=== PATIENT | female | born 1945 | race Asian ===

== ENCOUNTER 2016-06-22 20:37 | Emergency (ER) | payer MEDICARE ==
[~2016-06-22] VITALS: Ht 157.5 cm; Wt 58.0 kg
[~2016-06-22 20:37] MED LIST: AMLO5TAB2 PO; CALC600T25; CANA300T PO; CYCL1TAB29 PO; DRIS50002 PO; HYDR-3133 PO; HYDR10 PO; HYDR12.56 PO; JANU50TA4 PO; L-ME1CAP2 PO; LANTUS2P SQ; LOSA50TA PO; METF500 PO; SYNT112T PO; TRIA.1%T TOP
[2016-06-22 20:45] VITALS: BP 150/81; PULSE 96; RESP 18; TEMP 98.6; O2SAT 97
--- NOTE | 2016-06-22 21:03 | PD ---
HPI Chief Complaint: foot injury Time Seen by Provider: 20:59 Travel History International Travel<30 days: No Contact w/Intl Traveler<30days: No History of Present Illness HPI 70-year-old female presents to the emergency department after she states the table fell on her bilateral feet. She states she is working at the computer when the leg of the table broke and hit her feet. Patient has been ambulatory since. She denies any other injury. She does have a history of diabetes and hypothyroidism. Patient states the right foot is worse than the left foot. No lacerations or abrasions. No other symptoms. PFSH Past Medical History Diabetes: Yes Hypertension: Yes Thyroid Disease: Yes (HYPO) Social History Alcohol Use: No Tobacco Use: No Substance Use: No Allergies-Medications (Allergen,Severity, Reaction): Coded Allergies: Latex (Verified Allergy, Intermediate, RASH, 05/28/16) Reported Meds & Prescriptions Reported Meds & Active Scripts Active Hydroxyzine HCl 25 Mg Tab 25 Mg PO TID Invokana (Canagliflozin) 300 Mg Tab 300 Mg PO DAILY Take before 1st meal of day. Synthroid (Levothyroxine Sodium) 112 Mcg Tab 112 Mcg PO DAILY One tablet daily and 1/2 on Tuesday. Metanx (o-Ybjskudsbwnp-Ttwir) 1 Cap 1 Cap PO DAILY Hydrochlorothiazide 12.5 Mg Tab 12.5 Mg PO THREE DAYS PER WEEK One tablet three days per week. Reported Glucophage (Metformin HCl) 500 Mg Tab 500 Mg PO DAILY With a meal Losartan (Losartan Potassium) 50 Mg Tab 50 Mg PO BID Janumet (Sitagliptin-Metformin) 50-500 Mg Tab 1 Tab PO BID Lantus Inj (Insulin Glargine) 1,000 Unit/10 Ml Vial 12 Units SQ HS Drisdol (Ergocalciferol) 50,000 Unit Cap 50,000 Units PO Q7D Amlodipine (Amlodipine Besylate) 5 Mg Tab 5 Mg PO BID Calcium (Calcium Carbonate) 600 Mg Tab Review of Systems Except as stated in HPI: all other systems reviewed are Neg Physical Exam Narrative GENERAL: Well-nourished, well-developed elderly female patient, ambulatory. Afebrile. SKIN: Focused skin assessment warm/dry. Small Ecchymosis noted over right dorsal foot. HEAD: Normocephalic. Atraumatic. EYES: No scleral icterus. No injection or drainage. NECK: Supple, trachea midline. No JVD or lymphadenopathy. CARDIOVASCULAR: Regular rate and rhythm without murmurs, gallops, or rubs. Bilateral pedal pulses are 2+. RESPIRATORY: Breath sounds equal bilaterally. No accessory muscle use. Lungs sounds are clear to auscultation GASTROINTESTINAL: Abdomen soft, non-tender, nondistended. MUSCULOSKELETAL: No cyanosis, or edema. BACK: Nontender without obvious deformity. No CVA tenderness. Data Data Last Documented VS Vital Signs Date Time Temp Pulse Resp B/P Pulse Ox O2 Delivery O2 Flow Rate FiO2 06/22/16 20:45 98.6 96 18 150/81 97 Orders Foot, Complete (Irp6mdm) (06/22/16 ) Foot, Complete (Tpc1vta) (06/22/16 ) [facility] Medical Decision Making Medical Screen Exam Complete: Yes Emergency Medical Condition: Yes Medical Record Reviewed: Yes Interpretation(s) x-ray right foot CONCLUSION: Normal examination for a patient of this age. x-ray left foot - CONCLUSION: 1. No acute fracture. There is a soft tissue calcification in the left heel measuring about 7 mm in diameter. Bone spur present posterior calcaneus. Differential Diagnosis Contusion versus fracture versus sprain Narrative Course 70-year-old female presents to the emergency department for evaluation of bilateral foot pain after a table fell on her feet. X-ray of the right foot and left foot are ordered and pending. X-ray of the right foot is normal. X-ray of the left foot shows no acute fracture, soft tissue calcifications left heel. This is not where the patient is having any pain. Patient has pain on the dorsal foot. Patient is requesting Dennis bandage. These are applied to the bilateral feet. Patient's discharge ice and take Tylenol brcg-isj-lvbctam as needed for pain. She verbalizes agreement and understanding. The patient was discharged in stable condition with instructions, including return instructions and follow up instructions. Diagnosis Primary Impression: Foot contusion Qualified Code: S90.30XA - Contusion of foot, unspecified laterality, initial encounter Referrals: Primary Care Physician call for appointment Patient Instructions: Contusion in Adults (ED), General Instructions Additional Instructions: Wear Dennis bandages as needed for support. Ice for 20 minutes 4-5 times daily. Zyjr-ths-[id number] Tylenol every 4 hours as needed for pain. Follow-up with your primary care physician. Return to the emergency department for any acute worsening of symptoms. Med/Other Pt SpecificInfo: No Change to Meds Disposition: 01 DISCHARGE HOME Condition: Stable Janet Littlejohn June 22, 2016 21:03
--- NOTE | 2016-06-22 22:07 | RADHPO ---
EXAM DATE/TIME: 06/22/2016 21:02 [facility] COMPARISON: No previous studies available for comparison. INDICATIONS : Left foot pain. Patient states she kicked the leg of a table. MEDICAL HISTORY : None. SURGICAL HISTORY : None. ENCOUNTER: Initial ACUITY: 1 day PAIN SCORE: 9/10 LOCATION: Left foot. FINDINGS: Three view examination of the left foot demonstrates no soft tissue swelling, dislocation, or fractur e. The tarsal bones appear intact. The interphalangeal and metatarsophalangeal joints are intact. The calcaneus is intact. Bony mineralization is normal. CONCLUSION: 1. No acute fracture. There is a soft tissue calcification in the left heel measuring about 7 mm in d iameter. Bone spur present posterior calcaneus. Georges Azar MD on June 22, 2016 at 22:03 Board Certified Radiologist. This report was verified electronically.
--- NOTE | 2016-06-22 22:08 | RADHPO ---
EXAM DATE/TIME: 06/22/2016 21:02 [facility] COMPARISON: No previous studies available for comparison. INDICATIONS : Right foot pain. Patient states she kicked the leg of a table. MEDICAL HISTORY : None. SURGICAL HISTORY : None. ENCOUNTER: Initial ACUITY: 1 day PAIN SCORE: 9/10 LOCATION: Right foot. FINDINGS: Three view examination of the right foot demonstrates no soft tissue swelling, dislocation, or fractu re. The tarsal bones appear intact. The interphalangeal and metatarsophalangeal joints are intact. The calcaneus is intact. Bony mineralization is normal. CONCLUSION: Normal examination for a patient of this age. Georges Azar MD on June 22, 2016 at 22:05 Board Certified Radiologist. This report was verified electronically.
[2016-06-23] MEDS ORDERED: AMLO5TAB2 PO (09:30)
[2016-07-23] MEDS ORDERED: ZANA2CAP PO (16:20)
== END 2016-06-22 22:20 | disposition home or self-care (01) ==
LOC: PHEFT 20:37
DX: S90.31XA Contusion of right foot, initial encounter (principal); M77.32 Calcaneal spur, left foot; E11.9 Type 2 diabetes mellitus without complications; I10 Essential (primary) hypertension; E03.9 Hypothyroidism, unspecified; Z79.899 Other long term (current) drug therapy; W22.03XA Walked into furniture, initial encounter
CPT/HCPCS: 73630; 99283

== ENCOUNTER 2016-12-03 11:04 | Inpatient (IN) | payer MEDICARE ==
[~2016-12-03] VITALS: Ht 157.5 cm; Wt 54.1 kg
[2016-12-03] VITALS (23 sets, daily range): BP systolic 82–182; BP diastolic 50–93; PULSE 74–115; RESP 14–22; TEMP 98.2; O2SAT 90–100
[~2016-12-03 11:04] MED LIST changes: -CANA300T PO; -DRIS50002 PO; +ERGO1CAP30 PO; -HYDR10 PO; -JANU50TA4 PO; +LEVO.1 PO; +SITA1TAB2 PO; -SYNT112T PO; -TRIA.1%T TOP; +ZANA2CAP PO
[2016-12-03] MEDS ORDERED: IODIXANOL 320 MG/ML 10 ML VIAL (for Rad CT) IVCONTRAST ONE (11:05)
[2016-12-03] MEDS ORDERED: SODIUM CHLOR 0.9% 1000 ML INJ 1,000 ML IV ONE ×4 (11:15→14:30)
[2016-12-03] MEDS ORDERED: LOSA50TA PO (11:25)
[2016-12-03] MEDS ORDERED: PROPOFOL 1000 MG/100 ML INJ 100 ML ONE (11:27)
[2016-12-03] MEDS ORDERED: PROPOFOL 1000 MG/100 ML INJ 100 ML IV PRN (11:30)
[2016-12-03 11:39] LABS: AUTOMATED NEUTROPHIL # 11.9 TH/MM3 (1.8-7.7); BASOPHIL # 0.1 TH/MM3 (0-0.2); BASOPHIL % 0.7 % (0.0-2.0); EOSINOPHIL # 0.4 TH/MM3 (0-0.4); EOSINOPHIL % 1.8 % (0.0-4.0); HEMATOCRIT 43.4 % (35.0-46.0); HEMOGLOBIN 12.7 GM/DL (11.6-15.3); LYMPH % 33.6 % (9.0-44.0); LYMPHOCYTE # 6.8 TH/MM3 (1.0-4.8); MEAN CELL VOLUME 81.9 FL (80.0-100.0); MEAN PLATELET VOLUME 8.4 FL (7.0-11.0); MONO % 5.5 % (0.0-8.0); MONOCYTE # 1.1 TH/MM3 (0-0.9); NEUT % 58.4 % (16.0-70.0); PLATELET COUNT 386 TH/MM3 (150-450); RED CELL DISTRIBUTION WIDTH 18.9 % (11.6-17.2); WHITE BLOOD COUNT 20.3 TH/MM3 (4.0-11.0)
--- NOTE | 2016-12-03 11:40 | RADRPT ---
EXAM DATE/TIME: 12/03/2016 11:18 [facility] COMPARISON: No previous studies available for comparison. INDICATIONS : Stroke alert; right side weakness, unresponsive. RADIATION DOSE: 56.35 CTDIvol (mGy) This report was called to ED nurse (attending physician on another call at the time) at 11: 35 am MEDICAL HISTORY : Hypothyroidism. Diabetes mellitus type 2. Hypertension. SURGICAL HISTORY : Tonsillectomy. ENCOUNTER: Initial ACUITY: 1 day PAIN SCALE: Non-responsive LOCATION: cranial TECHNIQUE: Multiple contiguous axial images were obtained of the head. Using automated exposure control and adj ustment of the mA and/or kV according to patient size, radiation dose was kept as low as reasonably a chievable to obtain optimal diagnostic quality images. DICOM format image data is available electro nically for review and comparison. FINDINGS: CEREBRUM: The ventricles are normal for age. No evidence of midline shift, mass lesion, hemorrhage or acute in farction. No extra-axial fluid collections are seen. There is a rounded lacunar infarct in the post erior right lentiform nucleus measuring 9 mm. POSTERIOR FOSSA: The cerebellum and brainstem are intact. The 4th ventricle is midline. The cerebellopontine angle i s unremarkable. EXTRACRANIAL: The visualized portion of the orbits is intact. SKULL: The calvaria is intact. No evidence of skull fracture. CONCLUSION: 1. No acute findings. 2. Old right basal ganglia infarct. Gabriel Umaña MD on December 03, 2016 at 11:33 Board Certified Radiologist. This report was verified electronically.
[2016-12-03 11:41] LABS: MEAN CORPUSCULAR HGB CONC 29.4 % (32.0-36.0)
[2016-12-03] MEDS ORDERED: CEFEPIME INJ 2,000 MG in SODIUM CHLORIDE 0.9% INJ 100 ML IV STA (11:44)
[2016-12-03] MEDS ORDERED: VANCOMYCIN INJ 1,000 MG in SODIUM CHLOR 0.9% 250 ML INJ 250 ML IV STA (11:44)
--- NOTE | 2016-12-03 11:48 | PD ---
HPI Chief Complaint: Stroke Alert Time Seen by Provider: 11:15 Travel History International Travel<30 days: No Contact w/Intl Traveler<30days: No Traveled to known affect area: No History of Present Illness HPI 71 y/o female presents with decreased mentation by ambulance as a possible STEMI alert. They state that she has not moved her right arm any during transport. Report was she was found in her car with her and did not have any known trauma. When they arrived on scene she had a GCS of 8 and low sats in 60's despite [id number]-iihea-ptbe ventilation. Patient is unresponsive and cannot provide me with any history. PFS Past Medical History Medical History: Unable to Obtain Diabetes: Yes Diminished Hearing: No Hypertension: Yes Thyroid Disease: Yes (HYPO) Past Surgical History Surgical History: Unable to Obtain Tonsillectomy: Yes Social History Narrative Social History By records Alcohol Use: No Tobacco Use: No Substance Use: No Allergies-Medications (Allergen,Severity, Reaction): Coded Allergies: latex (Unverified Allergy, Intermediate, RASH, 12/03/16) Reported Meds & Prescriptions Reported Meds & Active Scripts Active Flexeril (Cyclobenzaprine HCl) 10 Mg Tab 10 Mg PO TID Januvia (Sitagliptin Phosphate) 100 Mg Tab 100 Mg PO DAILY Synthroid (Levothyroxine Sodium) 100 Mcg Tab 100 Mcg PO DAILY Zanaflex (Tizanidine HCl) 2 Mg Cap 2 Mg PO TID Metanx (y-Fjaegbsdvtmp-Vaxir) 1 Cap 1 Cap PO DAILY Glucophage (Metformin HCl) 500 Mg Tab 500 Mg PO DAILY With a meal Lantus Inj (Insulin Glargine) 1,000 Unit/10 Ml Vial 9 Units SQ HS 9 units daily or as directed Ergocalciferol 50,000 Unit Cap 50,000 Units PO Q7D Amlodipine (Amlodipine Besylate) 5 Mg Tab 5 Mg PO BID Hydroxyzine HCl 25 Mg Tab 25 Mg PO TID Hydrochlorothiazide 12.5 Mg Tab 12.5 Mg PO THREE DAYS PER WEEK One tablet three days per week. Reported Losartan (Losartan Potassium) 50 Mg Tab 50 Mg PO BID Losartan (Losartan Potassium) 50 Mg Tab 50 Mg PO BID Calcium (Calcium Carbonate) 600 Mg Tab Review of Systems ROS Limitations: Clinical Condition Except as stated in HPI: all other systems reviewed are Neg Physical Exam Exam Limitations: Clinical Condition Narrative General: 71 y/o patient who appears ill Skin: Warm and dry Eyes: Pupils are equal NECK: Trachea midline Cardiovascular: Regular rate and rhythm Respiratory: Decreased respiratory effort noted, coarse bilaterally Abdomen: nondistended Neuro: Patient did not move her right arm or leg, patient had a rightward gaze, patient unresponsive with sternal rub and only moans Data Data Last Documented VS Vital Signs Date Time Temp Pulse Resp B/P (MAP) Pulse Ox O2 Delivery O2 Flow Rate FiO2 12/03/16 12:35 82 14 102/55 (71) 100 Ventilator 14.00 100 12/03/16 11:04 98.2 Orders Orders Diet Npo (12/03/16 Lunch) Activity Bed Rest (12/03/16 ) Electrocardiogram (12/03/16 ) I-Stat Creatinine (12/03/16 11:15) I-Stat Profile (12/03/16 11:15) Prothrombin Time / Inr (Pt) (12/03/16 11:15) Act Partial Throm Time (Ptt) (12/03/16 11:15) Complete Blood Count With Diff (12/03/16 11:15) Fibrinogen (12/03/16 11:15) Creatine Kinase (Cpk) (12/03/16 11:15) Troponin I (12/03/16 11:15) Ua Includes Microscopic (12/03/16 11:15) Drug Screen, Random Urine (12/03/16 11:15) Type And Screen (12/03/16 11:15) Ct Brain W/O Iv Contrast(Rout) (12/03/16 ) Chest, Single Ap (12/03/16 ) Cta Brain W Iv Contrast W 3d (12/03/16 11:15) Cta Neck W Iv Contrast W 3d (12/03/16 11:15) Consult Neurology (12/03/16 ) Blood Glucose (12/03/16 11:15) Ecg Monitoring (12/03/16 11:15) Neuro Checks Q2HX12,Q4H (12/03/16 11:15) Iv Access Insert/Monitor (12/03/16 11:15) NPO (12/03/16 11:15) Oximetry (12/03/16 11:15) Oxygen Administration (12/03/16 11:15) Sodium Chlor 0.9% 1000 Ml Inj (Ns 1000 M (12/03/16 11:15) Cath For Specimen (12/03/16 11:15) Propofol 1000 Mg/100 Ml Inj (Diprivan 10 (12/03/16 11:30) ^ Infusion (12/03/16 11:28) RASS (12/03/16 11:28) Neurological Rass Scale NIMCO.Q2H (12/03/16 11:28) Propofol 1000 Mg/100 Ml Inj (Diprivan 10 (12/03/16 11:27) Consult Cardiology (12/03/16 ) Lactic Acid Sepsis Protocol (12/03/16 11:41) Arterial Blood Gas (Abg) (12/03/16 11:41) Blood Culture (12/03/16 11:41) Sodium Chlor 0.9% 1000 Ml Inj (Ns 1000 M (12/03/16 11:45) Iodixanol 320 Inj (Rad Ct) (Visipaque 32 (12/03/16 11:05) Vancomycin Inj (Vancomycin Inj) (12/03/16 11:44) Cefepime Inj (Maxipime Inj) (12/03/16 11:44) (Hub Use Only)Inp Phy Cons/Ref (12/03/16 ) Ct Abd/Pel W Iv Contrast(Rout) (12/03/16 12:19) Ct Pulmonary Angiogram (12/03/16 12:19) Comprehensive Metabolic Panel (12/03/16 12:26) Beta Hydroxybutyrate (Acetone) (12/03/16 12:26) Sodium Chlor 0.9% 1000 Ml Inj (Ns 1000 M (12/03/16 12:45) Midazolam Inj (Versed Inj) (12/03/16 12:45) B-Type Natriuretic Peptide (12/03/16 12:31) Admit Order (Ed Use Only) (12/03/16 12:36) Midazolam 100 Mg/100 Ml Inj (Versed Inj) (12/03/16 12:45) Neurological Rass Scale Q30MX2,Q2HX4,Q4H (12/03/16 12:36) Labs Laboratory Tests Test 12/03/16 11:15 12/03/16 11:41 12/03/16 12:10 White Blood Count 20.3 TH/MM3 Red Blood Count 5.30 MIL/MM3 Hemoglobin 12.7 GM/DL Bedside Hemoglobin 15.0 G/DL Hematocrit 43.4 % Bedside Hematocrit 44.0 % Mean Corpuscular Volume 81.9 FL Mean Corpuscular Hemoglobin 24.0 PG Mean Corpuscular Hemoglobin Concent 29.4 % Red Cell Distribution Width 18.9 % Platelet Count 386 TH/MM3 Mean Platelet Volume 8.4 FL Neutrophils (%) (Auto) 58.4 % Lymphocytes (%) (Auto) 33.6 % Monocytes (%) (Auto) 5.5 % Eosinophils (%) (Auto) 1.8 % Basophils (%) (Auto) 0.7 % Neutrophils # (Auto) 11.9 TH/MM3 Lymphocytes # (Auto) 6.8 TH/MM3 Monocytes # (Auto) 1.1 TH/MM3 Eosinophils # (Auto) 0.4 TH/MM3 Basophils # (Auto) 0.1 TH/MM3 CBC Comment AUTO DIFF Differential Total Cells Counted 100 Neutrophils % (Manual) 63 % Band Neutrophils % 3 % Lymphocytes % 25 % Monocytes % 5 % Eosinophils % 2 % Basophils % 1 % Neutrophils # (Manual) 13.6 TH/MM3 Metamyelocytes 1 % Differential Comment FINAL DIFF MANUAL Platelet Estimate NORMAL Platelet Morphology Comment NORMAL Ovalocytes 1+ Acanthocytes OCC Prothrombin Time 13.1 SEC Prothromb Time International Ratio 1.2 RATIO Activated Partial Thromboplast Time 39.1 SEC Fibrinogen 392 mg/dL Bedside Sodium 139 MMOL/L Blood Urea Nitrogen 13 MG/DL Creatinine 1.06 MG/DL Random Glucose 453 MG/DL Total Protein 7.9 GM/DL Albumin 3.7 GM/DL Calcium Level 9.0 MG/DL Alkaline Phosphatase 42 U/L Aspartate Amino Transf (AST/SGOT) 25 U/L Alanine Aminotransferase (ALT/SGPT) 23 U/L Total Bilirubin 0.8 MG/DL Sodium Level 136 MEQ/L Potassium Level 4.2 MEQ/L Chloride Level 104 MEQ/L Carbon Dioxide Level 15.2 MEQ/L Bedside Potassium 4.1 MMOL/L Bedside Chloride 106 MMOL/L Anion Gap 17 MEQ/L Bedside Blood Urea Nitrogen 15 MG/DL Bedside Creatinine 0.7 MG/DL Estimat Glomerular Filtration Rate 51 ML/MIN Bedside Glucose 455 MG/DL Total Creatine Kinase 67 U/L Troponin I 0.02 NG/ML B-Type Natriuretic Peptide 547 PG/ML Thyroid Stimulating Hormone 3rd Gen 1.620 uIU/ML B-Hydroxybutyrate 0.16 MMOL/L Blood Gas Puncture Site LT RADIAL Blood Gas Patient Temperature 98.6 Blood Gas HCO3 17 mmol/L Blood Gas Base Excess -8.7 mmol/L Blood Gas Oxygen Saturation 90 % Arterial Blood pH 7.27 Arterial Blood Partial Pressure CO2 38 mmHg Arterial Blood Partial Pressure O2 70 mmHG Arterial Blood Oxygen Content 14.7 Vol % Arterial Blood Carboxyhemoglobin 0.9 % Arterial Blood Methemoglobin 0.8 % Blood Gas Hemoglobin 11.7 G/DL Oxygen Delivery Device VENTILATOR Blood Gas Ventilator Setting PRVC/AC Blood Gas Inspired Oxygen 100 % Urine Color YELLOW Urine Turbidity HAZY Urine pH 6.[address] 1.036 Urine Protein 300 mg/dL Urine Glucose (UA) 1000 mg/dL Urine Ketones NEG mg/dL Urine Occult Blood SMALL Urine Nitrite NEG Urine Bilirubin NEG Urine Urobilinogen LESS THAN 2.0 MG/DL Urine Leukocyte Esterase NEG Urine RBC 6 /hpf Urine WBC 6 /hpf Urine Squamous Epithelial Cells 2 /hpf Urine Amorphous Sediment FEW Urine Bacteria FEW /hpf Urine Hyaline Casts 4 /lpf Urine Granular Casts 1 /lpf Urine Mucus FEW /lpf Urine Opiates Screen NEG Urine Barbiturates Screen NEG Urine Amphetamines Screen NEG Urine Benzodiazepines Screen NEG Urine Cocaine Screen NEG Urine Cannabinoids Screen NEG MDM Medical Decision Making Medical Screen Exam Complete: Yes Emergency Medical Condition: Yes Medical Record Reviewed: Yes (past history confirmed) Interpretation(s) EKG shows ST segment depression inferiorly and elevation anteriorly, ST depression V5 V6 as well the patient has underlying left bundle which was on prior which limits interpretation-personally sent to lumber chain offbearer who states not STEMI alert CBC & BMP Diagram 12/03/16 11:15 Total Protein 7.9, Albumin 3.7, Calcium Level 9.0, Alkaline Phosphatase 42 L, Aspartate Amino Transf (AST/SGOT) 25, Alanine Aminotransferase (ALT/SGPT) 23, Total Bilirubin 0.8 Last [address] Angiography 12/03/161218 Signed Impressions: Service Date/Time: Saturday, December 03, 2016 14:45 - CONCLUSION: 1. The study is negative for pulmonary embolism. 2. Right lower lobe are consolidation, patchy areas of consolidation left lower lung, diffuse increased ground substance in the mid and upper lungs and bilateral pleural effusions. Gabriel Umaña MD Abdomen/Pelvis CT 12/03/169 Signed Impressions: Service Date/Time: Saturday, December 03, 2016 14:45 - CONCLUSION: 1. Bilateral pleural effusions and lower lung consolidation, right worse than left. 2. 12 mm cortical target lesion in the midpole cortex of the right kidney with adjacent sub-capsular fluid it is of uncertain significance. Recommend correlation with clinical history for possible recent biopsy. A renal mass cannot be excluded. Gabriel Umaña MD Neck CTA 12/03/16 1115 Signed Impressions: Service Date/Time: Saturday, December 03, 2016 11:20 - CONCLUSION: 1. 60%% narrowing due to an eccentric calcification in the left carotid bulb. 2. Left dominant vertebral system. Gabriel Umaña MD Head CTA 12/03/16 1115 Signed Impressions: Service Date/Time: Saturday, December 03, 2016 11:20 - CONCLUSION: Absent flow in right A1 segment with patent anterior communicating artery providing flow to the A2 segment. No aneurysms seen. Gabriel Umaña MD ADDENDUM: Questionable 2-3 mm aneurysm in the right middle cranial fossa off a branch vessel of the right MCA territory. Anatomic detail is limited due to the proximity of the adjacent skull base. When patient is stable, MRA could be considered although, the peripheral location of the potential lesion may make it difficult to visualize on that technique as well. Pj Todd MD Head CT 12/03/16 0000 Signed Impressions: Service Date/Time: Saturday, December 03, 2016 11:18 - CONCLUSION: 1. No acute findings. 2. Old right basal ganglia infarct. Gabriel Umaña MD Chest X-Ray 12/03/16 0000 Signed Impressions: Service Date/Time: Saturday, December 03, 2016 12:34 - CONCLUSION: Diffuse pulmonary consolidations with tiny right effusion. Gabriel Henao Jr., MD Patient has metabolic acidosis with pH is 7.27 and bicarbonate is 17, PO2 is 70 despite FiO2 of 100% so increased PEEP and will need to be closely monitor Insulin drip was initiated after review of glucose and bicarbonate Differential Diagnosis Stroke, bleed, seizure, postictal, syncope, PE, flash pulmonary edema, sepsis, HI...... Narrative Course Patient was emergently intubated and stroke alert was initiated given initial examination. Process Area Supervisor sent EKG and states no STEMI alert. I went with patient to CT and no bleed or large lesion noted and discussed with radiologist. Went Back with patient and discussed with both cardiology and neurology and updated both son who is a physician in [place] over the phone and 2 separate occasions about complex case. Sedation was adjusted multiple times given intermittent hypotension. After review of chest x-ray stat echocardiogram was ordered after discussion with cardiology. Cultures and lactic acid and broad-spectrum antibiotics were also added. Multiple updates to both physicians and family in regards to complex case, she'll be monitored closely in the ICU area. Critical Care Narrative Aggregate critical care time was 125 minutes. Time to perform other separately billable procedures was not included in the critical care time. My time did not include minutes spent treating any other patients simultaneously or on activities that did not directly contribute to the patient's treatment. The services I provided to this patient were to treat and/or prevent clinically significant deterioration that could result in: Septic shock, cardiogenic shock, stroke, bleed, I provided critical care services requiring my management, as noted below: Chart data review, documentation time, medication orders and management, vital sign assessments/reviewing monitor data, ordering and reviewing lab tests, ordering and interpreting/reviewing x-rays and diagnostic studies, care of the patient and discussion of the patient with the admitting physicians. Procedures Procedure Narrative After the risks and benefits were discussed the following procedure was performed: INTUBATION: The patient was put in optimal position for the procedure. Rapid sequence intubation was initiated by me using 20 milligrams of etomidate IV and 100 milligrams of succinylcholine IV. The patient was intubated with a 7.5 cuffed endotracheal tube. Tube placement was confirmed by visualization of the tube and balloon passing through the cords, capnometry and subsequent chest x- ray. Breath sounds were equal and well aerated bilaterally postintubation. No breath sounds over stomach. Patient tolerated procedure well. Sepsis Criteria SIRS Criteria (2 or more): Heart rate over 90, WBC > 10193, < 4000 or > 10% bands Sepsis Criteria (SIRS+source): Infect source susp/known Severe Sepsis (+one): Lactate >2 Septic Shock Criteria: Lactic acid >=4 Criteria Outcome: Meets septic shock criteria Physician Communication Physician Communication dr davenport states given she started to move in CT when sedation was held no indication at this time for TPA given also CTA shows no indicative lesion she could have other reason for syncope and decreased mentation and was updated multiple times dr delaney states not STEMI alert was updated multiple times, agrees to stat echo Interventional professor of radiology states no stent-able lesion dr gooden agrees to admission and was updated multiple times Diagnosis Primary Impression: Respiratory failure Qualified Codes: J96.00 - Acute respiratory failure, unspecified whether with hypoxia or hypercapnia Additional Impressions: Syncope Qualified Codes: R55 - Syncope and collapse Unresponsive Right arm weakness Pulmonary edema Qualified Codes: J81.0 - Acute pulmonary edema Sepsis Qualified Codes: A41.9 - Sepsis, unspecified organism Metabolic acidemia DKA (diabetic ketoacidoses) Admitting Information Admitting Physician Requests: Admit Melisa Bergman MD Dec 03, 2016 11:47
[2016-12-03 11:52] LABS: INTERNATIONAL NORMALIZED RATIO 1.2 RATIO; PROTHROMBIN TIME - PATIENT 13.1 SEC (9.8-11.6)
[2016-12-03 12:05] LABS: TROPONIN I 0.02 NG/ML (0.02-0.05)
--- NOTE | 2016-12-03 12:13 | RADRPT ---
EXAM DATE/TIME: 12/03/2016 11:20 This report includes an Addendum and supersedes previous reports for this exam. [facility] COMPARISON: No previous studies available for comparison. INDICATIONS : Stroke alert; right side weakness, unresponsive. IV CONTRAST: 47 cc Visipaque (iodixanol) IV ; Cumulative dose for multiple exams. RADIATION DOSE: 17.22 CTDIvol (mGy) ; Combined studies MEDICAL HISTORY : Hypothyroidism. Hypertension. Diabetes mellitus type 2. SURGICAL HISTORY : Tonsillectomy. ENCOUNTER: Initial ACUITY: 1 day PAIN SCALE: Non-responsive LOCATION: cranial TECHNIQUE: Volumetric scanning was performed using a multi-row detector CT scanner. The data was post processed with a variety of visualization algorithms including full volume maximum intensity projection, multi -planar sliding thin slab reformation, curved planar reformation, and surface rendering techniques. Using automated exposure control and adjustment of the mA and/or kV according to patient size, radiat ion dose was kept as low as reasonably achievable to obtain optimal diagnostic quality images. DICO M format image data is available electronically for review and comparison. FINDINGS: There is absent flow in the right A1 segment. There is reconstitution of flow in the A2 segment via anterior communicating artery. Flow is seen in both PCOM. The basilar artery is normal in dimension . No evidence of aneurysm. CONCLUSION: Absent flow in right A1 segment with patent anterior communicating artery providing flow to the A2 se gment. No aneurysms seen. Gabriel Umaña MD on December 03, 2016 at 12:09 Board Certified Radiologist. This report was verified electronically. ADDENDUM: Questionable 2-3 mm aneurysm in the right middle cranial fossa off a branch vessel of the right MCA t erritory. Anatomic detail is limited due to the proximity of the adjacent skull base. When patient is stable, MRA could be considered although, the peripheral location of the potential lesion may make i t difficult to visualize on that technique as well. Pj Todd MD on December 03, 2016 at 12:37 Board Certified Radiologist. This report was verified electronically.
[2016-12-03 12:18] LABS: BANDS 3 % (0-6); BASOPHILS 1 % (0-2); LYMPHOCYTES 25 % (9-44); METAMYELOCYTES 1 % (0-1); MONOCYTES 5 % (0-8); NEUTROPHIL # MANUAL DIFF 13.6 TH/MM3 (1.8-7.7); POLYS (SEG NEUTROPHILS) 63 % (16-70)
[2016-12-03 12:19] LABS: OVALOCYTES 1+ (NORMAL)
[2016-12-03 12:20] LABS: ACANTHOCYTES OCC (NORMAL)
--- NOTE | 2016-12-03 12:20 | RADRPT ---
EXAM DATE/TIME: 12/03/2016 11:20 [facility] COMPARISON: No previous studies available for comparison. INDICATIONS : Stroke alert; right side weakness, unresponsive. IV CONTRAST: 47 cc Visipaque (iodixanol) IV ; Cumulative dose for multiple exams. RADIATION DOSE: 17.22 CTDIvol (mGy) ; Combined studies MEDICAL HISTORY : Hypothyroidism. Hypertension. Diabetes mellitus type 2. SURGICAL HISTORY : Tonsillectomy. ENCOUNTER: Initial ACUITY: 1 day PAIN SCALE: Non-responsive LOCATION: neck Elevated flow velocities and ICA/CCA ratios have been found to correlate with increased degrees of vessel stenosis, calculated as percentage of diameter relative to a normal segment of distal ICA/CCA. TECHNIQUE: Volumetric scanning was performed using a multirow detector CT scanner. The data was post processed with a variety of visualization algorithms including full-volume maximum intensity projection, multip lanar sliding thin-slab reformation, curved-planar reformation, and surface-rendering techniques. Us ing automated exposure control and adjustment of the mA and/or kV according to patient size, radiatio n dose was kept as low as reasonably achievable to obtain optimal diagnostic quality images. DICOM f ormat image data is available electronically for review and comparison. FINDINGS: AORTIC ARCH: There is a three-vessel origin of the great vessels from the aorta. The ostia of the great vessels a re not included in the [id number] and scan. RIGHT CAROTID: The common carotid artery is intact. The carotid bulb has a normal configuration without ulceration o r narrowing. The internal carotid artery lumen is smooth without stenosis. The external carotid chandler ry is intact. LEFT CAROTID: The common carotid artery is intact. There is a prominent eccentric calcification posterior wall of the carotid bulb which causes a 60% narrowing of the lumen. There is no poststenotic dilatation. Th e internal carotid artery lumen is smooth without stenosis. The external carotid artery is intact. VERTEBRALS: Left dominant vertebral system. CONCLUSION: 1. 60% narrowing due to an eccentric calcification in the left carotid bulb. 2. Left dominant vertebral system. Gabriel Umaña MD on December 03, 2016 at 12:11 Board Certified Radiologist. This report was verified electronically.
[2016-12-03 12:38] LABS: AMORPHOUS SEDIMENT, URINE FEW; BACTERIA, URINE FEW /hpf; BILIRUBIN, URINE NEG (NEG); BLOOD, URINE SMALL (NEG); GLUCOSE,URINE 1000 mg/dL (NEG); HYALINE CAST, URINE 4 /lpf (RARE); KETONE, URINE NEG (NEG); MUCUS URINE FEW /lpf (OCC); NITRITE,URINE NEG (NEG); SQUAMOUS EPITHELIAL CELL URINE 2 /hpf (0-5); URINE COLOR YELLOW (YELLW/STRAW); URINE LEUKOCYTE ESTERASE NEG (NEG)
[2016-12-03] MEDS ORDERED: MIDAZOLAM HCL 2 MG/2 ML VIAL IV PUSH ONE (12:45)
[2016-12-03] MEDS ORDERED: MIDAZOLAM 100 MG/100 ML INJ 100 ML ONE (12:51)
[2016-12-03] MEDS ORDERED: AZITHROMYCIN INJ 500 MG in SODIUM CHLOR 0.9% 250 ML INJ 250 ML IV STA (12:52)
[2016-12-03] MEDS ORDERED: DEXT 5%-NACL 0.9% 1000 ML INJ 1,000 ML IV SCH (12:54)
[2016-12-03] MEDS ORDERED: SODIUM CHLOR 0.9% 1000 ML INJ 1,000 ML IV SCH (12:54)
[2016-12-03] MEDS ORDERED: INSULIN REGULAR (IV INFUSION) 100 UNITS in SODIUM CHLORIDE 0.9% INJ 99 ML IV PRN (13:00)
[2016-12-03] MEDS ORDERED: SODIUM PHOSPHATE INJ 15 MMOL in SODIUM CHLORIDE 0.9% INJ 100 ML IV PRN (13:00)
[2016-12-03] MEDS ORDERED: MISCELLANEOUS NURSING INFORMATION XX SCH (13:00)
[2016-12-03] MEDS ORDERED: MAGNESIUM HYDROXIDE SUSP 30 ML CUP PO PRN (13:00)
[2016-12-03] MEDS ORDERED: POTASSIUM CHLOR 40 MEQ PREMIX 100 ML IV PRN ×2 (13:00)
[2016-12-03] MEDS ORDERED: PROPOFOL 500 MG/50 ML BTL IV ONE (13:00)
[2016-12-03] MEDS ORDERED: POTASSIUM CHLOR 20 MEQ PREMIX 100 ML IV PRN ×6 (13:00)
[2016-12-03] MEDS ORDERED: LACTULOSE SYRUP 20 GM/30 ML CUP PO PRN (13:00)
[2016-12-03] MEDS ORDERED: SODIUM BICARBONATE 8.4% SOLN 50 MEQ/50 ML VIAL IV PUSH PRN ×2 (13:00)
[2016-12-03] MEDS ORDERED: BISACODYL 10 MG SUPP RECTAL PRN (13:00)
[2016-12-03] MEDS ORDERED: CHLORHEXIDINE GLUCONATE 2 % 1 PACK (2 CLOTHS) TOP PRN (13:00)
[2016-12-03] MEDS: PANTOPRAZOLE SODIUM 40 MG VIAL IV PUSH SCH (13:00)
[2016-12-03] MEDS ORDERED: SENNOSIDES 8.6 MG TAB PO PRN (13:00)
[2016-12-03] MEDS ORDERED: INSULIN HUMAN REGULAR 1,000 UNITS/10 ML VIAL IV PUSH ONE (13:00)
[2016-12-03] MEDS: MIDAZOLAM 100 MG/100 ML INJ 100 ML IV PRN (13:06)
--- NOTE | 2016-12-03 13:07 | RADRPT ---
EXAM DATE/TIME: 12/03/2016 12:34 [facility] COMPARISON: No previous studies available for comparison. INDICATIONS : Stroke alert. MEDICAL HISTORY : Hypothyroidism. Hypertension. Diabetes mellitus type 2. SURGICAL HISTORY : Tonsillectomy. ENCOUNTER: Initial ACUITY: 1 day PAIN SCORE: Non-responsive. LOCATION: Bilateral chest FINDINGS: A single portable frontal view of the chest shows diffuse dense pulmonary consolidations. This is mor e dense on the right side. A tiny right effusion. Mild cardiomegaly. Tip of the endotracheal tube 3 c m cephalad to the elmer. Nasogastric tube courses off the anterior margin of the film. CONCLUSION: Diffuse pulmonary consolidations with tiny right effusion. Gabriel Henao Jr., MD on December 03, 2016 at 13:04 Board Certified Radiologist. This report was verified electronically.
[2016-12-03] MEDS ORDERED: fentaNYL DRIP 250 ML ONE (13:22)
--- NOTE | 2016-12-03 13:27 | MB ---
cc: LING KNIGHT M.D. DATE OF CONSULTATION: 12/03/2016 DATE OF : 1945 AGE: 71 REASON FOR CONSULTATION Initially a Stroke Alert, but most likely syncope, some shortness of breath. HISTORY OF PRESENT ILLNESS This is a 71-year-old woman who is a patient of Dr. Santoyo who was sent to neurology, Dr. Fernandez's office for diabetic neuropathy, had what I am told a syncopal spell there and was brought via ambulance to [place] with some report of right-sided weakness. The patient, however, was unable to speak with the ED physician. Her GCS declined rapidly to a 3 and she was intubated emergently for airway protection. She was noted to have movement on the right side, but initially she had a right gaze deviation prior to intubation. PAST MEDICAL HISTORY 1. Diabetes. 2. Hypertension. 3. Hypothyroidism. SOCIAL HISTORY . Does not smoke, drink or use drug. ALLERGIES LATEX. MEDICATIONS Home medicines are: 1. Flexeril. 2. Januvia. 3. Synthroid. 4. Zanaflex. 5. Metanx. 6. Glucophage. 7. Lantus. 8. Vitamin-D. 9. Amlodpine. 11.Hydrochlorothiazide. PHYSICAL EXAMINATION VITAL SIGNS: Temperature 98.2, pulse 91, respiratory rate 16, blood pressure 137/63, satting now at 99% on the ventilator. NEUROLOGIC: She is intubated and sedated with propofol. Her pupils are pinpoint. She does not have a gaze deviation. She has some spontaneous movement of her extremities and her head, withdraws to painful stimuli. Toes are silent. Reflexes are blunted. Cerebellar cannot be assessed. LABORATORY White count 20.3, platelets 386,000, hemoglobin 12.7. I-STAT glucose 455. PTT 39.1. Fibrinogen 392. PT 13.1, INR 1.2. Toxicology is pending. Urine 300 protein, 1000 glucose, 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 There is some absence of flow of the right A1 with patent anterior communicating artery providing flow to the A2. Neck CTA shows a 60% narrowing due to calcification of the carotid bulb. Left vertebral system dominant. Chest x-ray was just taken. I do not have that report. IMPRESSION A 71-year-old woman with syncope, etiology at this point unknown, less likely a stroke, possible seizure. PLAN/RECOMMENDATIONS From my perspective I will go ahead and get an EEG. She did not meet criteria for TPA. Recommendations are to continue current care and work-up per the senior private client advisor. I would if not on, and no contraindications, start her at least on a rectal aspirin 300 mg. Obtain chest x-ray results. Follow her white count. She has an elevation for unknown etiology at this point. I would do some blood cultures as well. Will monitor her neuro status and make further recommendations accordingly. Ling Knight MD DF/LAMBERT /12:43 PM /1:00 PM
[2016-12-03 13:36] LABS: ALBUMIN 3.7 GM/DL (3.4-5.0); ALKALINE PHOSPHATASE 42 U/L (45-117); ALT (GPT) 23 U/L (10-53); AST (GOT) 25 U/L (15-37); BICARBONATE 15.2 MEQ/L (21.0-32.0); BLOOD UREA NITROGEN 13 MG/DL (7-18); CHLORIDE 104 MEQ/L (98-107); CREATININE 1.06 MG/DL (0.50-1.00); GLOMERULAR FILTRATION RATE 51 ML/MIN (>89); SODIUM (NA) 136 MEQ/L (136-145); TOTAL BILIRUBIN ADULT 0.8 MG/DL (0.2-1.0); TOTAL PROTEIN 7.9 GM/DL (6.4-8.2)
[2016-12-03 13:40] LABS: GLUCOSE,RANDOM 453 MG/DL (74-106)
[2016-12-03] MEDS: RESP: ALBUTEROL 2.5 MG/IPRATROPIUM 0.5 MG NEB (SCH) INH ×2 (13:40→19:50)
[2016-12-03] MEDS ORDERED: Vancomycin Consult Pharmacy 1 EA OTHER SCH (13:45)
[2016-12-03 13:57] LABS: LACTIC ACID SEPSIS PROTOCOL 5.4 mmol/L (0.4-2.0)
--- NOTE | 2016-12-03 14:21 | ECHRPT ---
Indication: heart failure CONCLUSIONS There is global left ventricular dysfunction. The left ventricular systolic function is severely reduced with an estimated ejection fraction in th e range of 20-25%. Normal left ventricular size. Mild mitral valve regurgitation. There is mild tricuspid valve regurgitation. The inferior vena cava is mildly dilated. There is a very small pericardial effusion present. There is a left pleural effusion. BP: / HR: Rhythm: MEASUREMENTS (Male / Female) Normal Values Technical Quality:Good 2D ECHO LV Diastolic Diameter PLAX 4.3 cm 4.2 - 5.9 / 3.9 - 5.3 cm LV Systolic Diameter PLAX 3.9 cm IVS Diastolic Thickness 0.8 cm 0.6 - 1.0 / 0.6 - 0.9 cm LVPW Diastolic Thickness 1.2 cm 0.6 - 1.0 / 0.6 - 0.9 cm LV Relative Wall Thickness 0.5 RV Internal Dim ED PLAX 2.4 cm M-MODE Aortic Root Diameter MM 2.9 cm LA Systolic Diameter MM 3.5 cm LA Ao Ratio MM 1.2 AV Cusp Separation MM 1.9 cm DOPPLER Mitral E Point Velocity 74.5 cm/s Mitral A Point Velocity 95.8 cm/s Mitral E to A Ratio 0.8 LV E' Lateral Velocity 4.2 cm/s Mitral E to LV E' Lateral Ratio 17.8 LV E' Septal Velocity 4.7 cm/s Mitral E to LV E' Septal Ratio 15.9 TR Peak Velocity 255.0 cm/s TR Peak Gradient 26.0 mmHg Right Atrial Pressure 10.0 mmHg Pulmonary Artery Systolic Pressu 36.0 mmHg Right Ventricular Systolic Press 36.0 mmHg FINDINGS LEFT VENTRICLE There is global left ventricular dysfunction. The left ventricular systolic function is severely reduced with an estimated ejection fraction in th e range of 20-25%. Normal left ventricular size. RIGHT VENTRICLE Normal right ventricular size and systolic function. LEFT ATRIUM The left atrial size is normal. RIGHT ATRIUM The right atrial size is normal. ATRIAL SEPTUM Normal atrial septal thickness without atrial level shunting by limited color doppler interrogation. AORTA The aortic root and proximal ascending aorta are normal in size on limited imaging. MITRAL VALVE Structurally normal mitral valve. Mild mitral valve regurgitation. AORTIC VALVE Trileaflet aortic valve. TRICUSPID VALVE Structurally normal tricuspid valve. There is mild tricuspid valve regurgitation. PULMONARY VALVE No pulmonary valve regurgitation or stenosis. VESSELS The inferior vena cava is mildly dilated. PERICARDIUM There is a very small pericardial effusion present. There is a left pleural effusion. David Rand MD (Electronically Signed) Final Date:03 December 2016 14:20
[2016-12-03] MEDS: fentaNYL DRIP 250 ML IV PRN (14:30)
--- NOTE | 2016-12-03 14:57 | MH ---
cc: CAROLINA DOBBS M.D. DATE OF ADMISSION 12/03/2016 DATE OF 1945 HISTORY OF PRESENT ILLNESS The patient is a 71-year-old female with a past medical history of hypertension, diabetes mellitus, hypothyroidism. She went to see Dr. Fernandez for evaluation of diabetic neuropathy and the patient had a syncopal episode. There is no history of any witnessed seizures. When she was brought in to [place] via ambulance she had some right sided weakness with rightward gaze. Her GCS declined to 3, where she was intubated emergently for airway protection. Post intubation the patient was noted to move all extremities. In addition, prior to arrival she was hypoxic with O2 saturation in the 80s, NSTEMI alert was called, however, the patient was found to have an old left bundle branch block. NSTEMI was cancelled after ED's discussion with Dr. Rand. Also, they called a stroke alert; however, after discussion with Dr. Knight the patient was not a candidate for TPA as she was moving all extremities post intubation. Her ABG post intubation showed ph of 7.27, CO2 38, PA02 70, bicarb 17, saturation 90% on PRVC mode with rate 14, tidal volume 500, ITIME 1.0, PEEP 5, 100% FIO2. Chest x-ray post intubation showed diffuse pulmonary consolidation. Due to her syncopal episode she had a CT scan of the brain which showed no acute findings. 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 CTA of the neck showed 60% narrowing due to an eccentric calcification in the left carotid bulb. CTA of the brain showed absent flow in the right A1 segment with patent anterior communicating artery providing flow to the A2 segment and questionable 2 to 3 mm aneurysm in the right middle cranial fossa off a branch vessel of the right MCA territory. Her laboratory data is significant for hyperglycemia, her blood sugar was 455 on point of care and 453 on the CMP. The patient was given regular insulin 7 units and will be on insulin drip per DKA protocol. Her urine drug screen is negative for amphetamines, barbiturates, benzodiazepines. Other significant labs showed leukocytosis with WBC 20.3 and elevated BNP of 547. The patient was seen by Dr. Rand in the ED and echocardiogram was ordered. She was given Vancomycin, cefepime and azithromycin in the ED. The patient is scheduled to undergo CT pulmonary angiogram and CT abdomen and pelvis were ordered by ED. When seen the patient is sedated with versed and on full mechanical ventilation. Her current blood pressure is 117/69 with a pulse of 77, saturation 96-97%. 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 No history of any cough or constitutional symptoms. PAST MEDICAL HISTORY Significant for hypertension, diabetes, hypothyroidism. PAST SURGICAL HISTORY Previous surgery on the left upper extremity. SOCIAL HISTORY Nonsmoker, nondrinker. ALLERGIES LATEX. MEDICATION Reported medications: 1. Synthroid. 2. Glucophage. 3. Vitamin D. 4. Amlodipine. 5. Flexeril. 6. Januvia. 7. Hydrochlorothiazide. REVIEW OF SYSTEMS As per HPI. The review of systems is unobtainable. PHYSICAL EXAMINATION GENERAL: A 71-year-old female intubated for respiratory failure, critically ill. VITAL SIGNS: Temperature 98.2, blood pressure currently 117/69 with a pulse of 77, saturations 97%. Vent setting PRVC mode, rate of 14, tidal volume 500, ITIME 1, PEEP increased to 10 and FIO2 down to 80%. HEENT: Atraumatic, normocephalic. Pupils equal, round and reactive to light and accommodation. Extraocular muscles intact. Conjunctivae pink. Nonicteric sclerae. Oral mucosa within normal. NECK: Supple. No JVD, adenopathy or thyromegaly. Trachea midline. Orally intubated. CARDIOVASCULAR: Regular rate and rhythm. Normal S1-S2. No murmurs, rubs or gallops noted. PULMONARY: Bilateral equal air entry with few coarse breath sounds. ABDOMEN: Soft, nontender, no distension. Positive bowel sounds. EXTREMITIES: No cyanosis, clubbing or edema. NEURO: Intubated and on versed drip for sedation. LABORATORY DATA Sodium 136, potassium 4.2, chloride 104, CO2 15, BUN 13, creatinine 1, glucose of 453, BNP 547, total bilirubin 0.8, AST 25, ALT 23, alk phos 42, WBC 20.3, hemoglobin 12.7, hematocrit 43, platelet count 386. INR 1.2, PT 13.1, PTT 39, fibrinogen 39.2. Urine drug screen negative. RADIOGRAPHIC STUDIES Chest x-ray post intubation showed diffuse bilateral airspace disease. CT brain no acute findings. Old right basalar ganglia infarct noted. CTA of the neck showed 60% narrowing due to an eccentric calcification left carotid bulb. CARDIOLOGY STUDIES EKG showed sinus tachycardia with PVCs, rate 101 beats per minute. Intraventricular conduction delay. IMPRESSION 1. Acute hypoxemic respiratory failure. 2. Status post syncopal episode. 3. ARDS and possible aspiration. 4. Diabetic ketoacidosis. 5. Hypothyroidism. 6. Hypertension. 7. History of diabetes mellitus. 8. Diabetic neuropathy. 9. Leukocytosis. RECOMMENDATIONS 1. Monitor neuro status closely. The patient is on versed drip for sedation. Daily sedation vacation when appropriate. She was seen by Dr. Knight from neurology and EEG was ordered. CT head showed no acute findings. CTA of the head showed absent flow in the right A1 segment with patent anterior communicating artery providing flow to the A2 segment. Questionable 2-3 mm aneurysm in the right middle cranial fossa off a branch vessel of the right MCA territory noted. 2. Continue with vent support and maintain sats above 92%. 3. Bronchodilators in the form of DuoNeb q. 6 and will initiate ICU vent bundle. The patient is scheduled for CT pulmonary angiogram ordered by ED. Will follow up. 4. Monitor heart rate and blood pressure closely and maintain MAP greater than 65 mmHg. Follow up on lactic acid. Monitor cardiac enzymes with troponins and 2D echo was ordered. The patient was seen by Dr. Rand from cardiology service. Monitor renal function, I&O's and electrolyte replacement per protocol. Keep NPO for now and place on Protonix 40 milligrams IV daily for GI prophylaxis. 5. Start nutrition support via tube feeds within the next 24 hours if remains intubated. 6. Continue with broad spectrum antibiotics. Will continue with Vancomycin and Zosyn. Monitor for signs of infection which include fever and WBC. Follow up on blood cultures which was done in the ER. Will check a sputum culture with gram stain, strep pneumoniae, legionella urinary antigen. In addition, will send nasal washing to rule out influenza. 7. The patient is scheduled to undergo CT abdomen and pelvis. 8. Continue with insulin per DKA protocol. Monitor BMP and lytes q. 6. In addition, will check a baseline TSH level given the history of underlying hypothyroidism. 9. Monitor CBC. 10. GI prophylaxis with Protonix 40 milligrams daily and DVT prophylaxis with SCDs. 11. Further recommendations will be based on hospital course. The case discussed with ED physician and nursing staff. MD FANTA Paredes/LEELA /1:48 PM /2:06 PM
[2016-12-03] MEDS ORDERED: IOHEXOL 350 MG/ML 10 ML VIAL (for RAD DIAG) IVCONTRAST ONE (15:01)
--- NOTE | 2016-12-03 15:28 | RADRPT ---
EXAM DATE/TIME: 12/03/2016 14:45 [facility] COMPARISON: No previous studies available for comparison. INDICATIONS : Found unconscious; evaluate for embolism. IV CONTRAST: 69 cc Omnipaque 350 (iohexol) IV ; Cumulative dose for multiple exams. RADIATION DOSE: 30.51 CTDIvol (mGy) MEDICAL HISTORY : Hypertension. Diabetes mellitus type 2. SURGICAL HISTORY : None. ENCOUNTER: Initial ACUITY: 1 day PAIN SCALE: Non-responsive LOCATION: chest TECHNIQUE: Volumetric scanning of the chest was performed using a pulmonary embolism protocol MIP images were re constructed. Using automated exposure control and adjustment of the mA and/or kV according to patien t size, radiation dose was kept as low as reasonably achievable to obtain optimal diagnostic quality images. DICOM format image data is available electronically for review and comparison. Follow-up recommendations for detected pulmonary nodules are based at a minimum on nodule size and pa tient risk factors according to Fleischner Society Guidelines. FINDINGS: PULMONARY ARTERIES: No filling defects are seen in the pulmonary arteries through the segmental level. LUNGS: There is mosaic increased ground substance in the upper lobes bilaterally. There is also consolidati on in most of the right lower lobe without air bronchograms. Subsegmental consolidation in the left lower lobe. PLEURAE: Large right pleural effusion measuring 4 cm and is sized left pleural effusion measuring 2 cm. MEDIASTINUM: There is good visualization of the great vessels of the middle mediastinum. No evidence of mediastin al or hilar adenopathy/mass. MISCELLANEOUS: Gastric tube traverses the [id number]. CONCLUSION: 1. The study is negative for pulmonary embolism. 2. Right lower lobe are consolidation, patchy areas of consolidation left lower lung, diffuse increas ed ground substance in the mid and upper lungs and bilateral pleural effusions. Gabriel Umaña MD on December 03, 2016 at 15:24 Board Certified Radiologist. This report was verified electronically.
--- NOTE | 2016-12-03 15:55 | RADRPT ---
EXAM DATE/TIME: 12/03/2016 14:45 [facility] COMPARISON: No previous studies available for comparison. INDICATIONS : Found unresponsive. IV CONTRAST: 69 cc Omnipaque 350 (iohexol) IV ; Cumulative dose for multiple exams. ORAL CONTRAST: No oral contrast ingested. RADIATION DOSE: 12.53 CTDIvol (mGy) MEDICAL HISTORY : Diabetes mellitus type 2. Hypertension. SURGICAL HISTORY : None. ENCOUNTER: Initial ACUITY: 1 day PAIN SCALE: Non-responsive LOCATION: upper quadrant TECHNIQUE: Volumetric scanning of the abdomen and pelvis was performed. Using automated exposure control and ad justment of the mA and/or kV according to patient size, radiation dose was kept as low as reasonably achievable to obtain optimal diagnostic quality images. DICOM format image data is available electro nically for review and comparison. FINDINGS: LOWER LUNGS: Patchy areas of consolidation in both lower lobes and bilateral pleural effusions, right greater than left with right pleural effusion measuring 4.1 cm. Gastric tube tip within the antrum of the stomac h. LIVER: Homogeneous density without lesion. There is no dilation of the biliary tree. No calcified gallston es. SPLEEN: Normal size without lesion. PANCREAS: Within normal limits. KIDNEYS: Symmetric size. There is a solitary cortical lesion in the midpole of the right kidney which measure s 12 mm and has a central bright area surrounded by a lucent rim having a target type of appearance. There is some darya-nephric fluid, possibly subcapsular located adjacent to the renal lesion with the fluid measuring up to 10 mm in width. No evidence hydronephrosis. ADRENAL GLANDS: Within normal limits. VASCULAR: There is no aortic aneurysm. BOWEL/MESENTERY: The stomach, small bowel, and colon demonstrate no acute abnormality. There is no free intraperitone al air or fluid. ABDOMINAL WALL: Within normal limits. RETROPERITONEUM: There is no lymphadenopathy. BLADDER: Cisneros catheter in a decompressed bladder. REPRODUCTIVE: Retroverted uterus. Flocculent calcification in the fundus measuring 13 mm. INGUINAL: There is no lymphadenopathy or hernia. MUSCULOSKELETAL: Within normal limits for patient age. CONCLUSION: 1. Bilateral pleural effusions and lower lung consolidation, right worse than left. 2. 12 mm cortical "target" lesion in the midpole cortex of the right kidney with adjacent sub-capsula r fluid it is of uncertain significance. Recommend correlation with clinical history for possible re cent biopsy. A renal mass cannot be excluded. Gabriel Umaña MD on December 03, 2016 at 15:47 Board Certified Radiologist. This report was verified electronically.
--- NOTE | 2016-12-03 15:57 | MB ---
cc: OCTAVIO GARSIA M.D. DATE OF CONSULTATION 12/03/16 REASON FOR CONSULTATION Evaluation of possible CHF. HISTORY OF PRESENT ILLNESS Emmanuelle Agosto is a 71-year-old woman with longstanding hypertension and diabetes. She also has hyperlipidemia and hypothyroidism. She has a chronic left bundle-branch block going back to 2007. Apparently, she has been short of breath for a couple of weeks and for the last week complaining of being tired. She was in Dr. Fernandez's office and at that time was passed out and was intubated by [facility] and found to be profoundly hypoxic, pO2 was only 70 on 100% oxygen. Chest x-ray subsequently showing diffuse consolidation suggestion of possible acute pulmonary edema. The patient has no prior cardiac history but has not had an echo before. Her echo is showing an ejection fraction of only about 20% with global hypokinesis. There is no history of any chest pain that I can obtain from the . She has, however, been short of breath for a couple of weeks. The patient follows a very low salt diet. PAST MEDICAL HISTORY Includes type 2 diabetes, hypertension, hyperlipidemia, hypothyroidism, peripheral neuropathy. SOCIAL HISTORY Her son is a physical anthropologist and her is a microbiologist professor. She does not smoke. PAST SURGICAL HISTORY In the old records indicate some type of surgery by her left elbow. PHYSICAL EXAMINATION GENERAL: Physical exam shows a well-developed, well-nourished female, currently intubated. VITAL SIGNS: Charted. HEENT: Exam unremarkable. NECK: Shows increased central venous pressure. CHEST: Notable for bilateral rhonchi. CARDIAC: Exam S1-S2, S3, regular rate rhythm. ABDOMEN: Soft. EXTREMITIES: Show no peripheral edema. Pulses are intact. CARDIOLOGY STUDIES EKG shows sinus rhythm with left bundle-branch block. There is a different axis compared to her 2008 tracing. EKG obtained by [facility] showed a bigeminal rhythm. Echo shows severely impaired LV function with global hypokinesis. IMAGING STUDIES Chest x-ray shows diffuse whiteout. IMPRESSION Suspect acute pulmonary edema. Suspicion for some underlying cardiomyopathy associated with her chronic left bundle-branch block. This could be an acute ischemic event, although, there was no chest pain reported and her initial troponin is normal. RECOMMENDATIONS The patient has had quite a few contrast studies today. Ultimately, I think she is going to need diuresis. ____ to see if we can clear her lungs up with diuretics. Follow her troponin serially. At some point she is likely to need cardiac catheterization to define her coronary anatomy and to determine if here is an ischemic component to her flash pulmonary edema. Condition is guarded. Further therapy to be determined. At this point I will go ahead and add oral aspirin. Blood pressure is too low to add beta-adina, MALICK inhibitor. Will follow. MD MORRIS Zhou/LEELA /3:15 PM /3:34 PM
[2016-12-03] MEDS: PIPERACIL-TAZO 4.5 GM PREMIX 100 ML IV SCH ×2 (17:18→22:05)
--- NOTE | 2016-12-03 17:18 | HHI.FPPN ---
Subjective Remarks Primary care note: 71 yo Congolese woman well known to physician admitted emergently after episode in neurologist's office where she had been referred to for opinion re: painful diabetic neuropathy. Episode occurred prior to being seen and was described by (interviewed in icu waiting room) as she said she did not feel well, seemed to be agitated, complained of a feeling of sob across her chest and particularly to her right lateral and posterior chest. Described that her eyes were "white" with eyes rolled vertically and on attempts to walk very unsteady. Eventually 911 called and patient transported to [facility]. Looking back states she had complained of not feeling well and did seem to have some evolving sob. Hx of hbp, left BBB for years, poorly controlled diabetes with some compliance issues related to her feeling like there were side effects from multiple meds including insulin at times. Full chart reviewed. Objective Vitals Vital Signs Date Time Temp Pulse Resp B/P (MAP) Pulse Ox O2 Delivery O2 Flow Rate FiO2 12/03/16 15:00 76 14 102/59 (73) 97 Ventilator 95 12/03/16 14:50 12/03/16 14:30 78 14 85/53 (64) 97 Ventilator 95 12/03/16 14:15 80 14 90/55 (67) 97 Ventilator 95 12/03/16 13:58 84 14 85/52 (63) 97 Ventilator 80 12/03/16 13:30 84 14 139/60 (86) 97 Ventilator 80 12/03/16 13:00 79 14 82/50 (61) 97 Ventilator 100 12/03/16 13:00 80 12/03/16 13:00 74 14 82/50 (61) 94 Ventilator 94 12/03/16 12:45 76 14 105/51 (69) 94 Ventilator 12/03/16 12:35 82 14 102/55 (71) 100 Ventilator 14.00 100 12/03/16 12:25 78 14 102/55 (71) 100 Ventilator 100 12/03/16 12:10 84 14 108/56 (73) 99 Ventilator 100 12/03/16 12:00 94 22 120/58 (78) 90 Nasal Cannula 12.00 12/03/16 11:40 100 22 126/63 (84) Ventilator 100 12/03/16 11:35 115 22 182/93 (122) 97 Ventilator 100 12/03/16 11:30 95 100 12/03/16 11:22 100 18 144/80 (101) 97 Ventilator 100 12/03/16 11:14 100 12/03/16 11:12 79 22 148/70 (96) 92 Ventilator 12.00 12/03/16 11:04 98.2 91 16 137/63 (87) 91 12/03/16 11:04 90 25 99 Bag Valve 15.00 12/03/16 11:04 97 Bag Valve Result Diagram: 12/03/16 1115 12/03/16 1115 Other Results General: patient seen in ICU undergoing EEG Chart reviewed A/P Assessment and Plan Assessment and Plan: Apparent acute pulmonary edema preceded by evolving picture of sob times several day. No episodes of chest pain related. Hx of Lt BBB and HBP, no hx of ischemic heart disease Possible seizure with Luis E's paralysis post event Diabetes Type 2 not well controlled followed by endocrinology Hypothyroidism CKD stage 3 secondary to HBP and diabetes, followed by Dr. Rashel Busch ABn imaging of right kidney, will need followup Hx of multiple musculoskeletal conditions related to strains, minor injuries Orders per Dr. Tracey, faculty instructor Discussed with Dr. David Rand and Dr Duarte Discussed with Resident team who will be involved in care as patient transitions from ICU. Discussed with and son, Mk courtney phone. Son is rolling mill operator helper in [place] and will be here tomorrow. Nathanael Santoyo MD . Nathanael Santoyo MD Dec 03, 2016 17:18
--- NOTE | 2016-12-03 17:18 | HHI.FPPN ---
Subjective Remarks Primary care note: 71 yo Afghan woman well known to physician admitted emergently after episode in neurologist's office where she had been referred to for opinion re: painful diabetic neuropathy. Episode occurred prior to being seen and was described by (interviewed in icu waiting room) as she said she did not feel well, seemed to be agitated, complained of a feeling of sob across her chest and particularly to her right lateral and posterior chest. Described that her eyes were "white" with eyes rolled vertically and on attempts to walk very unsteady. Eventually 911 called and patient transported to [facility]. Looking back states she had complained of not feeling well and did seem to have some evolving sob. Hx of hbp, left BBB for years, poorly controlled diabetes with some compliance issues related to her feeling like there were side effects from multiple meds including insulin at times. Full chart reviewed. Objective Vitals Vital Signs Date Time Temp Pulse Resp B/P (MAP) Pulse Ox O2 Delivery O2 Flow Rate FiO2 12/03/16 15:00 76 14 102/59 (73) 97 Ventilator 95 12/03/16 14:50 12/03/16 14:30 78 14 85/53 (64) 97 Ventilator 95 12/03/16 14:15 80 14 90/55 (67) 97 Ventilator 95 12/03/16 13:58 84 14 85/52 (63) 97 Ventilator 80 12/03/16 13:30 84 14 139/60 (86) 97 Ventilator 80 12/03/16 13:00 79 14 82/50 (61) 97 Ventilator 100 12/03/16 13:00 80 12/03/16 13:00 74 14 82/50 (61) 94 Ventilator 94 12/03/16 12:45 76 14 105/51 (69) 94 Ventilator 12/03/16 12:35 82 14 102/55 (71) 100 Ventilator 14.00 100 12/03/16 12:25 78 14 102/55 (71) 100 Ventilator 100 12/03/16 12:10 84 14 108/56 (73) 99 Ventilator 100 12/03/16 12:00 94 22 120/58 (78) 90 Nasal Cannula 12.00 12/03/16 11:40 100 22 126/63 (84) Ventilator 100 12/03/16 11:35 115 22 182/93 (122) 97 Ventilator 100 12/03/16 11:30 95 100 12/03/16 11:22 100 18 144/80 (101) 97 Ventilator 100 12/03/16 11:14 100 12/03/16 11:12 79 22 148/70 (96) 92 Ventilator 12.00 12/03/16 11:04 98.2 91 16 137/63 (87) 91 12/03/16 11:04 90 25 99 Bag Valve 15.00 12/03/16 11:04 97 Bag Valve Result Diagram: 12/03/16 1115 12/03/16 1115 Other Results General: patient seen in ICU undergoing EEG Chart reviewed A/P Assessment and Plan Assessment and Plan: Apparent acute pulmonary edema preceded by evolving picture of sob times several day. No episodes of chest pain related. Hx of Lt BBB and HBP, no hx of ischemic heart disease Possible seizure with Luis E's paralysis post event Diabetes Type 2 not well controlled followed by endocrinology Hypothyroidism CKD stage 3 secondary to HBP and diabetes, followed by Dr. Rashel Busch ABn imaging of right kidney, will need followup Hx of multiple musculoskeletal conditions related to strains, minor injuries Orders per Dr. Tracey, development spec Discussed with Dr. David Rand and Dr Duarte Discussed with Resident team who will be involved in care as patient transitions from ICU. Discussed with and son, Mk courtney phone. Son is instructional technology director in [place] and will be here tomorrow. Nathanael Santoyo MD . Nathanael Santoyo MD Dec 03, 2016 17:18
--- NOTE | 2016-12-03 18:56 | EKG ---
Date Performed: 12/03/2016 Time Performed: 11:17:35 PTAGE: 71 years EKG: Sinus rhythm WITH SINUS ARRHYTHMIA LEFT BUNDLE BRANCH BLOCK LATERAL MYOCARDIAL INFARCTION ABNORMAL ECG INTERPRETA TION BASED ON A DEFAULT AGE OF 40 YEARS PREVIOUS TRACING : 12/03/2016 11.07 Compared to the previous tracing now in sinus rhythm DOCTOR: Antolin Bean Interpretating Date/Time 12/03/2016 18:56:14
--- NOTE | 2016-12-03 19:00 | EKG ---
Date Performed: 12/03/2016 Time Performed: 11:07:44 PTAGE: 71 years EKG: PROBABLE SINUS TACHYCARDIA, THEN TURNING INTO BIGEMINY POSSIBLE RIGHT ATRIAL ENLARGEMENT IN TRAVENTRICULAR CONDUCTION DELAY LATERAL MYOCARDIAL INFARCTION ABNORMAL ECG INTERPRETATION BASED ON A DEFAULT AGE OF 40 YEARS PREVIOUS TRACING : 06/30/2007 08.15 Compared to the previous tracing, previously Sinus rh ythm with LBBB DOCTOR: Antolin Bean Interpretating Date/Time 12/03/2016 18:59:28
[2016-12-03 19:27] LABS: AUTOMATED NEUTROPHIL # 18.2 TH/MM3 (1.8-7.7); BASOPHIL % 0.1 % (0.0-2.0); EOSINOPHIL % 0.2 % (0.0-4.0); HEMATOCRIT 40.2 % (35.0-46.0); HEMOGLOBIN 12.4 GM/DL (11.6-15.3); LYMPH % 7.2 % (9.0-44.0); LYMPHOCYTE # 1.6 TH/MM3 (1.0-4.8); MEAN CELL VOLUME 80.8 FL (80.0-100.0); MEAN CORPUSCULAR HEMOGLOBIN 24.9 PG (27.0-34.0); MEAN CORPUSCULAR HGB CONC 30.8 % (32.0-36.0); MONO % 8.7 % (0.0-8.0); MONOCYTE # 1.9 TH/MM3 (0-0.9); NEUT % 83.8 % (16.0-70.0); PLATELET COUNT 299 TH/MM3 (150-450); RED BLOOD COUNT 4.98 MIL/MM3 (4.00-5.30); RED CELL DISTRIBUTION WIDTH 18.2 % (11.6-17.2); WHITE BLOOD COUNT 21.8 TH/MM3 (4.0-11.0)
[2016-12-03 19:43] LABS: BICARBONATE 19.6 MEQ/L (21.0-32.0); CALCIUM 9.2 MG/DL (8.5-10.1); CREATININE 0.82 MG/DL (0.50-1.00); MAGNESIUM 2.1 MG/DL (1.5-2.5); PHOSPHORUS 3.4 MG/DL (2.5-4.9)
[2016-12-03 19:47] LABS: TROPONIN I 0.06 NG/ML (0.02-0.05)
[2016-12-03] MEDS: DOCUSATE SODIUM 50 MG/SENNA 8.6 MG TAB PO SCH (22:05)
[2016-12-04] VITALS (25 sets, daily range): BP systolic 89–123; BP diastolic 49–59; PULSE 71–94; RESP 14; TEMP 98–99.7; O2SAT 93–100
[2016-12-04 00:38] LABS: BICARBONATE 20.5 MEQ/L (21.0-32.0); CALCIUM 8.4 MG/DL (8.5-10.1); CREATININE 0.78 MG/DL (0.50-1.00); MAGNESIUM 1.9 MG/DL (1.5-2.5); PHOSPHORUS 3.4 MG/DL (2.5-4.9)
[2016-12-04] MEDS ORDERED: DC previous DKA orders (HMC 1917) ONE (01:15)
[2016-12-04] MEDS ORDERED: DC Insulin drip 2 hrs post basal insulin dose ONE (01:15)
[2016-12-04] MEDS ORDERED: GLUCAGON 1 MG/ML VIAL OTHER PRN (01:15)
[2016-12-04] MEDS ORDERED: INSULIN REGULAR (IV INFUSION) 100 UNITS in SODIUM CHLORIDE 0.9% INJ 99 ML IV PRN (01:15)
[2016-12-04] MEDS ORDERED: DEXTROSE 50% IN WATER 50 ML VIAL(D50) IV PUSH PRN (01:15)
[2016-12-04] MEDS: RESP: ALBUTEROL 2.5 MG/IPRATROPIUM 0.5 MG NEB (SCH) INH ×4 (04:00→20:19)
[2016-12-04] MEDS: CHLORHEXIDINE GLUCONATE 2 % 1 PACK (2 CLOTHS) TOP SCH (04:00)
[2016-12-04 04:38] LABS: AUTOMATED NEUTROPHIL # 16.8 TH/MM3 (1.8-7.7); BASOPHIL # 0.1 TH/MM3 (0-0.2); BASOPHIL % 0.4 % (0.0-2.0); EOSINOPHIL % 0.2 % (0.0-4.0); HEMATOCRIT 37.5 % (35.0-46.0); HEMOGLOBIN 11.9 GM/DL (11.6-15.3); LYMPH % 5.8 % (9.0-44.0); LYMPHOCYTE # 1.1 TH/MM3 (1.0-4.8); MEAN CELL VOLUME 77.2 FL (80.0-100.0); MEAN CORPUSCULAR HEMOGLOBIN 24.5 PG (27.0-34.0); MEAN CORPUSCULAR HGB CONC 31.8 % (32.0-36.0); MONO % 6.6 % (0.0-8.0); MONOCYTE # 1.3 TH/MM3 (0-0.9); PLATELET COUNT 253 TH/MM3 (150-450); RED BLOOD COUNT 4.85 MIL/MM3 (4.00-5.30); RED CELL DISTRIBUTION WIDTH 17.6 % (11.6-17.2); WHITE BLOOD COUNT 19.3 TH/MM3 (4.0-11.0)
[2016-12-04 04:53] LABS: ALT (GPT) 24 U/L (10-53); AST (GOT) 23 U/L (15-37); BICARBONATE 20.1 MEQ/L (21.0-32.0); BLOOD UREA NITROGEN 16 MG/DL (7-18); CHLORIDE 108 MEQ/L (98-107); CREATININE 0.85 MG/DL (0.50-1.00); GLOMERULAR FILTRATION RATE 66 ML/MIN (>89); GLUCOSE,RANDOM 231 MG/DL (74-106); MAGNESIUM 1.9 MG/DL (1.5-2.5); PHOSPHORUS 3.7 MG/DL (2.5-4.9); SODIUM (NA) 140 MEQ/L (136-145)
[2016-12-04 04:59] LABS: ALKALINE PHOSPHATASE 28 U/L (45-117); TOTAL BILIRUBIN ADULT 1.3 MG/DL (0.2-1.0); TOTAL PROTEIN 6.6 GM/DL (6.4-8.2)
[2016-12-04] MEDS: PIPERACIL-TAZO 4.5 GM PREMIX 100 ML IV SCH ×4 (06:19→21:42)
[2016-12-04] MEDS: MIDAZOLAM 100 MG/100 ML INJ 100 ML IV PRN (06:19)
[2016-12-04] MEDS ORDERED: INSULIN NovoLIN REGULAR SUPPLEMENTAL SCALE SQ SCH (08:00)
[2016-12-04] MEDS: INSULIN DETEMIR 100 UNITS/ML VIAL SQ SCH (08:19)
[2016-12-04] MEDS: PANTOPRAZOLE SODIUM 40 MG VIAL IV PUSH SCH (08:19)
[2016-12-04] MEDS: DOCUSATE SODIUM 50 MG/SENNA 8.6 MG TAB PO SCH ×2 (08:19→20:00)
[2016-12-04] MEDS: INSULIN NovoLIN REGULAR SUPPLEMENTAL SCALE SQ SCH ×4 (08:19→20:00)
[2016-12-04] MEDS: ASPIRIN 300 MG SUPP RECTAL SCH (08:20)
[2016-12-04] MEDS ORDERED: TERBUTALINE INJ 1 MG/ML AMP SQ PRN (09:15)
[2016-12-04] MEDS ORDERED: NOREPINEPHRINE INJ 4 MG in SODIUM CHLOR 0.9% 250 ML INJ 246 ML IV PRN (09:15)
--- NOTE | 2016-12-04 09:44 | HHI.CCPN ---
Subjective Remarks/Hospital Course The patient is a 71-year-old female with a past medical history of hypertension , diabetes mellitus, hypothyroidism. She went to see Dr. Fernandez for evaluation of diabetic neuropathy and the patient had a syncopal episode. There is no history of any witnessed seizures. When she was brought in to [place] via ambulance she had some right sided weakness with rightward gaze. Her GCS declined to 3, where she was intubated emergently for airway protection. Post intubation the patient was noted to move all extremities. In addition, prior to arrival she was hypoxic with O2 saturation in the 80s, STEMI alert was called, however, the patient was found to have an old left bundle branch block. STEMI was cancelled after ED's discussion with Dr. Rand. Also, they called a stroke alert; however, after discussion with Dr. Knight the patient was not a candidate for TPA as she was moving all extremities post intubation. Her ABG post intubation showed ph of 7.27, CO2 38, PA02 70, bicarb 17, saturation 90% on PRVC mode with rate 14, tidal volume 500, ITIME 1.0, PEEP 5, 100% FIO2. Chest x-ray post intubation showed diffuse pulmonary consolidation. Due to her syncopal episode she had a CT scan of the brain which showed no acute findings. 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 CTA of the neck showed 60% narrowing due to an eccentric calcification in the left carotid bulb. CTA of the brain showed absent flow in the right A1 segment with patent anterior communicating artery providing flow to the A2 segment and questionable 2 to 3 mm aneurysm in the right middle cranial fossa off a branch vessel of the right MCA territory. Her laboratory data is significant for hyperglycemia, her blood sugar was 455 on point of care and 453 on the CMP. The patient was given regular insulin 7 units and will be on insulin drip per DKA protocol. Her urine drug screen is negative for amphetamines, barbiturates, benzodiazepines. Other significant labs showed leukocytosis with WBC 20.3 and elevated BNP of 547. The patient was seen by Dr. Rand in the ED and echocardiogram was ordered. She was given Vancomycin, cefepime and azithromycin in the ED. The patient is scheduled to undergo CT pulmonary angiogram and CT abdomen and pelvis wereordered by ED. When seen the patient is sedated with versed and on full mechanical ventilation. Her current blood pressure is 117/69 with a pulse of 77 , saturation 96-97%. 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 No history of any cough or constitutional symptoms. Subjective: 12/04 Echo with EF 20-25%. states she was had been complaining of SOB and chest pain off and on for about 2 weeks prior to this event. Complained of SOB right before syncope in the physicians office. Post-syncope she was initially able to talk some and got into a wheelchair and he was trying to get her to the car to go to urgent care across the street when she then became unresponsive and [facility] was called. GCS was reportedly 8 on [facility] arrival and she was bagged but there was concern for R sided weakness. She was intubated upon arrrival to the ED. Denies known cardiac history and has had no prior cardiac workup. She has also complained of difficulty swallowing and has coughed and "choked" a few times while eating over the last 1-2 weeks. She did not have a persistent or productive cough and had not complained of fever. She had not complained of headache. Anion-gap closed so she was transitioned off insulin drip early this morning. Lactic acid cleared. Now hypotensive, starting levophed. CTPA negative for PE, +RLL consolidation and bilat pleural effusions. Afebrile, WBC 19.3 Legionella/pneumoocococcal antigen negative and influenza negative. Remainder of cultures pending. EEG report pending. Was on versed 5 mg/hr and fentanyl 50 mcg/hr this morning, now holding sedation. Objective Vital Signs Date Time Temp Pulse Resp B/P (MAP) Pulse Ox O2 Delivery O2 Flow Rate FiO2 12/04/16 09:26 68 77/41 12/04/16 08:06 100 40 12/04/16 04:00 98.6 12/03/16 15:00 14 Ventilator 12/03/16 12:35 14.00 Intake and Output 12/04/16 12/04/16 12/05/16 08:00 16:00 00:00 Intake Total 270 ml Output Total 425 ml Balance -155 ml Result Diagram: 12/04/16 0414 12/04/16 0414 Other Results Microbiology Date/Time Source Procedure Growth Status 12/03/16 21:00 Nasal Aspirate Influenza Types A,B Antigen (KARON) - Final NEGATIVE FOR FLU A AND B ANTIGEN.... Complete 12/03/16 12:10 Urine Catheterized Urine Legionella Antigen - Final PRESUMPTIVE NEGATIVE FOR LEGIONELLA P... Complete 12/03/16 12:10 Urine Catheterized Urine Streptococcus pneumoniae Antigen (M - Final PRESUMPTIVE NEGATIVE FOR STREPTOCOCCU... Complete Laboratory Tests Test 12/03/16 11:41 12/03/16 17:50 Blood Gas Puncture Site LT RADIAL RT RADIAL Blood Gas Patient Temperature 98.6 98.6 Blood Gas HCO3 17 mmol/L (22-26) 22 mmol/L (22-26) Blood Gas Base Excess -8.7 mmol/L (-2-2) -3.1 mmol/L (-2-2) Blood Gas Oxygen Saturation 90 % (90-100) 92 % (90-100) Arterial Blood pH 7.27 (7.380-7.420) 7.32 (7.380-7.420) Arterial Blood Partial Pressure CO2 38 mmHg (38-42) 45 mmHg (38-42) Arterial Blood Partial Pressure O2 70 mmHG (61-120) 78 mmHg (61-120) Arterial Blood Oxygen Content 14.7 Vol % (12.0-20.0) 15.2 Vol % (12.0-20.0) Arterial Blood Carboxyhemoglobin 0.9 % (0-4) 0.8 % (0-4) Arterial Blood Methemoglobin 0.8 % (0-2) 1.3 % (0-2) Blood Gas Hemoglobin 11.7 G/DL (12.0-16.0) 11.7 G/DL (12.0-16.0) Oxygen Delivery Device VENTILATOR VENT Blood Gas Ventilator Setting [facility]/500/5/1IT Blood Gas Inspired Oxygen 100 % 75 % Objective Remarks GENERAL: Intubated 71 yo female. She has been on sedation with versed 5mg /hr and fentanyl 50 mcg/hr which is now on hold. SKIN: Warm and dry. HEAD: Atraumatic. Normocephalic. EYES: Pupils equal and round, pinpoint and reactive. . No scleral icterus. No injection or drainage. ENT: No nasal bleeding or discharge. Mucous membranes pink and moist. NECK: Trachea midline. No JVD. CARDIOVASCULAR: Regular rate and rhythm. No murmurs rubs or gallops. RESPIRATORY: Intubated, Rales Left base. No wheeze or rhonchi. GASTROINTESTINAL: Abdomen soft, non-tender, nondistended. Hepatic and splenic margins not palpable. : Cisneros in place with yellow urine output. MUSCULOSKELETAL: Extremities without clubbing, cyanosis, or edema. No obvious deformities. NEUROLOGICAL: No eye opening, + facial grimace. Spontaneously moves and withdraws with all extremities. A/P Problem List: (1) Systolic heart failure ICD Code: I50.20 - Unspecified systolic (congestive) heart failure (2) Pulmonary edema ICD Code: J81.1 - Chronic pulmonary edema Status: Acute (3) Respiratory failure ICD Code: J96.90 - Respiratory failure, unspecified, unspecified whether with hypoxia or hypercapnia Status: Acute (4) Syncope ICD Code: R55 - Syncope and collapse Status: Acute (5) Sepsis ICD Code: A41.9 - Sepsis, unspecified organism Status: Acute (6) Diabetic nephropathy ICD Code: E11.21 - Diabetic nephropathy Status: Acute (7) Diabetes type 2, uncontrolled ICD Code: E11.65 - Uncontrolled type 2 diabetes mellitus Status: Chronic (8) Hypothyroidism ICD Code: E03.9 - Hypothyroidism Status: Chronic (9) Hypertension, benign ICD Code: I10 - Benign hypertension Status: Chronic (10) Type II diabetes mellitus with renal manifestations, uncontrolled ICD Code: E11.29 - Type II diabetes mellitus with renal manifestations, uncontrolled; E11.65 - Type 2 diabetes mellitus with hyperglycemia Status: Chronic (11) Left bundle branch block ICD Code: I44.7 - Left bundle branch block Status: Chronic (12) Encephalopathy acute ICD Code: G93.40 - Encephalopathy, unspecified Status: Acute (13) Dysphagia ICD Code: R13.10 - Dysphagia, unspecified Status: Chronic Assessment and Plan NEURO: Syncope Acute encephalopathy D/c versed drip Hold fentanyl for daily sedation vacation. Target RASS -2 CT brain 12/03no acute findings CTA brain 12/03 absent flow right A1 with patent Acom providing flow to A2 segment. On addnedum, states ?2-3 mm aneursym of branch off R MCA territory. Could be further evaluated by MRA. Concern for R hemiparesis on admission but Was not candidate for TPA due to resolving symptoms. Will obtain MRI/MRA brain today to determine if evidence of ischemic stroke EEG - report pending. Discussed with Dr. Knight who states there is slowing but no seizure activity. RESP: Acute respiratory failure Pulmonary edema Right lower lobe pneumonia, probable aspiration. Intubated by ED physician due to AMS and hypoxia. FiO2 weaned and chest x-ray showing improved pulmonary edema and FIO2 now weaned to 40%. CTPA 12/03 - negative for PE. RLL consolidation. Daily CPAP trial and extubate when tolerating and when mental status appropriate. Diurese when appropriate, currently holding off due to need for vasopressor. Patient known to Dr. Henderson, consult placed. CV: Systolic heart failure ?chronic Chronic LBBB Troponin max 0.06, rechecked today and is 0.05 She is now hypotensive it appears volume overloaded with distended noncollapsible IVC and IJ. Initiate Levophed to maintain mean arterial pressure greater than 65. New hypotension ?secondary to superimposed sepsis due to aspiration versus sedative effect. Recheck lactic acid normal. 2D Echo - EF 20-25%. Global hypokinesis. No regional wall motion abnormality. Patient has had no prior cardiac workup and will definitely need cardiac catheterization prior to discharge. Discussed extensively with Dr. Rand and with patients family including son who is a railway equipment operator. Suspect long standing cardiomyopathy that has decompensated and resulted in hypoxia, syncope and resultant mental status change. Dr. Rand plans to defer cath while optimizing respiratory status and while observing renal function in view of recent significant contrast administration. Continue ASA 300 pr daily. Obtain Lipid profile GI: Dysphagia Initiate enteral feeds today with Glucerna 1.5 goal rate 60 ml/hr for glucose source. FEN/RENAL: Lactic acidemia, resolved FLAVIA Cisneros in place. Monitor intake and output. Monitor electrolytes. Replace as indicated. Received IV contrast 12/03. Avoid nephrotoxins were possible. ID: Acute right lower lobe pneumonia, probable aspiration Sepsis likely secondary to aspiration. Aspiration event may have occurred while bagging prehospital when patient was unresponsive vs +/- when she has experienced dysphagia. On Zosyn, Vancomycin, Azithromycin. If cultures negative, will plan to d/c vancomycin. Not due for another dose until tomorrow afternoon. Blood cultures 12/03no growth to date Urine Legionella and pneumococcal antigen negative Influenza - Negative Sputum culture 12/03 - immature growth HEME: Monitor CBC ENDO: Hypothyroidism TSH normal on admission Resume Synthroid 100 mcg by mouth daily Diabetes with severe hyperglycemia on admission Beta hydroxybutyrate was normal and suspect anion gap was largely related to lactic acidemia. Now anion gap is closed and has been transitioned off insulin drip. On detemir 9 units subcutaneous daily. High dose insulin sliding scale with bedside glucose every 4 hours. PROPH heparin subcutaneous for DVT prophylaxis. Protonix 40 g IV daily for stress ulcer prophylaxis. ACCESS: Placing right IJ central venous line for access. On vasopressors. Discussed with Dr. Rand on multiple occasions. Discussed with Dr. Knight twice. Patient's updated at bedside. Patient's son who is a railway equipment operator from [facility] was also updated at bedside. Multiple questions answered. Discussed with Dr. Santiago Critical care time 60 minutes exclusive of separately billable procedures. Problem Qualifiers (1) Systolic heart failure: Qualified Codes: I50.22 - Chronic systolic (congestive) heart failure (2) Pulmonary edema: Qualified Codes: J81.0 - Acute pulmonary edema (3) Respiratory failure: Qualified Codes: J96.00 - Acute respiratory failure, unspecified whether with hypoxia or hypercapnia (4) Syncope: Qualified Codes: R55 - Syncope and collapse (5) Sepsis: Qualified Codes: A41.9 - Sepsis, unspecified organism Jonna Gloria MD Dec 04, 2016 09:44
--- NOTE | 2016-12-04 11:48 | PD.CARD.PN ---
Subjective Subjective Remarks On vent. Sedation on hold presently. Objective Medications Current Medications Medications (Trade) Dose Ordered Sig/Ian Route Start Time Stop Time Status Last Admin Propofol 100 ml @ 2.1 mls/hr TITRATE PRN IV 12/03/16 11:30 Midazolam HCl 100 ml @ 2 mls/hr TITRATE PRN IV 12/03/16 12:45 12/04/16 06:19 (Protonix Inj) 40 mg DAILY IV PUSH 12/03/16 13:00 12/04/16 08:19 (Duoneb Neb) 1 ampule Q6HR NEB INH 12/03/16 13:00 12/04/16 08:05 Miscellaneous Information 1 Q361D XX 12/03/16 13:00 (Chlorhexidine 2% Cloth) 3 pack Taper DAILY@04 TOP 12/04/16 04:00 11/30/17 03:59 12/04/16 04:00 (Chlorhexidine 2% Cloth) 3 pack UNSCH PRN TOP 12/03/16 13:00 (Pinky-Colace) 1 tab BID PO 12/03/16 21:00 12/04/16 08:19 (Milk Of Magnesia Liq) 30 ml Q12H PRN PO 12/03/16 13:00 (Senokot) 17.2 mg Q12H PRN PO 12/03/16 13:00 (Dulcolax Supp) 10 mg DAILY PRN RECTAL 12/03/16 13:00 (Lactulose Liq) 30 ml DAILY PRN PO 12/03/16 13:00 Pharmacy Profile Note 0 ml @ 0 mls/hr UNSCH OTHER 12/03/16 13:45 Piperacillin Sod/ Tazobactam Sod 100 ml @ 200 mls/hr Q6H IV 12/03/16 16:00 12/04/16 09:49 Fentanyl Citrate 250 ml @ 5 mls/hr TITRATE PRN IV 12/03/16 14:15 12/03/16 14:30 Azithromycin 500 mg/Sodium Chloride 250 ml @ 250 mls/hr Q24H IV 12/04/16 15:00 (Aspirin Supp) 300 mg DAILY RECTAL 12/03/16 15:15 12/04/16 08:20 Vancomycin HCl 1000 mg/Sodium Chloride 250 ml @ 250 mls/hr Q24H IV 12/04/16 13:00 Miscellaneous Information SPECIFIC LAB TO BE VIVI... ONCE ONCE .XX 12/06/16 12:45 12/06/16 12:46 (Levemir Inj) 9 units DAILY SQ 12/04/16 09:00 12/04/16 08:19 (Glucagon Inj) 1 mg UNSCH PRN OTHER 12/04/16 01:15 (D50w (Vial) Inj) 25 ml UNSCH PRN IV PUSH 12/04/16 08:00 (NovoLIN R SUPPLEMENTAL SCALE) 1 Q4HR SQ 12/04/16 08:00 12/04/16 08:19 Norepinephrine Bitartrate 4 mg/ Sodium Chloride 250 ml @ 7.5 mls/hr TITRATE PRN IV 12/04/16 09:15 12/04/16 09:26 (Brethine Inj) 1 mg UNSCH PRN SQ 12/04/16 09:15 Vital Signs / I&O Vital Signs Date Time Temp Pulse Resp B/P (MAP) Pulse Ox O2 Delivery O2 Flow Rate FiO2 12/04/16 09:26 68 77/41 12/04/16 08:06 100 40 12/04/16 07:00 74 105/55 (72) 99 12/04/16 06:00 78 12/04/16 06:00 78 121/57 (78) 99 12/04/16 05:00 80 121/57 (78) 98 12/04/16 04:49 98 50 12/04/16 04:00 75 12/04/16 04:00 98.6 79 117/59 (78) 98 12/04/16 04:00 79 12/04/16 03:00 79 123/58 (79) 97 12/04/16 02:00 79 113/58 (76) 97 12/04/16 02:00 79 12/04/16 01:00 80 110/57 (74) 98 12/04/16 00:50 99 55 12/04/16 00:00 50 12/04/16 00:00 78 12/04/16 00:00 98.4 78 103/57 (72) 98 12/03/16 23:00 81 110/57 (74) 98 12/03/16 22:00 78 12/03/16 22:00 78 106/59 (75) 100 12/03/16 21:00 82 109/54 (72) 95 12/03/16 20:00 75 12/03/16 20:00 83 12/03/16 20:00 98.2 83 111/56 (74) 99 12/03/16 19:50 99 75 12/03/16 19:00 86 95/52 (66) 99 12/03/16 15:00 76 14 102/59 (73) 97 Ventilator 95 12/03/16 14:50 12/03/16 14:30 78 14 85/53 (64) 97 Ventilator 95 12/03/16 14:15 80 14 90/55 (67) 97 Ventilator 95 12/03/16 13:58 84 14 85/52 (63) 97 Ventilator 80 12/03/16 13:30 84 14 139/60 (86) 97 Ventilator 80 12/03/16 13:00 79 14 82/50 (61) 97 Ventilator 100 12/03/16 13:00 80 12/03/16 13:00 74 14 82/50 (61) 94 Ventilator 94 12/03/16 12:45 76 14 105/51 (69) 94 Ventilator 12/03/16 12:35 82 14 102/55 (71) 100 Ventilator 14.00 100 12/03/16 12:25 78 14 102/55 (71) 100 Ventilator 100 12/03/16 12:10 84 14 108/56 (73) 99 Ventilator 100 12/03/16 12:00 94 22 120/58 (78) 90 Nasal Cannula 12.00 12/03/16 11:40 100 22 126/63 (84) Ventilator 100 I/O 12/03/16 12/03/16 12/03/16 12/04/16 12/04/16 12/04/16 07:00 15:00 23:00 07:00 15:00 23:00 Intake Total 100 ml 270 ml Output Total 350 ml 425 ml Balance -250 ml -155 ml Intake IV Total 100 ml 270 ml Output Urine Total 350 ml 425 ml Physical Exam Unresponsive except to pain No JVD Lungs clear anteriorly CV S1S2 RRR, no murmur Abd: soft Ext: no edema Laboratory Laboratory Tests Test 12/03/16 11:41 12/03/16 12:10 12/03/16 12:45 12/03/16 15:20 Blood Gas Puncture Site LT RADIAL Blood Gas Patient Temperature 98.6 Blood Gas HCO3 17 mmol/L Blood Gas Base Excess -8.7 mmol/L Blood Gas Oxygen Saturation 90 % Arterial Blood pH 7.27 Arterial Blood Partial Pressure CO2 38 mmHg Arterial Blood Partial Pressure O2 70 mmHG Arterial Blood Oxygen Content 14.7 Vol % Arterial Blood Carboxyhemoglobin 0.9 % Arterial Blood Methemoglobin 0.8 % Blood Gas Hemoglobin 11.7 G/DL Oxygen Delivery Device VENTILATOR Blood Gas Ventilator Setting PRVC/AC Blood Gas Inspired Oxygen 100 % Urine Color YELLOW Urine Turbidity HAZY Urine pH 6.0 Urine Specific [place] 1.036 Urine Protein 300 mg/dL Urine Glucose (UA) 1000 mg/dL Urine Ketones NEG mg/dL Urine Occult Blood SMALL Urine Nitrite NEG Urine Bilirubin NEG Urine Urobilinogen LESS THAN 2.0 MG/DL Urine Leukocyte Esterase NEG Urine RBC 6 /hpf Urine WBC 6 /hpf Urine Squamous Epithelial Cells 2 /hpf Urine Amorphous Sediment FEW Urine Bacteria FEW /hpf Urine Hyaline Casts 4 /lpf Urine Granular Casts 1 /lpf Urine Mucus FEW /lpf Urine Opiates Screen NEG Urine Barbiturates Screen NEG Urine Amphetamines Screen NEG Urine Benzodiazepines Screen NEG Urine Cocaine Screen NEG Urine Cannabinoids Screen NEG Lactic Acid Level 5.4 mmol/L Nasal Screen MRSA (PCR) MRSA NOT DETECTED Test 12/03/16 16:22 12/03/16 17:50 12/03/16 18:35 12/04/16 00:14 Lactic Acid Level 4.0 mmol/L 2.3 mmol/L Blood Gas Puncture Site RT RADIAL Blood Gas Patient Temperature 98.6 Blood Gas HCO3 22 mmol/L Blood Gas Base Excess -3.1 mmol/L Blood Gas Oxygen Saturation 92 % Arterial Blood pH 7.32 Arterial Blood Partial Pressure CO2 45 mmHg Arterial Blood Partial Pressure O2 78 mmHg Arterial Blood Oxygen Content 15.2 Vol % Arterial Blood Carboxyhemoglobin 0.8 % Arterial Blood Methemoglobin 1.3 % Blood Gas Hemoglobin 11.7 G/DL Oxygen Delivery Device VENT Blood Gas Ventilator Setting PRVC/14/500/5/1IT Blood Gas Inspired Oxygen 75 % White Blood Count 21.8 TH/MM3 Red Blood Count 4.98 MIL/MM3 Hemoglobin 12.4 GM/DL Hematocrit 40.2 % Mean Corpuscular Volume 80.8 FL Mean Corpuscular Hemoglobin 24.9 PG Mean Corpuscular Hemoglobin Concent 30.8 % Red Cell Distribution Width 18.2 % Platelet Count 299 TH/MM3 Mean Platelet Volume 8.0 FL Neutrophils (%) (Auto) 83.8 % Lymphocytes (%) (Auto) 7.2 % Monocytes (%) (Auto) 8.7 % Eosinophils (%) (Auto) 0.2 % Basophils (%) (Auto) 0.1 % Neutrophils # (Auto) 18.2 TH/MM3 Lymphocytes # (Auto) 1.6 TH/MM3 Monocytes # (Auto) 1.9 TH/MM3 Eosinophils # (Auto) 0.0 TH/MM3 Basophils # (Auto) 0.0 TH/MM3 CBC Comment DIFF FINAL Differential Comment Blood Urea Nitrogen 14 MG/DL 16 MG/DL Creatinine 0.82 MG/DL 0.78 MG/DL Random Glucose 240 MG/DL 210 MG/DL Calcium Level 9.2 MG/DL 8.4 MG/DL Phosphorus Level 3.4 MG/DL 3.4 MG/DL Magnesium Level 2.1 MG/DL 1.9 MG/DL Sodium Level 138 MEQ/L 138 MEQ/L Potassium Level 4.8 MEQ/L 4.7 MEQ/L Chloride Level 105 MEQ/L 110 MEQ/L Carbon Dioxide Level 19.6 MEQ/L 20.5 MEQ/L Anion Gap 13 MEQ/L 8 MEQ/L Estimat Glomerular Filtration Rate 69 ML/MIN 73 ML/MIN Troponin I 0.06 NG/ML Test 12/04/16 04:14 12/04/16 10:30 White Blood Count 19.3 TH/MM3 Red Blood Count 4.85 MIL/MM3 Hemoglobin 11.9 GM/DL Hematocrit 37.5 % Mean Corpuscular Volume 77.2 FL Mean Corpuscular Hemoglobin 24.5 PG Mean Corpuscular Hemoglobin Concent 31.8 % Red Cell Distribution Width 17.6 % Platelet Count 253 TH/MM3 Mean Platelet Volume 8.0 FL Neutrophils (%) (Auto) 87.0 % Lymphocytes (%) (Auto) 5.8 % Monocytes (%) (Auto) 6.6 % Eosinophils (%) (Auto) 0.2 % Basophils (%) (Auto) 0.4 % Neutrophils # (Auto) 16.8 TH/MM3 Lymphocytes # (Auto) 1.1 TH/MM3 Monocytes # (Auto) 1.3 TH/MM3 Eosinophils # (Auto) 0.0 TH/MM3 Basophils # (Auto) 0.1 TH/MM3 CBC Comment DIFF FINAL Differential Comment Blood Urea Nitrogen 16 MG/DL Creatinine 0.85 MG/DL Random Glucose 231 MG/DL Total Protein 6.6 GM/DL Albumin 3.0 GM/DL Calcium Level 9.0 MG/DL Phosphorus Level 3.7 MG/DL Magnesium Level 1.9 MG/DL Alkaline Phosphatase 28 U/L Aspartate Amino Transf (AST/SGOT) 23 U/L Alanine Aminotransferase (ALT/SGPT) 24 U/L Total Bilirubin 1.3 MG/DL Sodium Level 140 MEQ/L Potassium Level 4.7 MEQ/L Chloride Level 108 MEQ/L Carbon Dioxide Level 20.1 MEQ/L Anion Gap 12 MEQ/L Estimat Glomerular Filtration Rate 66 ML/MIN Lactic Acid Level 1.7 mmol/L Imaging Last [address] Angiography 12/03/161218 Signed Impressions: Service Date/Time: Saturday, December 03, 2016 14:45 - CONCLUSION: 1. The study is negative for pulmonary embolism. 2. Right lower lobe are consolidation, patchy areas of consolidation left lower lung, diffuse increased ground substance in the mid and upper lungs and bilateral pleural effusions. Gabriel Umaña MD Abdomen/Pelvis CT 12/03/161218 Signed Impressions: Service Date/Time: Saturday, December 03, 2016 14:45 - CONCLUSION: 1. Bilateral pleural effusions and lower lung consolidation, right worse than left. 2. 12 mm cortical target lesion in the midpole cortex of the right kidney with adjacent sub-capsular fluid it is of uncertain significance. Recommend correlation with clinical history for possible recent biopsy. A renal mass cannot be excluded. Gabriel Umaña MD Assessment and Plan Problem List: (1) Elevated troponin ICD Codes: R74.8 - Abnormal levels of other serum enzymes Plan: Elevation is minimal and not unexpected in view of severe hypoxic resp failure yesterday. One would expect a much higher troponin level if this is flash pulmonary edema from coronary ischemia (2) Left ventricular dysfunction ICD Codes: I51.9 - Heart disease, unspecified Plan: Not sure if this is acute or chronic. Obvious concern if this could be ischemic mediated but would expect a higher troponin level. (3) Respiratory failure ICD Codes: J96.90 - Respiratory failure, unspecified, unspecified whether with hypoxia or hypercapnia Status: Acute (4) Left bundle branch block ICD Codes: I44.7 - Left bundle branch block Status: Acute Plan: Chronic since 2007 (5) Unresponsive ICD Codes: R41.89 - Other symptoms and signs involving cognitive functions and awareness Status: Acute Plan: STAT MRI ordered. Prolonged hypoxia from yesterday may be factor. R/O CVA Assessment and Plan Await last troponin and MRI results. Might consider coronary angio. Problem Qualifiers (1) Respiratory failure: Qualified Codes: J96.00 - Acute respiratory failure, unspecified whether with hypoxia or hypercapnia David Rand MD Dec 04, 2016 11:48
--- NOTE | 2016-12-04 12:01 | RADRPT ---
EXAM DATE/TIME: 12/04/2016 11:24 [facility] COMPARISON: CHEST SINGLE AP, December 03, 2016, 12:34. INDICATIONS : Central line placement. MEDICAL HISTORY : Hypothyroidism. Hypertension. Diabetes mellitus type 2. SURGICAL HISTORY : Tonsillectomy. ENCOUNTER: Subsequent ACUITY: 2 days PAIN SCORE: Non-responsive. LOCATION: Bilateral chest FINDINGS: An endotracheal tube has its tip 3 cm above the elmer. A nasogastric tube has its tip below the [place] phragm. A right internal jugular central line has its tip at the junction of the superior vena cava and right atrium. No pneumothorax is noted. There is improved aeration of the lungs compared to the previous examination. Moderate perihilar infiltrates remain. The heart is enlarged. CONCLUSION: 1. Right internal jugular central line has its tip at the junction of the superior vena cava and rig ht atrium in good position. There is no pneumothorax. 2. Improved aeration of the lungs with moderate perihilar infiltrates remaining. 3. Endotracheal tube and nasogastric tube remain in good positions. 4. Cardiomegaly. Junior Kennedy MD on December 04, 2016 at 11:48 Board Certified Radiologist. This report was verified electronically.
--- NOTE | 2016-12-04 12:03 | PD.PROCEDR ---
Procedure Note Procedure DATE: 12/04/16 CENTRAL LINE PLACEMENT: Right internal jugular vein. Ultrasound-guided INDICATION: Central venous access CONSENT Informed consent for procedure was obtained from patient's after discussion of risks, benefits, alternatives. DESCRIPTION OF THE PROCEDURE The patient was placed in supine position, mild Trendelenburg. The skin was cleansed with Chloraprep at RIJ and right subclavian. Additional barrier precautions included large sterile drape, sterile gloves, sterile gown, face mask, and hat. 1 % lidocaine was used for local anesthesia. Patient was withdrawing and moving head so gave fentanyl 50 mcg IV and resumed fentanyl 50 mcg/hr. Single attempt at R subclavian site unsuccessful and patient restless and moving. Did not wish to re-sedate her heavily as trying to assess neuro status which has been limited during intubation. Therefore, proceeded with R IJ site due to lower risk of PTX. Under direct ultrasound guidance and on single attempt, the vein was accessed with an introducer needle. The guide wire was advanced and the tract was dilated. Using Seldinger technique a 7 [place] 20 cm antimicrobial coated triple-lumen catheter was advanced to a depth of 17 centimeters. The guide wire was removed. All ports had good return of dark venous blood and flushed easily with saline. The central line was secured with 2.0 silk. A sterile dressing with antibiotic disc was applied. ESTIMATED BLOOD LOSS: Minimal COMPLICATIONS: No apparent complications. STAT chest x-ray demonstrates satisfactory central venous line position. Jonna Gloria MD Dec 04, 2016 12:02
[2016-12-04] MEDS ORDERED: VANCOMYCIN 1,000 MG/NS 250 ML IV SCH ×2 (13:00)
--- NOTE | 2016-12-04 13:35 | MG ---
cc: FABIAN HART M.D. Lab No: [id number] Date: 12/04/2016 Age:71 Sex: F Race: ROOM 508 RESULTS: ROOM 508 intubated on Versed and fentanyl with photic only withdraws all four extremities. CT negative. 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 DESCRIPTION OF RECORD: There is overall background slowing predominately delta frequency and some mild myogenic artifact. CT no epileptiform features, deep tactile stimulation towards the end with no change, predominantly just slowing, withdrew to painful stimuli. Photic stimulation some mild driving response seen. IMPRESSION Abnormal EEG due to moderate slowing likely secondary from an secondary due to sedation. No epileptiform features are seen. Clinical correlation. MD BREONNA Ledesma/jamie /1:02 PM /1:27 PM
[2016-12-04 13:48] LABS: BICARBONATE 23.3 MEQ/L (21.0-32.0); CALCIUM 8.8 MG/DL (8.5-10.1); CREATININE 1.02 MG/DL (0.50-1.00); MAGNESIUM 2.1 MG/DL (1.5-2.5); PHOSPHORUS 3.5 MG/DL (2.5-4.9)
[2016-12-04 13:53] LABS: TROPONIN I 0.06 NG/ML (0.02-0.05)
--- NOTE | 2016-12-04 14:05 | HHI.FPPN ---
Subjective Remarks Patient currently on a ventilator. FiO2 40%, decreased from 100% yesterday 12/03. Central line in placed internal jugular - confirmed by CXR. Levophed per intensive care. CTA negative for PE. CT head showed decreased flow to A1 segment. EEG pending. Metabolic acidosis correcting. Broad spectrum antibiotics. CXR of lungs showed improved aeration today . Neurology, cardiology, and intensive care currently managing. Family medicine will follow along care. Patient is well known to Dr. Santoyo. (FrancescoNatalio jack MD, R3) Objective Vitals Vital Signs Date Time Temp Pulse Resp B/P (MAP) Pulse Ox O2 Delivery O2 Flow Rate FiO2 12/04/16 12:09 100 40 12/04/16 09:26 68 77/41 12/04/16 08:06 100 40 12/04/16 07:00 74 105/55 (72) 99 12/04/16 06:00 78 12/04/16 06:00 78 121/57 (78) 99 12/04/16 05:00 80 121/57 (78) 98 12/04/16 04:49 98 50 12/04/16 04:00 75 12/04/16 04:00 98.6 79 117/59 (78) 98 12/04/16 04:00 79 12/04/16 03:00 79 123/58 (79) 97 12/04/16 02:00 79 113/58 (76) 97 12/04/16 02:00 79 12/04/16 01:00 80 110/57 (74) 98 12/04/16 00:50 99 55 12/04/16 00:00 50 12/04/16 00:00 78 12/04/16 00:00 98.4 78 103/57 (72) 98 12/03/16 23:00 81 110/57 (74) 98 12/03/16 22:00 78 12/03/16 22:00 78 106/59 (75) 100 12/03/16 21:00 82 109/54 (72) 95 12/03/16 20:00 75 12/03/16 20:00 83 12/03/16 20:00 98.2 83 111/56 (74) 99 12/03/16 19:50 99 75 12/03/16 19:00 86 95/52 (66) 99 12/03/16 15:00 76 14 102/59 (73) 97 Ventilator 95 12/03/16 14:50 12/03/16 14:30 78 14 85/53 (64) 97 Ventilator 95 12/03/16 14:15 80 14 90/55 (67) 97 Ventilator 95 12/03/16 13:58 84 14 85/52 (63) 97 Ventilator 80 I/O 12/03/16 12/03/16 12/03/16 12/04/16 12/04/16 12/04/16 07:00 15:00 23:00 07:00 15:00 23:00 Intake Total 100 ml 270 ml Output Total 350 ml 425 ml Balance -250 ml -155 ml Intake IV Total 100 ml 270 ml Output Urine Total 350 ml 425 ml (Natalio Maya MD, R3) Result Diagram: 12/04/16 0414 12/04/16 1250 Imaging Last 72 hours Impressions Chest X-Ray 12/04/16 0000 Signed Impressions: Service Date/Time: Sunday, December 04, 2016 11:24 - CONCLUSION: 1. Right internal jugular central line has its tip at the junction of the superior vena cava and right atrium in good position. There is no pneumothorax. 2. Improved aeration of the lungs with moderate perihilar infiltrates remaining. 3. Endotracheal tube and nasogastric tube remain in good positions. 4. Cardiomegaly. Junior Kennedy MD CT Angiography 12/03/16 1219 Signed Impressions: Service Date/Time: Saturday, December 03, 2016 14:45 - CONCLUSION: 1. The study is negative for pulmonary embolism. 2. Right lower lobe are consolidation, patchy areas of consolidation left lower lung, diffuse increased ground substance in the mid and upper lungs and bilateral pleural effusions. Gabriel Umaña MD Abdomen/Pelvis CT 12/03/16 1219 Signed Impressions: Service Date/Time: Saturday, December 03, 2016 14:45 - CONCLUSION: 1. Bilateral pleural effusions and lower lung consolidation, right worse than left. 2. 12 mm cortical target lesion in the midpole cortex of the right kidney with adjacent sub-capsular fluid it is of uncertain significance. Recommend correlation with clinical history for possible recent biopsy. A renal mass cannot be excluded. Gabriel Umaña MD Neck CTA 12/03/16 1115 Signed Impressions: Service Date/Time: Saturday, December 03, 2016 11:20 - CONCLUSION: 1. 60%% narrowing due to an eccentric calcification in the left carotid bulb. 2. Left dominant vertebral system. Gabriel Umaña MD Head CTA 12/03/16 1115 Signed Impressions: Service Date/Time: Saturday, December 03, 2016 11:20 - CONCLUSION: Absent flow in right A1 segment with patent anterior communicating artery providing flow to the A2 segment. No aneurysms seen. Gabriel Umaña MD ADDENDUM: Questionable 2-3 mm aneurysm in the right middle cranial fossa off a branch vessel of the right MCA territory. Anatomic detail is limited due to the proximity of the adjacent skull base. When patient is stable, MRA could be considered although, the peripheral location of the potential lesion may make it difficult to visualize on that technique as well. Pj Todd MD Head CT 12/03/16 0000 Signed Impressions: Service Date/Time: Saturday, December 03, 2016 11:18 - CONCLUSION: 1. No acute findings. 2. Old right basal ganglia infarct. Gabriel Umaña MD Chest X-Ray 12/03/16 0000 Signed Impressions: Service Date/Time: Saturday, December 03, 2016 12:34 - CONCLUSION: Diffuse pulmonary consolidations with tiny right effusion. Gabriel Henao Jr., MD (Natalio Maya MD, R3) A/P Assessment and Plan Assessment and Plan: Apparent acute pulmonary edema preceded by evolving picture of sob times several day. CXR improving. FiO2 reduced to 40%. Hx of Lt BBB and HBP, no hx of ischemic heart disease. Possible seizure with Luis E's paralysis post event - EEG pending. Neuro helping in management. Diabetes Type 2 not well controlled followed by endocrinology. DKA resolved. Hypothyroidism - TSH normal. CKD stage 3 secondary to HBP and diabetes, followed by Dr. Rashel Busch; GFR of 53 today. ABN imaging of right kidney, will need followup Hx of multiple musculoskeletal conditions related to strains, minor injuries Orders per Dr. Gloria Barrel [employer] As[employer]er. SDW Dr. Hagen and Dr. Kee. . (Natalio Maya MD, R3) Attending Attestation Patient seen and examined. Case reviewed and discussed with the resident team. Agree with plan of care as discussed with me and documented in the resident note. appreciate all the help in this critically ill pt (Marly Hagen MD) Problem List: (1) Diabetes type 2, uncontrolled ICD Codes: E11.65 - Uncontrolled type 2 diabetes mellitus Status: Chronic (2) Left bundle branch block ICD Codes: I44.7 - Left bundle branch block Status: Chronic (3) Sepsis ICD Codes: A41.9 - Sepsis, unspecified organism Status: Acute (4) Respiratory failure ICD Codes: J96.90 - Respiratory failure, unspecified, unspecified whether with hypoxia or hypercapnia Status: Acute (5) Pulmonary edema ICD Codes: J81.1 - Chronic pulmonary edema Status: Acute (6) Metabolic acidemia ICD Codes: E87.2 - Acidosis Status: Acute (7) DKA (diabetic ketoacidoses) ICD Codes: E13.10 - Other specified diabetes mellitus with ketoacidosis without coma Status: Acute (Natalio Maya MD, R3) Problem Qualifiers (1) Sepsis: Qualified Codes: A41.9 - Sepsis, unspecified organism (2) Respiratory failure: Qualified Codes: J96.00 - Acute respiratory failure, unspecified whether with hypoxia or hypercapnia (3) Pulmonary edema: Qualified Codes: J81.0 - Acute pulmonary edema Natalio Maya MD, R3 Dec 04, 2016 14:05 Marly Hagen MD Dec 05, 2016 15:12
--- NOTE | 2016-12-04 14:09 | RADRPT ---
EXAM DATE/TIME: 12/04/2016 13:17 [facility] COMPARISON: CT BRAIN W/O CONTRAST, December 03, 2016, 11:18. INDICATIONS : Alert with right-sided weakness and unresponsiveness. Abnormal head CT demonstrating old right basal lacunar infarct. MEDICAL HISTORY : Hypertension. Diabetes mellitus type 2. Renal insufficiency, chronic. SURGICAL HISTORY : None. ENCOUNTER: Initial ACUITY: 1 day PAIN SCORE: 0/10 LOCATION: cranial TECHNIQUE: Multiplanar, multisequence MRI of the brain was performed without contrast. FINDINGS: CEREBRUM: The ventricles are normal for age with mild to moderate atrophic change with sulcal and ventricular p rominence. There is an old lacunar infarct again noted in the right basal ganglia. No evidence of mid line shift, mass lesion, hemorrhage or acute infarction. No extraaxial fluid collections are seen. The pituitary gland and suprasellar cistern are normal in configuration. WHITE MATTER: On the flair weighted images there is mild punctate increased signal in the white matter consistent w ith chronic small vessel ischemic change. POSTERIOR FOSSA: The cerebellum and brainstem are intact with cerebellar atrophy noted. The 4th ventricle is midline. The cerebellopontine angle is unremarkable. The cerebellar tonsils are normal in position. DIFFUSION IMAGING: No focal areas of restricted diffusion are seen. No evidence of acute infarction. EXTRACRANIAL: The visualized portions of the orbits and paranasal sinuses are unremarkable. CONCLUSION: 1. No acute hemorrhage, mass or infarction. 2. Old lacunar infarct in the right basal ganglia. 3. Atrophy and mild chronic small vessel ischemic change. Alan Rivas MD on December 04, 2016 at 14:05 Board Certified Radiologist. This report was verified electronically.
[2016-12-04] MEDS: AZITHROMYCIN INJ 500 MG in SODIUM CHLOR 0.9% 250 ML INJ 250 ML IV SCH (14:27)
--- NOTE | 2016-12-04 14:36 | RADRPT ---
EXAM DATE/TIME: 12/04/2016 13:17 [facility] COMPARISON: CTA BRAIN W 3D RECON, December 03, 2016, 11:20. INDICATIONS : CVA. Abnormal CT angiogram demonstrating absent flow in the right A1 segment. MEDICAL HISTORY : Hypertension. Diabetes mellitus type 2. Renal insufficiency, chronic. SURGICAL HISTORY : None. ENCOUNTER: Initial ACUITY: 1 day PAIN SCORE: 0/10 LOCATION: cranial Please note a normal MRA of the brain does not entirely exclude the possibility of a small aneurysm, nor the possibility of distal intracranial vessel disease. TECHNIQUE: 3D time of flight MRA was performed. Source images, multiplanar STS MIP, and 3D volume MIP reconstru ctions were reviewed. FINDINGS: There is excellent visualization of the major intracranial arteries out to the second-order branch ve ssels. There is an absent right A1 segment. There is no evidence for aneurysm, vessel truncation or stenosis, and no evidence for vascular malformation. CONCLUSION: Absent right A1 segment again noted. The study is otherwise unremarkable. Alan Rivas MD on December 04, 2016 at 14:29 Board Certified Radiologist. This report was verified electronically.
--- NOTE | 2016-12-04 17:11 | MB ---
cc: JOHN WATTS DATE OF CONSULTATION 12/04/[address] Jonna Gloria REASON FOR CONSULTATION Respiratory failure. HISTORY OF PRESENT ILLNESS Ms. Agosto is a pleasant 71-year-old female who has a longstanding history of diabetes mellitus with neuropathy, chronic kidney disease. She has not been walking much because of her shortness of breath on a chronic basis. The patient went to see Dr. Fernandez for her neuropathy and, while she was in the office, was trying to put her in the car. She stated that she was not feeling well and wanted to go to [facility]. When the put her into the car, she flopped on the seat, started ruling her eyes and became unresponsive. [facility] was called and she was taken to the hospital. She was severely hypoxic, saturation in 70s. Earlier stroke alert was called, but she was not considered a TPA candidate. Then it was noted she had left bundle block and STEMI was called. The troponin was negative. She did not receive any therapy. The patient was intubated. She was found to be in severe pulmonary edema with severe hypoxia. She was 100% FIO2. Now her saturation is significantly improved. She did not require any diuretics. Also, her chest x-ray is significantly improved. Today her CBC showed WBC count 9, hemoglobin 11.9, hematocrit 37.5, MCV 77, platelet count 263. Sodium 140, potassium 4.1, chloride 106, CO2 23, BUN 18, creatinine 1.03, glucose 246. Initial glucose of 450. Troponin is 0.06. BNP 547. MRI of the brain shows no acute hemorrhage, mass or infarction. She has old ____ infarct. CTA shows no pulmonary embolism. She has right lower lobe consolidation. PAST MEDICAL HISTORY 1. Hypertension, 2. Diabetes mellitus, 3. Left bundle branch block. MEDICATIONS Currently taking 1. Zithromax 500 mg a day 2. Vancomycin IV 3. Low-dose Levophed 4. Insulin 9 units 5. IV vancomycin. 6. Zosyn. 7. She is on fentanyl for sedation. 8. Protonix 40 mg a day 9. Albuterol/Atrovent nebulizer treatment. ALLERGIES LATEX. SOCIAL HISTORY She is . No history of smoking or alcohol use. FAMILY HISTORY Noncontributory. Her son is a edging machine catcher. REVIEW OF SYSTEMS The patient has been feeling short of breath and has not been doing much activity. Does not have any previous seizure, stroke or epilepsy. No malignancy. PHYSICAL EXAMINATION GENERAL: Moderately built, well-nourished on ventilator. VITAL SIGNS: Currently, FIO2 40%, sedated with fentanyl. Blood pressure 105/55, heart rate 72, respirations 20, temperature 98. HEENT: Pupils react to light. She is orally intubated. NECK: Supple. JVP not raised. CHEST: Equal bilaterally. He has bilateral rales. CHEST: S1, S2 normal. ABDOMEN: Soft, nondistended. Bowel sounds are present. EXTREMITIES: No edema. IMPRESSION 1. Ventilator dependent respiratory failure. 2. Acute pulmonary edema. 3. chronic left bundle block 4. Cardiomyopathy. Ejection fraction is 20-25%. 5. Mild renal insufficiency 6. Uncontrolled diabetes mellitus. 7. Diabetic neuropathy. PLAN Discussed with the patient, patient's and her son at the bedside. We will wean her from sedation and put her on FIO2 30%. When she starts waking up and follows commands, we will put her on spontaneous breathing trial and wean from the ventilator. Monitor her renal function closely. Continue her antibiotic. If her cultures are negative, then we will deescalate antibiotic. Dr. Rand is following her and she may need cardiac cath. Further treatment will depend on the course in the hospital. Thank you, Dr. Jonna Gloria, for this consultation. MD KAYCEE Vega/ /4:00 PM /4:45 PM AYDEN
[2016-12-04] MEDS: HEPARIN SODIUM - SQ 10,000 UNITS/ML VIAL SQ SCH (21:43)
[2016-12-04 22:06] LABS: CHOLESTEROL/ HDL RATIO 1.95 RATIO; HDL CHOLESTEROL 48.1 MG/DL (40.0-60.0)
[2016-12-04] MEDS: fentaNYL DRIP 250 ML IV PRN (23:06)
[2016-12-05] VITALS (19 sets, daily range): BP systolic 90–127; BP diastolic 43–59; PULSE 79–124; RESP 14–24; TEMP 98.6–99.6; O2SAT 93–100
[2016-12-05 03:18] LABS: AUTOMATED NEUTROPHIL # 13.3 TH/MM3 (1.8-7.7); BASOPHIL % 0.3 % (0.0-2.0); EOSINOPHIL # 0.1 TH/MM3 (0-0.4); EOSINOPHIL % 0.7 % (0.0-4.0); HEMATOCRIT 31.7 % (35.0-46.0); LYMPH % 8.5 % (9.0-44.0); LYMPHOCYTE # 1.4 TH/MM3 (1.0-4.8); MEAN CELL VOLUME 75.9 FL (80.0-100.0); MEAN CORPUSCULAR HGB CONC 31.6 % (32.0-36.0); MEAN PLATELET VOLUME 7.8 FL (7.0-11.0); MONO % 9.7 % (0.0-8.0); MONOCYTE # 1.6 TH/MM3 (0-0.9); NEUT % 80.8 % (16.0-70.0); PLATELET COUNT 258 TH/MM3 (150-450); RED BLOOD COUNT 4.18 MIL/MM3 (4.00-5.30); RED CELL DISTRIBUTION WIDTH 17.5 % (11.6-17.2); WHITE BLOOD COUNT 16.5 TH/MM3 (4.0-11.0)
[2016-12-05 03:56] LABS: BICARBONATE 26.6 MEQ/L (21.0-32.0); CALCIUM 8.3 MG/DL (8.5-10.1); CREATININE 0.99 MG/DL (0.50-1.00); MAGNESIUM 2.4 MG/DL (1.5-2.5)
[2016-12-05] MEDS: CHLORHEXIDINE GLUCONATE 2 % 1 PACK (2 CLOTHS) TOP SCH (04:00)
[2016-12-05] MEDS: INSULIN NovoLIN REGULAR SUPPLEMENTAL SCALE SQ SCH ×6 (04:00→20:00)
[2016-12-05] MEDS: RESP: ALBUTEROL 2.5 MG/IPRATROPIUM 0.5 MG NEB (SCH) INH ×4 (04:39→20:44)
[2016-12-05] MEDS: PIPERACIL-TAZO 4.5 GM PREMIX 100 ML IV SCH ×4 (04:53→21:21)
[2016-12-05] MEDS: LEVOTHYROXINE SODIUM 100 MCG TAB PO SCH (05:47)
[2016-12-05] MEDS ORDERED: FUROSEMIDE 20 MG/2 ML VIAL IV PUSH ONE (07:15)
[2016-12-05] MEDS: DOCUSATE SODIUM 50 MG/SENNA 8.6 MG TAB PO SCH ×2 (07:58→21:00)
[2016-12-05] MEDS: HEPARIN SODIUM - SQ 10,000 UNITS/ML VIAL SQ SCH ×2 (07:59→21:21)
[2016-12-05] MEDS: PANTOPRAZOLE SODIUM 40 MG VIAL IV PUSH SCH (07:59)
[2016-12-05] MEDS: INSULIN DETEMIR 100 UNITS/ML VIAL SQ SCH ×2 (07:59→21:21)
[2016-12-05] MEDS ORDERED: DEXMEDETOMIDINE INJ 200 MCG in SODIUM CHLORIDE 0.9% INJ 50 ML IV PRN (08:00)
[2016-12-05] MEDS: ASPIRIN 300 MG SUPP RECTAL SCH (08:00)
--- NOTE | 2016-12-05 08:00 | RADRPT ---
EXAM DATE/TIME: 12/05/2016 06:12 [facility] COMPARISON: CHEST SINGLE AP, December 04, 2016, 11:24. INDICATIONS : Respiratory failure MEDICAL HISTORY : Hypothyroidism. Hypertension. Diabetes mellitus type 2. SURGICAL HISTORY : Tonsillectomy. ENCOUNTER: Subsequent ACUITY: 3 days PAIN SCORE: Non-responsive. LOCATION: Chest FINDINGS: The endotracheal tube has its tip 3 cm above the elmer. A nasogastric tube is below the diaphragm. A right internal jugular central line has its tip in the right atrium. There is no pneumothorax. T here is interval worsening of the pulmonary infiltrates bilaterally consistent with worsening pulmona ry edema versus pneumonia. Clinical correlation is recommended. The heart remains enlarged. Degene rative changes and scoliosis of the thoracolumbar spine are noted. CONCLUSION: 1. Interval worsening bilateral pulmonary infiltrates consistent with worsening pulmonary edema vers us pneumonia. Clinical correlation is recommended. 2. Cardiomegaly. 3. Multiple tubes and lines are stable. 4. Degenerative changes and scoliosis of the thoracolumbar spine. Junior Kennedy MD on December 05, 2016 at 7:38 Board Certified Radiologist. This report was verified electronically.
[2016-12-05 09:16] LABS: HEMOGLOBIN A1C 9.1 % (4.3-6.0)
--- NOTE | 2016-12-05 11:38 | HHI.CCPN ---
Subjective Remarks/Hospital Course The patient is a 71-year-old female with a past medical history of hypertension , diabetes mellitus, hypothyroidism. She went to see Dr. Fernandez for evaluation of diabetic neuropathy and the patient had a syncopal episode. There is no history of any witnessed seizures. When she was brought in to [place] via ambulance she had some right sided weakness with rightward gaze. Her GCS declined to 3, where she was intubated emergently for airway protection. Post intubation the patient was noted to move all extremities. In addition, prior to arrival she was hypoxic with O2 saturation in the 80s, STEMI alert was called, however, the patient was found to have an old left bundle branch block. STEMI was cancelled after ED's discussion with Dr. Rand. Also, they called a stroke alert; however, after discussion with Dr. Knight the patient was not a candidate for TPA as she was moving all extremities post intubation. Her ABG post intubation showed ph of 7.27, CO2 38, PA02 70, bicarb 17, saturation 90% on PRVC mode with rate 14, tidal volume 500, ITIME 1.0, PEEP 5, 100% FIO2. Chest x-ray post intubation showed diffuse pulmonary consolidation. Due to her syncopal episode she had a CT scan of the brain which showed no acute findings. 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 CTA of the neck showed 60% narrowing due to an eccentric calcification in the left carotid bulb. CTA of the brain showed absent flow in the right A1 segment with patent anterior communicating artery providing flow to the A2 segment and questionable 2 to 3 mm aneurysm in the right middle cranial fossa off a branch vessel of the right MCA territory. Her laboratory data is significant for hyperglycemia, her blood sugar was 455 on point of care and 453 on the CMP. The patient was given regular insulin 7 units and will be on insulin drip per DKA protocol. Her urine drug screen is negative for amphetamines, barbiturates, benzodiazepines. Other significant labs showed leukocytosis with WBC 20.3 and elevated BNP of 547. The patient was seen by Dr. Rand in the ED and echocardiogram was ordered. She was given Vancomycin, cefepime and azithromycin in the ED. The patient is scheduled to undergo CT pulmonary angiogram and CT abdomen and pelvis wereordered by ED. When seen the patient is sedated with versed and on full mechanical ventilation. Her current blood pressure is 117/69 with a pulse of 77 , saturation 96-97%. 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 No history of any cough or constitutional symptoms. 12/04 Echo with EF 20-25%. states she was had been complaining of SOB and chest pain off and on for about 2 weeks prior to this event. Complained of SOB right before syncope in the physicians office. Post-syncope she was initially able to talk some and got into a wheelchair and he was trying to get her to the car to go to urgent care across the street when she then became unresponsive and [facility] was called. GCS was reportedly 8 on [facility]AC arrival and she was bagged but there was concern for R sided weakness. She was intubated upon arrrival to the ED. Denies known cardiac history and has had no prior cardiac workup. She has also complained of difficulty swallowing and has coughed and "choked" a few times while eating over the last 1-2 weeks. She did not have a persistent or productive cough and had not complained of fever. She had not complained of headache. Anion-gap closed so she was transitioned off insulin drip early this morning. Lactic acid cleared. Now hypotensive, starting levophed. CTPA negative for PE, +RLL consolidation and bilat pleural effusions. Afebrile, WBC 19.3 Legionella/pneumoocococcal antigen negative and influenza negative. Remainder of cultures pending. EEG report pending. Was on versed 5 mg/hr and fentanyl 50 mcg/hr this morning, now holding sedation. Subjective: 12/05 MRI brain negative for stroke. MRA negative for aneurysm. EEG with slowing but no seizure. Agitated off sedation. Started on precedex. Was on low dose levophed couple of hours last night, then off again. Tolerating CPAP initially but subsequently desatted and FIO2 increased. Mental status also not adequate for extubation. Temp max 99.7, WBC downtrending to 16.5 . Sputum cultures with GNR. Objective Vital Signs Date Time Temp Pulse Resp B/P (MAP) Pulse Ox O2 Delivery O2 Flow Rate FiO2 12/05/16 10:00 55 12/05/16 10:00 124 12/05/16 08:00 98.8 24 127/59 (81) 98 12/03/16 15:00 Ventilator 12/03/16 12:35 14.00 Intake and Output 12/05/16 12/05/16 12/06/16 08:00 16:00 00:00 Intake Total 1251 ml Output Total 200.0 ml Balance 1051.0 ml Result Diagram: 12/05/16 0253 12/05/16 0253 Other Results Microbiology Date/Time Source Procedure Growth Status 12/03/16 21:00 Nasal Aspirate Influenza Types A,B Antigen (KARON) - Final NEGATIVE FOR FLU A AND B ANTIGEN.... Complete 12/03/16 12:10 Urine Catheterized Urine Legionella Antigen - Final PRESUMPTIVE NEGATIVE FOR LEGIONELLA P... Complete 12/03/16 12:10 Urine Catheterized Urine Streptococcus pneumoniae Antigen (M - Final PRESUMPTIVE NEGATIVE FOR STREPTOCOCCU... Complete 12/03/16 12:10 Urine Other Urine Culture - Final NO GROWTH IN 48 HOURS. Complete Objective Remarks GENERAL: Intubated 71 yo female. she intermittently thrashes in bed and shakes head back and forth. SKIN: Warm and dry. HEAD: Atraumatic. Normocephalic. EYES: Pupils equal and round, pinpoint and reactive. No eye deviation. No scleral icterus. No injection or drainage. ENT: No nasal bleeding or discharge. Mucous membranes pink and moist. NECK: Trachea midline. No JVD. CARDIOVASCULAR: Regular rate and rhythm. No murmurs rubs or gallops. RESPIRATORY: Intubated, Rales Left base. No wheeze or rhonchi. GASTROINTESTINAL: Abdomen soft, non-tender, nondistended. Hepatic and splenic margins not palpable. : Cisneros in place with light sierra urine output. MUSCULOSKELETAL: Extremities without clubbing, cyanosis, or edema. NEUROLOGICAL: + eye opening without tracking, + facial grimace. Spontaneously moves and withdraws with all extremities. Does not follow commands. A/P Problem List: (1) Systolic heart failure ICD Code: I50.20 - Unspecified systolic (congestive) heart failure (2) Pulmonary edema ICD Code: J81.1 - Chronic pulmonary edema Status: Acute (3) Respiratory failure ICD Code: J96.90 - Respiratory failure, unspecified, unspecified whether with hypoxia or hypercapnia Status: Acute (4) Syncope ICD Code: R55 - Syncope and collapse Status: Acute (5) Sepsis ICD Code: A41.9 - Sepsis, unspecified organism Status: Acute (6) Diabetic nephropathy ICD Code: E11.21 - Diabetic nephropathy Status: Acute (7) Diabetes type 2, uncontrolled ICD Code: E11.65 - Uncontrolled type 2 diabetes mellitus Status: Chronic (8) Hypothyroidism ICD Code: E03.9 - Hypothyroidism Status: Chronic (9) Hypertension, benign ICD Code: I10 - Benign hypertension Status: Chronic (10) Type II diabetes mellitus with renal manifestations, uncontrolled ICD Code: E11.29 - Type II diabetes mellitus with renal manifestations, uncontrolled; E11.65 - Type 2 diabetes mellitus with hyperglycemia Status: Chronic (11) Left bundle branch block ICD Code: I44.7 - Left bundle branch block Status: Chronic (12) Encephalopathy acute ICD Code: G93.40 - Encephalopathy, unspecified Status: Acute (13) Dysphagia ICD Code: R13.10 - Dysphagia, unspecified Status: Chronic Assessment and Plan NEURO: Syncope Acute encephalopathy Versed drip discontinued morning of 12/04. Precedex for sedation. Low dose fentanyl for analgosedation when additional sedative required. Target RASS -2 CT brain 12/03no acute findings CTA brain 12/03 absent flow right A1 with patent Acom providing flow to A2 segment. On addnedum, states ?2-3 mm aneursym of branch off R MCA territory. Could be further evaluated by MRA. Concern for R hemiparesis on admission but Was not candidate for TPA due to resolving symptoms. MRI 12/04 - no acute abnormality. MRA 12/04 absent flow right A1 but no aneursym. EEG - moderate slowing but no seizure. RESP: Acute respiratory failure Pulmonary edema Right lower lobe pneumonia, probable aspiration. Intubated by ED physician due to AMS and hypoxia. CTPA 12/03 - negative for PE. RLL consolidation. Daily CPAP trial and extubate when tolerating and when mental status appropriate. Lasix 40 mg IVq 8 hours. Patient known to Dr. Henderson who is following. CV: Systolic heart failure ?chronic Chronic LBBB Troponin max 0.06 2D Echo - EF 20-25%. Global hypokinesis. No regional wall motion abnormality. Patient has had no prior cardiac workup and will definitely need cardiac catheterization prior to discharge. Discussed extensively with Dr. Rand and with patients family including son who is a special population paraprofessional. Suspect long standing cardiomyopathy that has decompensated and resulted in hypoxia, syncope and resultant mental status change. Dr. Rand plans to defer cath while optimizing respiratory status and while observing renal function in view of recent significant contrast administration. Continue ASA 300 pr daily. LDL 21, Trig and total cholesterol wnl. . On levophed intermittently to maintain MAP >65, seems sedation related. IVC collapse <50%. diuresing as per above. GI: Dysphagia Initiate enteral feeds today with Glucerna 1.5 , adjust goal rate to 50 ml/hr per nutrition recs. FEN/RENAL: Lactic acidemia, resolved FLAVIA, improved Cisneros in place. Monitor intake and output. Monitor electrolytes. Replace as indicated. Received IV contrast 12/03. Avoid nephrotoxins were possible. Was followed by special population paraprofessional as outpatient ID: Acute right lower lobe pneumonia, probable aspiration Sepsis likely secondary to aspiration, improving Aspiration event likely occurred while bagging prehospital when patient was unresponsive. She also has had some mild dysphagia. On Zosyn, Vancomycin, Azithromycin since 12/03 #3. Cultures negative aside from GNR sputum so discontinued vancomycin. Blood cultures 12/03no growth to date Urine Legionella and pneumococcal antigen negative Influenza - Negative Sputum culture 12/03 - GNR HEME: Monitor CBC ENDO: Hypothyroidism TSH normal on admission Resume Synthroid 100 mcg by mouth daily Diabetes with severe hyperglycemia on admission Beta hydroxybutyrate was normal and anion gap was related to lactic acidemia. Now anion gap is closed and has been transitioned off insulin drip. Remains hyperglycemic despite high dose insulin sliding scale with bedside glucose every 4 hours. Increase detemir to 20 units q12. PROPH heparin subcutaneous for DVT prophylaxis. Protonix 40 g IV daily for stress ulcer prophylaxis. ACCESS: Right IJ central venous line placed 12/04 #2. Patient's updated at bedside. Patient's son who is a special population paraprofessional from [facility] was also updated at bedside. Discussed with Dr. Santiago Visited bedside on multiple occasions to reassess mental status, respiratory status, sedation and hemodynamics. Patient is delirious and nonpurposeful, volume overloaded and not appropriate for extubation at this time. Level 3 Problem Qualifiers (1) Systolic heart failure: Qualified Codes: I50.22 - Chronic systolic (congestive) heart failure (2) Pulmonary edema: Qualified Codes: J81.0 - Acute pulmonary edema (3) Respiratory failure: Qualified Codes: J96.00 - Acute respiratory failure, unspecified whether with hypoxia or hypercapnia (4) Syncope: Qualified Codes: R55 - Syncope and collapse (5) Sepsis: Qualified Codes: A41.9 - Sepsis, unspecified organism Jonna Gloria MD Dec 05, 2016 11:38
[2016-12-05] MEDS: DEXMEDETOMIDINE INJ 1,000 MCG in SODIUM CHLOR 0.9% 250 ML INJ 240 ML IV PRN (12:10)
[2016-12-05] MEDS ORDERED: INSULIN DETEMIR 100 UNITS/ML VIAL SQ SCH (12:15)
--- NOTE | 2016-12-05 12:38 | PD.CARD.PN ---
Subjective Subjective Remarks On vent. Moving non-purposefully Objective Medications Current Medications Medications (Trade) Dose Ordered Sig/Ian Route Start Time Stop Time Status Last Admin Propofol 100 ml @ 2.1 mls/hr TITRATE PRN IV 12/03/16 11:30 (Protonix Inj) 40 mg DAILY IV PUSH 12/03/16 13:00 12/05/16 07:59 (Duoneb Neb) 1 ampule Q6HR NEB INH 12/03/16 13:00 12/05/16 07:52 Miscellaneous Information 1 Q361D XX 12/03/16 13:00 (Chlorhexidine 2% Cloth) 3 pack Taper DAILY@04 TOP 12/04/16 04:00 11/30/17 03:59 12/05/16 04:00 (Chlorhexidine 2% Cloth) 3 pack UNSCH PRN TOP 12/03/16 13:00 (Pinky-Colace) 1 tab BID PO 12/03/16 21:00 12/05/16 07:58 (Milk Of Magnesia Liq) 30 ml Q12H PRN PO 12/03/16 13:00 (Senokot) 17.2 mg Q12H PRN PO 12/03/16 13:00 (Dulcolax Supp) 10 mg DAILY PRN RECTAL 12/03/16 13:00 (Lactulose Liq) 30 ml DAILY PRN PO 12/03/16 13:00 Piperacillin Sod/ Tazobactam Sod 100 ml @ 200 mls/hr Q6H IV 12/03/16 16:00 12/05/16 09:18 Fentanyl Citrate 250 ml @ 5 mls/hr TITRATE PRN IV 12/03/16 14:15 12/04/16 23:06 Azithromycin 500 mg/Sodium Chloride 250 ml @ 250 mls/hr Q24H IV 12/04/16 15:00 12/04/16 14:27 (Aspirin Supp) 300 mg DAILY RECTAL 12/03/16 15:15 12/05/16 08:00 Miscellaneous Information SPECIFIC LAB TO BE VIVI... ONCE ONCE .XX 12/06/16 12:45 12/06/16 12:46 (Glucagon Inj) 1 mg UNSCH PRN OTHER 12/04/16 01:15 (D50w (Vial) Inj) 25 ml UNSCH PRN IV PUSH 12/04/16 08:00 (NovoLIN R SUPPLEMENTAL SCALE) 1 Q4HR SQ 12/04/16 08:00 12/05/16 12:12 Norepinephrine Bitartrate 4 mg/ Sodium Chloride 250 ml @ 7.5 mls/hr TITRATE PRN IV 12/04/16 09:15 12/04/16 09:26 (Brethine Inj) 1 mg UNSCH PRN SQ 12/04/16 09:15 (Synthroid) 100 mcg DAILY@0600 PO 12/05/16 06:00 12/05/16 05:47 (Heparin Inj) 5,000 units Q12HR SQ 12/04/16 21:00 12/05/16 07:59 Dexmedetomidine HCl 1000 mcg/ Sodium Chloride 250 ml @ 3.2 mls/hr TITRATE PRN IV 12/05/16 09:30 12/05/16 12:10 (Levemir Inj) 10 units ONCE SQ 12/05/16 12:15 12/05/16 16:00 (Levemir Inj) 20 units Q12HR SQ 12/05/16 21:00 (Lasix Inj) 40 mg Q8HR IV PUSH 12/05/16 12:45 UNV Vital Signs / I&O Vital Signs Date Time Temp Pulse Resp B/P (MAP) Pulse Ox O2 Delivery O2 Flow Rate FiO2 12/05/16 12:27 93 55 12/05/16 12:00 102 12/05/16 12:00 98.6 102 24 116/58 (77) 94 12/05/16 12:00 55 12/05/16 10:00 55 12/05/16 10:00 124 12/05/16 09:00 79 12/05/16 08:00 30 12/05/16 08:00 98 12/05/16 08:00 98.8 98 24 127/59 (81) 98 12/05/16 07:39 94 60 12/05/16 06:00 86 12/05/16 04:40 93 30 12/05/16 04:00 84 12/05/16 04:00 98.7 84 14 108/58 (75) 97 12/05/16 04:00 30 12/05/16 02:00 84 12/05/16 00:22 95 30 12/05/16 00:00 99.0 92 108/58 (75) 95 12/05/16 00:00 92 12/05/16 00:00 30 12/04/16 23:05 92 116/55 12/04/16 23:00 94 116/55 (75) 95 12/04/16 22:00 86 95/49 (64) 95 12/04/16 22:00 86 12/04/16 21:43 96 124/56 12/04/16 21:00 93 114/59 (77) 96 12/04/16 20:20 93 30 12/04/16 20:00 87 12/04/16 20:00 99.7 87 14 107/51 (69) 95 12/04/16 20:00 30 12/04/16 19:00 83 109/53 12/04/16 18:00 86 12/04/16 16:35 98 30 12/04/16 16:00 30 12/04/16 16:00 98.0 91 14 89/52 (64) 98 12/04/16 16:00 91 12/04/16 14:00 82 12/04/16 13:52 100 50 I/O 12/04/16 12/04/16 12/04/16 12/05/16 12/05/16 12/05/16 07:00 15:00 23:00 07:00 15:00 23:00 Intake Total 270 ml 100 ml 1054 ml 1319.3 ml 121 ml Output Total 425 ml 200.0 ml 200 ml 0 ml Balance -155 ml 100 ml 854.0 ml 1119.3 ml 121 ml Intake IV Total 270 ml 100 ml 938 ml 273.3 ml 121 ml Tube Feeding 116 ml 886 ml Tube Irrigant 160 ml Output Urine Total 425 ml 200 ml 200 ml Tube Feeding Residual Discard 0 ml 0 ml # Bowel Movements 0 Physical Exam Moving non-purposefully JVD hard to assess Lungs clear anteriorly but CXR suggesting CHF CV S1S2 RRR, no murmur Abd: soft Ext: no edema Laboratory Laboratory Tests Test 12/04/16 12:50 12/05/16 02:53 Blood Urea Nitrogen 18 MG/DL 29 MG/DL Creatinine 1.02 MG/DL 0.99 MG/DL Random Glucose 246 MG/DL 199 MG/DL Calcium Level 8.8 MG/DL 8.3 MG/DL Phosphorus Level 3.5 MG/DL Magnesium Level 2.1 MG/DL 2.4 MG/DL Sodium Level 140 MEQ/L 142 MEQ/L Potassium Level 4.1 MEQ/L 4.2 MEQ/L Chloride Level 106 MEQ/L 109 MEQ/L Carbon Dioxide Level 23.3 MEQ/L 26.6 MEQ/L Anion Gap 11 MEQ/L 6 MEQ/L Estimat Glomerular Filtration Rate 53 ML/MIN 55 ML/MIN Lactic Acid Level 1.6 mmol/L Troponin I 0.06 NG/ML White Blood Count 16.5 TH/MM3 Red Blood Count 4.18 MIL/MM3 Hemoglobin 10.0 GM/DL Hematocrit 31.7 % Mean Corpuscular Volume 75.9 FL Mean Corpuscular Hemoglobin 24.0 PG Mean Corpuscular Hemoglobin Concent 31.6 % Red Cell Distribution Width 17.5 % Platelet Count 258 TH/MM3 Mean Platelet Volume 7.8 FL Neutrophils (%) (Auto) 80.8 % Lymphocytes (%) (Auto) 8.5 % Monocytes (%) (Auto) 9.7 % Eosinophils (%) (Auto) 0.7 % Basophils (%) (Auto) 0.3 % Neutrophils # (Auto) 13.3 TH/MM3 Lymphocytes # (Auto) 1.4 TH/MM3 Monocytes # (Auto) 1.6 TH/MM3 Eosinophils # (Auto) 0.1 TH/MM3 Basophils # (Auto) 0.0 TH/MM3 CBC Comment DIFF FINAL Differential Comment Imaging Last 24 hours Impressions Chest X-Ray 12/05/16 0000 Signed Impressions: Service Date/Time: Monday, December 05, 2016 06:12 - CONCLUSION: 1. Interval worsening bilateral pulmonary infiltrates consistent with worsening pulmonary edema versus pneumonia. Clinical correlation is recommended. 2. Cardiomegaly. 3. Multiple tubes and lines are stable. 4. Degenerative changes and scoliosis of the thoracolumbar spine. Junior Kennedy MD Assessment and Plan Problem List: (1) Elevated troponin ICD Codes: R74.8 - Abnormal levels of other serum enzymes Plan: Troponins expected to be much higher; argues against ischemia (2) Left ventricular dysfunction ICD Codes: I51.9 - Heart disease, unspecified Plan: chronicity unknown (3) Respiratory failure ICD Codes: J96.90 - Respiratory failure, unspecified, unspecified whether with hypoxia or hypercapnia Status: Acute (4) Left bundle branch block ICD Codes: I44.7 - Left bundle branch block Status: Chronic (5) Unresponsive ICD Codes: R41.89 - Other symptoms and signs involving cognitive functions and awareness Status: Acute Plan: Improved. No evidence CVA (6) Pulmonary edema ICD Codes: J81.1 - Chronic pulmonary edema Status: Acute Plan: Minimal response from 20mg IV Lasix. Increase to 40mg Assessment and Plan Holding off on cardiac cath. Try diuresis (hopefully BP will tolerate. Problem Qualifiers (1) Respiratory failure: Qualified Codes: J96.00 - Acute respiratory failure, unspecified whether with hypoxia or hypercapnia (2) Pulmonary edema: Qualified Codes: J81.0 - Acute pulmonary edema David Rand MD Dec 05, 2016 12:38
[2016-12-05] MEDS: FUROSEMIDE 40 MG/4 ML VIAL IV PUSH SCH ×2 (14:07→21:22)
[2016-12-05] MEDS: THIAMINE INJ 100 MG in SODIUM CHLORIDE 0.9% INJ 100 ML IV SCH (14:07)
[2016-12-05] MEDS: AZITHROMYCIN INJ 500 MG in SODIUM CHLOR 0.9% 250 ML INJ 250 ML IV SCH (14:08)
--- NOTE | 2016-12-05 15:10 | HHI.PR ---
Addendum to Inpatient Note Addendum Reason: Additional Documentation Additional Information Following along as Dr Santoyo has known this family for 40 years. Appreciate help of all her specialists! Have spoken to her several times including today and he has had all his questions answered. Marly Hagen MD Dec 05, 2016 15:10
--- NOTE | 2016-12-05 15:14 | HHI.PR ---
Subjective Remarks 71 YO female with VDRF,DM,CMP Sedated with Precedex Required Levophed briefly Moves ext, no purposeful movments family at BS Off [facility] Requiring higher Fi02 Objective Vital Signs Vital Signs Date Time Temp Pulse Resp B/P (MAP) Pulse Ox O2 Delivery O2 Flow Rate FiO2 12/05/16 12:27 93 55 12/05/16 12:00 102 12/05/16 12:00 98.6 102 24 116/58 (77) 94 12/05/16 12:00 55 12/05/16 10:00 55 12/05/16 10:00 124 12/05/16 09:00 79 72/36 12/05/16 09:00 79 12/05/16 08:00 30 12/05/16 08:00 98 12/05/16 08:00 98.8 98 24 127/59 (81) 98 12/05/16 07:39 94 60 12/05/16 06:00 86 12/05/16 04:40 93 30 12/05/16 04:00 84 12/05/16 04:00 98.7 84 14 108/58 (75) 97 12/05/16 04:00 30 12/05/16 02:00 84 12/05/16 00:22 95 30 12/05/16 00:00 99.0 92 108/58 (75) 95 12/05/16 00:00 92 12/05/16 00:00 30 12/04/16 23:05 92 116/55 12/04/16 23:00 94 116/55 (75) 95 12/04/16 22:00 86 95/49 (64) 95 12/04/16 22:00 86 12/04/16 21:43 96 124/56 12/04/16 21:00 93 114/59 (77) 96 12/04/16 20:20 93 30 12/04/16 20:00 87 12/04/16 20:00 99.7 87 14 107/51 (69) 95 12/04/16 20:00 30 12/04/16 19:00 83 109/53 12/04/16 18:00 86 12/04/16 16:35 98 30 12/04/16 16:00 30 12/04/16 16:00 98.0 91 14 89/52 (64) 98 12/04/16 16:00 91 I/O 12/04/16 12/04/16 12/04/16 12/05/16 12/05/16 12/05/16 07:00 15:00 23:00 07:00 15:00 23:00 Intake Total 270 ml 100 ml 1054 ml 1319.3 ml 121 ml Output Total 425 ml 200.0 ml 200 ml 0 ml Balance -155 ml 100 ml 854.0 ml 1119.3 ml 121 ml Intake IV Total 270 ml 100 ml 938 ml 273.3 ml 121 ml Tube Feeding 116 ml 886 ml Tube Irrigant 160 ml Output Urine Total 425 ml 200 ml 200 ml Tube Feeding Residual Discard 0 ml 0 ml # Bowel Movements 0 Result Diagram: 12/05/1625212/05/16252 Objective Remarks GENERAL: MBMN female on vent, sedated SKIN: Warm and dry. HEAD: Normocephalic. EYES: No scleral icterus. No injection or drainage. NECK: Supple, trachea midline. No JVD or lymphadenopathy. CARDIOVASCULAR: Regular rate and rhythm without murmurs, gallops, or rubs. RESPIRATORY: Breath sounds equal bilaterally. No accessory muscle use. basal rales GASTROINTESTINAL: Abdomen soft, non-tender, nondistended. MUSCULOSKELETAL: No cyanosis, or edema. BACK: Nontender without obvious deformity. No CVA tenderness. A/P Assessment and Plan VDRF Pulm odema Rt infilt poss aspiration CMP DM Renal insuff PLAN: Vent support, Fi02 55% Cont Abx Off Vanco Precedex for sedation Monitor BS Wean Fi02 DW Dr.Moses CACERES pt's son and SantiagoDavid MD Dec 05, 2016 15:14
[2016-12-05] MEDS ORDERED: fentaNYL 2,500 MCG/NS 250 ML IV PRN (19:00)
[2016-12-05] MEDS ORDERED: fentaNYL DRIP 250 ML IV PRN (21:00)
[2016-12-06] VITALS (17 sets, daily range): BP systolic 88–100; BP diastolic 51–70; PULSE 67–93; RESP 14–28; TEMP 98–99; O2SAT 96–100
[2016-12-06] MEDS: PIPERACIL-TAZO 4.5 GM PREMIX 100 ML IV SCH ×4 (03:56→21:29)
[2016-12-06] MEDS: INSULIN NovoLIN REGULAR SUPPLEMENTAL SCALE SQ SCH ×7 (03:56→23:50)
[2016-12-06] MEDS: CHLORHEXIDINE GLUCONATE 2 % 1 PACK (2 CLOTHS) TOP SCH (03:56)
[2016-12-06] MEDS: RESP: ALBUTEROL 2.5 MG/IPRATROPIUM 0.5 MG NEB (SCH) INH ×4 (04:32→22:30)
[2016-12-06] MEDS: FUROSEMIDE 40 MG/4 ML VIAL IV PUSH SCH (05:40)
[2016-12-06] MEDS: LEVOTHYROXINE SODIUM 100 MCG TAB PO SCH (05:40)
[2016-12-06 05:45] LABS: AUTOMATED NEUTROPHIL # 14.9 TH/MM3 (1.8-7.7); BASOPHIL # 0.1 TH/MM3 (0-0.2); BASOPHIL % 0.3 % (0.0-2.0); EOSINOPHIL % 0.3 % (0.0-4.0); HEMATOCRIT 30.2 % (35.0-46.0); HEMOGLOBIN 9.8 GM/DL (11.6-15.3); LYMPH % 9.5 % (9.0-44.0); LYMPHOCYTE # 1.8 TH/MM3 (1.0-4.8); MEAN CELL VOLUME 75.5 FL (80.0-100.0); MEAN CORPUSCULAR HEMOGLOBIN 24.4 PG (27.0-34.0); MEAN CORPUSCULAR HGB CONC 32.3 % (32.0-36.0); MEAN PLATELET VOLUME 8.7 FL (7.0-11.0); MONO % 9.2 % (0.0-8.0); MONOCYTE # 1.7 TH/MM3 (0-0.9); NEUT % 80.7 % (16.0-70.0); PLATELET COUNT 226 TH/MM3 (150-450); RED BLOOD COUNT 4.01 MIL/MM3 (4.00-5.30); WHITE BLOOD COUNT 18.5 TH/MM3 (4.0-11.0)
[2016-12-06 06:19] LABS: BICARBONATE 27.6 MEQ/L (21.0-32.0); CALCIUM 8.9 MG/DL (8.5-10.1); CREATININE 1.14 MG/DL (0.50-1.00); MAGNESIUM 2.6 MG/DL (1.5-2.5)
[2016-12-06 06:58] LABS: OVALOCYTES 1+ (NORMAL)
[2016-12-06] MEDS: DOCUSATE SODIUM 50 MG/SENNA 8.6 MG TAB PO SCH ×2 (09:00→20:27)
[2016-12-06] MEDS: ASPIRIN 300 MG SUPP RECTAL SCH (10:01)
[2016-12-06] MEDS: PANTOPRAZOLE SODIUM 40 MG VIAL IV PUSH SCH (10:01)
[2016-12-06] MEDS: THIAMINE INJ 100 MG in SODIUM CHLORIDE 0.9% INJ 100 ML IV SCH (10:01)
[2016-12-06] MEDS: HEPARIN SODIUM - SQ 10,000 UNITS/ML VIAL SQ SCH ×2 (10:01→20:27)
[2016-12-06] MEDS: INSULIN DETEMIR 100 UNITS/ML VIAL SQ SCH ×2 (10:02→21:29)
--- NOTE | 2016-12-06 11:20 | HHI.CCPN ---
Subjective Remarks/Hospital Course The patient is a 71-year-old female with a past medical history of hypertension , diabetes mellitus, hypothyroidism. She went to see Dr. Fernandez for evaluation of diabetic neuropathy and the patient had a syncopal episode. There is no history of any witnessed seizures. When she was brought in to [place] via ambulance she had some right sided weakness with rightward gaze. Her GCS declined to 3, where she was intubated emergently for airway protection. Post intubation the patient was noted to move all extremities. In addition, prior to arrival she was hypoxic with O2 saturation in the 80s, STEMI alert was called, however, the patient was found to have an old left bundle branch block. STEMI was cancelled after ED's discussion with Dr. Rand. Also, they called a stroke alert; however, after discussion with Dr. Knight the patient was not a candidate for TPA as she was moving all extremities post intubation. Her ABG post intubation showed ph of 7.27, CO2 38, PA02 70, bicarb 17, saturation 90% on PRVC mode with rate 14, tidal volume 500, ITIME 1.0, PEEP 5, 100% FIO2. Chest x-ray post intubation showed diffuse pulmonary consolidation. Due to her syncopal episode she had a CT scan of the brain which showed no acute findings. 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 CTA of the neck showed 60% narrowing due to an eccentric calcification in the left carotid bulb. CTA of the brain showed absent flow in the right A1 segment with patent anterior communicating artery providing flow to the A2 segment and questionable 2 to 3 mm aneurysm in the right middle cranial fossa off a branch vessel of the right MCA territory. Her laboratory data is significant for hyperglycemia, her blood sugar was 455 on point of care and 453 on the CMP. The patient was given regular insulin 7 units and will be on insulin drip per DKA protocol. Her urine drug screen is negative for amphetamines, barbiturates, benzodiazepines. Other significant labs showed leukocytosis with WBC 20.3 and elevated BNP of 547. The patient was seen by Dr. Rand in the ED and echocardiogram was ordered. She was given Vancomycin, cefepime and azithromycin in the ED. The patient is scheduled to undergo CT pulmonary angiogram and CT abdomen and pelvis wereordered by ED. When seen the patient is sedated with versed and on full mechanical ventilation. Her current blood pressure is 117/69 with a pulse of 77 , saturation 96-97%. 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 No history of any cough or constitutional symptoms. 12/04 Echo with EF 20-25%. states she was had been complaining of SOB and chest pain off and on for about 2 weeks prior to this event. Complained of SOB right before syncope in the physicians office. Post-syncope she was initially able to talk some and got into a wheelchair and he was trying to get her to the car to go to urgent care across the street when she then became unresponsive and EVAC was called. GCS was reportedly 8 on EVAC arrival and she was bagged but there was concern for R sided weakness. She was intubated upon arrrival to the ED. Denies known cardiac history and has had no prior cardiac workup. She has also complained of difficulty swallowing and has coughed and "choked" a few times while eating over the last 1-2 weeks. She did not have a persistent or productive cough and had not complained of fever. She had not complained of headache. Anion-gap closed so she was transitioned off insulin drip early this morning. Lactic acid cleared. Now hypotensive, starting levophed. CTPA negative for PE, +RLL consolidation and bilat pleural effusions. Afebrile, WBC 19.3 Legionella/pneumoocococcal antigen negative and influenza negative. Remainder of cultures pending. EEG report pending. Was on versed 5 mg/hr and fentanyl 50 mcg/hr this morning, now holding sedation. Subjective: 12/05 MRI brain negative for stroke. MRA negative for aneurysm. EEG with slowing but no seizure. Agitated off sedation. Started on Precedex. Was on low dose levophed couple of hours last night, then off again. Tolerating CPAP initially but subsequently desatted and FIO2 increased. Mental status also not adequate for extubation. Temp max 99.7, WBC downtrending to 16.5 . Sputum cultures with GNR. 12/06: Patient remains encephalopathic. Sputum culture growing Enterobacter. WBC increased to 18.5 today. CXR pending today Objective Vital Signs Date Time Temp Pulse Resp B/P (MAP) Pulse Ox O2 Delivery O2 Flow Rate FiO2 12/06/16 10:00 93 12/06/16 08:41 35 12/06/16 08:41 100 12/06/16 08:00 98.2 14 100/70 (80) 12/03/16 15:00 Ventilator 12/03/16 12:35 14.00 Intake and Output 12/06/16 12/06/16 12/07/16 08:00 16:00 00:00 Intake Total 683 ml Output Total 450 ml Balance 233 ml Result Diagram: 12/06/16 0400 12/06/16 0400 Other Results Microbiology Date/Time Source Procedure Growth Status 12/03/16 21:00 Nasal Aspirate Influenza Types A,B Antigen (KARON) - Final NEGATIVE FOR FLU A AND B ANTIGEN.... Complete 12/03/16 12:10 Urine Catheterized Urine Legionella Antigen - Final PRESUMPTIVE NEGATIVE FOR LEGIONELLA P... Complete 12/03/16 12:10 Urine Catheterized Urine Streptococcus pneumoniae Antigen (M - Final PRESUMPTIVE NEGATIVE FOR STREPTOCOCCU... Complete 12/03/16 12:10 Urine Other Urine Culture - Final NO GROWTH IN 48 HOURS. Complete Objective Remarks GENERAL: Intubated 71 yo female. Thrashes in bed and shakes head back and forth. SKIN: Warm and dry. HEAD: Atraumatic. Normocephalic. EYES: Pupils equal and round, pinpoint and reactive. No eye deviation. No scleral icterus. No injection or drainage. ENT: No nasal bleeding or discharge. Mucous membranes pink and moist. NECK: Trachea midline. No JVD. CARDIOVASCULAR: Regular rate and rhythm. No murmurs rubs or gallops. RESPIRATORY: Intubated, Rales Left base. No wheeze or rhonchi. An entry equal bilaterally GASTROINTESTINAL: Abdomen soft, non-tender, nondistended. Hepatic and splenic margins not palpable. : Cisneros in place with light sierra urine output. MUSCULOSKELETAL: Extremities without clubbing, cyanosis, or edema. NEUROLOGICAL: + eye open intermittently tracking, + facial grimace. Spontaneously moves and withdraws with all extremities, thrashes about. Does not follow commands. A/P Problem List: (1) Systolic heart failure ICD Code: I50.20 - Unspecified systolic (congestive) heart failure (2) Pulmonary edema ICD Code: J81.1 - Chronic pulmonary edema Status: Acute (3) Respiratory failure ICD Code: J96.90 - Respiratory failure, unspecified, unspecified whether with hypoxia or hypercapnia Status: Acute (4) Syncope ICD Code: R55 - Syncope and collapse Status: Acute (5) Sepsis ICD Code: A41.9 - Sepsis, unspecified organism Status: Acute (6) Diabetic nephropathy ICD Code: E11.21 - Diabetic nephropathy Status: Acute (7) Diabetes type 2, uncontrolled ICD Code: E11.65 - Uncontrolled type 2 diabetes mellitus Status: Chronic (8) Hypothyroidism ICD Code: E03.9 - Hypothyroidism Status: Chronic (9) Hypertension, benign ICD Code: I10 - Benign hypertension Status: Chronic (10) Type II diabetes mellitus with renal manifestations, uncontrolled ICD Code: E11.29 - Type II diabetes mellitus with renal manifestations, uncontrolled; E11.65 - Type 2 diabetes mellitus with hyperglycemia Status: Chronic (11) Left bundle branch block ICD Code: I44.7 - Left bundle branch block Status: Chronic (12) Encephalopathy acute ICD Code: G93.40 - Encephalopathy, unspecified Status: Acute (13) Dysphagia ICD Code: R13.10 - Dysphagia, unspecified Status: Chronic Assessment and Plan NEURO: Syncope Acute encephalopathy Precedex for sedation. Low dose fentanyl for analgosedation when additional sedative required. Versed drip discontinued morning of 12/04. Target RASS -1 CT brain 12/03no acute findings. CTA brain 12/03 absent flow right A1 with patent ACOM providing flow to A2 segment. On addendum, states ?2-3 mm aneurysm of branch off R MCA territory. Could be further evaluated by MRA. Concern for R hemiparesis on admission but Was not candidate for TPA due to resolving symptoms. MRI 12/04 - no acute abnormality. MRA 12/04 absent flow right A1 but no aneurysm. -No intervention per neurology/ IR EEG - moderate slowing but no seizure. Continue ASA RESP: Acute respiratory failure Pulmonary edema Right lower lobe pneumonia, probable aspiration. Intubated by ED physician due to AMS and hypoxia. CTPA 12/03 - negative for PE. RLL consolidation. Daily CPAP trial and extubate when tolerating and when mental status appropriate. Lasix 40 mg IVq 8 hours. reduce to 40 q12 Patient known to Dr. Henderson who is following. CV: Systolic heart failure ?chronic Chronic LBBB Troponin max 0.06 2D Echo - EF 20-25%. Global hypokinesis. No regional wall motion abnormality. Patient has had no prior cardiac workup and will definitely need cardiac catheterization prior to discharge. Discussed extensively with Dr. Rand and with patients family including son who is a hybrid car mechanic. Suspect long standing cardiomyopathy that has decompensated and resulted in hypoxia, syncope and resultant mental status change. Dr. Rand plans to defer cath while optimizing respiratory status and while observing renal function in view of recent significant contrast administration. Continue ASA 300 pr daily. LDL 21, Trig and total cholesterol wnl. . On levophed intermittently to maintain MAP >65, seems sedation related. IVC collapse <50%. diuresing as per above. GI: Dysphagia Initiate enteral feed with Glucerna 1.5 , adjust goal rate to 50 ml/hr per nutrition recs. FEN/RENAL: Lactic acidemia, resolved FLAVIA, improved Cisneros in place. Monitor intake and output. Monitor electrolytes. Replace as indicated. Received IV contrast 12/03. Avoid nephrotoxins were possible. Was followed by hybrid car mechanic as outpatient ID: Acute right lower lobe pneumonia, probable aspiration Sepsis likely secondary to aspiration, improving Aspiration event likely occurred while bagging prehospital when patient was unresponsive. She also has had some mild dysphagia. On Zosyn, Vancomycin, Azithromycin since 12/03 #4. Cultures negative aside from Enterobacter sputum so discontinued vancomycin. Blood cultures 12/03no growth to date. Urine Legionella and pneumococcal antigen negative. Influenza - Negative Sputum culture 12/03 - pansensitive Enterobacter HEME: Monitor CBC ENDO: Hypothyroidism TSH normal on admission Continue Synthroid 100 mcg by mouth daily Diabetes with severe hyperglycemia on admission Beta hydroxybutyrate was normal and anion gap was related to lactic acidemia. Now anion gap is closed and has been transitioned off insulin drip. Remains hyperglycemic despite high dose insulin sliding scale with bedside glucose every 4 hours. Insulin detemir 20 units q12. Blood sugar control is appropriate today PROPH heparin subcutaneous for DVT prophylaxis. Protonix 40 g IV daily for stress ulcer prophylaxis. ACCESS: Right IJ central venous line placed 12/04 #3. Patient's updated at bedside. Patient's son who is a hybrid car mechanic from [facility] was also updated at bedside. Visited bedside on multiple occasions to reassess mental status, respiratory status, sedation and hemodynamics. Patient is delirious and nonpurposeful, volume overloaded and not appropriate for extubation at this time. Level 3 Problem Qualifiers (1) Systolic heart failure: Qualified Codes: I50.22 - Chronic systolic (congestive) heart failure (2) Pulmonary edema: Qualified Codes: J81.0 - Acute pulmonary edema (3) Respiratory failure: Qualified Codes: J96.00 - Acute respiratory failure, unspecified whether with hypoxia or hypercapnia (4) Syncope: Qualified Codes: R55 - Syncope and collapse (5) Sepsis: Qualified Codes: A41.9 - Sepsis, unspecified organism Wendy Cote MD Dec 06, 2016 11:20
--- NOTE | 2016-12-06 11:38 | PD.CARD.PN ---
Subjective Subjective Remarks On vent. Moving non-purposefully Objective Medications Current Medications Medications (Trade) Dose Ordered Sig/Ian Route Start Time Stop Time Status Last Admin (Protonix Inj) 40 mg DAILY IV PUSH 12/03/16 13:00 12/06/16 10:01 (Duoneb Neb) 1 ampule Q6HR NEB INH 12/03/16 13:00 12/06/16 04:32 Miscellaneous Information 1 Q361D XX 12/03/16 13:00 (Chlorhexidine 2% Cloth) 3 pack Taper DAILY@04 TOP 12/04/16 04:00 11/30/17 03:59 12/06/16 03:56 (Chlorhexidine 2% Cloth) 3 pack UNSCH PRN TOP 12/03/16 13:00 (Pinky-Colace) 1 tab BID PO 12/03/16 21:00 12/05/16 07:58 (Milk Of Magnesia Liq) 30 ml Q12H PRN PO 12/03/16 13:00 (Senokot) 17.2 mg Q12H PRN PO 12/03/16 13:00 (Dulcolax Supp) 10 mg DAILY PRN RECTAL 12/03/16 13:00 (Lactulose Liq) 30 ml DAILY PRN PO 12/03/16 13:00 Piperacillin Sod/ Tazobactam Sod 100 ml @ 200 mls/hr Q6H IV 12/03/16 16:00 12/06/16 10:01 Azithromycin 500 mg/Sodium Chloride 250 ml @ 250 mls/hr Q24H IV 12/04/16 15:00 12/05/16 14:08 (Aspirin Supp) 300 mg DAILY RECTAL 12/03/16 15:15 12/06/16 10:01 Miscellaneous Information SPECIFIC LAB TO BE ... ONCE ONCE .XX 12/06/16 12:45 12/06/16 12:46 (Glucagon Inj) 1 mg UNSCH PRN OTHER 12/04/16 01:15 (D50w (Vial) Inj) 25 ml UNSCH PRN IV PUSH 12/04/16 08:00 (NovoLIN R SUPPLEMENTAL SCALE) 1 Q4HR SQ 12/04/16 08:00 12/06/16 08:00 Norepinephrine Bitartrate 4 mg/ Sodium Chloride 250 ml @ 7.5 mls/hr TITRATE PRN IV 12/04/16 09:15 12/04/16 09:26 (Brethine Inj) 1 mg UNSCH PRN SQ 12/04/16 09:15 (Synthroid) 100 mcg DAILY@0600 PO 12/05/16 06:00 12/06/16 05:40 (Heparin Inj) 5,000 units Q12HR SQ 12/04/16 21:00 12/06/16 10:01 Dexmedetomidine HCl 1000 mcg/ Sodium Chloride 250 ml @ 3.2 mls/hr TITRATE PRN IV 12/05/16 09:30 12/05/16 12:10 (Levemir Inj) 20 units Q12HR SQ 12/05/16 21:00 12/06/16 10:02 Thiamine HCl 100 mg/Sodium Chloride 101 ml @ 101 mls/hr DAILY IV 12/05/16 12:45 12/06/16 10:01 (Lasix Inj) 40 mg Q12HR IV PUSH 12/06/16 21:00 UNV Vital Signs / I&O Vital Signs Date Time Temp Pulse Resp B/P (MAP) Pulse Ox O2 Delivery O2 Flow Rate FiO2 12/06/16 10:00 93 12/06/16 08:41 35 12/06/16 08:41 100 35 12/06/16 08:30 35 12/06/16 08:00 69 12/06/16 08:00 98.2 69 14 100/70 (80) 100 12/06/16 08:00 35 12/06/16 06:00 83 12/06/16 04:32 100 35 12/06/16 04:00 85 12/06/16 04:00 98.1 85 14 90/55 (67) 100 12/06/16 04:00 35 12/06/16 02:00 67 12/06/16 00:02 100 40 12/06/16 00:00 75 12/06/16 00:00 35 12/06/16 00:00 99.0 75 14 90/51 (64) 100 12/05/16 22:00 85 12/05/16 20:41 100 50 12/05/16 20:00 99.1 94 14 110/56 (74) 100 12/05/16 20:00 94 12/05/16 20:00 50 12/05/16 18:00 87 12/05/16 18:00 92 12/05/16 16:00 99.6 96 17 90/43 (59) 100 12/05/16 16:00 87 12/05/16 16:00 30 12/05/16 15:47 99 50 12/05/16 14:00 102 12/05/16 14:00 89 12/05/16 12:27 93 55 12/05/16 12:10 107 119/57 12/05/16 12:00 102 12/05/16 12:00 98.6 102 24 116/58 (77) 94 12/05/16 12:00 55 I/O 12/05/16 12/05/16 12/05/16 12/06/16 12/06/16 12/06/16 07:00 15:00 23:00 07:00 15:00 23:00 Intake Total 1319.3 ml 121 ml 1655 ml 683 ml Output Total 200 ml 0 ml 950 ml 450 ml Balance 1119.3 ml 121 ml 705 ml 233 ml Intake IV Total 273.3 ml 121 ml 946 ml 100 ml Tube Feeding 886 ml 709 ml 583 ml Tube Irrigant 160 ml Output Urine Total 200 ml 950 ml 450 ml Tube Feeding Residual Discard 0 ml # Bowel Movements 0 4 Physical Exam Moving non-purposefully No JVD Lungs clear anteriorly, CXR pending CV S1S2 RRR, no murmur Abd: soft Ext: no edema Laboratory Laboratory Tests Test 12/05/16 22:30 12/06/16 04:00 Potassium Level 3.6 MEQ/L 3.8 MEQ/L White Blood Count 18.5 TH/MM3 Red Blood Count 4.01 MIL/MM3 Hemoglobin 9.8 GM/DL Hematocrit 30.2 % Mean Corpuscular Volume 75.5 FL Mean Corpuscular Hemoglobin 24.4 PG Mean Corpuscular Hemoglobin Concent 32.3 % Red Cell Distribution Width 18.0 % Platelet Count 226 TH/MM3 Mean Platelet Volume 8.7 FL Neutrophils (%) (Auto) 80.7 % Lymphocytes (%) (Auto) 9.5 % Monocytes (%) (Auto) 9.2 % Eosinophils (%) (Auto) 0.3 % Basophils (%) (Auto) 0.3 % Neutrophils # (Auto) 14.9 TH/MM3 Lymphocytes # (Auto) 1.8 TH/MM3 Monocytes # (Auto) 1.7 TH/MM3 Eosinophils # (Auto) 0.0 TH/MM3 Basophils # (Auto) 0.1 TH/MM3 CBC Comment AUTO DIFF Differential Comment AUTO DIFF CONFIRMED Ovalocytes 1+ Blood Urea Nitrogen 42 MG/DL Creatinine 1.14 MG/DL Random Glucose 108 MG/DL Calcium Level 8.9 MG/DL Magnesium Level 2.6 MG/DL Sodium Level 146 MEQ/L Chloride Level 111 MEQ/L Carbon Dioxide Level 27.6 MEQ/L Anion Gap 7 MEQ/L Estimat Glomerular Filtration Rate 47 ML/MIN Assessment and Plan Problem List: (1) Elevated troponin ICD Codes: R74.8 - Abnormal levels of other serum enzymes (2) Left ventricular dysfunction ICD Codes: I51.9 - Heart disease, unspecified (3) Respiratory failure ICD Codes: J96.90 - Respiratory failure, unspecified, unspecified whether with hypoxia or hypercapnia Status: Acute (4) Left bundle branch block ICD Codes: I44.7 - Left bundle branch block Status: Chronic (5) Unresponsive ICD Codes: R41.89 - Other symptoms and signs involving cognitive functions and awareness Status: Acute (6) Pulmonary edema ICD Codes: J81.1 - Chronic pulmonary edema Status: Acute Assessment and Plan BUN up. Reduce lasix to bid. Problem Qualifiers (1) Respiratory failure: Qualified Codes: J96.00 - Acute respiratory failure, unspecified whether with hypoxia or hypercapnia (2) Pulmonary edema: Qualified Codes: J81.0 - Acute pulmonary edema David Rand MD Dec 06, 2016 11:38
[2016-12-06] MEDS ORDERED: PHARMACY ORDERED LAB ONE (12:45)
--- NOTE | 2016-12-06 12:47 | RADRPT ---
EXAM DATE/TIME: 12/06/2016 12:08 [facility] COMPARISON: CHEST SINGLE AP, December 05, 2016, 6:12. INDICATIONS : Respiratory Disease. MEDICAL HISTORY : Hypothyroidism. Hypertension. Diabetes mellitus type 2. SURGICAL HISTORY : Tonsillectomy. ENCOUNTER: Subsequent ACUITY: 3 days PAIN SCORE: Non-responsive. LOCATION: Bilateral chest FINDINGS: Stable ETT, NGT, and right IJ central line. Slightly improved aeration with continued patchy opacitie s throughout the right lung and left lower lung zone. Cardiomediastinal contours are stable. Remainde r of the exam is unchanged. CONCLUSION: 1. Stable tubes and lines. 2. Slight improved aeration with continued patchy airspace opacities throughout the right lung and in the left lower lung zone. Bharathi Cedeño MD on December 06, 2016 at 12:43 Board Certified Radiologist. This report was verified electronically.
[2016-12-06] MEDS: AZITHROMYCIN INJ 500 MG in SODIUM CHLOR 0.9% 250 ML INJ 250 ML IV SCH (14:35)
[2016-12-06] MEDS: DEXMEDETOMIDINE INJ 1,000 MCG in SODIUM CHLOR 0.9% 250 ML INJ 240 ML IV PRN (15:37)
[2016-12-06] MEDS ORDERED: FUROSEMIDE 40 MG/4 ML VIAL IV PUSH SCH (21:00)
--- NOTE | 2016-12-06 21:09 | HHI.PR ---
Subjective Remarks 71 YO female with VDRF,DM,CMP Sedated with Precedex Required Levophed briefly Moves ext, no purposeful movments DW Son, was squeezing hand on command Cr increased Objective Vital Signs Vital Signs Date Time Temp Pulse Resp B/P (MAP) Pulse Ox O2 Delivery O2 Flow Rate FiO2 12/06/16 18:00 78 12/06/16 16:00 74 12/06/16 16:00 98.5 74 14 88/51 (63) 100 12/06/16 16:00 35 12/06/16 14:00 82 12/06/16 13:01 98 35 12/06/16 12:00 98.0 81 28 98/56 (70) 97 12/06/16 12:00 35 12/06/16 12:00 81 12/06/16 10:00 93 12/06/16 08:41 35 12/06/16 08:41 100 35 12/06/16 08:30 35 12/06/16 08:00 69 12/06/16 08:00 98.2 69 14 100/70 (80) 100 12/06/16 08:00 35 12/06/16 06:00 83 12/06/16 04:32 100 35 12/06/16 04:00 85 12/06/16 04:00 98.1 85 14 90/55 (67) 100 12/06/16 04:00 35 12/06/16 02:00 67 12/06/16 00:02 100 40 12/06/16 00:00 75 12/06/16 00:00 35 12/06/16 00:00 99.0 75 14 90/51 (64) 100 12/05/16 22:00 85 I/O 12/05/16 12/05/16 12/05/16 12/06/16 12/06/16 12/06/16 07:00 15:00 23:00 07:00 15:00 23:00 Intake Total 1319.3 ml 121 ml 1655 ml 683 ml 240 ml 796 ml Output Total 200 ml 0 ml 950 ml 450 ml 650 ml Balance 1119.3 ml 121 ml 705 ml 233 ml 240 ml 146 ml Intake IV Total 273.3 ml 121 ml 946 ml 100 ml 240 ml 199 ml Tube Feeding 886 ml 709 ml 583 ml 597 ml Tube Irrigant 160 ml Output Urine Total 200 ml 950 ml 450 ml 650 ml Tube Feeding Residual Discard 0 ml # Bowel Movements 0 4 4 Result Diagram: 12/06/1639912/06/16399 Objective Remarks GENERAL: MBMN female on vent, sedated SKIN: Warm and dry. HEAD: Normocephalic. EYES: No scleral icterus. No injection or drainage. NECK: Supple, trachea midline. No JVD or lymphadenopathy. CARDIOVASCULAR: Regular rate and rhythm without murmurs, gallops, or rubs. RESPIRATORY: Breath sounds equal bilaterally. No accessory muscle use. basal rales GASTROINTESTINAL: Abdomen soft, non-tender, nondistended. MUSCULOSKELETAL: No cyanosis, or edema. BACK: Nontender without obvious deformity. No CVA tenderness. A/P Assessment and Plan VDRF Pulm odema Rt infilt poss aspiration CMP DM Renal insuff PLAN: Vent support, Fi02 35% Cont Abx Precedex for sedation Monitor BS Wean Fi02 CPAP trial in AM David Henderson MD Dec 06, 2016 21:09
[2016-12-07] VITALS (18 sets, daily range): BP systolic 106–146; BP diastolic 54–64; PULSE 66–78; RESP 14–20; TEMP 97–98.8; O2SAT 100
[2016-12-07 03:43] LABS: AUTOMATED NEUTROPHIL # 12.7 TH/MM3 (1.8-7.7); BASOPHIL # 0.1 TH/MM3 (0-0.2); BASOPHIL % 0.3 % (0.0-2.0); HEMATOCRIT 30.6 % (35.0-46.0); HEMOGLOBIN 9.7 GM/DL (11.6-15.3); LYMPH % 13.8 % (9.0-44.0); LYMPHOCYTE # 2.3 TH/MM3 (1.0-4.8); MEAN CELL VOLUME 75.3 FL (80.0-100.0); MEAN CORPUSCULAR HEMOGLOBIN 23.9 PG (27.0-34.0); MEAN CORPUSCULAR HGB CONC 31.7 % (32.0-36.0); MEAN PLATELET VOLUME 8.4 FL (7.0-11.0); MONO % 10.1 % (0.0-8.0); MONOCYTE # 1.7 TH/MM3 (0-0.9); NEUT % 75.8 % (16.0-70.0); PLATELET COUNT 241 TH/MM3 (150-450); RED BLOOD COUNT 4.07 MIL/MM3 (4.00-5.30); WHITE BLOOD COUNT 16.7 TH/MM3 (4.0-11.0)
[2016-12-07] MEDS: INSULIN NovoLIN REGULAR SUPPLEMENTAL SCALE SQ SCH ×5 (04:00→20:00)
[2016-12-07] MEDS: CHLORHEXIDINE GLUCONATE 2 % 1 PACK (2 CLOTHS) TOP SCH (04:00)
[2016-12-07 04:14] LABS: ALBUMIN 2.4 GM/DL (3.4-5.0); ALT (GPT) 716 U/L (10-53); BICARBONATE 27.4 MEQ/L (21.0-32.0); BLOOD UREA NITROGEN 59 MG/DL (7-18); CALCIUM 8.3 MG/DL (8.5-10.1); CHLORIDE 113 MEQ/L (98-107); CREATININE 1.21 MG/DL (0.50-1.00); GLOMERULAR FILTRATION RATE 44 ML/MIN (>89); GLUCOSE,RANDOM 193 MG/DL (74-106); SODIUM (NA) 148 MEQ/L (136-145)
[2016-12-07] MEDS: PIPERACIL-TAZO 4.5 GM PREMIX 100 ML IV SCH ×4 (04:21→20:35)
[2016-12-07] MEDS: LEVOTHYROXINE SODIUM 100 MCG TAB PO SCH (04:21)
[2016-12-07] MEDS: RESP: ALBUTEROL 2.5 MG/IPRATROPIUM 0.5 MG NEB (SCH) INH ×4 (04:33→22:00)
[2016-12-07 04:35] LABS: ALKALINE PHOSPHATASE 52 U/L (45-117); AST (GOT) 1848 U/L (15-37); TOTAL BILIRUBIN ADULT 0.7 MG/DL (0.2-1.0); TOTAL PROTEIN 6.5 GM/DL (6.4-8.2)
--- NOTE | 2016-12-07 05:28 | RADRPT ---
EXAM DATE/TIME: 12/07/2016 03:59 [facility] COMPARISON: CHEST SINGLE AP, December 06, 2016, 12:08. INDICATIONS : Short of breath. MEDICAL HISTORY : Hypothyroidism. Hypertension. Diabetes mellitus type 2. SURGICAL HISTORY : Tonsillectomy. ENCOUNTER: Subsequent ACUITY: 4 - 6 days PAIN SCORE: 0/10 LOCATION: Bilateral chest FINDINGS: Endotracheal tube tip is present 3-4 cm above the elmer. Nasogastric tube descends to the stomach. R ight neck central line is stable in good position. There has been slight interval increase in conflue nce of bilateral pleuroparenchymal opacities. Cardiac contours are largely obscured. CONCLUSION: Worsening aeration Rocael Mccoy MD on December 07, 2016 at 5:25 Board Certified Radiologist. This report was verified electronically.
[2016-12-07] MEDS ORDERED: BUMETANIDE INJ 1 MG/4 ML VIAL IV PUSH ONE (06:30)
[2016-12-07] MEDS: ALBUMIN 25% INJ 50 ML IV SCH ×2 (07:00→18:10)
--- NOTE | 2016-12-07 07:11 | HHI.CCPN ---
Subjective Remarks/Hospital Course The patient is a 71-year-old female with a past medical history of hypertension , diabetes mellitus, hypothyroidism. She went to see Dr. Fernandez for evaluation of diabetic neuropathy and the patient had a syncopal episode. There is no history of any witnessed seizures. When she was brought in to [place] via ambulance she had some right sided weakness with rightward gaze. Her GCS declined to 3, where she was intubated emergently for airway protection. Post intubation the patient was noted to move all extremities. In addition, prior to arrival she was hypoxic with O2 saturation in the 80s, STEMI alert was called, however, the patient was found to have an old left bundle branch block. STEMI was cancelled after ED's discussion with Dr. Rand. Also, they called a stroke alert; however, after discussion with Dr. Knight the patient was not a candidate for TPA as she was moving all extremities post intubation. Her ABG post intubation showed ph of 7.27, CO2 38, PA02 70, bicarb 17, saturation 90% on PRVC mode with rate 14, tidal volume 500, ITIME 1.0, PEEP 5, 100% FIO2. Chest x-ray post intubation showed diffuse pulmonary consolidation. Due to her syncopal episode she had a CT scan of the brain which showed no acute findings. 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 CTA of the neck showed 60% narrowing due to an eccentric calcification in the left carotid bulb. CTA of the brain showed absent flow in the right A1 segment with patent anterior communicating artery providing flow to the A2 segment and questionable 2 to 3 mm aneurysm in the right middle cranial fossa off a branch vessel of the right MCA territory. Her laboratory data is significant for hyperglycemia, her blood sugar was 455 on point of care and 453 on the CMP. The patient was given regular insulin 7 units and will be on insulin drip per DKA protocol. Her urine drug screen is negative for amphetamines, barbiturates, benzodiazepines. Other significant labs showed leukocytosis with WBC 20.3 and elevated BNP of 547. The patient was seen by Dr. Rand in the ED and echocardiogram was ordered. She was given Vancomycin, cefepime and azithromycin in the ED. The patient is scheduled to undergo CT pulmonary angiogram and CT abdomen and pelvis wereordered by ED. When seen the patient is sedated with versed and on full mechanical ventilation. Her current blood pressure is 117/69 with a pulse of 77 , saturation 96-97%. 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 No history of any cough or constitutional symptoms. 12/04 Echo with EF 20-25%. states she was had been complaining of SOB and chest pain off and on for about 2 weeks prior to this event. Complained of SOB right before syncope in the physicians office. Post-syncope she was initially able to talk some and got into a wheelchair and he was trying to get her to the car to go to urgent care across the street when she then became unresponsive and [facility] was called. GCS was reportedly 8 on EVAC arrival and she was bagged but there was concern for R sided weakness. She was intubated upon arrrival to the ED. Denies known cardiac history and has had no prior cardiac workup. She has also complained of difficulty swallowing and has coughed and "choked" a few times while eating over the last 1-2 weeks. She did not have a persistent or productive cough and had not complained of fever. She had not complained of headache. Anion-gap closed so she was transitioned off insulin drip early this morning. Lactic acid cleared. Now hypotensive, starting levophed. CTPA negative for PE, +RLL consolidation and bilat pleural effusions. Afebrile, WBC 19.3 Legionella/pneumoocococcal antigen negative and influenza negative. Remainder of cultures pending. EEG report pending. Was on versed 5 mg/hr and fentanyl 50 mcg/hr this morning, now holding sedation. Subjective: 12/05 MRI brain negative for stroke. MRA negative for aneurysm. EEG with slowing but no seizure. Agitated off sedation. Started on Precedex. Was on low dose levophed couple of hours last night, then off again. Tolerating CPAP initially but subsequently desatted and FIO2 increased. Mental status also not adequate for extubation. Temp max 99.7, WBC downtrending to 16.5 . Sputum cultures with GNR. 12/06: Patient remains encephalopathic. Sputum culture growing Enterobacter. WBC increased to 18.5 today. CXR pending today 12/07: Chest x-ray shows significant interval worsening bilateral infiltrates most likely congenital pulmonary edema. Mental status appears to be slightly improved. I have started patient on Bumex infusion after discontinuing Lasix IV. Also started on dobutamine at 2.5 g per KG per minute. Liver enzymes noted to be markedly elevated, probably from hypotension shock. Liver ultrasound ordered Objective Vital Signs Date Time Temp Pulse Resp B/P (MAP) Pulse Ox O2 Delivery O2 Flow Rate FiO2 12/07/16 06:00 67 12/07/16 04:35 100 35 12/07/16 04:00 98.8 14 106/58 (74) 12/03/16 15:00 Ventilator 12/03/16 12:35 14.00 Intake and Output 12/07/16 12/07/16 12/08/16 08:00 16:00 00:00 Intake Total 1152 ml Output Total 700 ml Balance 452 ml Result Diagram: 12/07/1631412/07/16314 Objective Remarks GENERAL: Intubated 71 yo female. Follows commands today and shakes head back and forth. SKIN: Warm and dry. HEAD: Atraumatic. Normocephalic. EYES: Pupils equal and round, pinpoint and reactive. No injection or drainage. ENT: No nasal bleeding or discharge. Mucous membranes pink and moist. NECK: Trachea midline. No JVD. CARDIOVASCULAR: Regular rate and rhythm. No murmurs rubs or gallops. RESPIRATORY: Intubated, Rales bilateral bases. No wheeze or rhonchi. An entry equal bilaterally GASTROINTESTINAL: Abdomen soft, non-tender, nondistended. Hepatic and splenic margins not palpable. : Cisneros in place with light sierra urine output. MUSCULOSKELETAL: Extremities without clubbing, cyanosis, or edema. NEUROLOGICAL: + eye open with tracking, + facial grimace. Spontaneously moves and withdraws with all extremities, following commands today Urinary Catheter: Yes Assessment to: Continue Vascular Central Line Catheter: Yes Assessment to: Continue A/P Problem List: (1) Systolic heart failure ICD Code: I50.20 - Unspecified systolic (congestive) heart failure (2) Pulmonary edema ICD Code: J81.1 - Chronic pulmonary edema Status: Acute (3) Respiratory failure ICD Code: J96.90 - Respiratory failure, unspecified, unspecified whether with hypoxia or hypercapnia Status: Acute (4) Syncope ICD Code: R55 - Syncope and collapse Status: Acute (5) Sepsis ICD Code: A41.9 - Sepsis, unspecified organism Status: Acute (6) Diabetic nephropathy ICD Code: E11.21 - Diabetic nephropathy Status: Acute (7) Diabetes type 2, uncontrolled ICD Code: E11.65 - Uncontrolled type 2 diabetes mellitus Status: Chronic (8) Hypothyroidism ICD Code: E03.9 - Hypothyroidism Status: Chronic (9) Hypertension, benign ICD Code: I10 - Benign hypertension Status: Chronic (10) Type II diabetes mellitus with renal manifestations, uncontrolled ICD Code: E11.29 - Type II diabetes mellitus with renal manifestations, uncontrolled; E11.65 - Type 2 diabetes mellitus with hyperglycemia Status: Chronic (11) Left bundle branch block ICD Code: I44.7 - Left bundle branch block Status: Chronic (12) Encephalopathy acute ICD Code: G93.40 - Encephalopathy, unspecified Status: Acute (13) Dysphagia ICD Code: R13.10 - Dysphagia, unspecified Status: Chronic Assessment and Plan NEURO: Syncope Acute metabolic encephalopathy Discontinued Precedex for sedation. Low dose fentanyl for analgosedation when additional sedative required. Add when necessary Ativan Versed drip discontinued morning of 12/04. Target RASS -0 CT brain 12/03no acute findings. CTA brain 12/03 absent flow right A1 with patent ACOM providing flow to A2 segment. On addendum, states ?2-3 mm aneurysm of branch off R MCA territory. Could be further evaluated by MRA. MRI 12/04 - no acute abnormality. MRA 12/04 absent flow right A1 but no aneurysm. -No intervention per neurology/IR Concern for R hemiparesis on admission but Was not candidate for TPA due to resolving symptoms. EEG - moderate slowing but no seizure. Continue ASA RESP: Acute respiratory failure Pulmonary edema Right lower lobe pneumonia, probable aspiration. Intubated by ED physician due to AMS and hypoxia. CTPA 12/03 - negative for PE. RLL consolidation. Daily CPAP trial. Not ready for extubation due to worsening pulmonary edema Patient known to Dr. Henderson who is following. DuoNeb every 6 hours scheduled and when necessary CV: Systolic heart failure ? Acute on chronic Chronic LBBB DC Lasix 40 mg IVq12 hours and start 2 mg IV Bumex 1 and 0.5 mg per hour infusion with potassium supplementation on 12/07/16 Start dobutamine 2.5 g per KG per minute Troponin max 0.06. 2D Echo - EF 20-25%. Global hypokinesis. No regional wall motion abnormality. Patient has had no prior cardiac workup and will definitely need cardiac catheterization prior to discharge. Dr. Gloria discussed extensively with Dr. Rand and with patients family including son who is a shell shop supervisor. Suspect long standing cardiomyopathy that has decompensated and resulted in hypoxia, syncope and resultant mental status change. Dr. Rand plans to defer cath while optimizing respiratory status and while observing renal function in view of recent significant contrast administration. Continue ASA 300 pr daily.-change to PO LDL 21, Trig and total cholesterol wnl. Levophed as needed to maintain MAP >65, seems sedation related. IVC collapse < 50%. diuresing as per above. GI: Acute transaminitis most likely secondary to shock Dysphagia Nothing by mouth, check liver enzymes Discontinue all hepatotoxic drugs enzyme elevation is most likely from hypotension Enteral feed with Glucerna 1.5 , adjust goal rate to 50 ml/hr per nutrition recs - currently on hold for ultrasound of the liver GI consult only if not improving FEN/RENAL: Lactic acidemia, resolved FLAVIA, improved, now worsening Cisneros in place. Monitor intake and output. Monitor electrolytes. Replace as indicated. Received IV contrast 12/03. Avoid nephrotoxins were possible. IV Bumex push and gtt as above Was followed by shell shop supervisor as outpatient, will reconsult if worsening ID: Acute right lower lobe pneumonia, probable aspiration Sepsis likely secondary to aspiration, improving Aspiration event likely occurred while bagging prehospital when patient was unresponsive. She also has had some mild dysphagia. On Zosyn, Vancomycin, Azithromycin since 12/03. Cultures negative aside from Enterobacter sputum so discontinued vancomycin. Discontinue azithromycin today 12/07/16 Blood cultures 12/03no growth to date. Urine Legionella and pneumococcal antigen negative. Influenza - Negative HEME: Monitor CBC ENDO: Hypothyroidism TSH normal on admission Continue Synthroid 100 mcg by mouth daily Diabetes with severe hyperglycemia on admission Beta hydroxybutyrate was normal and anion gap was related to lactic acidemia. Now anion gap is closed and has been transitioned off insulin drip. Insulin sliding scale with bedside glucose every 4 hours. Insulin detemir 20 units q12. Blood sugar control is appropriate today PROPH heparin subcutaneous for DVT prophylaxis. Protonix 40 g IV daily for stress ulcer prophylaxis. ACCESS: Right IJ central venous line placed 12/04. Patient's updated at bedside. Patient's son who is a shell shop supervisor from [facility] was also updated at bedside. Visited bedside on multiple occasions to reassess mental status, respiratory status, sedation and hemodynamics. Patient is delirious and nonpurposeful, volume overloaded and not appropriate for extubation at this time. CCT 38 MIN. Showed some signs of clinical deterioration with worsening chest x- ray and pulmonary edema, worsening renal function. Enzymes markedly elevated. Increase diuresis start dobutamine liver enzymes will be trended liver ultrasound ordered. Bumex infusion started Problem Qualifiers (1) Systolic heart failure: Qualified Codes: I50.22 - Chronic systolic (congestive) heart failure (2) Pulmonary edema: Qualified Codes: J81.0 - Acute pulmonary edema (3) Respiratory failure: Qualified Codes: J96.00 - Acute respiratory failure, unspecified whether with hypoxia or hypercapnia (4) Syncope: Qualified Codes: R55 - Syncope and collapse (5) Sepsis: Qualified Codes: A41.9 - Sepsis, unspecified organism eWndy Cote MD Dec 07, 2016 07:11
[2016-12-07] MEDS: DOBUTamine PREMIX DRIP 250 ML IV PRN (07:49)
[2016-12-07 08:02] LABS: INTERNATIONAL NORMALIZED RATIO 1.5 RATIO; PROTHROMBIN TIME - PATIENT 16.9 SEC (9.8-11.6)
[2016-12-07] MEDS: BUMETANIDE INJ 100 ML IV SCH (08:25)
[2016-12-07] MEDS ORDERED: DEXMEDETOMIDINE INJ 200 MCG in SODIUM CHLORIDE 0.9% INJ 50 ML IV PRN (08:45)
[2016-12-07] MEDS: DOCUSATE SODIUM 50 MG/SENNA 8.6 MG TAB PO SCH ×2 (09:00→20:36)
[2016-12-07] MEDS: THIAMINE INJ 100 MG in SODIUM CHLORIDE 0.9% INJ 100 ML IV SCH (09:11)
[2016-12-07] MEDS: INSULIN DETEMIR 100 UNITS/ML VIAL SQ SCH ×2 (09:12→20:36)
[2016-12-07] MEDS: SPIRONOLACTONE 25 MG TAB PO SCH ×2 (09:12→18:10)
[2016-12-07] MEDS: POTASSIUM CHLORIDE 25 MEQ EFFERVESCENT TAB PO SCH ×2 (09:12→21:00)
[2016-12-07] MEDS: HEPARIN SODIUM - SQ 10,000 UNITS/ML VIAL SQ SCH ×2 (09:12→20:35)
[2016-12-07] MEDS: PANTOPRAZOLE SODIUM 40 MG VIAL IV PUSH SCH (09:12)
--- NOTE | 2016-12-07 10:05 | PD.CARD.PN ---
Subjective Subjective Remarks On vent. Objective Medications Current Medications Medications (Trade) Dose Ordered Sig/Ian Route Start Time Stop Time Status Last Admin (Protonix Inj) 40 mg DAILY IV PUSH 12/03/16 13:00 12/07/16 09:12 Miscellaneous Information 1 Q361D XX 12/03/16 13:00 (Chlorhexidine 2% Cloth) 3 pack Taper DAILY@04 TOP 12/04/16 04:00 11/30/17 03:59 12/07/16 04:00 (Chlorhexidine 2% Cloth) 3 pack UNSCH PRN TOP 12/03/16 13:00 (Pinky-Colace) 1 tab BID PO 12/03/16 21:00 12/05/16 07:58 (Milk Of Magnesia Liq) 30 ml Q12H PRN PO 12/03/16 13:00 (Senokot) 17.2 mg Q12H PRN PO 12/03/16 13:00 (Dulcolax Supp) 10 mg DAILY PRN RECTAL 12/03/16 13:00 (Lactulose Liq) 30 ml DAILY PRN PO 12/03/16 13:00 Piperacillin Sod/ Tazobactam Sod 100 ml @ 200 mls/hr Q6H IV 12/03/16 16:00 12/07/16 09:13 (Glucagon Inj) 1 mg UNSCH PRN OTHER 12/04/16 01:15 (D50w (Vial) Inj) 25 ml UNSCH PRN IV PUSH 12/04/16 08:00 (NovoLIN R SUPPLEMENTAL SCALE) 1 Q4HR SQ 12/04/16 08:00 12/07/16 04:00 Norepinephrine Bitartrate 4 mg/ Sodium Chloride 250 ml @ 7.5 mls/hr TITRATE PRN IV 12/04/16 09:15 12/04/16 09:26 (Brethine Inj) 1 mg UNSCH PRN SQ 12/04/16 09:15 (Synthroid) 100 mcg DAILY@0600 PO 12/05/16 06:00 12/07/16 04:21 (Heparin Inj) 5,000 units Q12HR SQ 12/04/16 21:00 12/07/16 09:12 (Levemir Inj) 20 units Q12HR SQ 12/05/16 21:00 12/07/16 09:12 Thiamine HCl 100 mg/Sodium Chloride 101 ml @ 101 mls/hr DAILY IV 12/05/16 12:45 12/07/16 09:11 (Duoneb Neb) 1 ampule Q6HR NEB INH 12/07/16 10:00 12/07/16 09:26 Albumin Human 50 ml @ 60 mls/hr Q12H IV 12/07/16 07:00 12/07/16 07:00 Bumetanide 100 ml @ 2 mls/hr Q24H IV 12/07/16 07:30 12/07/16 08:25 (K-Lyte Cl Eff) 25 meq Q12HR PO 12/07/16 09:00 12/07/16 09:12 Dobutamine HCl/ Dextrose 250 ml @ 9.225 mls/ hr Q24H PRN IV 12/07/16 06:56 12/07/16 07:49 (Ativan Inj) 0.5 mg Q2H PRN IV PUSH 12/07/16 07:15 (Aldactone) 25 mg BID@09,18 PO 12/07/16 09:00 12/07/16 09:12 Dexmedetomidine HCl 1000 mcg/ Sodium Chloride 250 ml @ 3.07 mls/hr TITRATE PRN IV 12/07/16 09:30 (Aspirin Chew) 81 mg DAILY NG 12/08/16 09:00 UNV Vital Signs / I&O Vital Signs Date Time Temp Pulse Resp B/P (MAP) Pulse Ox O2 Delivery O2 Flow Rate FiO2 12/07/16 09:27 100 35 12/07/16 07:49 64 98/55 12/07/16 06:00 67 12/07/16 04:35 100 35 12/07/16 04:00 35 12/07/16 04:00 98.8 72 14 106/58 (74) 100 12/07/16 04:00 72 12/07/16 02:00 74 12/07/16 00:23 100 35 12/07/16 00:00 98.0 78 14 108/58 (75) 100 12/07/16 00:00 35 12/07/16 00:00 78 12/06/16 22:00 80 12/06/16 21:55 100 35 12/06/16 20:00 81 12/06/16 20:00 98.2 81 14 99/67 (78) 96 12/06/16 20:00 35 12/06/16 18:00 78 12/06/16 16:00 74 12/06/16 16:00 98.5 74 14 88/51 (63) 100 12/06/16 16:00 35 12/06/16 14:00 82 12/06/16 13:01 98 35 12/06/16 12:00 98.0 81 28 98/56 (70) 97 12/06/16 12:00 35 12/06/16 12:00 81 I/O 12/06/16 12/06/16 12/06/16 12/07/16 12/07/16 12/07/16 06:59 14:59 22:59 06:59 14:59 22:59 Intake Total 683 ml 240 ml 1246 ml 1152 ml 50 ml Output Total 450 ml 650 ml 700 ml Balance 233 ml 240 ml 596 ml 452 ml 50 ml Intake IV Total 100 ml 240 ml 649 ml 332 ml 50 ml Tube Feeding 583 ml 597 ml 500 ml Other 320 ml Output Urine Total 450 ml 650 ml 700 ml # Bowel Movements 4 4 2 Physical Exam Responding well No JVD Lungs clear anteriorly, CXR worsening CHF CV S1S2 RRR, no murmur Abd: soft Ext: no edema Laboratory Laboratory Tests Test 12/06/16 12:45 12/07/16 03:15 12/07/16 07:30 Vancomycin Level Trough 4.4 MCG/ML White Blood Count 16.7 TH/MM3 Red Blood Count 4.07 MIL/MM3 Hemoglobin 9.7 GM/DL Hematocrit 30.6 % Mean Corpuscular Volume 75.3 FL Mean Corpuscular Hemoglobin 23.9 PG Mean Corpuscular Hemoglobin Concent 31.7 % Red Cell Distribution Width 18.0 % Platelet Count 241 TH/MM3 Mean Platelet Volume 8.4 FL Neutrophils (%) (Auto) 75.8 % Lymphocytes (%) (Auto) 13.8 % Monocytes (%) (Auto) 10.1 % Eosinophils (%) (Auto) 0.0 % Basophils (%) (Auto) 0.3 % Neutrophils # (Auto) 12.7 TH/MM3 Lymphocytes # (Auto) 2.3 TH/MM3 Monocytes # (Auto) 1.7 TH/MM3 Eosinophils # (Auto) 0.0 TH/MM3 Basophils # (Auto) 0.1 TH/MM3 CBC Comment DIFF FINAL Differential Comment Blood Urea Nitrogen 59 MG/DL Creatinine 1.21 MG/DL Random Glucose 193 MG/DL Total Protein 6.5 GM/DL Albumin 2.4 GM/DL Calcium Level 8.3 MG/DL Alkaline Phosphatase 52 U/L Aspartate Amino Transf (AST/SGOT) 1848 U/L Alanine Aminotransferase (ALT/SGPT) 716 U/L Total Bilirubin 0.7 MG/DL Sodium Level 148 MEQ/L Potassium Level 3.7 MEQ/L Chloride Level 113 MEQ/L Carbon Dioxide Level 27.4 MEQ/L Anion Gap 8 MEQ/L Estimat Glomerular Filtration Rate 44 ML/MIN Prothrombin Time 16.9 SEC Prothromb Time International Ratio 1.5 RATIO Activated Partial Thromboplast Time 28.0 SEC Ammonia 30 MCMOL/L Imaging Last 24 hours Impressions Chest X-Ray 12/07/16 0600 Signed Impressions: Service Date/Time: Wednesday, December 07, 2016 03:59 - CONCLUSION: Worsening aeration Rocael Mccoy MD Assessment and Plan Problem List: (1) Elevated troponin ICD Codes: R74.8 - Abnormal levels of other serum enzymes Plan: Trivial troponin only 0.06 max (2) Left ventricular dysfunction ICD Codes: I51.9 - Heart disease, unspecified (3) Respiratory failure ICD Codes: J96.90 - Respiratory failure, unspecified, unspecified whether with hypoxia or hypercapnia Status: Acute (4) Left bundle branch block ICD Codes: I44.7 - Left bundle branch block Status: Chronic (5) Unresponsive ICD Codes: R41.89 - Other symptoms and signs involving cognitive functions and awareness Status: Resolved (6) Pulmonary edema ICD Codes: J81.1 - Chronic pulmonary edema Status: Acute Assessment and Plan Bumex drip. I will be out of town the rest of this week. Dr. Bean will be covering me. Discussed Condition With family Problem Qualifiers (1) Respiratory failure: Qualified Codes: J96.00 - Acute respiratory failure, unspecified whether with hypoxia or hypercapnia (2) Pulmonary edema: Qualified Codes: J81.0 - Acute pulmonary edema David Rand MD Dec 07, 2016 10:05
[2016-12-07] MEDS: DEXMEDETOMIDINE INJ 1,000 MCG in SODIUM CHLORIDE 0.9% INJ 240 ML IV PRN (10:09)
[2016-12-07] MEDS: LORazepam 2 MG/ML VIAL IV PUSH PRN ×2 (10:09→18:11)
[2016-12-07] MEDS: DEXTROSE 50% IN WATER 50 ML VIAL(D50) IV PUSH PRN ×3 (11:58→20:37)
--- NOTE | 2016-12-07 12:19 | HHI.FPPN ---
Subjective Remarks Primary care note: Patient seen at 08 30 this morning, and son, semiconductor assembler from [place], at bedside. Discussed with Dr. Cote, engineering and scientific programmer. Patient is awake, responds appropriately to commands, moves all 4 extremities, makes eye contact with physician and appears to communicate purposefully. Chart reviewed. Objective Vitals Vital Signs Date Time Temp Pulse Resp B/P (MAP) Pulse Ox O2 Delivery O2 Flow Rate FiO2 12/07/16 12:01 100 35 12/07/16 10:00 76 12/07/16 09:27 100 35 12/07/16 08:00 66 12/07/16 08:00 35 12/07/16 08:00 98.2 66 14 107/54 (71) 100 12/07/16 07:49 64 98/55 12/07/16 06:00 67 12/07/16 04:35 100 35 12/07/16 04:00 35 12/07/16 04:00 98.8 72 14 106/58 (74) 100 12/07/16 04:00 72 12/07/16 02:00 74 12/07/16 00:23 100 35 12/07/16 00:00 98.0 78 14 108/58 (75) 100 12/07/16 00:00 35 12/07/16 00:00 78 12/06/16 22:00 80 12/06/16 21:55 100 35 12/06/16 20:00 81 12/06/16 20:00 98.2 81 14 99/67 (78) 96 12/06/16 20:00 35 12/06/16 18:00 78 12/06/16 16:00 74 12/06/16 16:00 98.5 74 14 88/51 (63) 100 12/06/16 16:00 35 12/06/16 14:00 82 12/06/16 13:01 98 35 I/O 12/06/16 12/06/16 12/06/16 12/07/16 12/07/16 12/07/16 07:00 15:00 23:00 07:00 15:00 23:00 Intake Total 683 ml 240 ml 1246 ml 1152 ml 50 ml Output Total 450 ml 650 ml 700 ml Balance 233 ml 240 ml 596 ml 452 ml 50 ml Intake IV Total 100 ml 240 ml 649 ml 332 ml 50 ml Tube Feeding 583 ml 597 ml 500 ml Other 320 ml Output Urine Total 450 ml 650 ml 700 ml # Bowel Movements 4 4 2 Result Diagram: 12/07/1631412/07/16314 Other Results Vital signs noted. Gen. appearance: Older [place] woman on a ventilator, moving all 4 extremities, appears to try and communicate. Cardiac: S1-S2, no S3. Lungs: Diminished breath sounds, bilateral positive the basis. Abdomen: Soft, appears to be nontender. Feet: Warm and dry, Neurologic: Grossly nonlocalizing. A/P Assessment and Plan Assessment and Plan: Continues critically ill on the ventilator. Does appear to be "lightening "up neurologically, following simple commands. Etiology of the initial event is unclear, Dr. Agosto, the patient's son has been talking to relatives in [facility], a sister may have a cardiomyopathy that was thought possibly to be inherited. If patient continues to improve clinically, may anticipate extubation in the next several days. Will eventually need a cardiac catheterization to define cardiac function and anatomy. Active clinical care per engineering and scientific programmer, water chemist and industrial refrigeration mechanic and nursing staff. See patient socially at this time. . Problem List: (1) Diabetes type 2, uncontrolled ICD Codes: E11.65 - Uncontrolled type 2 diabetes mellitus Status: Chronic (2) Left bundle branch block ICD Codes: I44.7 - Left bundle branch block Status: Chronic (3) Sepsis ICD Codes: A41.9 - Sepsis, unspecified organism Status: Acute (4) Respiratory failure ICD Codes: J96.90 - Respiratory failure, unspecified, unspecified whether with hypoxia or hypercapnia Status: Acute (5) Pulmonary edema ICD Codes: J81.1 - Chronic pulmonary edema Status: Acute (6) Metabolic acidemia ICD Codes: E87.2 - Acidosis Status: Acute (7) DKA (diabetic ketoacidoses) ICD Codes: E13.10 - Other specified diabetes mellitus with ketoacidosis without coma Status: Acute Problem Qualifiers (1) Sepsis: Qualified Codes: A41.9 - Sepsis, unspecified organism (2) Respiratory failure: Qualified Codes: J96.00 - Acute respiratory failure, unspecified whether with hypoxia or hypercapnia (3) Pulmonary edema: Qualified Codes: J81.0 - Acute pulmonary edema Nathanael Santoyo MD Dec 07, 2016 12:19
--- NOTE | 2016-12-07 12:19 | HHI.FPPN ---
Subjective Remarks Primary care note: Patient seen at 08 30 this morning, and son, insurance representative from [place], at bedside. Discussed with Dr. Cote, brass pourer. Patient is awake, responds appropriately to commands, moves all 4 extremities, makes eye contact with physician and appears to communicate purposefully. Chart reviewed. Objective Vitals Vital Signs Date Time Temp Pulse Resp B/P (MAP) Pulse Ox O2 Delivery O2 Flow Rate FiO2 12/07/16 12:01 100 35 12/07/16 10:00 76 12/07/16 09:27 100 35 12/07/16 08:00 66 12/07/16 08:00 35 12/07/16 08:00 98.2 66 14 107/54 (71) 100 12/07/16 07:49 64 98/55 12/07/16 06:00 67 12/07/16 04:35 100 35 12/07/16 04:00 35 12/07/16 04:00 98.8 72 14 106/58 (74) 100 12/07/16 04:00 72 12/07/16 02:00 74 12/07/16 00:23 100 35 12/07/16 00:00 98.0 78 14 108/58 (75) 100 12/07/16 00:00 35 12/07/16 00:00 78 12/06/16 22:00 80 12/06/16 21:55 100 35 12/06/16 20:00 81 12/06/16 20:00 98.2 81 14 99/67 (78) 96 12/06/16 20:00 35 12/06/16 18:00 78 12/06/16 16:00 74 12/06/16 16:00 98.5 74 14 88/51 (63) 100 12/06/16 16:00 35 12/06/16 14:00 82 12/06/16 13:01 98 35 I/O 12/06/16 12/06/16 12/06/16 12/07/16 12/07/16 12/07/16 07:00 15:00 23:00 07:00 15:00 23:00 Intake Total 683 ml 240 ml 1246 ml 1152 ml 50 ml Output Total 450 ml 650 ml 700 ml Balance 233 ml 240 ml 596 ml 452 ml 50 ml Intake IV Total 100 ml 240 ml 649 ml 332 ml 50 ml Tube Feeding 583 ml 597 ml 500 ml Other 320 ml Output Urine Total 450 ml 650 ml 700 ml # Bowel Movements 4 4 2 Result Diagram: 12/07/1631412/07/16314 Other Results Vital signs noted. Gen. appearance: Older [place] woman on a ventilator, moving all 4 extremities, appears to try and communicate. Cardiac: S1-S2, no S3. Lungs: Diminished breath sounds, bilateral positive the basis. Abdomen: Soft, appears to be nontender. Feet: Warm and dry, Neurologic: Grossly nonlocalizing. A/P Assessment and Plan Assessment and Plan: Continues critically ill on the ventilator. Does appear to be "lightening "up neurologically, following simple commands. Etiology of the initial event is unclear, Dr. Agosto, the patient's son has been talking to relatives in [facility], a sister may have a cardiomyopathy that was thought possibly to be inherited. If patient continues to improve clinically, may anticipate extubation in the next several days. Will eventually need a cardiac catheterization to define cardiac function and anatomy. Active clinical care per brass pourer, extruding department supervisor and pattern painter and nursing staff. See patient socially at this time. . Problem List: (1) Diabetes type 2, uncontrolled ICD Codes: E11.65 - Uncontrolled type 2 diabetes mellitus Status: Chronic (2) Left bundle branch block ICD Codes: I44.7 - Left bundle branch block Status: Chronic (3) Sepsis ICD Codes: A41.9 - Sepsis, unspecified organism Status: Acute (4) Respiratory failure ICD Codes: J96.90 - Respiratory failure, unspecified, unspecified whether with hypoxia or hypercapnia Status: Acute (5) Pulmonary edema ICD Codes: J81.1 - Chronic pulmonary edema Status: Acute (6) Metabolic acidemia ICD Codes: E87.2 - Acidosis Status: Acute (7) DKA (diabetic ketoacidoses) ICD Codes: E13.10 - Other specified diabetes mellitus with ketoacidosis without coma Status: Acute Problem Qualifiers (1) Sepsis: Qualified Codes: A41.9 - Sepsis, unspecified organism (2) Respiratory failure: Qualified Codes: J96.00 - Acute respiratory failure, unspecified whether with hypoxia or hypercapnia (3) Pulmonary edema: Qualified Codes: J81.0 - Acute pulmonary edema Nathanael Santoyo MD Dec 07, 2016 12:19
--- NOTE | 2016-12-07 12:19 | HHI.FPPN ---
Subjective Remarks Primary care note: Patient seen at 08 30 this morning, and son, appliance servicer from [place], at bedside. Discussed with Dr. Cote, campus chaplain. Patient is awake, responds appropriately to commands, moves all 4 extremities, makes eye contact with physician and appears to communicate purposefully. Chart reviewed. Objective Vitals Vital Signs Date Time Temp Pulse Resp B/P (MAP) Pulse Ox O2 Delivery O2 Flow Rate FiO2 12/07/16 12:01 100 35 12/07/16 10:00 76 12/07/16 09:27 100 35 12/07/16 08:00 66 12/07/16 08:00 35 12/07/16 08:00 98.2 66 14 107/54 (71) 100 12/07/16 07:49 64 98/55 12/07/16 06:00 67 12/07/16 04:35 100 35 12/07/16 04:00 35 12/07/16 04:00 98.8 72 14 106/58 (74) 100 12/07/16 04:00 72 12/07/16 02:00 74 12/07/16 00:23 100 35 12/07/16 00:00 98.0 78 14 108/58 (75) 100 12/07/16 00:00 35 12/07/16 00:00 78 12/06/16 22:00 80 12/06/16 21:55 100 35 12/06/16 20:00 81 12/06/16 20:00 98.2 81 14 99/67 (78) 96 12/06/16 20:00 35 12/06/16 18:00 78 12/06/16 16:00 74 12/06/16 16:00 98.5 74 14 88/51 (63) 100 12/06/16 16:00 35 12/06/16 14:00 82 12/06/16 13:01 98 35 I/O 12/06/16 12/06/16 12/06/16 12/07/16 12/07/16 12/07/16 07:00 15:00 23:00 07:00 15:00 23:00 Intake Total 683 ml 240 ml 1246 ml 1152 ml 50 ml Output Total 450 ml 650 ml 700 ml Balance 233 ml 240 ml 596 ml 452 ml 50 ml Intake IV Total 100 ml 240 ml 649 ml 332 ml 50 ml Tube Feeding 583 ml 597 ml 500 ml Other 320 ml Output Urine Total 450 ml 650 ml 700 ml # Bowel Movements 4 4 2 Result Diagram: 12/07/1631412/07/16314 Other Results Vital signs noted. Gen. appearance: Older [place] woman on a ventilator, moving all 4 extremities, appears to try and communicate. Cardiac: S1-S2, no S3. Lungs: Diminished breath sounds, bilateral positive the basis. Abdomen: Soft, appears to be nontender. Feet: Warm and dry, Neurologic: Grossly nonlocalizing. A/P Assessment and Plan Assessment and Plan: Continues critically ill on the ventilator. Does appear to be "lightening "up neurologically, following simple commands. Etiology of the initial event is unclear, Dr. Agosto, the patient's son has been talking to relatives in [facility], a sister may have a cardiomyopathy that was thought possibly to be inherited. If patient continues to improve clinically, may anticipate extubation in the next several days. Will eventually need a cardiac catheterization to define cardiac function and anatomy. Active clinical care per campus chaplain, store consultant and rehabilitation services manager and nursing staff. See patient socially at this time. . Problem List: (1) Diabetes type 2, uncontrolled ICD Codes: E11.65 - Uncontrolled type 2 diabetes mellitus Status: Chronic (2) Left bundle branch block ICD Codes: I44.7 - Left bundle branch block Status: Chronic (3) Sepsis ICD Codes: A41.9 - Sepsis, unspecified organism Status: Acute (4) Respiratory failure ICD Codes: J96.90 - Respiratory failure, unspecified, unspecified whether with hypoxia or hypercapnia Status: Acute (5) Pulmonary edema ICD Codes: J81.1 - Chronic pulmonary edema Status: Acute (6) Metabolic acidemia ICD Codes: E87.2 - Acidosis Status: Acute (7) DKA (diabetic ketoacidoses) ICD Codes: E13.10 - Other specified diabetes mellitus with ketoacidosis without coma Status: Acute Problem Qualifiers (1) Sepsis: Qualified Codes: A41.9 - Sepsis, unspecified organism (2) Respiratory failure: Qualified Codes: J96.00 - Acute respiratory failure, unspecified whether with hypoxia or hypercapnia (3) Pulmonary edema: Qualified Codes: J81.0 - Acute pulmonary edema Nathanael Santoyo MD Dec 07, 2016 12:19
[2016-12-07 14:39] LABS: ALBUMIN 2.9 GM/DL (3.4-5.0); AST (GOT) 832 U/L (15-37); BICARBONATE 31.6 MEQ/L (21.0-32.0); BLOOD UREA NITROGEN 48 MG/DL (7-18); CALCIUM 8.4 MG/DL (8.5-10.1); CHLORIDE 109 MEQ/L (98-107); GLOMERULAR FILTRATION RATE 62 ML/MIN (>89); GLUCOSE,RANDOM 58 MG/DL (74-106); SODIUM (NA) 148 MEQ/L (136-145)
[2016-12-07 14:59] LABS: ALKALINE PHOSPHATASE 43 U/L (45-117); ALT (GPT) 611 U/L (10-53); TOTAL BILIRUBIN ADULT 1.1 MG/DL (0.2-1.0)
--- NOTE | 2016-12-07 15:44 | RADRPT ---
EXAM DATE/TIME: 12/07/2016 14:02 [facility] COMPARISON: CT ABDOMEN & PELVIS W CONTRAST, December 03, 2016, 14:45. INDICATIONS : Increased lab values. MEDICAL HISTORY : Hypothyroidism. Hypertension. Diabetes. SURGICAL HISTORY : Tonsillectomy. Left arm surgery. ENCOUNTER: Initial ACUITY: 1 day PAIN SCORE: Nonresponsive. LOCATION: Abdomen. MEASUREMENTS: LIVER: 15.5 cm length COMMON DUCT: 4 mm RIGHT KIDNEY: 10.8 x 5.6 x 5.4 cm SPLEEN: 7.8 cm length FINDINGS: Moderate-sized pleural effusion, left greater than right. There is a mild amount of ascites about th e liver, about the gallbladder, and about the right kidney. LIVER: Normal echotexture without focal lesion or ductal dilatation. Hepatopedal flow in the portal vein. COMMON DUCT: No intraluminal mass or stone visualized. GALLBLADDER: Contains no stones, demonstrates no wall thickening or pericholecystic fluid. PANCREAS: The visualized portions are within normal limits. RIGHT KIDNEY: Recent CT scan had demonstrated a heterogeneous round lesion in the upper pole right kidney having a "target" appearance. Ultrasound demonstrates a uniformly hyperechoic smooth margin mass without shad owing which measures 10 x 11 x 9 mm. The sonographic appearance suggests possible angiomyolipoma. N o evidence of hydronephrosis. SPLEEN: No focal lesion. CONCLUSION: 1. 1.1 cm lesion seen in the upper pole of the right kidney is uniformly hyperechogenic suggesting po ssible angiomyolipoma. 2. Bilateral pleural effusions and mild upper abdominal ascites. Gabriel Umaña MD on December 07, 2016 at 15:37 Board Certified Radiologist. This report was verified electronically.
[2016-12-07] MEDS: POTASSIUM CHLOR 20 MEQ PREMIX 100 ML IV SCH ×2 (16:02→18:10)
--- NOTE | 2016-12-07 19:53 | HHI.PR ---
Subjective Remarks 71 YO female with VDRF,DM,CMP Sedated with Precedex Moves ext, no purposeful movments CXr worse Started Bumex drip Diureased 4 Lit Objective Vital Signs Vital Signs Date Time Temp Pulse Resp B/P (MAP) Pulse Ox O2 Delivery O2 Flow Rate FiO2 12/07/16 18:00 77 12/07/16 17:12 100 35 12/07/16 16:00 97.0 66 14 146/64 (91) 100 12/07/16 16:00 35 12/07/16 16:00 66 12/07/16 14:00 74 12/07/16 12:01 100 35 12/07/16 12:00 70 12/07/16 12:00 35 12/07/16 12:00 97.2 70 14 137/61 (86) 100 12/07/16 10:00 76 12/07/16 09:27 100 35 12/07/16 08:00 66 12/07/16 08:00 35 12/07/16 08:00 98.2 66 14 107/54 (71) 100 12/07/16 07:49 64 98/55 12/07/16 06:00 67 12/07/16 04:35 100 35 12/07/16 04:00 35 12/07/16 04:00 98.8 72 14 106/58 (74) 100 12/07/16 04:00 72 12/07/16 02:00 74 12/07/16 00:23 100 35 12/07/16 00:00 98.0 78 14 108/58 (75) 100 12/07/16 00:00 35 12/07/16 00:00 78 12/06/16 22:00 80 12/06/16 21:55 100 35 12/06/16 20:00 81 12/06/16 20:00 98.2 81 14 99/67 (78) 96 12/06/16 20:00 35 I/O 12/06/16 12/06/16 12/06/16 12/07/16 12/07/16 12/07/16 07:00 15:00 23:00 07:00 15:00 23:00 Intake Total 683 ml 240 ml 1246 ml 1152 ml 50 ml 756 ml Output Total 450 ml 650 ml 700 ml 4050 ml Balance 233 ml 240 ml 596 ml 452 ml 50 ml -3294 ml Intake IV Total 100 ml 240 ml 649 ml 332 ml 50 ml 614 ml Tube Feeding 583 ml 597 ml 500 ml 42 ml Tube Irrigant 100 ml Other 320 ml Output Urine Total 450 ml 650 ml 700 ml 4050 ml # Bowel Movements 4 4 2 3 Result Diagram: 12/07/16 0315 12/07/16 1345 Objective Remarks GENERAL: MBMN female on vent, sedated SKIN: Warm and dry. HEAD: Normocephalic. EYES: No scleral icterus. No injection or drainage. NECK: Supple, trachea midline. No JVD or lymphadenopathy. CARDIOVASCULAR: Regular rate and rhythm without murmurs, gallops, or rubs. RESPIRATORY: Breath sounds equal bilaterally. No accessory muscle use. basal rales GASTROINTESTINAL: Abdomen soft, non-tender, nondistended. MUSCULOSKELETAL: No cyanosis, or edema. BACK: Nontender without obvious deformity. No CVA tenderness. A/P Assessment and Plan VDRF Pulm odema Rt infilt poss aspiration CMP DM Renal insuff PLAN: Vent support, Fi02 35% Cont Abx Precedex for sedation Monitor BS Wean Fi02 Bumex drip CPAP trial in AM DW dr.John Henderson,David Garcia MD Dec 07, 2016 19:53
[2016-12-08] VITALS (17 sets, daily range): BP systolic 104–137; BP diastolic 49–64; PULSE 68–102; RESP 12–22; TEMP 98.1–99.6; O2SAT 93–100
[2016-12-08] MEDS: INSULIN NovoLIN REGULAR SUPPLEMENTAL SCALE SQ SCH ×6 (01:27→20:12)
[2016-12-08] MEDS: RESP: ALBUTEROL 2.5 MG/IPRATROPIUM 0.5 MG NEB (SCH) INH ×4 (03:18→21:19)
[2016-12-08] MEDS: PIPERACIL-TAZO 4.5 GM PREMIX 100 ML IV SCH ×4 (03:50→20:11)
[2016-12-08] MEDS: CHLORHEXIDINE GLUCONATE 2 % 1 PACK (2 CLOTHS) TOP SCH (03:50)
[2016-12-08] MEDS: DEXMEDETOMIDINE INJ 1,000 MCG in SODIUM CHLORIDE 0.9% INJ 240 ML IV PRN (04:19)
[2016-12-08 05:39] LABS: BASOPHIL # 0.1 TH/MM3 (0-0.2); BASOPHIL % 0.5 % (0.0-2.0); EOSINOPHIL # 0.5 TH/MM3 (0-0.4); HEMOGLOBIN 10.7 GM/DL (11.6-15.3); LYMPH % 9.6 % (9.0-44.0); LYMPHOCYTE # 1.5 TH/MM3 (1.0-4.8); MEAN CELL VOLUME 75.3 FL (80.0-100.0); MEAN CORPUSCULAR HEMOGLOBIN 24.4 PG (27.0-34.0); MEAN CORPUSCULAR HGB CONC 32.4 % (32.0-36.0); MEAN PLATELET VOLUME 8.6 FL (7.0-11.0); MONO % 9.2 % (0.0-8.0); MONOCYTE # 1.4 TH/MM3 (0-0.9); NEUT % 77.7 % (16.0-70.0); PLATELET COUNT 264 TH/MM3 (150-450); RED BLOOD COUNT 4.38 MIL/MM3 (4.00-5.30); WHITE BLOOD COUNT 15.4 TH/MM3 (4.0-11.0)
[2016-12-08] MEDS: LEVOTHYROXINE SODIUM 100 MCG TAB PO SCH (05:42)
[2016-12-08] MEDS: ALBUMIN 25% INJ 50 ML IV SCH ×2 (05:43→18:32)
--- NOTE | 2016-12-08 06:06 | RADRPT ---
EXAM DATE/TIME: 12/08/2016 03:49 [facility] COMPARISON: CHEST SINGLE AP, December 07, 2016, 3:59. INDICATIONS : Short of breath. MEDICAL HISTORY : Hypothyroidism. Hypertension. Diabetes mellitus type 2. SURGICAL HISTORY : Tonsillectomy. ENCOUNTER: Subsequent ACUITY: 4 - 6 days PAIN SCORE: 0/10 LOCATION: Bilateral chest FINDINGS: Endotracheal tube tip is about a centimeter above the elmer. Nasogastric tube descends into the stom ach. Right central line descends in the SVC. There has been improvement in aeration with decrease in confluence of bilateral infiltrates. Cardiac contours are grossly stable accounting for differences i n rotation. CONCLUSION: Significant improvement in aeration Rocael Mccoy MD on December 08, 2016 at 6:04 Board Certified Radiologist. This report was verified electronically.
[2016-12-08] MEDS: DOBUTamine PREMIX DRIP 250 ML IV PRN (06:09)
[2016-12-08 06:24] LABS: ALBUMIN 2.9 GM/DL (3.4-5.0); ALKALINE PHOSPHATASE 52 U/L (45-117); ALT (GPT) 532 U/L (10-53); AST (GOT) 446 U/L (15-37); BICARBONATE 32.2 MEQ/L (21.0-32.0); BLOOD UREA NITROGEN 41 MG/DL (7-18); CALCIUM 8.4 MG/DL (8.5-10.1); CHLORIDE 103 MEQ/L (98-107); CREATININE 1.04 MG/DL (0.50-1.00); GLOMERULAR FILTRATION RATE 52 ML/MIN (>89); GLUCOSE,RANDOM 231 MG/DL (74-106); MAGNESIUM 2.4 MG/DL (1.5-2.5); SODIUM (NA) 144 MEQ/L (136-145); TOTAL BILIRUBIN ADULT 1.2 MG/DL (0.2-1.0); TOTAL PROTEIN 7.1 GM/DL (6.4-8.2)
[2016-12-08] MEDS: LORazepam 2 MG/ML VIAL IV PUSH PRN (07:27)
[2016-12-08] MEDS: BUMETANIDE INJ 100 ML IV SCH (08:09)
[2016-12-08] MEDS: INSULIN DETEMIR 100 UNITS/ML VIAL SQ SCH ×2 (08:09→20:11)
[2016-12-08] MEDS: ASPIRIN 81 MG CHEW TAB NG SCH (08:10)
[2016-12-08] MEDS: PANTOPRAZOLE SODIUM 40 MG VIAL IV PUSH SCH (08:10)
[2016-12-08] MEDS: SPIRONOLACTONE 25 MG TAB PO SCH ×2 (08:10→18:32)
[2016-12-08] MEDS: THIAMINE INJ 100 MG in SODIUM CHLORIDE 0.9% INJ 100 ML IV SCH (08:10)
[2016-12-08] MEDS: POTASSIUM CHLORIDE 25 MEQ EFFERVESCENT TAB PO SCH ×2 (08:10→20:11)
[2016-12-08] MEDS: DOCUSATE SODIUM 50 MG/SENNA 8.6 MG TAB PO SCH ×2 (08:11→20:12)
[2016-12-08] MEDS: HEPARIN SODIUM - SQ 10,000 UNITS/ML VIAL SQ SCH ×2 (08:11→20:12)
[2016-12-08] MEDS ORDERED: BUMETANIDE INJ 1 MG/4 ML VIAL IV PUSH SCH (09:00)
--- NOTE | 2016-12-08 09:42 | HHI.CCPN ---
Subjective Remarks/Hospital Course The patient is a 71-year-old female with a past medical history of hypertension , diabetes mellitus, hypothyroidism. She went to see Dr. Fernandez for evaluation of diabetic neuropathy and the patient had a syncopal episode. There is no history of any witnessed seizures. When she was brought in to [place] via ambulance she had some right sided weakness with rightward gaze. Her GCS declined to 3, where she was intubated emergently for airway protection. Post intubation the patient was noted to move all extremities. In addition, prior to arrival she was hypoxic with O2 saturation in the 80s, STEMI alert was called, however, the patient was found to have an old left bundle branch block. STEMI was cancelled after ED's discussion with Dr. Rand. Also, they called a stroke alert; however, after discussion with Dr. Knight the patient was not a candidate for TPA as she was moving all extremities post intubation. Her ABG post intubation showed ph of 7.27, CO2 38, PA02 70, bicarb 17, saturation 90% on PRVC mode with rate 14, tidal volume 500, ITIME 1.0, PEEP 5, 100% FIO2. Chest x-ray post intubation showed diffuse pulmonary consolidation. Due to her syncopal episode she had a CT scan of the brain which showed no acute findings. 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 CTA of the neck showed 60% narrowing due to an eccentric calcification in the left carotid bulb. CTA of the brain showed absent flow in the right A1 segment with patent anterior communicating artery providing flow to the A2 segment and questionable 2 to 3 mm aneurysm in the right middle cranial fossa off a branch vessel of the right MCA territory. Her laboratory data is significant for hyperglycemia, her blood sugar was 455 on point of care and 453 on the CMP. The patient was given regular insulin 7 units and will be on insulin drip per DKA protocol. Her urine drug screen is negative for amphetamines, barbiturates, benzodiazepines. Other significant labs showed leukocytosis with WBC 20.3 and elevated BNP of 547. The patient was seen by Dr. Rand in the ED and echocardiogram was ordered. She was given Vancomycin, cefepime and azithromycin in the ED. The patient is scheduled to undergo CT pulmonary angiogram and CT abdomen and pelvis wereordered by ED. When seen the patient is sedated with versed and on full mechanical ventilation. Her current blood pressure is 117/69 with a pulse of 77 , saturation 96-97%. 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 No history of any cough or constitutional symptoms. 12/04 Echo with EF 20-25%. states she was had been complaining of SOB and chest pain off and on for about 2 weeks prior to this event. Complained of SOB right before syncope in the physicians office. Post-syncope she was initially able to talk some and got into a wheelchair and he was trying to get her to the car to go to urgent care across the street when she then became unresponsive and [facility] was called. GCS was reportedly 8 on EVAC arrival and she was bagged but there was concern for R sided weakness. She was intubated upon arrrival to the ED. Denies known cardiac history and has had no prior cardiac workup. She has also complained of difficulty swallowing and has coughed and "choked" a few times while eating over the last 1-2 weeks. She did not have a persistent or productive cough and had not complained of fever. She had not complained of headache. Anion-gap closed so she was transitioned off insulin drip early this morning. Lactic acid cleared. Now hypotensive, starting levophed. CTPA negative for PE, +RLL consolidation and bilat pleural effusions. Afebrile, WBC 19.3 Legionella/pneumoocococcal antigen negative and influenza negative. Remainder of cultures pending. EEG report pending. Was on versed 5 mg/hr and fentanyl 50 mcg/hr this morning, now holding sedation. Subjective: 12/05 MRI brain negative for stroke. MRA negative for aneurysm. EEG with slowing but no seizure. Agitated off sedation. Started on Precedex. Was on low dose levophed couple of hours last night, then off again. Tolerating CPAP initially but subsequently desatted and FIO2 increased. Mental status also not adequate for extubation. Temp max 99.7, WBC downtrending to 16.5 . Sputum cultures with GNR. 12/06: Patient remains encephalopathic. Sputum culture growing Enterobacter. WBC increased to 18.5 today. CXR pending today 12/07: Chest x-ray shows significant interval worsening bilateral infiltrates most likely congenital pulmonary edema. Mental status appears to be slightly improved. I have started patient on Bumex infusion after discontinuing Lasix IV. Also started on dobutamine at 2.5 g per KG per minute. Liver enzymes noted to be markedly elevated, probably from hypotension shock. Liver ultrasound ordered 12/08: Remains intubated sedated with Precedex follows commands. Urine output 6.6 L in 24 hours on Bumex infusion and dobutamine. Chest x-ray shows significant improvement FiO2 at 35%. Started on CPAP trial Objective Vital Signs Date Time Temp Pulse Resp B/P (MAP) Pulse Ox O2 Delivery O2 Flow Rate FiO2 12/08/16 08:45 100 35 12/08/16 08:00 88 12/08/16 08:00 99.6 16 133/60 (84) Intake and Output 12/08/16 12/08/16 12/09/16 08:00 16:00 00:00 Intake Total 894 ml Output Total 2600 ml Balance -1706 ml Result Diagram: 12/08/16 0434 12/08/16 0434 Objective Remarks GENERAL: Intubated 71 yo female. Follows commands today SKIN: Warm and dry. HEAD: Atraumatic. Normocephalic. EYES: Pupils equal and round, pinpoint and reactive. No injection or drainage. ENT: No nasal bleeding or discharge. Orotracheally intubated NECK: Trachea midline. No JVD. CARDIOVASCULAR: Regular rate and rhythm. No murmurs rubs or gallops. RESPIRATORY: Intubated, Rales bilaterally. No wheeze or rhonchi. Air entry equal bilaterally GASTROINTESTINAL: Abdomen soft, non-tender, nondistended. Hepatic and splenic margins not palpable. : Cisneros in place with light sierra urine output. MUSCULOSKELETAL: Extremities without clubbing, cyanosis, or edema. NEUROLOGICAL: Eye open with tracking. Spontaneously moves and withdraws with all extremities, following commands today A/P Problem List: (1) Systolic heart failure ICD Code: I50.20 - Unspecified systolic (congestive) heart failure (2) Pulmonary edema ICD Code: J81.1 - Chronic pulmonary edema Status: Acute (3) Respiratory failure ICD Code: J96.90 - Respiratory failure, unspecified, unspecified whether with hypoxia or hypercapnia Status: Acute (4) Syncope ICD Code: R55 - Syncope and collapse Status: Acute (5) Sepsis ICD Code: A41.9 - Sepsis, unspecified organism Status: Acute (6) Diabetic nephropathy ICD Code: E11.21 - Diabetic nephropathy Status: Acute (7) Diabetes type 2, uncontrolled ICD Code: E11.65 - Uncontrolled type 2 diabetes mellitus Status: Chronic (8) Hypothyroidism ICD Code: E03.9 - Hypothyroidism Status: Chronic (9) Hypertension, benign ICD Code: I10 - Benign hypertension Status: Chronic (10) Type II diabetes mellitus with renal manifestations, uncontrolled ICD Code: E11.29 - Type II diabetes mellitus with renal manifestations, uncontrolled; E11.65 - Type 2 diabetes mellitus with hyperglycemia Status: Chronic (11) Left bundle branch block ICD Code: I44.7 - Left bundle branch block Status: Chronic (12) Encephalopathy acute ICD Code: G93.40 - Encephalopathy, unspecified Status: Acute (13) Dysphagia ICD Code: R13.10 - Dysphagia, unspecified Status: Chronic Assessment and Plan NEURO: Syncope Acute metabolic encephalopathy Precedex to facilitate neuro exam and weaning trial. Versed drip discontinued morning of 12/04. Target RASS -0 CT brain 12/03no acute findings. CTA brain 12/03 absent flow right A1 with patent ACOM providing flow to A2 segment. On addendum, states ?2-3 mm aneurysm of branch off R MCA territory. Could be further evaluated by MRA. MRI 12/04 - no acute abnormality. MRA 12/04 absent flow right A1 but no aneurysm. -No intervention per neurology/IR Concern for R hemiparesis on admission but Was not candidate for TPA due to resolving symptoms. EEG - moderate slowing but no seizure. Continue ASA RESP: Acute respiratory failure Pulmonary edema Right lower lobe pneumonia, probable aspiration. Intubated by ED physician due to AMS and hypoxia. CTPA 12/03 - negative for PE. RLL consolidation. Daily CPAP trial. Possible extubation today. CXR improved Patient known to Dr. Henderson who is following. DuoNeb every 6 hours scheduled and when necessary CV: Systolic heart failure ? Acute on chronic Chronic LBBB 2 mg IV Bumex 1 and 0.5 mg per hour infusion with potassium supplementation on 12/07/16 DC Bumex gtt today, 12/08/16. Bumex 1 mg IV t8aelif today Continue dobutamine 2.5 g per KG per minute Troponin max 0.06. 2D Echo - EF 20-25%. Global hypokinesis. No regional wall motion abnormality. Patient has had no prior cardiac workup and will definitely need cardiac catheterization prior to discharge. Dr. Gloria discussed extensively with Dr. Rand and with patients family including son who is a pipe line maintenance supervisor. Suspect long standing cardiomyopathy that has decompensated and resulted in hypoxia, syncope and resultant mental status change. Dr. Rand plans to defer cath while optimizing respiratory status and while observing renal function in view of recent significant contrast administration. Continue ASA 300 pr daily.-change to PO LDL 21, Trig and total cholesterol wnl. GI: Acute transaminitis most likely secondary to shock Dysphagia Nothing by mouth, liver enzymes trending down. 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 Monitor intake and output. Monitor electrolytes. Replace as indicated. Received IV contrast 12/03. Avoid nephrotoxins were possible. IV Bumex push as above Was followed by pipe line maintenance supervisor as outpatient, will reconsult if worsening ID: Acute right lower lobe pneumonia, probable aspiration Sepsis likely secondary to aspiration, improving Aspiration event likely occurred while bagging prehospital when patient was unresponsive. She also has had some mild dysphagia. On Zosyn,since 12/03. Cultures negative aside from Enterobacter sputum so discontinued vancomycin. Discontinued azithromycin 12/07/16 Blood cultures 12/03no growth to date. Urine Legionella and pneumococcal antigen negative. Influenza - Negative HEME: Monitor CBC ENDO: Hypothyroidism TSH normal on admission Continue Synthroid 100 mcg by mouth daily Diabetes with severe hyperglycemia on admission Beta hydroxybutyrate was normal and anion gap was related to lactic acidemia. Now anion gap is closed and has been transitioned off insulin drip. Insulin sliding scale with bedside glucose every 4 hours. Insulin detemir 20 units q12. Blood sugar control is appropriate today PROPH heparin subcutaneous for DVT prophylaxis. Protonix 40 g IV daily for stress ulcer prophylaxis. ACCESS: Right IJ central venous line placed 12/04. Patient's updated at bedside. Patient's son who is a pipe line maintenance supervisor from [employer] was also updated at bedside. Visited bedside on multiple occasions to reassess mental status, respiratory status, sedation and hemodynamics. Patient is delirious and nonpurposeful, volume overloaded and not appropriate for extubation at this time. Level 3. Showing some signs of clinical improvement. Will continue dobutamine for inotropic support. Bumex changed to IVP Updated and son Problem Qualifiers (1) Systolic heart failure: Qualified Codes: I50.22 - Chronic systolic (congestive) heart failure (2) Pulmonary edema: Qualified Codes: J81.0 - Acute pulmonary edema (3) Respiratory failure: Qualified Codes: J96.00 - Acute respiratory failure, unspecified whether with hypoxia or hypercapnia (4) Syncope: Qualified Codes: R55 - Syncope and collapse (5) Sepsis: Qualified Codes: A41.9 - Sepsis, unspecified organism Wendy Cote MD Dec 08, 2016 09:42
--- NOTE | 2016-12-08 15:56 | PD.CARD.PN ---
Subjective Subjective Remarks Patient was seen earlier this morning No events overnight No chest pain/SOB currently intubated with a plan to extubate Output >6L yesterday with Bumex/Dobutamine combo Objective Medications Current Medications Medications (Trade) Dose Ordered Sig/Ian Route Start Time Stop Time Status Last Admin (Protonix Inj) 40 mg DAILY IV PUSH 12/03/16 13:00 12/08/16 08:10 Miscellaneous Information 1 Q361D XX 12/03/16 13:00 (Chlorhexidine 2% Cloth) 3 pack Taper DAILY@04 TOP 12/04/16 04:00 11/30/17 03:59 12/08/16 03:50 (Chlorhexidine 2% Cloth) 3 pack UNSCH PRN TOP 12/03/16 13:00 (Pinky-Colace) 1 tab BID PO 12/03/16 21:00 12/05/16 07:58 (Milk Of Magnesia Liq) 30 ml Q12H PRN PO 12/03/16 13:00 (Senokot) 17.2 mg Q12H PRN PO 12/03/16 13:00 (Dulcolax Supp) 10 mg DAILY PRN RECTAL 12/03/16 13:00 (Lactulose Liq) 30 ml DAILY PRN PO 12/03/16 13:00 Piperacillin Sod/ Tazobactam Sod 100 ml @ 200 mls/hr Q6H IV 12/03/16 16:00 12/08/16 15:15 (Glucagon Inj) 1 mg UNSCH PRN OTHER 12/04/16 01:15 (D50w (Vial) Inj) 25 ml UNSCH PRN IV PUSH 12/04/16 08:00 12/07/16 20:37 (NovoLIN R SUPPLEMENTAL SCALE) 1 Q4HR SQ 12/04/16 08:00 12/08/16 08:00 Norepinephrine Bitartrate 4 mg/ Sodium Chloride 250 ml @ 7.5 mls/hr TITRATE PRN IV 12/04/16 09:15 12/04/16 09:26 (Brethine Inj) 1 mg UNSCH PRN SQ 12/04/16 09:15 (Synthroid) 100 mcg DAILY@0600 PO 12/05/16 06:00 12/08/16 05:42 (Heparin Inj) 5,000 units Q12HR SQ 12/04/16 21:00 12/08/16 08:11 (Levemir Inj) 20 units Q12HR SQ 12/05/16 21:00 12/08/16 08:09 Thiamine HCl 100 mg/Sodium Chloride 101 ml @ 101 mls/hr DAILY IV 12/05/16 12:45 12/08/16 08:10 (Duoneb Neb) 1 ampule Q6HR NEB INH 12/07/16 10:00 12/08/16 10:00 Albumin Human 50 ml @ 60 mls/hr Q12H IV 12/07/16 07:00 12/08/16 05:43 (K-Lyte Cl Eff) 25 meq Q12HR PO 12/07/16 09:00 12/08/16 08:10 Dobutamine HCl/ Dextrose 250 ml @ 9.225 mls/ hr Q24H PRN IV 12/07/16 06:56 12/08/16 06:09 (Ativan Inj) 0.5 mg Q2H PRN IV PUSH 12/07/16 07:15 12/08/16 07:27 (Aldactone) 25 mg BID@09,18 PO 12/07/16 09:00 12/08/16 08:10 Dexmedetomidine HCl 1000 mcg/ Sodium Chloride 250 ml @ 3.07 mls/hr TITRATE PRN IV 12/07/16 09:30 12/08/16 04:19 (Aspirin Chew) 81 mg DAILY NG 12/08/16 09:00 12/08/16 08:10 (Bumex Inj) 1 mg Q8H IV PUSH 12/08/16 17:00 Vital Signs / I&O Vital Signs Date Time Temp Pulse Resp B/P (MAP) Pulse Ox O2 Delivery O2 Flow Rate FiO2 12/08/16 14:00 100 12/08/16 12:00 99.3 92 14 128/60 (82) 100 12/08/16 12:00 92 12/08/16 10:05 100 Nasal Cannula 2 12/08/16 10:00 91 12/08/16 08:45 100 35 12/08/16 08:45 35 12/08/16 08:00 88 12/08/16 08:00 99.6 88 16 133/60 (84) 100 12/08/16 08:00 35 12/08/16 06:09 83 128/60 12/08/16 06:00 83 12/08/16 04:00 35 12/08/16 04:00 85 12/08/16 04:00 98.1 85 18 137/63 (87) 100 12/08/16 03:19 100 35 12/08/16 02:00 73 12/08/16 00:19 100 35 12/08/16 00:00 68 12/08/16 00:00 35 12/08/16 00:00 98.1 68 20 135/62 (86) 100 12/08/16 00:00 98.1 12/07/16 22:00 67 12/07/16 20:59 100 35 12/07/16 20:00 35 12/07/16 20:00 66 12/07/16 20:00 97.8 66 20 139/62 (87) 100 12/07/16 18:00 77 12/07/16 17:12 100 35 12/07/16 16:00 97.0 66 14 146/64 (91) 100 12/07/16 16:00 35 12/07/16 16:00 66 I/O 12/07/16 12/07/16 12/07/16 12/08/16 12/08/16 12/08/16 07:00 15:00 23:00 07:00 15:00 23:00 Intake Total 1152 ml 50 ml 1006 ml 894 ml Output Total 700 ml 4050 ml 2600 ml Balance 452 ml 50 ml -3044 ml -1706 ml Intake IV Total 332 ml 50 ml 864 ml 100 ml Tube Feeding 500 ml 42 ml 544 ml Albumin 50 ml Tube Irrigant 100 ml Other 320 ml 200 ml Output Urine Total 700 ml 4050 ml 2600 ml # Bowel Movements 2 3 0 Physical Exam GENERAL: NAD, awake and alert SKIN: Warm and dry. HEAD: Atraumatic. Normocephalic. EYES: Pupils equal and round. No scleral icterus. No injection or drainage. ENT: No nasal bleeding or discharge. Mucous membranes pink and moist. NECK: Trachea midline. No JVD. CARDIOVASCULAR: Regular rate and rhythm. RESPIRATORY: No accessory muscle use. Decreased breath sounds bilaterally GASTROINTESTINAL: Abdomen soft, non-tender, nondistended. Hepatic and splenic margins not palpable. MUSCULOSKELETAL: Extremities without clubbing, cyanosis, or edema. No obvious deformities. NEUROLOGICAL: Awake on the vent Laboratory Laboratory Tests Test 12/08/16 04:34 White Blood Count 15.4 TH/MM3 Red Blood Count 4.38 MIL/MM3 Hemoglobin 10.7 GM/DL Hematocrit 33.0 % Mean Corpuscular Volume 75.3 FL Mean Corpuscular Hemoglobin 24.4 PG Mean Corpuscular Hemoglobin Concent 32.4 % Red Cell Distribution Width 18.0 % Platelet Count 264 TH/MM3 Mean Platelet Volume 8.6 FL Neutrophils (%) (Auto) 77.7 % Lymphocytes (%) (Auto) 9.6 % Monocytes (%) (Auto) 9.2 % Eosinophils (%) (Auto) 3.0 % Basophils (%) (Auto) 0.5 % Neutrophils # (Auto) 12.0 TH/MM3 Lymphocytes # (Auto) 1.5 TH/MM3 Monocytes # (Auto) 1.4 TH/MM3 Eosinophils # (Auto) 0.5 TH/MM3 Basophils # (Auto) 0.1 TH/MM3 CBC Comment DIFF FINAL Differential Comment Blood Urea Nitrogen 41 MG/DL Creatinine 1.04 MG/DL Random Glucose 231 MG/DL Total Protein 7.1 GM/DL Albumin 2.9 GM/DL Calcium Level 8.4 MG/DL Magnesium Level 2.4 MG/DL Alkaline Phosphatase 52 U/L Aspartate Amino Transf (AST/SGOT) 446 U/L Alanine Aminotransferase (ALT/SGPT) 532 U/L Total Bilirubin 1.2 MG/DL Sodium Level 144 MEQ/L Potassium Level 3.9 MEQ/L Chloride Level 103 MEQ/L Carbon Dioxide Level 32.2 MEQ/L Anion Gap 9 MEQ/L Estimat Glomerular Filtration Rate 52 ML/MIN Imaging Last 24 hours Impressions Chest X-Ray 12/08/16 0600 Signed Impressions: Service Date/Time: Thursday, December 08, 2016 03:49 - CONCLUSION: Significant improvement in aeration Rocael Mccoy MD Assessment and Plan Problem List: (1) Elevated troponin ICD Codes: R74.8 - Abnormal levels of other serum enzymes (2) Left ventricular dysfunction ICD Codes: I51.9 - Heart disease, unspecified (3) Respiratory failure ICD Codes: J96.90 - Respiratory failure, unspecified, unspecified whether with hypoxia or hypercapnia Status: Acute (4) Left bundle branch block ICD Codes: I44.7 - Left bundle branch block Status: Chronic (5) Unresponsive ICD Codes: R41.89 - Other symptoms and signs involving cognitive functions and awareness Status: Resolved (6) Pulmonary edema ICD Codes: J81.1 - Chronic pulmonary edema Status: Acute Assessment and Plan 1) Presented with SOB/pulmonary edema 2) New Cardiomyopathy EF 20-25% Eventually rule out underlying ischemia as a cause Diuresed well with Bumex Possible cardiac catheterization tomorrow or Tuesday Will plan to start heart failure medications 3) Elevated INR Secondary to congestive liver Will recheck in the morning 4) VDRF Plan to extubate today Problem Qualifiers (1) Respiratory failure: Qualified Codes: J96.00 - Acute respiratory failure, unspecified whether with hypoxia or hypercapnia (2) Pulmonary edema: Qualified Codes: J81.0 - Acute pulmonary edema Antolin Bean DO Dec 08, 2016 15:56
[2016-12-08] MEDS: BUMETANIDE INJ 1 MG/4 ML VIAL IV PUSH SCH (16:41)
--- NOTE | 2016-12-08 20:13 | HHI.PR ---
Subjective Remarks 71 YO female with VDRF,DM,CMP Extubated today Weaned to RA Alert, awake, follows commands Does't like using leg compressions Objective Vital Signs Vital Signs Date Time Temp Pulse Resp B/P (MAP) Pulse Ox O2 Delivery O2 Flow Rate FiO2 12/08/16 18:00 102 12/08/16 16:00 96 12/08/16 16:00 98.8 102 12 104/49 (67) 100 12/08/16 14:00 100 12/08/16 12:00 99.3 92 14 128/60 (82) 100 12/08/16 12:00 92 12/08/16 10:05 100 Nasal Cannula 2 12/08/16 10:00 91 12/08/16 08:45 100 35 12/08/16 08:45 35 12/08/16 08:00 88 12/08/16 08:00 99.6 88 16 133/60 (84) 100 12/08/16 08:00 35 12/08/16 06:09 83 128/60 12/08/16 06:00 83 12/08/16 04:00 35 12/08/16 04:00 85 12/08/16 04:00 98.1 85 18 137/63 (87) 100 12/08/16 03:19 100 35 12/08/16 02:00 73 12/08/16 00:19 100 35 12/08/16 00:00 68 12/08/16 00:00 35 12/08/16 00:00 98.1 68 20 135/62 (86) 100 12/08/16 00:00 98.1 12/07/16 22:00 67 12/07/16 20:59 100 35 I/O 12/07/16 12/07/16 12/07/16 12/08/16 12/08/16 12/08/16 07:00 15:00 23:00 07:00 15:00 23:00 Intake Total 1152 ml 50 ml 1006 ml 894 ml 118 ml Output Total 700 ml 4050 ml 2600 ml 2750 ml Balance 452 ml 50 ml -3044 ml -1706 ml -2632 ml Intake IV Total 332 ml 50 ml 864 ml 100 ml 118 ml Tube Feeding 500 ml 42 ml 544 ml Albumin 50 ml Tube Irrigant 100 ml Other 320 ml 200 ml Output Urine Total 700 ml 4050 ml 2600 ml 2750 ml # Bowel Movements 2 3 0 3 Result Diagram: 12/08/1643312/08/16433 Objective Remarks GENERAL: MBMN female on vent, sedated SKIN: Warm and dry. HEAD: Normocephalic. EYES: No scleral icterus. No injection or drainage. NECK: Supple, trachea midline. No JVD or lymphadenopathy. CARDIOVASCULAR: Regular rate and rhythm without murmurs, gallops, or rubs. RESPIRATORY: Breath sounds equal bilaterally. No accessory muscle use. basal rales GASTROINTESTINAL: Abdomen soft, non-tender, nondistended. MUSCULOSKELETAL: No cyanosis, or edema. BACK: Nontender without obvious deformity. No CVA tenderness. A/P Assessment and Plan VDRF, s/p extubation Pulm odema Rt infilt poss aspiration CMP DM Renal insuff PLAN: Cont Abx Monitor BS Wean Fi02 Bumex 1 mg q 8 hrs monitor David Pappas MD Dec 08, 2016 20:13
[2016-12-09] VITALS (14 sets, daily range): BP systolic 134–161; BP diastolic 60–83; PULSE 87–109; RESP 12–22; TEMP 97.3–98.9; O2SAT 92–99
[2016-12-09] MEDS: BUMETANIDE INJ 1 MG/4 ML VIAL IV PUSH SCH ×3 (01:32→20:38)
[2016-12-09] MEDS: RESP: ALBUTEROL 2.5 MG/IPRATROPIUM 0.5 MG NEB (SCH) INH ×4 (03:30→21:59)
[2016-12-09] MEDS: CHLORHEXIDINE GLUCONATE 2 % 1 PACK (2 CLOTHS) TOP SCH (04:00)
[2016-12-09] MEDS: INSULIN NovoLIN REGULAR SUPPLEMENTAL SCALE SQ SCH ×6 (04:00→20:00)
[2016-12-09] MEDS: PIPERACIL-TAZO 4.5 GM PREMIX 100 ML IV SCH ×4 (04:03→21:29)
[2016-12-09] MEDS: LORazepam 2 MG/ML VIAL IV PUSH PRN (04:04)
[2016-12-09] MEDS: LEVOTHYROXINE SODIUM 100 MCG TAB PO SCH (04:06)
[2016-12-09] MEDS: ALBUMIN 25% INJ 50 ML IV SCH ×2 (05:41→16:59)
[2016-12-09 06:57] LABS: AUTOMATED NEUTROPHIL # 11.4 TH/MM3 (1.8-7.7); BASOPHIL # 0.1 TH/MM3 (0-0.2); BASOPHIL % 0.6 % (0.0-2.0); EOSINOPHIL # 0.3 TH/MM3 (0-0.4); EOSINOPHIL % 1.7 % (0.0-4.0); HEMATOCRIT 36.9 % (35.0-46.0); HEMOGLOBIN 11.7 GM/DL (11.6-15.3); LYMPH % 12.3 % (9.0-44.0); LYMPHOCYTE # 1.9 TH/MM3 (1.0-4.8); MEAN CELL VOLUME 75.1 FL (80.0-100.0); MEAN CORPUSCULAR HEMOGLOBIN 23.9 PG (27.0-34.0); MEAN CORPUSCULAR HGB CONC 31.7 % (32.0-36.0); MEAN PLATELET VOLUME 8.2 FL (7.0-11.0); MONO % 11.7 % (0.0-8.0); MONOCYTE # 1.8 TH/MM3 (0-0.9); NEUT % 73.7 % (16.0-70.0); PLATELET COUNT 331 TH/MM3 (150-450); RED BLOOD COUNT 4.91 MIL/MM3 (4.00-5.30); RED CELL DISTRIBUTION WIDTH 17.9 % (11.6-17.2); WHITE BLOOD COUNT 15.5 TH/MM3 (4.0-11.0)
[2016-12-09 06:59] LABS: INTERNATIONAL NORMALIZED RATIO 1.3 RATIO
[2016-12-09 07:23] LABS: CALCIUM 9.9 MG/DL (8.5-10.1); CREATININE 0.98 MG/DL (0.50-1.00)
[2016-12-09] MEDS: HEPARIN SODIUM - SQ 10,000 UNITS/ML VIAL SQ SCH ×2 (09:00→21:00)
[2016-12-09] MEDS: INSULIN DETEMIR 100 UNITS/ML VIAL SQ SCH ×2 (09:00→20:38)
[2016-12-09] MEDS: ASPIRIN 81 MG CHEW TAB NG SCH (09:00)
--- NOTE | 2016-12-09 09:13 | RADRPT ---
EXAM DATE/TIME: 12/09/2016 08:44 [facility] COMPARISON: CHEST SINGLE AP, December 08, 2016, 3:49. INDICATIONS : Respiratory Disease. MEDICAL HISTORY : Hypothyroidism. Diabetes mellitus type 2. Hypertension SURGICAL HISTORY : Tonsillectomy. ENCOUNTER: Subsequent ACUITY: 1 week PAIN SCORE: Non-responsive. LOCATION: Bilateral chest FINDINGS: The endotracheal tube and NG tube have been removed. There is no pneumothorax. There is mild improved aeration of the lung bases compared to the prior study. The heart size is stable. Right-sided centra l line remains in place. The bony structures are stable. CONCLUSION: Mild improved aeration of the lung bases. No evidence of pneumothorax. Perez Maxwell MD on December 09, 2016 at 9:11 Board Certified Radiologist. This report was verified electronically.
[2016-12-09] MEDS: PANTOPRAZOLE SODIUM 40 MG VIAL IV PUSH SCH (09:16)
[2016-12-09] MEDS: DOCUSATE SODIUM 50 MG/SENNA 8.6 MG TAB PO SCH ×2 (09:17→20:38)
[2016-12-09] MEDS: POTASSIUM CHLORIDE 25 MEQ EFFERVESCENT TAB PO SCH ×2 (09:17→21:00)
[2016-12-09] MEDS: THIAMINE INJ 100 MG in SODIUM CHLORIDE 0.9% INJ 100 ML IV SCH (09:17)
[2016-12-09] MEDS: SPIRONOLACTONE 25 MG TAB PO SCH ×2 (09:17→16:59)
[2016-12-09] MEDS ORDERED: HEPARIN-NS/PF INJ 500 ML ONE (10:32)
[2016-12-09] MEDS ORDERED: VERAPAMIL HCL 5 MG/2 ML VIAL ONE (10:33)
[2016-12-09] MEDS ORDERED: HEPARIN SODIUM - IV 10,000 UNITS/10 ML VIAL ONE (10:33)
[2016-12-09] MEDS ORDERED: NITROGLYCERIN INJ 5 ML ONE (10:33)
[2016-12-09] MEDS ORDERED: MIDAZOLAM HCL 2 MG/2 ML VIAL ONE (10:37)
--- NOTE | 2016-12-09 12:00 | CATHPROC ---
[employer] [facility] HIS Report Study Information Study Number Admission Scheduled Start Study Start [id number] Dec 03 2016 12:37PM 12/08/2016 Dec 09 2016 10:17AM [facility] C[facility]terization Admit Source Facility Department Other [facility] - Food And Beverage Coordinator Physician and Clinical Staff Initial Antolin Godfrey Logging Crew Foreman Jocelyn Campos,MARTIN Logging Crew Foreman Abena Zarco,MARTIN Recorder Marly Pool,RT(R) ScrAnnie Calderon,RT(R) Procedures Performed Procedure Location (Site) Vessel Name Coronary Angiograms LCA Left Coronary Coronary Angiograms RCA Right Coronary Wire insertion Brach. Vein (right) Brachial Vein Wire insertion Fem Art (right) Femoral Art Equipment Time Bacteriologist Food Description Size Mfg Part Number Used/Scraped CATHETER, FR5 SWAN STAN 10:25 [employer] FREIRE FR 5 [id number] *[id number] Used MONITOR [id number] 10:25 [employer] FREIRE SWAN STAN CATHETER FR 7 Used *[id number] TRANSDUCER, TRUWAVE [id number] 10:25 [employer] FREIRE * Used W/STOCKCOCK *[id number] TRANSDUCER, TRUWAVE [id number] 10:25 [employer] FREIRE * Used W/STOCKCOCK *[id number] 534-518T *[id number] 534-518T *[id number] 534-521T *[id number] 10:25 [employer] PACK, CCL CUSTOM * Used *[id number] BAND, RADIAL COMPRESSION TR [id number] 11:31 [employer] MEDICAL 24CM Used SHORT 24 *[id number] 10:25 [employer] SHEATH, FR5.5 PRELUDE 11CM FR 5 [id number] Used [id number] 10:25 [employer] MEDICAL WIRE, 3MMJ .035 180CM 180CM Used *[id number] 10:25 NAMIC MANIFOLD, 2 PORT * Used *[id number] 10:25 [employer] MANIFOLD, 4 PORT * Used *[id number] 10:25 [employer] OMNIPAQUE, 350 MG, 150ML 150ML [id number] Used [id number] 10:25 [employer] MEDICAL BLANKET,WARM AIR CCL * Used *[id number] SHEATH, FR6 TRANSRADIAL RM*[id number] 10:26 [employer] MEDICAL FR 6 Used SLENDER 10CM *[id number] SHEATH, FR6 TRANSRADIAL RM*[id number] 10:54 [employer] MEDICAL FR 6 Used SLENDER 10CM *[id number] 10:25 [employer] MEDICAL SHEATH, FR7 TERUMO (10CM) FR 7 Used *[id number] History: Current Medications Medication Dosage/Unit Route Frequency Last Date/Time Taken ASA Insulin Glucophage Synthroid NORVASC HCTZ History: Allergies Allergy Reaction latex RASH History: Risk Factors Family History of Hypertension Dyslipidemia Previous [place] Previous Heart Failure Premature CAD Yes Yes No No Yes Prior Valve Prior PCI Prior CABG Surgery No No No Cerebrovascular Peripheral Artery Chronic Lung On Dialysis Diabetes Diabetes Therapy Disease Disease Disease No Yes No No Yes Insulin History: Symptoms/Diagnosis Selection Items SOB Syncope History: Stress Tests Stress or Imaging Studies Performed No History: Other Disease Selection Items HTN History: Other Current Smoker No Labs Hgb (g/dl) Hct (%) RBC (MIL/MM3) WBC (l/cumm) Platelets (thousands) 11.60-17.00 35.00-51.00 4.00-5.90 4.00-11.00 150.00-450.00 11.7 36.9 4.9 15.5 331 Glucose (mg/dl) BUN (mg/dl) Creatinine (mg/dl) BUN:Creatinine (1:x) 74.00-106.00 7.00-18.00 0.50-1.30 10.00-20.00 88 32 0.9 35.6 Na (meq/l) K (meq/l) Cl (meq/l) CO2 (mmol/L) Ca (mg/dl) 136.00-145.00 3.50-5.10 98.00-107.00 21.00-32.00 8.50-10.10 142 3.7 99 32 9.9 PT (sec) INR (PTT:PT) 9.80-11.60 0.90-1.10 14 1.3 CPK-MB (ng/ML) 0.50-3.60 Not Drawn Medication Medication Total Dose (Bolus/Oral) Medication Total Dosage/Unit 1% XYLOCAINE 40 mL FENTANYL 100 mcg RADIAL COCKTAIL 5 mL (Bolus) Medications (Bolus/Oral) Medication Time Given Dosage/Unit Administered By Reason FENTANYL 12/09/2016 10:51:48 AM 25 mcg Abena Zarco 25 mcg FENTANYL given in lab by Carolee, Abena, RN via Peripheral IV. RIGHT IG 1% XYLOCAINE 12/09/2016 10:52:01 AM 20 mL Antolin Bean 20 mL 1% XYLOCAINE given in lab by Antolin Bean in Right Antecubital via Subcutaneous. Ntg 200mcg Verapamil 2.5mg Heparin RADIAL COCKTAIL 12/09/2016 10:53:41 AM 5 mL (Bolus) Abena Zarco 2500U 5 mL (Bolus) RADIAL COCKTAIL given in lab by Abena Zarco RN via Radial. Using [Solution Name]. R sushila: Ntg 200mcg Verapamil 2.5mg Heparin 2500U. HEPARIN 2300 UNITS 1% XYLOCAINE 12/09/2016 10:53:51 AM 20 mL Antolin Bean 20 mL 1% XYLOCAINE given in lab by Antolin Bean in Right Groin via Subcutaneous. FENTANYL 12/09/2016 11:03:46 AM 25 mcg Abena Zarco 25 mcg FENTANYL given in lab by Abena Zarco RN via Peripheral IV. FENTANYL 12/09/2016 11:27:23 AM 25 mcg Abena Zarco 25 mcg FENTANYL given in lab by Abena Zarco RN via Peripheral IV. FENTANYL 12/09/2016 11:51:11 AM 25 mcg Abena Zarco 25 mcg FENTANYL given in lab by Abena Zarco RN via Peripheral IV. Medication (Drip) Medication Time Given Dosage/Unit Concentration/Unit Diluent (ml) Solution IV Solutions 12/09/2016 10:38:40 AM 0 mL (IV) 500 NaCl .9 Patient arrived on IV Solutions in Right shoulder via Peripheral IV. Pump/Drip Flow = 20 ml/hr using NaCl .9. RIGHT NECK IJ Initial Case Assessment Circulatory - Right Pulses Dorsalis Pedis Femoral Brachial Radial 2 2 2 2 Scale (0,1,2,3,4,d) Circulatory - Left Pulses Dorsalis Pedis Femoral Brachial Radial 2 2 2 Scale (0,1,2,3,4,d) Circulatory - Lower Extremities Color Lower Right Color Lower Left Normal Normal Neurological State Oriented to time-place- Alert Moves all extremities person Respiration - General Respiration Rate SpO2 (%) O2 (lpm) (B/min) 20 97 2 Final Case Assessment Cardiovascular HR Rhythm NIBP Chest Pain 96 REG 131/66 0 Edema Present Skin color Skin None Normal Warm Circulatory - Right Pulses Dorsalis Pedis Femoral Brachial Radial 2 2 2 2 Scale (0,1,2,3,4,d) Scale (0,1,2,3,4,d) Neurological State Oriented to time-place- Alert Moves all extremities person Respiration - General Respiration Rate SpO2 (%) O2 (lpm) (B/min) 20 97 2 Chronological Log Time Study Chronological Log 10::22 Patient arrived via Bed. 10:17:24 Patient Name, D.O.B, / Armband Verified By R.N. 10:17:25 Consent signed by the physician and the patient and verified by the Food And Beverage Coordinator staff. 10:17:25 Pre-op and post- op instructions given; patient acknowledges understanding of instructions. 10:20:28 PT ARRIVED WITH THYAMINE RUNNING Vitals capture started with the following parameters, Patient=Adult, Interval=5 min, Initial Pr gprpja=920 mmHg, 10:22:26 Deflation Rate=5 mmHg, Cuff placed on Right Arm 10:23:03 HR=88 bpm, RFOA=296/85 mmhg, SpO2=95 %, Pain=0, Jerrica=10, Callejas=2 10:28:04 BG=023 bpm, GMQN=022/75 mmhg, SpO2=98.0 %, Resp=20 B/min, Pain=0, Jerrica=10, Callejas=2 10:33:01 MU=428 bpm, SMAZ=700/79 mmhg, SpO2=97.0 %, Resp=20 B/min, Pain=0, Jerrica=10, Callejas=2 10:35:35 Verbal Stimulation=2 Physical Stimulation=2 Airway=2 Respiration=2 TOTAL=8. (0=absent, 1=li mited, 2=present) 10:36:31 Reference ECG taken 10:37:02 Allens test performed on the right radial and ulnar artery by randee campos with a positive resul t 10:37:16 Patient has been NPO for Less than 6Hrs. 10:37:17 Skin Breakdown-none 10:37:28 Patient Warmer Placed on the Table. 10:37:30 A # 18 IV was noted in the Antecubital (right). Grade = 0 saline locked 10:37:48 A # 18 IV was noted in the Antecubital (left). Grade = 0 10:38:00 AC=422 bpm, XAEA=952/91 mmhg, SpO2=96 %, Pain=0, Jerrica=10, Callejas=2 10:38:15 A # 14 IV was noted in the Jugular Vein (right). Grade = 0 10:38:30 MD arrived. Patient arrived on IV Solutions in Right shoulder via Peripheral IV. Pump/Drip Flow = 20 ml/hr using NaCl .9. RIGHT 10:38:40 NECK IJ ZOSYN STARTED BY Randee CAMPOS IN LAB 10:40:51 10:41:19 History and physical on the chart or being dictated. Assessment: Initial Case Right Pulses: Gaurang Ped=2, Femoral=2, Brachial=2, Radial=2 Left Pulses: Femoral=2, Brachial=2, Radial=2 10:41:20 Lower Right Extremities: Color=Normal Lower Left Extremities: Color=Normal Neurological: State=Alert, Ox3, VASQUEZ Respiration: Resp=20 B/min, SpO2=97 %, O2=2 lpm 10:41:54 Right radial, right brachial, and groin(s) prepped with 2% chlorhexidine, and draped after a 3 min. waiting time. 10:43:03 HG=131 bpm, ZYSO=167/84 mmhg, SpO2=96.0 %, Resp=20 B/min, Pain=0, Jerrica=10, Callejas=2 10:44:14 Pressure channel 1 zeroed. 10:48:06 TL=473 bpm, GVQV=868/80 mmhg, SpO2=97.0 %, Resp=39 B/min, Pain=0, Jerrica=10, Callejas=2 Time Out. Correct patient, correct procedure, correct physician, power injector not loaded with contrast with surgical 10:50:00 team present. Time Out Concurred by MD and individual staff in procedure. 10:50:13 Case Start 10:50:14 Verbal Stimulation=2 Physical Stimulation=2 Airway=2 Respiration=2 TOTAL=8. (0=absent, 1=li mited, 2=present) 10:51:48 25 mcg FENTANYL given in lab by Abena Zarco, MARTIN via Peripheral IV. RIGHT IG 10:52:01 20 mL 1% XYLOCAINE given in lab by Antolin Bean in Right Antecubital via Subcutaneou s. 10:52:19 Access site was Brachial Artery. RT 10:52:33 Access site was Right Femoral Artery. 10:52:35 A WIRE, 3MMJ .035 180CM 180CM was inserted via Brach. Vein (right). A SHEATH, FR6 TRANSRADIAL SLENDER 10CM FR 6 was advanced into the Brach. Vein (right) using the Percutaneous 10:52:59 technique. 10:53:03 UJ=025 bpm, LBHQ=661/87 mmhg, SpO2=97.0 %, Resp=41 B/min, Pain=0, Jerrica=10, Callejas=2 5 mL (Bolus) RADIAL COCKTAIL given in lab by Abena Zarco, RN via Radial. Using [Solution Na me]. Reason: Ntg 10:53:41 200mcg Verapamil 2.5mg Heparin 2500U. HEPARIN 2300 UNITS 10:53:51 20 mL 1% XYLOCAINE given in lab by Antolin Bean in Right Groin via Subcutaneous. 10:54:37 A WIRE, 3MMJ .035 180CM 180CM was inserted via Fem Art (right). A SHEATH, FR6 TRANSRADIAL SLENDER 10CM FR 6 was advanced into the Fem Art (right) using the Per cutaneous 10:54:42 technique. 10:58:08 MZ=339 bpm, GZIN=858/75 mmhg, DbL4=884.0 %, Resp=20 B/min, Pain=0, Jerrica=10, Callejas=2 11:03:03 AL=112 bpm, SJCL=118/78 mmhg, Resp=20 B/min, Pain=0, Jerrica=10, Callejas=2 11:03:46 25 mcg FENTANYL given in lab by Abena Zarco, RN via Peripheral IV. 11:06:16 A CATHETER, FR5 SWAN STAN MONITOR FR 5 was inserted via Brach. Vein (right) Recorded Pressure: PCW, HR=97, Condition=Condition 1 11:07:41 (Pulmonary Capillary Wedge) PCW 11:08:04 HR=95 bpm, GCQL=465/66 mmhg, SpO2=96.0 %, Resp=26 B/min, Pain=0, Jerrica=10, Callejas=2 11:09:33 Saturation: Site=PA (Pulmonary Artery) , O2=65.8 %, Hgb=11.7 gm/dl, Condition=Condition 1. Used in calculation. Recorded Pressure: MPA, HR=94, Condition=Condition 1 11:10:44 (Main Pulmonary Artery) MPA 11:11:01 Saturation: Site=Ao (Aorta) , O2=96.1 %, Hgb=11.7 gm/dl, Condition=Condition 1. Used in kely culation. Recorded Pressure: RV, HR=96, Condition=Condition 1 11:11:30 (Right Ventricle) RV 50/4/11 Recorded Pressure: RA, HR=96, Condition=Condition 1 11:12:04 (Right Atrium) RA 11:12:16 [place] Catheter Removed 11:13:05 HR=96 bpm, NHBO=161/71 mmhg, SpO2=98.0 %, Resp=20 B/min, Pain=0, Jerrica=10, Callejas=2 A JR 4.0 INFINITI CATHETER FR 5 was advanced over a wire. OMNIPAQUE, 350 MG, 150ML 150ML was us ed for 11:13:30 injections. Recorded Pressure: LV, HR=93, Condition=Condition 1 11:15:28 (Left Ventricle) LV 142/9/18 Recorded Pressure: LV, Ao, HR=95, Condition=Condition 1 11:15:45 (Left Ventricle) LV 143/9/18, (Aorta) Ao 142/63/95 Recorded Pressure: Ao, HR=95, Condition=Condition 1 11:16:15 (Aorta) Ao 140/68/98 11:16:46 The RCA was injected and visualized at various angles. OMNIPAQUE, 350 MG, 150ML 150ML used . After removing the current catheter a JL 3.5 INFINITI CATHETER FR 5 was advanced over a WIRE, 3 MMJ .035 180CM 11:17:55 180CM. 11:18:08 HR=96 bpm, TACR=105/76 mmhg, SpO2=97.0 %, Resp=20 B/min, Pain=0, Jerrica=10, Callejas=2 11:23:09 HR=95 bpm, UBIA=352/70 mmhg, SpO2=98.0 %, Resp=25 B/min, Pain=0, Jerrica=10, Callejas=2 11:24:23 The LCA was injected and visualized at various angles. OMNIPAQUE, 350 MG, 150ML 150ML used . 11:27:23 25 mcg FENTANYL given in lab by Abena Zarco, RN via Peripheral IV. 11:28:09 HR=93 bpm, TZIN=423/66 mmhg, SpO2=97.0 %, Resp=19 B/min, Pain=0, Jerrica=10, Callejas=2 11:30:23 Catheter was removed Assessment: Final Case, HR=96 BPM, Rhythm=REG, TXBU=586/66 mmhg, Chest Pain=0, Edema=None, [place] r=Normal, Skin = Warm 11:30:32 Right Pulses: Gaurang Ped=2, Femoral=2, Brachial=2, Radial=2 Neurological: State=Alert, Ox3, VASQUEZ Respiration: Resp=20 B/min, SpO2=97 %, O2=2 lpm 11:31:01 Catheter(s) removed without difficulty Radial Compression Device Used. 10 mLs of air placed in BAND, RADIAL COMPRESSION TR SHORT 24 2 4CM. Affected 11:31:06 hand 97 % O2 saturation. 11:32:12 Activated Clotting Time Drawn 11:33:10 HR=96 bpm, XHCS=802/71 mmhg, SpO2=98.0 %, Resp=27 B/min, Pain=0, Jerrica=10, Callejas=2 11:35:44 ACT (Normal Range 90-180) = 189 11:38:07 HR=97 bpm, FZFV=760/76 mmhg, SpO2=96.0 %, Pain=0, Jerrica=10, Callejas=2 11:43:08 HR=95 bpm, JWAK=137/77 mmhg, Resp=30 B/min, Pain=0, Jerrica=10, Callejas=2 11:44:18 VENOUS Sheath removed; pressure applied to access site. [email or web address] RT 11:44:40 Case End 11:48:11 HR=97 bpm, ZNCB=788/77 mmhg, Resp=20 B/min, Pain=0, Jerrica=10, Callejas=2 11:51:11 25 mcg FENTANYL given in lab by Abena Zarco, RN via Peripheral IV. 11:53:10 HR=98 bpm, ARXI=514/84 mmhg, Resp=20 B/min, Pain=0, Jerrica=10, Callejas=2 11:59:58 HEMASTASIS ACHEIVED End Study - Contrast Media Used In Study Contrast Total Opened (mL) Total Used (mL) Total Wasted (mL) Omnipaque 40 40 0 End Study - Maximum Contrast Load Max Contrast Load (mL) 325.0 End Study - Radiation Exposure Fluoro Time (minutes) 6.1 End Study - Sheaths Sheaths Pulled By Sheath Hold Time (min) Antolin Bean End Study - Patient Disposition Complications Transferred To Interventional Outcome No Regular Bed No attempt made
--- NOTE | 2016-12-09 12:00 | CATHPROC ---
[facility] HIS Report Study Information Study Number Admission Scheduled Start Study Start [id number] Dec 03 2016 12:37PM 12/08/2016 Dec 09 2016 10:17AM [place] [facility]iac Catheterization Admit Source Facility Department Other [facility] - Business Unit Manager Physician and Clinical Staff Initial Antolin Godfrey Slurry Worker Jocelyn Campos,MARTIN Slurry Worker Abena Zarco,MARTIN Recorder Marly Pool,RT(R) ScrAnnie Calderon,RT(R) Procedures Performed Procedure Location (Site) Vessel Name Coronary Angiograms LCA Left Coronary Coronary Angiograms RCA Right Coronary Wire insertion Brach. Vein (right) Brachial Vein Wire insertion Fem Art (right) Femoral Art Equipment Time Senior Client Advisor Description Size Mfg Part Number Used/Scraped CATHETER, FR5 SWAN STAN 10:25 [employer] FREIRE FR 5 [id number] *[id number] Used MONITOR [id number] 10:25 [employer] FREIRE SWAN STAN CATHETER FR 7 Used *[id number] TRANSDUCER, TRUWAVE [id number] 10:25 [employer] FREIRE * Used W/STOCKCOCK *[id number] TRANSDUCER, TRUWAVE [id number] 10:25 [employer]AD[employer]X FREIRE * Used W/STOCKCOCK *[id number] 534-518T *[id number] 534-518T *[id number] 534-521T *[id number] 10:25 [email or web address] PACK, CCL CUSTOM * Used *[id number] BAND, RADIAL COMPRESSION TR [id number] 11:31 [employer] MEDICAL 24CM Used SHORT 24 *[id number] 10:25 [employer] SHEATH, FR5.5 PRELUDE 11CM FR 5 [id number] Used [id number] 10:25 [employer] MEDICAL WIRE, 3MMJ .035 180CM 180CM Used *[id number] 10:25 NAMIC MANIFOLD, 2 PORT * Used *[id number] 10:25 NAMIC MANIFOLD, 4 PORT * Used *[id number] 10:25 NYCOMED OMNIPAQUE, 350 MG, 150ML 150ML [id number] Used [id number] 10:25 [employer] MEDICAL BLANKET,WARM AIR CCL * Used *[id number] SHEATH, FR6 TRANSRADIAL [id number] 10:26 [employer] MEDICAL FR 6 Used SLENDER 10CM *[id number] SHEATH, FR6 TRANSRADIAL RM*[id number] 10:54 [employer] MEDICAL FR 6 Used SLENDER 10CM *[id number] 10:25 [employer] MEDICAL SHEATH, FR7 TERUMO (10CM) FR 7 Used *[id number] History: Current Medications Medication Dosage/Unit Route Frequency Last Date/Time Taken ASA Insulin Glucophage Synthroid NORVASC HCTZ History: Allergies Allergy Reaction latex RASH History: Risk Factors Family History of Hypertension Dyslipidemia Previous MD Previous Heart Failure Premature CAD Yes Yes No No Yes Prior Valve Prior PCI Prior CABG Surgery No No No Cerebrovascular Peripheral Artery Chronic Lung On Dialysis Diabetes Diabetes Therapy Disease Disease Disease No Yes No No Yes Insulin History: Symptoms/Diagnosis Selection Items SOB Syncope History: Stress Tests Stress or Imaging Studies Performed No History: Other Disease Selection Items HTN History: Other Current Smoker No Labs Hgb (g/dl) Hct (%) RBC (MIL/MM3) WBC (l/cumm) Platelets (thousands) 11.60-17.00 35.00-51.00 4.00-5.90 4.00-11.00 150.00-450.00 11.7 36.9 4.9 15.5 331 Glucose (mg/dl) BUN (mg/dl) Creatinine (mg/dl) BUN:Creatinine (1:x) 74.00-106.00 7.00-18.00 0.50-1.30 10.00-20.00 88 32 0.9 35.6 Na (meq/l) K (meq/l) Cl (meq/l) CO2 (mmol/L) Ca (mg/dl) 136.00-145.00 3.50-5.10 98.00-107.00 21.00-32.00 8.50-10.10 142 3.7 99 32 9.9 PT (sec) INR (PTT:PT) 9.80-11.60 0.90-1.10 14 1.3 CPK-MB (ng/ML) 0.50-3.60 Not Drawn Medication Medication Total Dose (Bolus/Oral) Medication Total Dosage/Unit 1% XYLOCAINE 40 mL FENTANYL 100 mcg RADIAL COCKTAIL 5 mL (Bolus) Medications (Bolus/Oral) Medication Time Given Dosage/Unit Administered By Reason FENTANYL 12/09/2016 10:51:48 AM 25 mcg Abena Zarco 25 mcg FENTANYL given in lab by Carolee, Abena, RN via Peripheral IV. RIGHT IG 1% XYLOCAINE 12/09/2016 10:52:01 AM 20 mL Antolin Bean 20 mL 1% XYLOCAINE given in lab by Antolin Bean in Right Antecubital via Subcutaneous. Ntg 200mcg Verapamil 2.5mg Heparin RADIAL COCKTAIL 12/09/2016 10:53:41 AM 5 mL (Bolus) Abena Zarco 2500U 5 mL (Bolus) RADIAL COCKTAIL given in lab by Abena Zarco RN via Radial. Using [Solution Name]. R sushila: Ntg 200mcg Verapamil 2.5mg Heparin 2500U. HEPARIN 2300 UNITS 1% XYLOCAINE 12/09/2016 10:53:51 AM 20 mL Antolin Bean 20 mL 1% XYLOCAINE given in lab by Antolin Bean in Right Groin via Subcutaneous. FENTANYL 12/09/2016 11:03:46 AM 25 mcg Abena Zarco 25 mcg FENTANYL given in lab by Abena Zarco RN via Peripheral IV. FENTANYL 12/09/2016 11:27:23 AM 25 mcg Abena Zarco 25 mcg FENTANYL given in lab by Abena Zarco RN via Peripheral IV. FENTANYL 12/09/2016 11:51:11 AM 25 mcg Abena Zarco 25 mcg FENTANYL given in lab by Abena Zarco RN via Peripheral IV. Medication (Drip) Medication Time Given Dosage/Unit Concentration/Unit Diluent (ml) Solution IV Solutions 12/09/2016 10:38:40 AM 0 mL (IV) 500 NaCl .9 Patient arrived on IV Solutions in Right shoulder via Peripheral IV. Pump/Drip Flow = 20 ml/hr using NaCl .9. RIGHT NECK IJ Initial Case Assessment Circulatory - Right Pulses Dorsalis Pedis Femoral Brachial Radial 2 2 2 2 Scale (0,1,2,3,4,d) Circulatory - Left Pulses Dorsalis Pedis Femoral Brachial Radial 2 2 2 Scale (0,1,2,3,4,d) Circulatory - Lower Extremities Color Lower Right Color Lower Left Normal Normal Neurological State Oriented to time-place- Alert Moves all extremities person Respiration - General Respiration Rate SpO2 (%) O2 (lpm) (B/min) 20 97 2 Final Case Assessment Cardiovascular HR Rhythm NIBP Chest Pain 96 REG 131/66 0 Edema Present Skin color Skin None Normal Warm Circulatory - Right Pulses Dorsalis Pedis Femoral Brachial Radial 2 2 2 2 Scale (0,1,2,3,4,d) Scale (0,1,2,3,4,d) Neurological State Oriented to time-place- Alert Moves all extremities person Respiration - General Respiration Rate SpO2 (%) O2 (lpm) (B/min) 20 97 2 Chronological Log Time Study Chronological Log 10::22 Patient arrived via Bed. 10:17:24 Patient Name, D.O.B, / Armband Verified By R.N. 10:17:25 Consent signed by the physician and the patient and verified by the Business Unit Manager staff. 10:17:25 Pre-op and post- op instructions given; patient acknowledges understanding of instructions. 10:20:28 PT ARRIVED WITH THYAMINE RUNNING Vitals capture started with the following parameters, Patient=Adult, Interval=5 min, Initial Pr ktxtei=186 mmHg, 10:22:26 Deflation Rate=5 mmHg, Cuff placed on Right Arm 10:23:03 HR=88 bpm, FIOP=161/85 mmhg, SpO2=95 %, Pain=0, Jerrica=10, Callejas=2 10:28:04 WW=250 bpm, GVVZ=087/75 mmhg, SpO2=98.0 %, Resp=20 B/min, Pain=0, Jerrica=10, Callejas=2 10:33:01 FK=945 bpm, JORD=346/79 mmhg, SpO2=97.0 %, Resp=20 B/min, Pain=0, Jerrica=10, Callejas=2 10:35:35 Verbal Stimulation=2 Physical Stimulation=2 Airway=2 Respiration=2 TOTAL=8. (0=absent, 1=li mited, 2=present) 10:36:31 Reference ECG taken 10:37:02 Allens test performed on the right radial and ulnar artery by randee campos with a positive resul t 10:37:16 Patient has been NPO for Less than 6Hrs. 10:37:17 Skin Breakdown-none 10:37:28 Patient Warmer Placed on the Table. 10:37:30 A # 18 IV was noted in the Antecubital (right). Grade = 0 saline locked 10:37:48 A # 18 IV was noted in the Antecubital (left). Grade = 0 10:38:00 RK=158 bpm, DXBF=068/91 mmhg, SpO2=96 %, Pain=0, Jerrica=10, Callejas=2 10:38:15 A # 14 IV was noted in the Jugular Vein (right). Grade = 0 10:38:30 MD arrived. Patient arrived on IV Solutions in Right shoulder via Peripheral IV. Pump/Drip Flow = 20 ml/hr using NaCl .9. RIGHT 10:38:40 NECK IJ ZOSYN STARTED BY Randee CAMPOS IN LAB 10:40:51 10:41:19 History and physical on the chart or being dictated. Assessment: Initial Case Right Pulses: Gaurang Ped=2, Femoral=2, Brachial=2, Radial=2 Left Pulses: Femoral=2, Brachial=2, Radial=2 10:41:20 Lower Right Extremities: Color=Normal Lower Left Extremities: Color=Normal Neurological: State=Alert, Ox3, VASQUEZ Respiration: Resp=20 B/min, SpO2=97 %, O2=2 lpm 10:41:54 Right radial, right brachial, and groin(s) prepped with 2% chlorhexidine, and draped after a 3 min. waiting time. 10:43:03 TQ=080 bpm, HLIB=788/84 mmhg, SpO2=96.0 %, Resp=20 B/min, Pain=0, Jerrica=10, Callejas=2 10:44:14 Pressure channel 1 zeroed. 10:48:06 AV=008 bpm, DJNF=577/80 mmhg, SpO2=97.0 %, Resp=39 B/min, Pain=0, Jerrica=10, Callejas=2 Time Out. Correct patient, correct procedure, correct physician, power injector not loaded with contrast with surgical 10:50:00 team present. Time Out Concurred by MD and individual staff in procedure. 10:50:13 Case Start 10:50:14 Verbal Stimulation=2 Physical Stimulation=2 Airway=2 Respiration=2 TOTAL=8. (0=absent, 1=li mited, 2=present) 10:51:48 25 mcg FENTANYL given in lab by Abena Zarco, MARTIN via Peripheral IV. RIGHT IG 10:52:01 20 mL 1% XYLOCAINE given in lab by Antolin Bean in Right Antecubital via Subcutaneou s. 10:52:19 Access site was Brachial Artery. RT 10:52:33 Access site was Right Femoral Artery. 10:52:35 A WIRE, 3MMJ .035 180CM 180CM was inserted via Brach. Vein (right). A SHEATH, FR6 TRANSRADIAL SLENDER 10CM FR 6 was advanced into the Brach. Vein (right) using the Percutaneous 10:52:59 technique. 10:53:03 PE=820 bpm, LVWY=768/87 mmhg, SpO2=97.0 %, Resp=41 B/min, Pain=0, Jerrica=10, Callejas=2 5 mL (Bolus) RADIAL COCKTAIL given in lab by Abena Zarco, RN via Radial. Using [Solution Na me]. Reason: Ntg 10:53:41 200mcg Verapamil 2.5mg Heparin 2500U. HEPARIN 2300 UNITS 10:53:51 20 mL 1% XYLOCAINE given in lab by Antolin Bean in Right Groin via Subcutaneous. 10:54:37 A WIRE, 3MMJ .035 180CM 180CM was inserted via Fem Art (right). A SHEATH, FR6 TRANSRADIAL SLENDER 10CM FR 6 was advanced into the Fem Art (right) using the Per cutaneous 10:54:42 technique. 10:58:08 ON=493 bpm, QSIG=816/75 mmhg, TbH1=358.0 %, Resp=20 B/min, Pain=0, Jerrica=10, Callejas=2 11:03:03 WL=089 bpm, DNEO=659/78 mmhg, Resp=20 B/min, Pain=0, Jerrica=10, Callejas=2 11:03:46 25 mcg FENTANYL given in lab by Abena Zarco, RN via Peripheral IV. 11:06:16 A CATHETER, FR5 SWAN STAN MONITOR FR 5 was inserted via Brach. Vein (right) Recorded Pressure: PCW, HR=97, Condition=Condition 1 11:07:41 (Pulmonary Capillary Wedge) PCW 11:08:04 HR=95 bpm, CXAI=097/66 mmhg, SpO2=96.0 %, Resp=26 B/min, Pain=0, Jerrica=10, Callejas=2 11:09:33 Saturation: Site=PA (Pulmonary Artery) , O2=65.8 %, Hgb=11.7 gm/dl, Condition=Condition 1. Used in calculation. Recorded Pressure: MPA, HR=94, Condition=Condition 1 11:10:44 (Main Pulmonary Artery) MPA 11:11:01 Saturation: Site=Ao (Aorta) , O2=96.1 %, Hgb=11.7 gm/dl, Condition=Condition 1. Used in kely culation. Recorded Pressure: RV, HR=96, Condition=Condition 1 11:11:30 (Right Ventricle) RV 50/4/11 Recorded Pressure: RA, HR=96, Condition=Condition 1 11:12:04 (Right Atrium) RA 11:12:16 [place] Catheter Removed 11:13:05 HR=96 bpm, MSSF=710/71 mmhg, SpO2=98.0 %, Resp=20 B/min, Pain=0, Jerrica=10, Callejas=2 A JR 4.0 INFINITI CATHETER FR 5 was advanced over a wire. OMNIPAQUE, 350 MG, 150ML 150ML was us ed for 11:13:30 injections. Recorded Pressure: LV, HR=93, Condition=Condition 1 11:15:28 (Left Ventricle) LV 142/9/18 Recorded Pressure: LV, Ao, HR=95, Condition=Condition 1 11:15:45 (Left Ventricle) LV 143/9/18, (Aorta) Ao 142/63/95 Recorded Pressure: Ao, HR=95, Condition=Condition 1 11:16:15 (Aorta) Ao 140/68/98 11:16:46 The RCA was injected and visualized at various angles. OMNIPAQUE, 350 MG, 150ML 150ML used . After removing the current catheter a JL 3.5 INFINITI CATHETER FR 5 was advanced over a WIRE, 3 MMJ .035 180CM 11:17:55 180CM. 11:18:08 HR=96 bpm, NIYD=874/76 mmhg, SpO2=97.0 %, Resp=20 B/min, Pain=0, Jerrica=10, Callejas=2 11:23:09 HR=95 bpm, HFRL=925/70 mmhg, SpO2=98.0 %, Resp=25 B/min, Pain=0, Jerrica=10, Callejas=2 11:24:23 The LCA was injected and visualized at various angles. OMNIPAQUE, 350 MG, 150ML 150ML used . 11:27:23 25 mcg FENTANYL given in lab by Abena Zarco, RN via Peripheral IV. 11:28:09 HR=93 bpm, KNES=749/66 mmhg, SpO2=97.0 %, Resp=19 B/min, Pain=0, Jerrica=10, Callejas=2 11:30:23 Catheter was removed Assessment: Final Case, HR=96 BPM, Rhythm=REG, CDMO=279/66 mmhg, Chest Pain=0, Edema=None, [place] r=Normal, Skin = Warm 11:30:32 Right Pulses: Gaurang Ped=2, Femoral=2, Brachial=2, Radial=2 Neurological: State=Alert, Ox3, VASQUEZ Respiration: Resp=20 B/min, SpO2=97 %, O2=2 lpm 11:31:01 Catheter(s) removed without difficulty Radial Compression Device Used. 10 mLs of air placed in BAND, RADIAL COMPRESSION TR SHORT 24 2 4CM. Affected 11:31:06 hand 97 % O2 saturation. 11:32:12 Activated Clotting Time Drawn 11:33:10 HR=96 bpm, AXOX=959/71 mmhg, SpO2=98.0 %, Resp=27 B/min, Pain=0, Jerrica=10, Callejas=2 11:35:44 ACT (Normal Range 90-180) = 189 11:38:07 HR=97 bpm, RCNY=672/76 mmhg, SpO2=96.0 %, Pain=0, Jerrica=10, Callejas=2 11:43:08 HR=95 bpm, KXLJ=977/77 mmhg, Resp=30 B/min, Pain=0, Jerrica=10, Callejas=2 11:44:18 VENOUS Sheath removed; pressure applied to access site. [email or web address] RT 11:44:40 Case End 11:48:11 HR=97 bpm, JFFX=100/77 mmhg, Resp=20 B/min, Pain=0, Jerrica=10, Callejas=2 11:51:11 25 mcg FENTANYL given in lab by Abena Zarco, RN via Peripheral IV. 11:53:10 HR=98 bpm, RJXC=459/84 mmhg, Resp=20 B/min, Pain=0, Jerrica=10, Callejas=2 11:59:58 HEMASTASIS ACHEIVED End Study - Contrast Media Used In Study Contrast Total Opened (mL) Total Used (mL) Total Wasted (mL) Omnipaque 40 40 0 End Study - Maximum Contrast Load Max Contrast Load (mL) 325.0 End Study - Radiation Exposure Fluoro Time (minutes) 6.1 End Study - Sheaths Sheaths Pulled By Sheath Hold Time (min) Antolin Bean End Study - Patient Disposition Complications Transferred To Interventional Outcome No Regular Bed No attempt made
--- NOTE | 2016-12-09 12:00 | CATHPROC ---
Phase III Development HIS Report Study Information Study Number Admission Scheduled Start Study Start [id number] Dec 03 2016 12:37PM 12/08/2016 Dec 09 2016 10:17AM [place] Service Cardiac Catheterization Admit Source Facility Department Other [facility] - Calender Operator Helper Physician and Clinical Staff Initial Antolin Godfrey Inflated Pad Buffer Jocelyn Campos,MARTIN Inflated Pad Buffer Abena Zarco,MARTIN Recorder Marly Pool,RT(R) ScrAnnie Calderon,RT(R) Procedures Performed Procedure Location (Site) Vessel Name Coronary Angiograms LCA Left Coronary Coronary Angiograms RCA Right Coronary Wire insertion Brach. Vein (right) Brachial Vein Wire insertion Fem Art (right) Femoral Art Equipment Time Nursing Home Assistant Administrator Description Size Mfg Part Number Used/Scraped CATHETER, FR5 SWAN STAN 10:25 MADDOX FREIRE FR 5 [id number] *[id number] Used MONITOR [id number] 10:25 [employer]AD[employer]X FREIRE SWAN STAN CATHETER FR 7 Used *[id number] TRANSDUCER, TRUWAVE [id number] 10:25 MAD[employer]X FREIRE * Used W/STOCKCOCK *[id number] TRANSDUCER, TRUWAVE [id number] 10:25 MADDOX FREIRE * Used W/STOCKCOCK *[id number] 534-518T *[id number] 534-518T *[id number] 534-521T *[id number] 10:25 [employer] PACK, CCL CUSTOM * Used *[id number] BAND, RADIAL COMPRESSION TR [id number] 11:31 [employer] MEDICAL 24CM Used SHORT 24 *[id number] 10:25 [employer] SHEATH, FR5.5 PRELUDE 11CM FR 5 [id number] Used [id number] 10:25 [employer] MEDICAL WIRE, 3MMJ .035 180CM 180CM Used *[id number] 10:25 NAMIC MANIFOLD, 2 PORT * Used *[id number] 10:25 NAMIC MANIFOLD, 4 PORT * Used *[id number] 10:25 NYCOMED OMNIPAQUE, 350 MG, 150ML 150ML [id number] Used [id number] 10:25 [employer] MEDICAL BLANKET,WARM AIR CCL * Used *[id number] SHEATH, FR6 TRANSRADIAL [id number] 10:26 [employer] MEDICAL FR 6 Used SLENDER 10CM *[id number] SHEATH, FR6 TRANSRADIAL [id number] 10:54 [employer] MEDICAL FR 6 Used SLENDER 10CM *[id number] 10:25 [employer] MEDICAL SHEATH, FR7 TERUMO (10CM) FR 7 Used *[id number] History: Current Medications Medication Dosage/Unit Route Frequency Last Date/Time Taken ASA Insulin Glucophage Synthroid NORVASC HCTZ History: Allergies Allergy Reaction latex RASH History: Risk Factors Family History of Hypertension Dyslipidemia Previous [facility] Previous Heart Failure Premature CAD Yes Yes No No Yes Prior Valve Prior PCI Prior CABG Surgery No No No Cerebrovascular Peripheral Artery Chronic Lung On Dialysis Diabetes Diabetes Therapy Disease Disease Disease No Yes No No Yes Insulin History: Symptoms/Diagnosis Selection Items SOB Syncope History: Stress Tests Stress or Imaging Studies Performed No History: Other Disease Selection Items HTN History: Other Current Smoker No Labs Hgb (g/dl) Hct (%) RBC (MIL/MM3) WBC (l/cumm) Platelets (thousands) 11.60-17.00 35.00-51.00 4.00-5.90 4.00-11.00 150.00-450.00 11.7 36.9 4.9 15.5 331 Glucose (mg/dl) BUN (mg/dl) Creatinine (mg/dl) BUN:Creatinine (1:x) 74.00-106.00 7.00-18.00 0.50-1.30 10.00-20.00 88 32 0.9 35.6 Na (meq/l) K (meq/l) Cl (meq/l) CO2 (mmol/L) Ca (mg/dl) 136.00-145.00 3.50-5.10 98.00-107.00 21.00-32.00 8.50-10.10 142 3.7 99 32 9.9 PT (sec) INR (PTT:PT) 9.80-11.60 0.90-1.10 14 1.3 CPK-MB (ng/ML) 0.50-3.60 Not Drawn Medication Medication Total Dose (Bolus/Oral) Medication Total Dosage/Unit 1% XYLOCAINE 40 mL FENTANYL 100 mcg RADIAL COCKTAIL 5 mL (Bolus) Medications (Bolus/Oral) Medication Time Given Dosage/Unit Administered By Reason FENTANYL 12/09/2016 10:51:48 AM 25 mcg Abena Zarco 25 mcg FENTANYL given in lab by Carolee, Abena, RN via Peripheral IV. RIGHT IG 1% XYLOCAINE 12/09/2016 10:52:01 AM 20 mL Antolin Bean 20 mL 1% XYLOCAINE given in lab by Antolin Bean in Right Antecubital via Subcutaneous. Ntg 200mcg Verapamil 2.5mg Heparin RADIAL COCKTAIL 12/09/2016 10:53:41 AM 5 mL (Bolus) Abena Zarco 2500U 5 mL (Bolus) RADIAL COCKTAIL given in lab by Abena Zarco RN via Radial. Using [Solution Name]. R sushila: Ntg 200mcg Verapamil 2.5mg Heparin 2500U. HEPARIN 2300 UNITS 1% XYLOCAINE 12/09/2016 10:53:51 AM 20 mL Antolin Bean 20 mL 1% XYLOCAINE given in lab by Antolin Bean in Right Groin via Subcutaneous. FENTANYL 12/09/2016 11:03:46 AM 25 mcg Abena Zarco 25 mcg FENTANYL given in lab by Abena Zarco RN via Peripheral IV. FENTANYL 12/09/2016 11:27:23 AM 25 mcg Abena Zarco 25 mcg FENTANYL given in lab by Abena Zarco RN via Peripheral IV. FENTANYL 12/09/2016 11:51:11 AM 25 mcg Abena Zarco 25 mcg FENTANYL given in lab by Abena Zarco RN via Peripheral IV. Medication (Drip) Medication Time Given Dosage/Unit Concentration/Unit Diluent (ml) Solution IV Solutions 12/09/2016 10:38:40 AM 0 mL (IV) 500 NaCl .9 Patient arrived on IV Solutions in Right shoulder via Peripheral IV. Pump/Drip Flow = 20 ml/hr using NaCl .9. RIGHT NECK IJ Initial Case Assessment Circulatory - Right Pulses Dorsalis Pedis Femoral Brachial Radial 2 2 2 2 Scale (0,1,2,3,4,d) Circulatory - Left Pulses Dorsalis Pedis Femoral Brachial Radial 2 2 2 Scale (0,1,2,3,4,d) Circulatory - Lower Extremities Color Lower Right Color Lower Left Normal Normal Neurological State Oriented to time-place- Alert Moves all extremities person Respiration - General Respiration Rate SpO2 (%) O2 (lpm) (B/min) 20 97 2 Final Case Assessment Cardiovascular HR Rhythm NIBP Chest Pain 96 REG 131/66 0 Edema Present Skin color Skin None Normal Warm Circulatory - Right Pulses Dorsalis Pedis Femoral Brachial Radial 2 2 2 2 Scale (0,1,2,3,4,d) Scale (0,1,2,3,4,d) Neurological State Oriented to time-place- Alert Moves all extremities person Respiration - General Respiration Rate SpO2 (%) O2 (lpm) (B/min) 20 97 2 Chronological Log Time Study Chronological Log 10::22 Patient arrived via Bed. 10:17:24 Patient Name, D.O.B, / Armband Verified By R.N. 10:17:25 Consent signed by the physician and the patient and verified by the Calender Operator Helper staff. 10:17:25 Pre-op and post- op instructions given; patient acknowledges understanding of instructions. 10:20:28 PT ARRIVED WITH THYAMINE RUNNING Vitals capture started with the following parameters, Patient=Adult, Interval=5 min, Initial Pr pbfgdp=861 mmHg, 10:22:26 Deflation Rate=5 mmHg, Cuff placed on Right Arm 10:23:03 HR=88 bpm, GJGX=798/85 mmhg, SpO2=95 %, Pain=0, Jerrica=10, Callejas=2 10:28:04 IV=136 bpm, EHFK=648/75 mmhg, SpO2=98.0 %, Resp=20 B/min, Pain=0, Jerrica=10, Callejas=2 10:33:01 DW=568 bpm, LYPC=832/79 mmhg, SpO2=97.0 %, Resp=20 B/min, Pain=0, Jerrica=10, Callejas=2 10:35:35 Verbal Stimulation=2 Physical Stimulation=2 Airway=2 Respiration=2 TOTAL=8. (0=absent, 1=li mited, 2=present) 10:36:31 Reference ECG taken 10:37:02 Allens test performed on the right radial and ulnar artery by randee campos with a positive resul t 10:37:16 Patient has been NPO for Less than 6Hrs. 10:37:17 Skin Breakdown-none 10:37:28 Patient Warmer Placed on the Table. 10:37:30 A # 18 IV was noted in the Antecubital (right). Grade = 0 saline locked 10:37:48 A # 18 IV was noted in the Antecubital (left). Grade = 0 10:38:00 VF=869 bpm, IQHX=310/91 mmhg, SpO2=96 %, Pain=0, Jerrica=10, Callejas=2 10:38:15 A # 14 IV was noted in the Jugular Vein (right). Grade = 0 10:38:30 MD arrived. Patient arrived on IV Solutions in Right shoulder via Peripheral IV. Pump/Drip Flow = 20 ml/hr using NaCl .9. RIGHT 10:38:40 NECK IJ ZOSYN STARTED BY Randee CAMPOS IN LAB 10:40:51 10:41:19 History and physical on the chart or being dictated. Assessment: Initial Case Right Pulses: Gaurang Ped=2, Femoral=2, Brachial=2, Radial=2 Left Pulses: Femoral=2, Brachial=2, Radial=2 10:41:20 Lower Right Extremities: Color=Normal Lower Left Extremities: Color=Normal Neurological: State=Alert, Ox3, VASQUEZ Respiration: Resp=20 B/min, SpO2=97 %, O2=2 lpm 10:41:54 Right radial, right brachial, and groin(s) prepped with 2% chlorhexidine, and draped after a 3 min. waiting time. 10:43:03 WZ=919 bpm, FIHD=840/84 mmhg, SpO2=96.0 %, Resp=20 B/min, Pain=0, Jerrica=10, Callejas=2 10:44:14 Pressure channel 1 zeroed. 10:48:06 SH=725 bpm, OSBB=104/80 mmhg, SpO2=97.0 %, Resp=39 B/min, Pain=0, Jerrica=10, Callejas=2 Time Out. Correct patient, correct procedure, correct physician, power injector not loaded with contrast with surgical 10:50:00 team present. Time Out Concurred by MD and individual staff in procedure. 10:50:13 Case Start 10:50:14 Verbal Stimulation=2 Physical Stimulation=2 Airway=2 Respiration=2 TOTAL=8. (0=absent, 1=li mited, 2=present) 10:51:48 25 mcg FENTANYL given in lab by Abena Zarco, MARTIN via Peripheral IV. RIGHT IG 10:52:01 20 mL 1% XYLOCAINE given in lab by Antolin Bean in Right Antecubital via Subcutaneou s. 10:52:19 Access site was Brachial Artery. RT 10:52:33 Access site was Right Femoral Artery. 10:52:35 A WIRE, 3MMJ .035 180CM 180CM was inserted via Brach. Vein (right). A SHEATH, FR6 TRANSRADIAL SLENDER 10CM FR 6 was advanced into the Brach. Vein (right) using the Percutaneous 10:52:59 technique. 10:53:03 CP=374 bpm, CULA=362/87 mmhg, SpO2=97.0 %, Resp=41 B/min, Pain=0, Jerrica=10, Callejas=2 5 mL (Bolus) RADIAL COCKTAIL given in lab by Abena Zarco, RN via Radial. Using [Solution Na me]. Reason: Ntg 10:53:41 200mcg Verapamil 2.5mg Heparin 2500U. HEPARIN 2300 UNITS 10:53:51 20 mL 1% XYLOCAINE given in lab by Antolin Bean in Right Groin via Subcutaneous. 10:54:37 A WIRE, 3MMJ .035 180CM 180CM was inserted via Fem Art (right). A SHEATH, FR6 TRANSRADIAL SLENDER 10CM FR 6 was advanced into the Fem Art (right) using the Per cutaneous 10:54:42 technique. 10:58:08 LM=936 bpm, UCHP=233/75 mmhg, RlP2=955.0 %, Resp=20 B/min, Pain=0, Jerrica=10, Callejas=2 11:03:03 EG=741 bpm, ZSED=148/78 mmhg, Resp=20 B/min, Pain=0, Jerrica=10, Callejas=2 11:03:46 25 mcg FENTANYL given in lab by Abena Zarco, RN via Peripheral IV. 11:06:16 A CATHETER, FR5 SWAN STAN MONITOR FR 5 was inserted via Brach. Vein (right) Recorded Pressure: PCW, HR=97, Condition=Condition 1 11:07:41 (Pulmonary Capillary Wedge) PCW 11:08:04 HR=95 bpm, HXUF=667/66 mmhg, SpO2=96.0 %, Resp=26 B/min, Pain=0, Jerrica=10, Callejas=2 11:09:33 Saturation: Site=PA (Pulmonary Artery) , O2=65.8 %, Hgb=11.7 gm/dl, Condition=Condition 1. Used in calculation. Recorded Pressure: MPA, HR=94, Condition=Condition 1 11:10:44 (Main Pulmonary Artery) MPA 11:11:01 Saturation: Site=Ao (Aorta) , O2=96.1 %, Hgb=11.7 gm/dl, Condition=Condition 1. Used in kely culation. Recorded Pressure: RV, HR=96, Condition=Condition 1 11:11:30 (Right Ventricle) RV 50/4/11 Recorded Pressure: RA, HR=96, Condition=Condition 1 11:12:04 (Right Atrium) RA 11:12:16 [place] Stan Catheter Removed 11:13:05 HR=96 bpm, GOZE=602/71 mmhg, SpO2=98.0 %, Resp=20 B/min, Pain=0, Jerrica=10, Callejas=2 A JR 4.0 INFINITI CATHETER FR 5 was advanced over a wire. OMNIPAQUE, 350 MG, 150ML 150ML was us ed for 11:13:30 injections. Recorded Pressure: LV, HR=93, Condition=Condition 1 11:15:28 (Left Ventricle) LV 142/9/18 Recorded Pressure: LV, Ao, HR=95, Condition=Condition 1 11:15:45 (Left Ventricle) LV 143/9/18, (Aorta) Ao 142/63/95 Recorded Pressure: Ao, HR=95, Condition=Condition 1 11:16:15 (Aorta) Ao 140/68/98 11:16:46 The RCA was injected and visualized at various angles. OMNIPAQUE, 350 MG, 150ML 150ML used . After removing the current catheter a JL 3.5 INFINITI CATHETER FR 5 was advanced over a WIRE, 3 MMJ .035 180CM 11:17:55 180CM. 11:18:08 HR=96 bpm, ORBX=931/76 mmhg, SpO2=97.0 %, Resp=20 B/min, Pain=0, Jerrica=10, Callejas=2 11:23:09 HR=95 bpm, VLEB=138/70 mmhg, SpO2=98.0 %, Resp=25 B/min, Pain=0, Jerrica=10, Callejas=2 11:24:23 The LCA was injected and visualized at various angles. OMNIPAQUE, 350 MG, 150ML 150ML used . 11:27:23 25 mcg FENTANYL given in lab by Abena Zarco, RN via Peripheral IV. 11:28:09 HR=93 bpm, CNTZ=079/66 mmhg, SpO2=97.0 %, Resp=19 B/min, Pain=0, Jerrica=10, Callejas=2 11:30:23 Catheter was removed Assessment: Final Case, HR=96 BPM, Rhythm=REG, XPYL=517/66 mmhg, Chest Pain=0, Edema=None, [place] r=Normal, Skin = Warm 11:30:32 Right Pulses: Gaurang Ped=2, Femoral=2, Brachial=2, Radial=2 Neurological: State=Alert, Ox3, VASQUEZ Respiration: Resp=20 B/min, SpO2=97 %, O2=2 lpm 11:31:01 Catheter(s) removed without difficulty Radial Compression Device Used. 10 mLs of air placed in BAND, RADIAL COMPRESSION TR SHORT 24 2 4CM. Affected 11:31:06 hand 97 % O2 saturation. 11:32:12 Activated Clotting Time Drawn 11:33:10 HR=96 bpm, UFFR=944/71 mmhg, SpO2=98.0 %, Resp=27 B/min, Pain=0, Jerrica=10, Callejas=2 11:35:44 ACT (Normal Range 90-180) = 189 11:38:07 HR=97 bpm, WOYH=168/76 mmhg, SpO2=96.0 %, Pain=0, Jerrica=10, Callejas=2 11:43:08 HR=95 bpm, USBB=433/77 mmhg, Resp=30 B/min, Pain=0, Jerrica=10, Callejas=2 11:44:18 VENOUS Sheath removed; pressure applied to access site. Moiz.STONE RT 11:44:40 Case End 11:48:11 HR=97 bpm, LNIW=090/77 mmhg, Resp=20 B/min, Pain=0, Jerrica=10, Callejas=2 11:51:11 25 mcg FENTANYL given in lab by Abena Zarco, RN via Peripheral IV. 11:53:10 HR=98 bpm, EFRP=337/84 mmhg, Resp=20 B/min, Pain=0, Jerrica=10, Callejas=2 11:59:58 HEMASTASIS ACHEIVED End Study - Contrast Media Used In Study Contrast Total Opened (mL) Total Used (mL) Total Wasted (mL) Omnipaque 40 40 0 End Study - Maximum Contrast Load Max Contrast Load (mL) 325.0 End Study - Radiation Exposure Fluoro Time (minutes) 6.1 End Study - Sheaths Sheaths Pulled By Sheath Hold Time (min) Antolin Bean End Study - Patient Disposition Complications Transferred To Interventional Outcome No Regular Bed No attempt made
--- NOTE | 2016-12-09 13:32 | MA ---
cc: BILLY AHMADI DO DATE 12/09/2016 PROCEDURE Left heart catheterization, right heart catheterization, coronary angiogram, ultrasound guided access. PREPROCEDURE DIAGNOSIS Acute systolic heart failure, pulmonary edema, new cardiomyopathy. POSTPROCEDURE DIAGNOSIS Nonischemic cardiomyopathy, ejection fraction 20-25%, mild pulmonary hypertension (type 2 secondary to elevated filling pressures). MEDICATIONS 1. Fentanyl 75 mcg 2. Heparin 2300 units 3. Verapamil 2.5 mg 4. Nitro 200 mcg CONTRAST 40 cc. FLUOROSCOPY 6.1 minutes ANESTHESIA Moderate sedation zero minutes. ESTIMATED BLOOD LOSS 10 cc PROCEDURAL SUMMARY Emmanuelle Agosto is a pleasant 71-year-old female who presented to [facility] emergency room and was found to be in pulmonary edema. She was found to have an ejection fraction of 20-25% which was a new diagnosis for her. Because of this, she was recommended right and left heart catheterization. The risks, benefits and alternatives were explained to her and she consented as such. She was brought to the lab and prepped in the usual sterile fashion. The right radial artery was accessed using a modified Seldinger technique and placement of a 5/6 [place] Islander slender sheath. This was easily aspirated and flushed. Right brachial artery was accessed using a modified Seldinger technique with ultrasound guidance and placement of a 5/6 [place] Islander sheath. This was easily aspirated and flushed. The Sumner-Titus catheter was taken to a wedge position and hemodynamics as well as oxygen saturations were measured on pullback in a standard fashion. The Sumner-Titus catheter was removed. A JR-4 was advanced over a J-wire to the ascending aorta and across the aortic valve for measurement of left ventricular pressures. This was pulled back across the aortic valve showing no significant gradient of aortic stenosis. JR-4 was used for selective angiography of the right coronary artery. This was exchanged out for a JL-3.5 which was used for selective angiography of the left coronary artery. A JL-3.5 was removed over a J-wire. A radial band was placed over the arteriotomy site for hemostasis. Of note, there was a small hematoma proximal to the arteriotomy site and so radial band was placed at a higher physician for better hemostasis. ACT was drawn and was 189 and so the brachial sheath was removed with pressure held for hemostasis. The patient left the manager lab cardiovascularly stable. FINDINGS The left main was a short vessel with adequate reflux and mild disease of 20%. It bifurcates into an LAD and circumflex. LAD is a small to moderate size vessel with 10-20% disease in the proximal portion. Distally, the vessel tapers down with diffuse 40% disease. It supplies five small diagonals. Left circumflex is a normal size vessel. It supplies one major obtuse marginal with a 30% lesion at the proximal portion, but no significant disease. RCA normal-size vessel. Dominant in nature. Mild luminal irregularities throughout the proximal to midportion. PDA has a 50% lesion in it. HEMODYNAMIC RESULTS RA 6 RV 50/4 RVEDP 11 PA 52/13 mean PA 30. Wedge 22. Cardiac output 4.1. Cardiac index 2.6. LVEDP 18. IMPRESSION 1. Acute systolic heart failure with new cardiomyopathy. 2. Nonischemic cardiomyopathy, ejection fraction 20-25% 3. Mild to moderate coronary artery disease. 4. Mild pulmonary hypertension (type 2 secondary to elevated left-sided filling pressures). RECOMMENDATIONS 1. Ms. Agosto appears to have nonischemic cardiomyopathy with an ejection fraction of 20-25% and she will be continued on her heart failure medications, as well as started on ones. We will currently continue spironolactone and start her on carvedilol. If creatinine is stable in the morning, most likely we will plan on adding lisinopril also. 2. She should continue to be diuresed as she still has elevated left-sided filling pressures. 3. We will recheck an echo in three months' time and if ejection fraction is still low, consideration should be made for ICD therapy. 4. I spoke to her about decreasing her overall salt intake which supposedly lately she has had excess salt. 5. We also discussed watching her weights at home and the need for Lasix if weights are increasing over a short period time. 6. Per the , Emmanuelle apparently drinks excessive water at home because she has been overly thirsty. I have asked that upon discharge she be placed on a fluid restriction of 2 liters and may need even further restriction. Thank you for allowing me to see Emmanuelle Agosto. If there are any questions, please do not hesitate to call. Vincent G. Ahmadi DO VGP/DJL /12:50 PM /1:17 PM
--- NOTE | 2016-12-09 13:32 | MA ---
cc: BILLY AHMADI DO DATE 12/09/2016 PROCEDURE Left heart catheterization, right heart catheterization, coronary angiogram, ultrasound guided access. PREPROCEDURE DIAGNOSIS Acute systolic heart failure, pulmonary edema, new cardiomyopathy. POSTPROCEDURE DIAGNOSIS Nonischemic cardiomyopathy, ejection fraction 20-25%, mild pulmonary hypertension (type 2 secondary to elevated filling pressures). MEDICATIONS 1. Fentanyl 75 mcg 2. Heparin 2300 units 3. Verapamil 2.5 mg 4. Nitro 200 mcg CONTRAST 40 cc. FLUOROSCOPY 6.1 minutes ANESTHESIA Moderate sedation zero minutes. ESTIMATED BLOOD LOSS 10 cc PROCEDURAL SUMMARY Emmanuelle Agosto is a pleasant 71-year-old female who presented to [facility] emergency room and was found to be in pulmonary edema. She was found to have an ejection fraction of 20-25% which was a new diagnosis for her. Because of this, she was recommended right and left heart catheterization. The risks, benefits and alternatives were explained to her and she consented as such. She was brought to the lab and prepped in the usual sterile fashion. The right radial artery was accessed using a modified Seldinger technique and placement of a 5/6 [place] slender sheath. This was easily aspirated and flushed. Right brachial artery was accessed using a modified Seldinger technique with ultrasound guidance and placement of a 5/6 [place] sheath. This was easily aspirated and flushed. The Biggers-Titus catheter was taken to a wedge position and hemodynamics as well as oxygen saturations were measured on pullback in a standard fashion. The Biggers-Titus catheter was removed. A JR-4 was advanced over a J-wire to the ascending aorta and across the aortic valve for measurement of left ventricular pressures. This was pulled back across the aortic valve showing no significant gradient of aortic stenosis. JR-4 was used for selective angiography of the right coronary artery. This was exchanged out for a JL-3.5 which was used for selective angiography of the left coronary artery. A JL-3.5 was removed over a J-wire. A radial band was placed over the arteriotomy site for hemostasis. Of note, there was a small hematoma proximal to the arteriotomy site and so radial band was placed at a higher physician for better hemostasis. ACT was drawn and was 189 and so the brachial sheath was removed with pressure held for hemostasis. The patient left the label stitcher cardiovascularly stable. FINDINGS The left main was a short vessel with adequate reflux and mild disease of 20%. It bifurcates into an LAD and circumflex. LAD is a small to moderate size vessel with 10-20% disease in the proximal portion. Distally, the vessel tapers down with diffuse 40% disease. It supplies five small diagonals. Left circumflex is a normal size vessel. It supplies one major obtuse marginal with a 30% lesion at the proximal portion, but no significant disease. RCA normal-size vessel. Dominant in nature. Mild luminal irregularities throughout the proximal to midportion. PDA has a 50% lesion in it. HEMODYNAMIC RESULTS RA 6 RV 50/4 RVEDP 11 PA 52/13 mean PA 30. Wedge 22. Cardiac output 4.1. Cardiac index 2.6. LVEDP 18. IMPRESSION 1. Acute systolic heart failure with new cardiomyopathy. 2. Nonischemic cardiomyopathy, ejection fraction 20-25% 3. Mild to moderate coronary artery disease. 4. Mild pulmonary hypertension (type 2 secondary to elevated left-sided filling pressures). RECOMMENDATIONS 1. Ms. Agosto appears to have nonischemic cardiomyopathy with an ejection fraction of 20-25% and she will be continued on her heart failure medications, as well as started on ones. We will currently continue spironolactone and start her on carvedilol. If creatinine is stable in the morning, most likely we will plan on adding lisinopril also. 2. She should continue to be diuresed as she still has elevated left-sided filling pressures. 3. We will recheck an echo in three months' time and if ejection fraction is still low, consideration should be made for ICD therapy. 4. I spoke to her about decreasing her overall salt intake which supposedly lately she has had excess salt. 5. We also discussed watching her weights at home and the need for Lasix if weights are increasing over a short period time. 6. Per the , Emmanuelle apparently drinks excessive water at home because she has been overly thirsty. I have asked that upon discharge she be placed on a fluid restriction of 2 liters and may need even further restriction. Thank you for allowing me to see Emmanuelle Agosto. If there are any questions, please do not hesitate to call. Vincent G. Ahmadi DO VGP/DJL /12:50 PM /1:17 PM
--- NOTE | 2016-12-09 14:05 | HHI.CCPN ---
Subjective Remarks/Hospital Course The patient is a 71-year-old female with a past medical history of hypertension , diabetes mellitus, hypothyroidism. She went to see Dr. Fernandez for evaluation of diabetic neuropathy and the patient had a syncopal episode. There is no history of any witnessed seizures. When she was brought in to [place] via ambulance she had some right sided weakness with rightward gaze. Her GCS declined to 3, where she was intubated emergently for airway protection. Post intubation the patient was noted to move all extremities. In addition, prior to arrival she was hypoxic with O2 saturation in the 80s, STEMI alert was called, however, the patient was found to have an old left bundle branch block. STEMI was cancelled after ED's discussion with Dr. Rand. Also, they called a stroke alert; however, after discussion with Dr. Knight the patient was not a candidate for TPA as she was moving all extremities post intubation. Her ABG post intubation showed ph of 7.27, CO2 38, PA02 70, bicarb 17, saturation 90% on PRVC mode with rate 14, tidal volume 500, ITIME 1.0, PEEP 5, 100% FIO2. Chest x-ray post intubation showed diffuse pulmonary consolidation. Due to her syncopal episode she had a CT scan of the brain which showed no acute findings. 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 CTA of the neck showed 60% narrowing due to an eccentric calcification in the left carotid bulb. CTA of the brain showed absent flow in the right A1 segment with patent anterior communicating artery providing flow to the A2 segment and questionable 2 to 3 mm aneurysm in the right middle cranial fossa off a branch vessel of the right MCA territory. Her laboratory data is significant for hyperglycemia, her blood sugar was 455 on point of care and 453 on the CMP. The patient was given regular insulin 7 units and will be on insulin drip per DKA protocol. Her urine drug screen is negative for amphetamines, barbiturates, benzodiazepines. Other significant labs showed leukocytosis with WBC 20.3 and elevated BNP of 547. The patient was seen by Dr. Rand in the ED and echocardiogram was ordered. She was given Vancomycin, cefepime and azithromycin in the ED. The patient is scheduled to undergo CT pulmonary angiogram and CT abdomen and pelvis wereordered by ED. When seen the patient is sedated with versed and on full mechanical ventilation. Her current blood pressure is 117/69 with a pulse of 77 , saturation 96-97%. 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 No history of any cough or constitutional symptoms. 12/04 Echo with EF 20-25%. states she was had been complaining of SOB and chest pain off and on for about 2 weeks prior to this event. Complained of SOB right before syncope in the physicians office. Post-syncope she was initially able to talk some and got into a wheelchair and he was trying to get her to the car to go to urgent care across the street when she then became unresponsive and [facility] was called. GCS was reportedly 8 on EVAC arrival and she was bagged but there was concern for R sided weakness. She was intubated upon arrrival to the ED. Denies known cardiac history and has had no prior cardiac workup. She has also complained of difficulty swallowing and has coughed and "choked" a few times while eating over the last 1-2 weeks. She did not have a persistent or productive cough and had not complained of fever. She had not complained of headache. Anion-gap closed so she was transitioned off insulin drip early this morning. Lactic acid cleared. Now hypotensive, starting levophed. CTPA negative for PE, +RLL consolidation and bilat pleural effusions. Afebrile, WBC 19.3 Legionella/pneumoocococcal antigen negative and influenza negative. Remainder of cultures pending. EEG report pending. Was on versed 5 mg/hr and fentanyl 50 mcg/hr this morning, now holding sedation. Subjective: 12/05 MRI brain negative for stroke. MRA negative for aneurysm. EEG with slowing but no seizure. Agitated off sedation. Started on Precedex. Was on low dose levophed couple of hours last night, then off again. Tolerating CPAP initially but subsequently desatted and FIO2 increased. Mental status also not adequate for extubation. Temp max 99.7, WBC downtrending to 16.5 . Sputum cultures with GNR. 12/06: Patient remains encephalopathic. Sputum culture growing Enterobacter. WBC increased to 18.5 today. CXR pending today 12/07: Chest x-ray shows significant interval worsening bilateral infiltrates most likely congenital pulmonary edema. Mental status appears to be slightly improved. I have started patient on Bumex infusion after discontinuing Lasix IV. Also started on dobutamine at 2.5 g per KG per minute. Liver enzymes noted to be markedly elevated, probably from hypotension shock. Liver ultrasound ordered 12/08: Remains intubated sedated with Precedex follows commands. Urine output 6.6 L in 24 hours on Bumex infusion and dobutamine. Chest x-ray shows significant improvement FiO2 at 35%. Started on CPAP trial 12/09: Extubated yesterday, tolerating well. Creat has normalized. UO 4.6L in 24 hours. Cardiac cath nonischemic CM. Started on Aldactone yesterday, Coreg started today. Place on lisinopril 5 mg daily from a.m. Objective Vital Signs Date Time Temp Pulse Resp B/P (MAP) Pulse Ox O2 Delivery O2 Flow Rate FiO2 12/09/16 12:00 92 12/09/16 12:00 97.3 18 136/63 (87) 99 12/09/16 09:45 Nasal Cannula 1.00 12/08/16 08:45 35 Intake and Output 12/09/16 12/09/16 12/10/16 08:00 16:00 00:00 Intake Total 150 ml 200 ml Output Total 1900 ml Balance -1750 ml 200 ml Result Diagram: 12/09/16 0537 12/09/16 0537 Other Results Microbiology Date/Time Source Procedure Growth Status 12/07/16 10:35 Sputum Endotracheal Gram Stain - Final Complete 12/07/16 10:35 Sputum Endotracheal Sputum Culture - Final NO GROWTH IN 48 HOURS. Complete Objective Remarks GENERAL: 71 yo female alert awake, slightly somnolent SKIN: Warm and dry. HEAD: Atraumatic. Normocephalic. EYES: Pupils equal and round, pinpoint and reactive. No injection or drainage. ENT: No nasal bleeding or discharge. NECK: Trachea midline. No JVD. CARDIOVASCULAR: Regular rate and rhythm. No murmurs rubs or gallops. RESPIRATORY: No wheeze or rhonchi. Air entry equal bilaterally GASTROINTESTINAL: Abdomen soft, non-tender, nondistended. Hepatic and splenic margins not palpable. MUSCULOSKELETAL: Extremities without clubbing, cyanosis, or edema. NEUROLOGICAL: Alert awake oriented follows commands A/P Problem List: (1) Systolic heart failure ICD Code: I50.20 - Unspecified systolic (congestive) heart failure (2) Pulmonary edema ICD Code: J81.1 - Chronic pulmonary edema Status: Acute (3) Respiratory failure ICD Code: J96.90 - Respiratory failure, unspecified, unspecified whether with hypoxia or hypercapnia Status: Acute (4) Syncope ICD Code: R55 - Syncope and collapse Status: Acute (5) Sepsis ICD Code: A41.9 - Sepsis, unspecified organism Status: Acute (6) Diabetic nephropathy ICD Code: E11.21 - Diabetic nephropathy Status: Acute (7) Diabetes type 2, uncontrolled ICD Code: E11.65 - Uncontrolled type 2 diabetes mellitus Status: Chronic (8) Hypothyroidism ICD Code: E03.9 - Hypothyroidism Status: Chronic (9) Hypertension, benign ICD Code: I10 - Benign hypertension Status: Chronic (10) Type II diabetes mellitus with renal manifestations, uncontrolled ICD Code: E11.29 - Type II diabetes mellitus with renal manifestations, uncontrolled; E11.65 - Type 2 diabetes mellitus with hyperglycemia Status: Chronic (11) Left bundle branch block ICD Code: I44.7 - Left bundle branch block Status: Chronic (12) Encephalopathy acute ICD Code: G93.40 - Encephalopathy, unspecified Status: Acute (13) Dysphagia ICD Code: R13.10 - Dysphagia, unspecified Status: Chronic Assessment and Plan NEURO: Syncope Acute metabolic encephalopathy-resolved DC Ativan when necessary due to increased somnolence CT brain 12/03no acute findings. CTA brain 12/03 absent flow right A1 with patent ACOM providing flow to A2 segment. On addendum, states ?2-3 mm aneurysm of branch off R MCA territory. MRI 12/04 - NAD. MRA 12/04 absent flow right A1 but no aneurysm. -No intervention per neurology/IR Concern for R hemiparesis on admission but Was not candidate for TPA due to resolving symptoms. EEG - moderate slowing but no seizure. Continue ASA RESP: Acute respiratory failure Pulmonary edema Right lower lobe pneumonia, probable aspiration. Intubated by ED physician due to AMS and hypoxia. Extubated 12/08/[address] Henderson who is following. DuoNeb every 6 hours scheduled and when necessary CV: Systolic heart failure possibly Acute on chronic Chronic LBBB Bumex 1 mg IV [id number] to q12. Continue Aldactone 25 twice a day. Continue ASA Coreg 3.125 mg BID from today. Start Lisinopril 2.5 mg Daily from 12/10/16 Troponin max 0.06. 2D Echo - EF 20-25%. Global hypokinesis. No RWMA. Cath today Patient has had no prior cardiac workup and will definitely need cardiac catheterization prior to discharge. Dr. Gloria discussed extensively with Dr. Rand and with patients family including son who is a container coordinator. Suspect long standing cardiomyopathy that has decompensated and resulted in hypoxia, syncope and resultant mental status change. LDL 21, Trig and total cholesterol wnl. GI: Acute transaminitis most likely secondary to shock Dysphagia Diet per speech recommendation Discontinued all hepatotoxic drugs enzyme elevation is most likely from hypotension. 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 Monitor intake and output. Monitor electrolytes. Replace as indicated. Received IV contrast 12/03. Avoid nephrotoxins were possible. IV Bumex push as above Was followed by container coordinator as outpatient, will reconsult if worsening ID: Acute right lower lobe pneumonia, probable aspiration Sepsis likely secondary to aspiration, improving Aspiration event likely occurred while bagging prehospital when patient was unresponsive. She also has had some mild dysphagia. On Zosyn,since 12/03 complete 8 days. Cultures negative aside from Enterobacter sputum so discontinued vancomycin. Discontinued azithromycin 12/07/16 Blood cultures 12/03no growth to date. Urine Legionella and pneumococcal antigen negative. Influenza - Negative HEME: Monitor CBC ENDO: Hypothyroidism TSH normal on admission Continue Synthroid 100 mcg by mouth daily Diabetes with severe hyperglycemia on admission Beta hydroxybutyrate was normal and anion gap was related to lactic acidemia. Now anion gap is closed and has been transitioned off insulin drip. Insulin sliding scale with bedside glucose every 4 hours. Insulin detemir 20 units q12. Blood sugar control is appropriate today PROPH heparin subcutaneous for DVT prophylaxis. Protonix 40 g IV daily for stress ulcer prophylaxis. ACCESS: Right IJ central venous line placed 12/04 DC today. JOANIE pak Patient's updated at bedside. Patient's son who is a container coordinator from [facility] was also updated at bedside. Visited bedside on multiple occasions to reassess mental status, respiratory status, sedation and hemodynamics. Patient is delirious and nonpurposeful, volume overloaded and not appropriate for extubation at this time. Level 2. Showing some signs of clinical improvement. Cardiac cath today. Consult hospitalist to assume care 12/10/16. Transfer to [facility] with telemetry Problem Qualifiers (1) Systolic heart failure: Qualified Codes: I50.22 - Chronic systolic (congestive) heart failure (2) Pulmonary edema: Qualified Codes: J81.0 - Acute pulmonary edema (3) Respiratory failure: Qualified Codes: J96.00 - Acute respiratory failure, unspecified whether with hypoxia or hypercapnia (4) Syncope: Qualified Codes: R55 - Syncope and collapse (5) Sepsis: Qualified Codes: A41.9 - Sepsis, unspecified organism Wendy Cote MD Dec 09, 2016 14:05
[2016-12-09] MEDS ORDERED: IOHEXOL 350 MG/ML 50 ML BTL (for Cath Lab) OTHER ONE (15:31)
--- NOTE | 2016-12-09 16:47 | PD.CARD.PN ---
Subjective Subjective Remarks Patient was seen earlier post-cath No events overnight No chest pain/SOB, extubated yesterday Objective Medications Current Medications Medications (Trade) Dose Ordered Sig/Ian Route Start Time Stop Time Status Last Admin Miscellaneous Information 1 Q361D XX 12/03/16 13:00 (Chlorhexidine 2% Cloth) Taper DAILY@04 TOP 12/04/16 04:00 11/30/17 03:59 12/09/16 04:00 (Chlorhexidine 2% Cloth) 3 pack UNSCH PRN TOP 12/03/16 13:00 (Pinky-Colace) 1 tab BID PO 12/03/16 21:00 12/09/16 09:17 (Milk Of Magnesia Liq) 30 ml Q12H PRN PO 12/03/16 13:00 (Senokot) 17.2 mg Q12H PRN PO 12/03/16 13:00 (Dulcolax Supp) 10 mg DAILY PRN RECTAL 12/03/16 13:00 (Lactulose Liq) 30 ml DAILY PRN PO 12/03/16 13:00 Piperacillin Sod/ Tazobactam Sod 100 ml @ 200 mls/hr Q6H IV 12/03/16 16:00 12/09/16 15:59 (Glucagon Inj) 1 mg UNSCH PRN OTHER 12/04/16 01:15 (D50w (Vial) Inj) 25 ml UNSCH PRN IV PUSH 12/04/16 08:00 12/07/16 20:37 (NovoLIN R SUPPLEMENTAL SCALE) 1 Q4HR SQ 12/04/16 08:00 12/09/16 16:00 (Brethine Inj) 1 mg UNSCH PRN SQ 12/04/16 09:15 (Synthroid) 100 mcg DAILY@0600 PO 12/05/16 06:00 12/09/16 04:06 (Heparin Inj) 5,000 units Q12HR SQ 12/04/16 21:00 12/08/16 20:12 (Levemir Inj) 20 units Q12HR SQ 12/05/16 21:00 12/08/16 20:11 Thiamine HCl 100 mg/Sodium Chloride 101 ml @ 101 mls/hr DAILY IV 12/05/16 12:45 12/09/16 09:17 (Duoneb Neb) 1 ampule Q6HR NEB INH 12/07/16 10:00 12/09/16 09:45 Albumin Human 50 ml @ 60 mls/hr Q12H IV 12/07/16 07:00 12/09/16 05:41 (K-Lyte Cl Eff) 25 meq Q12HR PO 12/07/16 09:00 12/09/16 09:17 (Aldactone) 25 mg BID@09,18 PO 12/07/16 09:00 12/09/16 09:17 (Aspirin Chew) 81 mg DAILY NG 12/08/16 09:00 12/08/16 08:10 (Coreg) 3.125 mg Q12HR PO 12/09/16 21:00 (Prinivil) 5 mg DAILY PO 12/10/16 09:00 (Bumex Inj) 1 mg Q12H IV PUSH 12/09/16 21:00 Vital Signs / I&O Vital Signs Date Time Temp Pulse Resp B/P (MAP) Pulse Ox O2 Delivery O2 Flow Rate FiO2 12/09/16 16:00 98.3 91 20 146/70 (95) 97 12/09/16 16:00 91 12/09/16 14:00 95 12/09/16 12:00 92 12/09/16 12:00 97.3 92 18 136/63 (87) 99 12/09/16 10:00 98 12/09/16 09:45 99 Nasal Cannula 1.00 12/09/16 08:00 98.3 104 20 142/77 (98) 92 12/09/16 08:00 104 12/09/16 06:00 100 12/09/16 04:00 104 12 144/73 (96) 95 12/09/16 04:00 102 12/09/16 02:00 101 12/09/16 00:00 109 12/09/16 00:00 98.9 109 22 134/60 (84) 95 12/08/16 22:00 100 12/08/16 21:20 96 Nasal Cannula 1.00 12/08/16 20:00 99.0 101 22 134/64 (87) 93 12/08/16 20:00 101 12/08/16 18:00 102 I/O 12/08/16 12/08/16 12/08/16 12/09/16 12/09/16 12/09/16 07:00 15:00 23:00 07:00 15:00 23:00 Intake Total 894 ml 168 ml 150 ml 301 ml Output Total 2600 ml 2750 ml 1900 ml Balance -1706 ml -2582 ml -1750 ml 301 ml Intake IV Total 100 ml 168 ml 150 ml 301 ml Tube Feeding 544 ml Albumin 50 ml Other 200 ml Output Urine Total 2600 ml 2750 ml 1900 ml # Bowel Movements 0 3 0 Physical Exam GENERAL: NAD, awake and alert SKIN: Warm and dry. HEAD: Atraumatic. Normocephalic. EYES: Pupils equal and round. No scleral icterus. No injection or drainage. ENT: No nasal bleeding or discharge. Mucous membranes pink and moist. NECK: Trachea midline. No JVD. CARDIOVASCULAR: Regular rate and rhythm. RESPIRATORY: No accessory muscle use. Decreased breath sounds bilaterally GASTROINTESTINAL: Abdomen soft, non-tender, nondistended. Hepatic and splenic margins not palpable. MUSCULOSKELETAL: Extremities without clubbing, cyanosis, or edema. No obvious deformities. NEUROLOGICAL: No focal deficits Laboratory Laboratory Tests Test 12/09/16 05:37 White Blood Count 15.5 TH/MM3 Red Blood Count 4.91 MIL/MM3 Hemoglobin 11.7 GM/DL Hematocrit 36.9 % Mean Corpuscular Volume 75.1 FL Mean Corpuscular Hemoglobin 23.9 PG Mean Corpuscular Hemoglobin Concent 31.7 % Red Cell Distribution Width 17.9 % Platelet Count 331 TH/MM3 Mean Platelet Volume 8.2 FL Neutrophils (%) (Auto) 73.7 % Lymphocytes (%) (Auto) 12.3 % Monocytes (%) (Auto) 11.7 % Eosinophils (%) (Auto) 1.7 % Basophils (%) (Auto) 0.6 % Neutrophils # (Auto) 11.4 TH/MM3 Lymphocytes # (Auto) 1.9 TH/MM3 Monocytes # (Auto) 1.8 TH/MM3 Eosinophils # (Auto) 0.3 TH/MM3 Basophils # (Auto) 0.1 TH/MM3 CBC Comment DIFF FINAL Differential Comment Prothrombin Time 14.0 SEC Prothromb Time International Ratio 1.3 RATIO Blood Urea Nitrogen 32 MG/DL Creatinine 0.98 MG/DL Random Glucose 69 MG/DL Calcium Level 9.9 MG/DL Sodium Level 142 MEQ/L Potassium Level 3.7 MEQ/L Chloride Level 99 MEQ/L Carbon Dioxide Level 32.0 MEQ/L Anion Gap 11 MEQ/L Estimat Glomerular Filtration Rate 56 ML/MIN Imaging Last 24 hours Impressions Chest X-Ray 12/09/16 0000 Signed Impressions: Service Date/Time: December 08:44 - CONCLUSION: Mild improved aeration of the lung bases. No evidence of pneumothorax. Perez Maxwell MD Assessment and Plan Problem List: (1) Elevated troponin ICD Codes: R74.8 - Abnormal levels of other serum enzymes (2) Left ventricular dysfunction ICD Codes: I51.9 - Heart disease, unspecified (3) Respiratory failure ICD Codes: J96.90 - Respiratory failure, unspecified, unspecified whether with hypoxia or hypercapnia Status: Acute (4) Left bundle branch block ICD Codes: I44.7 - Left bundle branch block Status: Chronic (5) Unresponsive ICD Codes: R41.89 - Other symptoms and signs involving cognitive functions and awareness Status: Resolved (6) Pulmonary edema ICD Codes: J81.1 - Chronic pulmonary edema Status: Acute Assessment and Plan 1) Cardiac cath showing no significant CAD Mild CAD Con't ASA 2) New NICM EF 20-25% Still with elevated left sided pressures by RHC, con't diuresis Will start on Coreg Plan to start Entresto over Lisinopril, may need to stop Spirolactone while starting Will discuss with family about possible Lifevest 3) Will plan on her following up with Dr. Carrera on discharge, as he is a family friend Repeat echo in 3 months, if EF low will consider ICD Problem Qualifiers (1) Respiratory failure: Qualified Codes: J96.00 - Acute respiratory failure, unspecified whether with hypoxia or hypercapnia (2) Pulmonary edema: Qualified Codes: J81.0 - Acute pulmonary edema Antolin Bean DO Dec 09, 2016 16:47
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
--- NOTE | 2016-12-09 19:50 | HHI.PR ---
Subjective Remarks 71 YO female with VDRF,DM,CMP Extubated today Weaned to RA Alert, awake, follows commands had cardiac cath, no sig CAD Objective Vital Signs Vital Signs Date Time Temp Pulse Resp B/P (MAP) Pulse Ox O2 Delivery O2 Flow Rate FiO2 12/09/16 18:00 95 12/09/16 16:00 98.3 91 20 146/70 (95) 97 12/09/16 16:00 91 12/09/16 14:00 95 12/09/16 12:00 92 12/09/16 12:00 97.3 92 18 136/63 (87) 99 12/09/16 10:00 98 12/09/16 09:45 99 Nasal Cannula 1.00 12/09/16 08:00 98.3 104 20 142/77 (98) 92 12/09/16 08:00 104 12/09/16 06:00 100 12/09/16 04:00 104 12 144/73 (96) 95 12/09/16 04:00 102 12/09/16 02:00 101 12/09/16 00:00 109 12/09/16 00:00 98.9 109 22 134/60 (84) 95 12/08/16 22:00 100 12/08/16 21:20 96 Nasal Cannula 1.00 12/08/16 20:00 99.0 101 22 134/64 (87) 93 12/08/16 20:00 101 I/O 12/08/16 12/08/16 12/08/16 12/09/16 12/09/16 12/09/16 07:00 15:00 23:00 07:00 15:00 23:00 Intake Total 894 ml 168 ml 150 ml 301 ml 1150 ml Output Total 2600 ml 2750 ml 1900 ml 300 ml Balance -1706 ml -2582 ml -1750 ml 301 ml 850 ml Intake Oral 1000 ml IV Total 100 ml 168 ml 150 ml 301 ml 150 ml Tube Feeding 544 ml Albumin 50 ml Other 200 ml Output Urine Total 2600 ml 2750 ml 1900 ml 300 ml # Bowel Movements 0 3 0 3 Result Diagram: 12/09/16 0537 12/09/1637 Objective Remarks GENERAL: MBMN female on vent, sedated SKIN: Warm and dry. HEAD: Normocephalic. EYES: No scleral icterus. No injection or drainage. NECK: Supple, trachea midline. No JVD or lymphadenopathy. CARDIOVASCULAR: Regular rate and rhythm without murmurs, gallops, or rubs. RESPIRATORY: Breath sounds equal bilaterally. No accessory muscle use. basal rales GASTROINTESTINAL: Abdomen soft, non-tender, nondistended. MUSCULOSKELETAL: No cyanosis, or edema. BACK: Nontender without obvious deformity. No CVA tenderness. A/P Assessment and Plan VDRF, s/p extubation Pulm odema Rt infilt poss aspiration CMP DM Renal insuff PLAN: Cont Abx Monitor BS Wean Fi02 Bumex monitor David Pappas MD Dec 09, 2016 19:50
[2016-12-09] MEDS: CARVEDILOL 3.125 MG TAB PO SCH (20:38)
[2016-12-10] VITALS (16 sets, daily range): BP systolic 95–151; BP diastolic 52–75; PULSE 75–94; RESP 20; TEMP 97.1–98.3; O2SAT 92–97
[2016-12-10] MEDS: PIPERACIL-TAZO 4.5 GM PREMIX 100 ML IV SCH ×4 (02:37→22:00)
[2016-12-10] MEDS: RESP: ALBUTEROL 2.5 MG/IPRATROPIUM 0.5 MG NEB (SCH) INH ×4 (02:51→20:52)
[2016-12-10] MEDS: INSULIN NovoLIN REGULAR SUPPLEMENTAL SCALE SQ SCH ×6 (04:00→20:47)
[2016-12-10] MEDS: CHLORHEXIDINE GLUCONATE 2 % 1 PACK (2 CLOTHS) TOP SCH (04:00)
[2016-12-10 06:00] LABS: AUTOMATED NEUTROPHIL # 9.8 TH/MM3 (1.8-7.7); BASOPHIL # 0.1 TH/MM3 (0-0.2); BASOPHIL % 0.8 % (0.0-2.0); EOSINOPHIL # 0.6 TH/MM3 (0-0.4); EOSINOPHIL % 3.8 % (0.0-4.0); HEMATOCRIT 38.7 % (35.0-46.0); HEMOGLOBIN 12.4 GM/DL (11.6-15.3); LYMPH % 18.4 % (9.0-44.0); LYMPHOCYTE # 2.7 TH/MM3 (1.0-4.8); MEAN CELL VOLUME 75.3 FL (80.0-100.0); MEAN PLATELET VOLUME 8.2 FL (7.0-11.0); MONO % 11.2 % (0.0-8.0); MONOCYTE # 1.7 TH/MM3 (0-0.9); NEUT % 65.8 % (16.0-70.0); PLATELET COUNT 341 TH/MM3 (150-450); RED BLOOD COUNT 5.14 MIL/MM3 (4.00-5.30); RED CELL DISTRIBUTION WIDTH 18.4 % (11.6-17.2); WHITE BLOOD COUNT 14.8 TH/MM3 (4.0-11.0)
[2016-12-10] MEDS: LEVOTHYROXINE SODIUM 100 MCG TAB PO SCH (06:00)
[2016-12-10 06:33] LABS: ALBUMIN 3.5 GM/DL (3.4-5.0); ALKALINE PHOSPHATASE 40 U/L (45-117); ALT (GPT) 471 U/L (10-53); AST (GOT) 236 U/L (15-37); BICARBONATE 30.2 MEQ/L (21.0-32.0); BLOOD UREA NITROGEN 33 MG/DL (7-18); CALCIUM 9.8 MG/DL (8.5-10.1); CHLORIDE 99 MEQ/L (98-107); CREATININE 0.95 MG/DL (0.50-1.00); GLOMERULAR FILTRATION RATE 58 ML/MIN (>89); GLUCOSE,RANDOM 115 MG/DL (74-106); MAGNESIUM 2.7 MG/DL (1.5-2.5); SODIUM (NA) 141 MEQ/L (136-145); TOTAL BILIRUBIN ADULT 1.2 MG/DL (0.2-1.0); TOTAL PROTEIN 7.9 GM/DL (6.4-8.2)
--- NOTE | 2016-12-10 08:58 | HHI.FPPN ---
Subjective Remarks Patient states she is doing much better since yesterday. However, feeling dizzy and nauseous. Dizziness is worse with movement, denies photosensitivity or palpitations. (Eryn Kee MD R1) Objective Vitals Vital Signs Date Time Temp Pulse Resp B/P (MAP) Pulse Ox O2 Delivery O2 Flow Rate FiO2 12/10/16 06:00 78 12/10/16 04:00 98.3 81 20 111/53 (72) 92 12/10/16 04:00 81 12/10/16 02:00 85 12/10/16 00:00 97.6 89 132/70 (90) 94 12/10/16 00:00 89 12/09/16 22:00 87 12/09/16 21:56 96 Nasal Cannula 1.00 12/09/16 20:00 101 12/09/16 20:00 97.4 101 161/83 (109) 96 12/09/16 18:00 95 12/09/16 16:00 98.3 91 20 146/70 (95) 97 12/09/16 16:00 91 12/09/16 14:00 95 12/09/16 12:00 92 12/09/16 12:00 97.3 92 18 136/63 (87) 99 12/09/16 10:00 98 12/09/16 09:45 99 Nasal Cannula 1.00 I/O 12/09/16 12/09/16 12/09/16 12/10/16 12/10/16 12/10/16 07:00 15:00 23:00 07:00 15:00 23:00 Intake Total 150 ml 301 ml 1150 ml Output Total 1900 ml 300 ml 900 ml Balance -1750 ml 301 ml 850 ml -900 ml Intake Oral 1000 ml IV Total 150 ml 301 ml 150 ml Output Urine Total 1900 ml 300 ml 900 ml # Bowel Movements 0 3 1 (Eryn Kee MD R1) Result Diagram: 12/10/1643912/10/16439 Objective Remarks GENERAL: SKIN: Warm and dry. HEAD: Normocephalic. EYES: No scleral icterus. EOM intact. No injection or drainage. NECK: Supple, trachea midline. CARDIOVASCULAR: Regular rate and rhythm without murmurs, gallops, or rubs. RESPIRATORY: Breath sounds equal bilaterally. No accessory muscle use. GASTROINTESTINAL: Abdomen soft, non-tender, nondistended. MUSCULOSKELETAL: No cyanosis, or edema. (Eryn Kee MD R1) A/P Assessment and Plan Patient is a 71 y/o F w/hx of DM2 and chronic LBBB presenting for pulmonary edema and ensuing acute decompensation 7 days ago. Differential diagnosis includes hypoxia secondary to CHF exacerbation v seizure v sepsis Patient doing well today, aside from weakness and headache from deconditioning. Discharge Planning Patient will need conditioning and rehab prior to and after discharge (Eryn Kee MD R1) Attending Attestation Patient seen and examined. Case reviewed and discussed with the resident team. Agree with plan of care as discussed with me and documented in the resident note. improving daily (Marly Hagen MD) Problem List: (1) Pulmonary edema ICD Codes: J81.1 - Chronic pulmonary edema Status: Acute Plan: Right lower lobe pneumonia, probable aspiration Intubated by ED physician on admission due to AMS and hypoxia. Extubated 12/08/[address] Henderson who is following. CXR on 12/10 shows improvement in bases of lower lungs. - Cardiology following - Spironolactone d/c'd - Plan to start entresto and lifevest. - Duonebs scheduled 1) Cardiac cath showing no significant CAD Mild CAD Con't ASA 2) New NICM EF 20-25% Still with elevated left sided pressures by RHC, con't diuresis Will start on Coreg Plan to start Entresto over Lisinopril, may need to stop Spirolactone while starting Will plan on Lifevest 3) Will plan on her following up with Dr. Carrera on discharge, as he is a family friend Repeat echo in 3 months, if EF low will consider ICD (2) Headache ICD Codes: R51 - Headache Status: Resolved Plan: - Acetaminophen 650 mg Q6H PRN for headache (3) Sepsis ICD Codes: A41.9 - Sepsis, unspecified organism Status: Resolved Plan: Improving Sepsis secondary to right lower lobe pneumonia, thought to have resulted from aspiration event Aspiration event likely occurred while bagging when unresponsive. Hx before admission of choking/difficulty swallowing Blood cultures 12/03no growth to date. Urine Legionella and pneumococcal antigen negative. Influenza - Negative Cultures positive for Enterobacter sputum On Zosyn Day #8 (since 12/03), will complete 8 days WBC count downtrending, 14.8 (15.5) today Last day of treatment today, will con't to monitor daily CBC daily (4) Left bundle branch block ICD Codes: I44.7 - Left bundle branch block Status: Chronic Plan: Patient has had no prior cardiac workup Troponin max 0.06. 2D Echo - EF 20-25%. Global hypokinesis. No RWMA. Chronic LBBB LDL 21, Trig and total cholesterol wnl. Cardiac cath showing no significant CAD Still with elevated left sided pressures by RHC Start coreg 3.125 mg Q12H Bumex 1 mg IV q12. Sprironolactone D/C'd Con't to monitor I/Os (5) Diabetes type 2, uncontrolled ICD Codes: E11.65 - Uncontrolled type 2 diabetes mellitus Status: Chronic Plan: Home meds: Sitagliptin (Januvia) 100 Mg Tab PO daily, Metformin ( Glucophage) 500 Mg Tab PO daily, Insulin Glargine Inj (Lantus Inj) 9 units A1C on 12/04 was 9.1 - Levemir 20 units - SSI (6) Hypothyroidism ICD Codes: E03.9 - Hypothyroidism Status: Chronic Plan: TSH normal on admission Continue Synthroid 100 mcg by mouth daily (7) FEN Status: Acute Plan: Fluids: 101 mls/hr Electrolytes: as needed Nutrition: Heart Healthy DVT: Heparin IV GI: IV protonix (Eryn Kee MD R1) Problem Qualifiers (1) Pulmonary edema: Qualified Codes: J81.0 - Acute pulmonary edema (2) Sepsis: Qualified Codes: A41.9 - Sepsis, unspecified organism (3) Diabetes type 2, uncontrolled: Qualified Codes: E11.8 - Type 2 diabetes mellitus with unspecified complications; E11.65 - Type 2 diabetes mellitus with hyperglycemia Eryn Kee MD R1 Dec 10, 2016 08:58 Marly Hagen MD Dec 13, 2016 14:00
[2016-12-10] MEDS: SPIRONOLACTONE 25 MG TAB PO SCH (09:00)
[2016-12-10] MEDS ORDERED: LISINOPRIL 5 MG TAB PO SCH (09:00)
[2016-12-10] MEDS: DOCUSATE SODIUM 50 MG/SENNA 8.6 MG TAB PO SCH ×3 (09:00→20:20)
--- NOTE | 2016-12-10 09:11 | HHI.FPPN ---
Subjective Remarks Primary care note: Patient seen socially this morning at 0830 hrs., and 's niece at bedside. Patient is much more alert, conversive, and animated in conversation. Discussed the transition to the floor, physician discussed with Dr. Cote patient's clinical status and plans to transition to medical floor, also discussed with Dr. Hagen and resident team transitioning to [facility]. Looking toward the future, patient may well need rehabilitation, significant deconditioning over this past week at bedrest and with her serious comorbidities. Objective Vitals Vital Signs Date Time Temp Pulse Resp B/P (MAP) Pulse Ox O2 Delivery O2 Flow Rate FiO2 12/10/16 06:00 78 12/10/16 04:00 98.3 81 20 111/53 (72) 92 12/10/16 04:00 81 12/10/16 02:00 85 12/10/16 00:00 97.6 89 132/70 (90) 94 12/10/16 00:00 89 12/09/16 22:00 87 12/09/16 21:56 96 Nasal Cannula 1.00 12/09/16 20:00 101 12/09/16 20:00 97.4 101 161/83 (109) 96 12/09/16 18:00 95 12/09/16 16:00 98.3 91 20 146/70 (95) 97 12/09/16 16:00 91 12/09/16 14:00 95 12/09/16 12:00 92 12/09/16 12:00 97.3 92 18 136/63 (87) 99 12/09/16 10:00 98 12/09/16 09:45 99 Nasal Cannula 1.00 I/O 12/09/16 12/09/16 12/09/16 12/10/16 12/10/16 12/10/16 07:00 15:00 23:00 07:00 15:00 23:00 Intake Total 150 ml 301 ml 1150 ml Output Total 1900 ml 300 ml 900 ml Balance -1750 ml 301 ml 850 ml -900 ml Intake Oral 1000 ml IV Total 150 ml 301 ml 150 ml Output Urine Total 1900 ml 300 ml 900 ml # Bowel Movements 0 3 1 Result Diagram: 12/10/1643912/10/16 0440 Objective Remarks Vital signs noted. Patient is now extubated. Gen. appearance: Pleasant conversation, chart reviewed. A/P Assessment and Plan Clinical assessment: Presentation critically ill in [place] pulmonary edema, cardiomyopathy, exact etiology unclear, much improved ready for transition to medical floor. Discussed with Dr. Hagen and resident team transitioning to the floor, further treatment plan per resident team. Will see socially. Problem List: (1) Diabetes type 2, uncontrolled ICD Codes: E11.65 - Uncontrolled type 2 diabetes mellitus Status: Chronic (2) Left bundle branch block ICD Codes: I44.7 - Left bundle branch block Status: Chronic (3) Sepsis ICD Codes: A41.9 - Sepsis, unspecified organism Status: Acute (4) Respiratory failure ICD Codes: J96.90 - Respiratory failure, unspecified, unspecified whether with hypoxia or hypercapnia Status: Acute (5) Pulmonary edema ICD Codes: J81.1 - Chronic pulmonary edema Status: Acute (6) Metabolic acidemia ICD Codes: E87.2 - Acidosis Status: Acute (7) DKA (diabetic ketoacidoses) ICD Codes: E13.10 - Other specified diabetes mellitus with ketoacidosis without coma Status: Acute Problem Qualifiers (1) Sepsis: Qualified Codes: A41.9 - Sepsis, unspecified organism (2) Respiratory failure: Qualified Codes: J96.00 - Acute respiratory failure, unspecified whether with hypoxia or hypercapnia (3) Pulmonary edema: Qualified Codes: J81.0 - Acute pulmonary edema Nathanael Santoyo MD Dec 10, 2016 09:11
[2016-12-10] MEDS: INSULIN DETEMIR 100 UNITS/ML VIAL SQ SCH ×2 (09:50→20:24)
[2016-12-10] MEDS: THIAMINE INJ 100 MG in SODIUM CHLORIDE 0.9% INJ 100 ML IV SCH (09:50)
[2016-12-10] MEDS: POTASSIUM CHLORIDE 25 MEQ EFFERVESCENT TAB PO SCH ×2 (09:51→20:20)
[2016-12-10] MEDS: CARVEDILOL 3.125 MG TAB PO SCH ×2 (09:51→20:20)
[2016-12-10] MEDS: BUMETANIDE INJ 1 MG/4 ML VIAL IV PUSH SCH ×2 (09:51→20:21)
[2016-12-10] MEDS: ASPIRIN 81 MG CHEW TAB NG SCH (09:51)
[2016-12-10] MEDS: HEPARIN SODIUM - SQ 10,000 UNITS/ML VIAL SQ SCH ×2 (09:51→20:20)
[2016-12-10] MEDS: ALBUMIN 25% INJ 50 ML IV SCH ×2 (09:52→20:22)
--- NOTE | 2016-12-10 10:41 | PD.CARD.PN ---
Subjective Subjective Remarks No events overnight No chest pain/SOB Feels much better Objective Medications Current Medications Medications (Trade) Dose Ordered Sig/Ian Route Start Time Stop Time Status Last Admin Miscellaneous Information 1 Q361D XX 12/03/16 13:00 (Chlorhexidine 2% Cloth) Taper DAILY@04 TOP 12/04/16 04:00 11/30/17 03:59 12/10/16 04:00 (Chlorhexidine 2% Cloth) 3 pack UNSCH PRN TOP 12/03/16 13:00 (Pinky-Colace) 1 tab BID PO 12/03/16 21:00 12/09/16 20:38 (Milk Of Magnesia Liq) 30 ml Q12H PRN PO 12/03/16 13:00 (Senokot) 17.2 mg Q12H PRN PO 12/03/16 13:00 (Dulcolax Supp) 10 mg DAILY PRN RECTAL 12/03/16 13:00 (Lactulose Liq) 30 ml DAILY PRN PO 12/03/16 13:00 Piperacillin Sod/ Tazobactam Sod 100 ml @ 200 mls/hr Q6H IV 12/03/16 16:00 12/10/16 09:50 (Glucagon Inj) 1 mg UNSCH PRN OTHER 12/04/16 01:15 (D50w (Vial) Inj) 25 ml UNSCH PRN IV PUSH 12/04/16 08:00 12/07/16 20:37 (NovoLIN R SUPPLEMENTAL SCALE) 1 Q4HR SQ 12/04/16 08:00 12/10/16 08:00 (Brethine Inj) 1 mg UNSCH PRN SQ 12/04/16 09:15 (Synthroid) 100 mcg DAILY@0600 PO 12/05/16 06:00 12/10/16 06:00 (Heparin Inj) 5,000 units Q12HR SQ 12/04/16 21:00 12/10/16 09:51 (Levemir Inj) 20 units Q12HR SQ 12/05/16 21:00 12/10/16 09:50 Thiamine HCl 100 mg/Sodium Chloride 101 ml @ 101 mls/hr DAILY IV 12/05/16 12:45 12/10/16 09:50 (Duoneb Neb) 1 ampule Q6HR NEB INH 12/07/16 10:00 12/10/16 10:29 Albumin Human 50 ml @ 60 mls/hr Q12H IV 12/07/16 07:00 12/10/16 09:52 (K-Lyte Cl Eff) 25 meq Q12HR PO 12/07/16 09:00 12/10/16 09:51 (Aldactone) 25 mg BID@09,18 PO 12/07/16 09:00 12/09/16 16:59 (Aspirin Chew) 81 mg DAILY NG 12/08/16 09:00 12/10/16 09:51 (Coreg) 3.125 mg Q12HR PO 12/09/16 21:00 12/10/16 09:51 (Prinivil) 5 mg DAILY PO 12/10/16 09:00 12/10/16 09:50 (Bumex Inj) 1 mg Q12H IV PUSH 12/09/16 21:00 12/10/16 09:51 Vital Signs / I&O Vital Signs Date Time Temp Pulse Resp B/P (MAP) Pulse Ox O2 Delivery O2 Flow Rate FiO2 12/10/16 10:29 95 12/10/16 06:00 78 12/10/16 04:00 98.3 81 20 111/53 (72) 92 12/10/16 04:00 81 12/10/16 02:00 85 12/10/16 00:00 97.6 89 132/70 (90) 94 12/10/16 00:00 89 12/09/16 22:00 87 12/09/16 21:56 96 Nasal Cannula 1.00 12/09/16 20:00 101 12/09/16 20:00 97.4 101 161/83 (109) 96 12/09/16 18:00 95 12/09/16 16:00 98.3 91 20 146/70 (95) 97 12/09/16 16:00 91 12/09/16 14:00 95 12/09/16 12:00 92 12/09/16 12:00 97.3 92 18 136/63 (87) 99 I/O 12/09/16 12/09/16 12/09/16 12/10/16 12/10/16 12/10/16 07:00 15:00 23:00 07:00 15:00 23:00 Intake Total 150 ml 301 ml 1150 ml Output Total 1900 ml 300 ml 900 ml Balance -1750 ml 301 ml 850 ml -900 ml Intake Oral 1000 ml IV Total 150 ml 301 ml 150 ml Output Urine Total 1900 ml 300 ml 900 ml # Bowel Movements 0 3 1 Physical Exam GENERAL: NAD, awake and alert SKIN: Warm and dry. HEAD: Atraumatic. Normocephalic. EYES: Pupils equal and round. No scleral icterus. No injection or drainage. ENT: No nasal bleeding or discharge. Mucous membranes pink and moist. NECK: Trachea midline. No JVD. CARDIOVASCULAR: Regular rate and rhythm. RESPIRATORY: No accessory muscle use. Decreased breath sounds bilaterally GASTROINTESTINAL: Abdomen soft, non-tender, nondistended. Hepatic and splenic margins not palpable. MUSCULOSKELETAL: Extremities without clubbing, cyanosis, or edema. No obvious deformities. Right radial with ecchymosis, no hematoma, neurovascularly intact distally NEUROLOGICAL: No focal deficits Laboratory Laboratory Tests Test 12/10/16 04:40 White Blood Count 14.8 TH/MM3 Red Blood Count 5.14 MIL/MM3 Hemoglobin 12.4 GM/DL Hematocrit 38.7 % Mean Corpuscular Volume 75.3 FL Mean Corpuscular Hemoglobin 24.0 PG Mean Corpuscular Hemoglobin Concent 32.0 % Red Cell Distribution Width 18.4 % Platelet Count 341 TH/MM3 Mean Platelet Volume 8.2 FL Neutrophils (%) (Auto) 65.8 % Lymphocytes (%) (Auto) 18.4 % Monocytes (%) (Auto) 11.2 % Eosinophils (%) (Auto) 3.8 % Basophils (%) (Auto) 0.8 % Neutrophils # (Auto) 9.8 TH/MM3 Lymphocytes # (Auto) 2.7 TH/MM3 Monocytes # (Auto) 1.7 TH/MM3 Eosinophils # (Auto) 0.6 TH/MM3 Basophils # (Auto) 0.1 TH/MM3 CBC Comment DIFF FINAL Differential Comment Blood Urea Nitrogen 33 MG/DL Creatinine 0.95 MG/DL Random Glucose 115 MG/DL Total Protein 7.9 GM/DL Albumin 3.5 GM/DL Calcium Level 9.8 MG/DL Magnesium Level 2.7 MG/DL Alkaline Phosphatase 40 U/L Aspartate Amino Transf (AST/SGOT) 236 U/L Alanine Aminotransferase (ALT/SGPT) 471 U/L Total Bilirubin 1.2 MG/DL Sodium Level 141 MEQ/L Potassium Level 4.0 MEQ/L Chloride Level 99 MEQ/L Carbon Dioxide Level 30.2 MEQ/L Anion Gap 12 MEQ/L Estimat Glomerular Filtration Rate 58 ML/MIN Assessment and Plan Problem List: (1) Elevated troponin ICD Codes: R74.8 - Abnormal levels of other serum enzymes (2) Left ventricular dysfunction ICD Codes: I51.9 - Heart disease, unspecified (3) Respiratory failure ICD Codes: J96.90 - Respiratory failure, unspecified, unspecified whether with hypoxia or hypercapnia Status: Acute (4) Left bundle branch block ICD Codes: I44.7 - Left bundle branch block Status: Chronic (5) Unresponsive ICD Codes: R41.89 - Other symptoms and signs involving cognitive functions and awareness Status: Resolved (6) Pulmonary edema ICD Codes: J81.1 - Chronic pulmonary edema Status: Acute Assessment and Plan 1) Cardiac cath showing no significant CAD Mild CAD Con't ASA 2) New NICM EF 20-25% Still with elevated left sided pressures by RHC, con't diuresis Will start on Coreg Plan to start Entresto over Lisinopril, may need to stop Spirolactone while starting Will plan on Lifevest 3) Will plan on her following up with Dr. Carrera on discharge, as he is a family friend Repeat echo in 3 months, if EF low will consider ICD Problem Qualifiers (1) Respiratory failure: Qualified Codes: J96.00 - Acute respiratory failure, unspecified whether with hypoxia or hypercapnia (2) Pulmonary edema: Qualified Codes: J81.0 - Acute pulmonary edema Antolin Bean DO Dec 10, 2016 10:41
[2016-12-10] MEDS ORDERED: DEFIB EXTERNAL (10:48)
[2016-12-10] MEDS ORDERED: ACETAMINOPHEN 325 MG TAB PO PRN ×2 (15:15→15:30)
--- NOTE | 2016-12-10 17:48 | HHI.PR ---
Subjective Remarks 71 YO female with VDRF,DM,CMP Weaned to RA Alert, awake, follows commands had cardiac cath, no sig CAD at BS tolerates po Objective Vital Signs Vital Signs Date Time Temp Pulse Resp B/P (MAP) Pulse Ox O2 Delivery O2 Flow Rate FiO2 12/10/16 16:00 97.1 81 20 151/75 (100) 95 12/10/16 16:00 81 12/10/16 14:00 94 12/10/16 12:00 97.3 75 20 95/52 (66) 94 12/10/16 12:00 75 12/10/16 10:29 95 12/10/16 10:00 85 12/10/16 08:00 97.8 86 20 141/68 (92) 97 12/10/16 08:00 86 12/10/16 06:00 78 12/10/16 04:00 98.3 81 20 111/53 (72) 92 12/10/16 04:00 81 12/10/16 02:00 85 12/10/16 00:00 97.6 89 132/70 (90) 94 12/10/16 00:00 89 12/09/16 22:00 87 12/09/16 21:56 96 Nasal Cannula 1.00 12/09/16 20:00 101 12/09/16 20:00 97.4 101 161/83 (109) 96 12/09/16 18:00 95 I/O 12/09/16 12/09/16 12/09/16 12/10/16 12/10/16 12/10/16 07:00 15:00 23:00 07:00 15:00 23:00 Intake Total 150 ml 301 ml 1150 ml 251 ml 750 ml Output Total 1900 ml 300 ml 900 ml Balance -1750 ml 301 ml 850 ml -900 ml 251 ml 750 ml Intake Oral 1000 ml 750 ml IV Total 150 ml 301 ml 150 ml 251 ml Output Urine Total 1900 ml 300 ml 900 ml # Voids 2 # Bowel Movements 0 3 1 4 Result Diagram: 12/10/1643912/10/16439 Objective Remarks GENERAL: MBMN female on vent, sedated SKIN: Warm and dry. HEAD: Normocephalic. EYES: No scleral icterus. No injection or drainage. NECK: Supple, trachea midline. No JVD or lymphadenopathy. CARDIOVASCULAR: Regular rate and rhythm without murmurs, gallops, or rubs. RESPIRATORY: Breath sounds equal bilaterally. No accessory muscle use. basal rales GASTROINTESTINAL: Abdomen soft, non-tender, nondistended. MUSCULOSKELETAL: No cyanosis, or edema. BACK: Nontender without obvious deformity. No CVA tenderness. A/P Assessment and Plan VDRF, s/p extubation Pulm odema Rt infilt poss aspiration CMP DM Renal insuff PLAN: Change to PO abx in AM Monitor BS Wean Fi02 Bumex monitor lytes Stable from pul standpoint Available prn over weekend. David Henderson MD Dec 10, 2016 17:48
[2016-12-11] VITALS (27 sets, daily range): BP systolic 113–142; BP diastolic 55–77; PULSE 63–89; RESP 17–18; TEMP 97.6–98.2; O2SAT 94–97
[2016-12-11] MEDS: RESP: ALBUTEROL 2.5 MG/IPRATROPIUM 0.5 MG NEB (SCH) INH ×3 (03:07→17:17)
[2016-12-11] MEDS: INSULIN NovoLIN REGULAR SUPPLEMENTAL SCALE SQ SCH ×3 (04:00→09:31)
[2016-12-11] MEDS: CHLORHEXIDINE GLUCONATE 2 % 1 PACK (2 CLOTHS) TOP SCH (04:00)
[2016-12-11] MEDS: LEVOTHYROXINE SODIUM 100 MCG TAB PO SCH (04:53)
[2016-12-11] MEDS: PIPERACIL-TAZO 4.5 GM PREMIX 100 ML IV SCH (04:54)
[2016-12-11] MEDS: ALBUMIN 25% INJ 50 ML IV SCH ×2 (06:14→19:00)
[2016-12-11] MEDS: POTASSIUM CHLORIDE 25 MEQ EFFERVESCENT TAB PO SCH ×2 (08:55→20:51)
[2016-12-11] MEDS: INSULIN DETEMIR 100 UNITS/ML VIAL SQ SCH ×2 (08:55→20:52)
[2016-12-11] MEDS: ASPIRIN 81 MG CHEW TAB NG SCH (08:55)
[2016-12-11] MEDS: HEPARIN SODIUM - SQ 10,000 UNITS/ML VIAL SQ SCH ×2 (08:56→20:51)
[2016-12-11] MEDS: DOCUSATE SODIUM 50 MG/SENNA 8.6 MG TAB PO SCH ×2 (08:56→20:50)
[2016-12-11] MEDS: CARVEDILOL 3.125 MG TAB PO SCH ×2 (08:56→20:51)
[2016-12-11] MEDS: BUMETANIDE INJ 1 MG/4 ML VIAL IV PUSH SCH (08:56)
[2016-12-11 09:55] LABS: HEMOGLOBIN 11.8 GM/DL (11.6-15.3); MEAN CELL VOLUME 74.4 FL (80.0-100.0); MEAN CORPUSCULAR HEMOGLOBIN 25.7 PG (27.0-34.0); MEAN CORPUSCULAR HGB CONC 34.6 % (32.0-36.0); MEAN PLATELET VOLUME 7.9 FL (7.0-11.0); PLATELET COUNT 352 TH/MM3 (150-450); RED BLOOD COUNT 4.57 MIL/MM3 (4.00-5.30); RED CELL DISTRIBUTION WIDTH 18.2 % (11.6-17.2); WHITE BLOOD COUNT 15.9 TH/MM3 (4.0-11.0)
[2016-12-11] MEDS: THIAMINE INJ 100 MG in SODIUM CHLORIDE 0.9% INJ 100 ML IV SCH (10:06)
[2016-12-11 11:07] LABS: ALBUMIN 3.6 GM/DL (3.4-5.0); ALKALINE PHOSPHATASE 31 U/L (45-117); ALT (GPT) 230 U/L (10-53); AST (GOT) 53 U/L (15-37); BICARBONATE 27.5 MEQ/L (21.0-32.0); BLOOD UREA NITROGEN 37 MG/DL (7-18); CALCIUM 9.6 MG/DL (8.5-10.1); CHLORIDE 98 MEQ/L (98-107); CREATININE 1.09 MG/DL (0.50-1.00); GLOMERULAR FILTRATION RATE 49 ML/MIN (>89); GLUCOSE,RANDOM 238 MG/DL (74-106); SODIUM (NA) 136 MEQ/L (136-145); TOTAL BILIRUBIN ADULT 1.1 MG/DL (0.2-1.0); TOTAL PROTEIN 7.4 GM/DL (6.4-8.2)
--- NOTE | 2016-12-11 11:29 | HHI.FPPN ---
Subjective Remarks Patient is feeling better today from yesterday. Headache and dizziness have resolved. Patient states she gets lightheaded when she gets up quickly. Denies visual disturbance, heart palpitations, nausea/vomiting. States that PT has been getting her moving. (Eryn Kee MD R1) Objective Vitals Vital Signs Date Time Temp Pulse Resp B/P (MAP) Pulse Ox O2 Delivery O2 Flow Rate FiO2 12/11/16 10:15 95 21 12/11/16 08:00 Room Air 12/11/16 06:00 63 12/11/16 05:00 69 12/11/16 04:00 73 12/11/16 04:00 98.2 73 18 113/56 (75) 97 12/11/16 03:10 97 12/11/16 03:00 75 12/11/16 02:00 70 12/11/16 01:00 74 12/11/16 00:00 80 12/11/16 00:00 98.0 80 18 122/55 (77) 96 12/11/16 00:00 Room Air 12/10/16 23:00 81 12/10/16 22:00 83 12/10/16 21:00 84 12/10/16 20:52 94 21 12/10/16 20:00 Room Air 12/10/16 20:00 97.9 75 20 124/68 (86) 96 12/10/16 20:00 83 12/10/16 18:00 76 12/10/16 16:00 97.1 81 20 151/75 (100) 95 12/10/16 16:00 81 12/10/16 14:00 94 12/10/16 12:00 97.3 75 20 95/52 (66) 94 12/10/16 12:00 75 I/O 12/10/16 12/10/16 12/10/16 12/11/16 12/11/16 12/11/16 07:00 15:00 23:00 07:00 15:00 23:00 Intake Total 251 ml 1350 ml 650 ml Output Total 900 ml 900 ml Balance -900 ml 251 ml 1350 ml -250 ml Intake Oral 1250 ml 500 ml IV Total 251 ml 100 ml 150 ml Output Urine Total 900 ml 900 ml # Voids 2 # Bowel Movements 1 4 0 (Eryn Kee MD R1) Result Diagram: 12/11/1639 12/11/16938 Objective Remarks GENERAL: SKIN: Warm and dry. HEAD: Normocephalic. EYES: No scleral icterus. EOM intact. No injection or drainage. NECK: Supple, trachea midline. CARDIOVASCULAR: Regular rate and rhythm without murmurs, gallops, or rubs. RESPIRATORY: Breath sounds equal bilaterally. No accessory muscle use. GASTROINTESTINAL: Abdomen soft, non-tender, nondistended. MUSCULOSKELETAL: No cyanosis, or edema. (Eryn Kee MD R1) A/P Assessment and Plan Patient is a 71 y/o F w/hx of DM2 and chronic LBBB presenting for pulmonary edema and ensuing acute decompensation 7 days ago. Differential diagnosis includes hypoxia secondary to CHF exacerbation v seizure v sepsis Discharge Planning Patient accepted at [place]. Watch overnight after starting Entresto for adverse rxn, d/c to [place] tomorrow (Eryn Kee MD R1) Attending Attestation Patient seen and examined. Case reviewed and discussed with the resident team. Agree with plan of care as discussed with me and documented in the resident note. very shallow decubti seen on sacrum. several superficial lesions. no sign of infection (Marly Hagen MD) Problem List: (1) Pulmonary edema ICD Codes: J81.1 - Chronic pulmonary edema Status: Acute Plan: Right lower lobe pneumonia, probable aspiration Intubated by ED physician on admission due to AMS and hypoxia. Extubated 12/08/[address] Henderson who is following. CXR on 12/09 shows improvement in bases of lower lungs. NICM EF 20-25% - Cardiology following - Plan to start entresto tonight - Coreg 3.215 Q12H - bumex 1mg Q12H - Albumin 60 mls/hr - ASA 81 mg daily - Duonebs scheduled - Watch overnight after starting Entresto for adverse rxn (2) Headache ICD Codes: R51 - Headache Status: Resolved Plan: - Acetaminophen 650 mg Q6H PRN for headache (3) Left bundle branch block ICD Codes: I44.7 - Left bundle branch block Status: Chronic Plan: Patient has had no prior cardiac workup Troponin max 0.06. 2D Echo - EF 20-25%. Global hypokinesis. No RWMA. Chronic LBBB LDL 21, Trig and total cholesterol wnl. Cardiac cath showing no significant CAD Still with elevated left sided pressures by RHC Start coreg 3.125 mg Q12H Bumex 1 mg IV q12. Sprironolactone D/C'd Con't to monitor I/Os (4) Diabetes type 2, uncontrolled ICD Codes: E11.65 - Uncontrolled type 2 diabetes mellitus Status: Chronic Plan: Home meds: Sitagliptin (Januvia) 100 Mg Tab PO daily, Metformin ( Glucophage) 500 Mg Tab PO daily, Insulin Glargine Inj (Lantus Inj) 9 units A1C on 12/04 was 9.1 - low dose SSI (5) Hypothyroidism ICD Codes: E03.9 - Hypothyroidism Status: Chronic Plan: TSH normal on admission Continue Synthroid 100 mcg by mouth daily (6) FEN Status: Acute Plan: Fluids: 101 mls/hr Electrolytes: as needed Nutrition: Heart Healthy DVT: Heparin IV GI: IV protonix (Erny Kee MD R1) Problem Qualifiers (1) Pulmonary edema: Qualified Codes: J81.0 - Acute pulmonary edema (2) Diabetes type 2, uncontrolled: Qualified Codes: E11.8 - Type 2 diabetes mellitus with unspecified complications; E11.65 - Type 2 diabetes mellitus with hyperglycemia Eryn Kee MD R1 Dec 11, 2016 11:29 Marly Hagen MD Dec 13, 2016 14:01
[2016-12-11] MEDS: INSULIN ASPART SUPPLEMENTAL SCALE SQ SCH ×3 (12:31→20:58)
--- NOTE | 2016-12-11 15:51 | PD.CARD.PN ---
Subjective Subjective Remarks No events overnight No chest pain/SOB Feels much better Lifevest fitted and currently on Objective Medications Current Medications Medications (Trade) Dose Ordered Sig/Ian Route Start Time Stop Time Status Last Admin Miscellaneous Information 1 Q361D XX 12/03/16 13:00 (Chlorhexidine 2% Cloth) Taper DAILY@04 TOP 12/04/16 04:00 11/30/17 03:59 12/10/16 04:00 (Chlorhexidine 2% Cloth) 3 pack UNSCH PRN TOP 12/03/16 13:00 (Pinky-Colace) 1 tab BID PO 12/03/16 21:00 12/11/16 08:56 (Milk Of Magnesia Liq) 30 ml Q12H PRN PO 12/03/16 13:00 (Senokot) 17.2 mg Q12H PRN PO 12/03/16 13:00 (Dulcolax Supp) 10 mg DAILY PRN RECTAL 12/03/16 13:00 (Lactulose Liq) 30 ml DAILY PRN PO 12/03/16 13:00 (Glucagon Inj) 1 mg UNSCH PRN OTHER 12/04/16 01:15 (D50w (Vial) Inj) 25 ml UNSCH PRN IV PUSH 12/04/16 08:00 12/07/16 20:37 (Brethine Inj) 1 mg UNSCH PRN SQ 12/04/16 09:15 (Synthroid) 100 mcg DAILY@0600 PO 12/05/16 06:00 12/11/16 04:53 (Heparin Inj) 5,000 units Q12HR SQ 12/04/16 21:00 12/11/16 08:56 (Levemir Inj) 20 units Q12HR SQ 12/05/16 21:00 12/11/16 08:55 Thiamine HCl 100 mg/Sodium Chloride 101 ml @ 101 mls/hr DAILY IV 12/05/16 12:45 12/11/16 10:06 Albumin Human 50 ml @ 60 mls/hr Q12H IV 12/07/16 07:00 12/11/16 06:14 (K-Lyte Cl Eff) 25 meq Q12HR PO 12/07/16 09:00 12/11/16 08:55 (Aspirin Chew) 81 mg DAILY NG 12/08/16 09:00 12/11/16 08:55 (Coreg) 3.125 mg Q12HR PO 12/09/16 21:00 12/11/16 08:56 (Bumex Inj) 1 mg Q12H IV PUSH 12/09/16 21:00 12/11/16 08:56 (Entresto 24-26 Mg) 1 tab BID PO 12/11/16 21:00 (Tylenol) 650 mg Q6H PRN PO 12/10/16 15:30 12/14/16 15:29 (Duoneb Neb) 1 ampule Q6HR NEB INH 12/11/16 10:00 12/11/16 10:15 (NovoLOG SUPPLEMENTAL SCALE) 1 ACHS SLIDING SCALE SQ 12/11/16 12:00 12/11/16 12:31 Vital Signs / I&O Vital Signs Date Time Temp Pulse Resp B/P (MAP) Pulse Ox O2 Delivery O2 Flow Rate FiO2 12/11/16 13:00 78 12/11/16 12:05 97.6 75 18 137/64 (88) 97 12/11/16 12:00 76 12/11/16 11:00 73 12/11/16 10:15 95 21 12/11/16 10:00 72 12/11/16 09:00 74 12/11/16 08:00 Room Air 12/11/16 08:00 97.8 77 17 142/77 (98) 94 12/11/16 08:00 76 12/11/16 07:15 75 12/11/16 06:00 63 12/11/16 05:00 69 12/11/16 04:00 73 12/11/16 04:00 98.2 73 18 113/56 (75) 97 12/11/16 03:10 97 12/11/16 03:00 75 12/11/16 02:00 70 12/11/16 01:00 74 12/11/16 00:00 80 12/11/16 00:00 98.0 80 18 122/55 (77) 96 12/11/16 00:00 Room Air 12/10/16 23:00 81 12/10/16 22:00 83 12/10/16 21:00 84 12/10/16 20:52 94 21 12/10/16 20:00 Room Air 12/10/16 20:00 97.9 75 20 124/68 (86) 96 12/10/16 20:00 83 12/10/16 18:00 76 12/10/16 16:00 97.1 81 20 151/75 (100) 95 12/10/16 16:00 81 I/O 12/10/16 12/10/16 12/10/16 12/11/16 12/11/16 12/11/16 07:00 15:00 23:00 07:00 15:00 23:00 Intake Total 251 ml 1350 ml 650 ml 100 ml Output Total 900 ml 900 ml Balance -900 ml 251 ml 1350 ml -250 ml 100 ml Intake Oral 1250 ml 500 ml IV Total 251 ml 100 ml 150 ml 100 ml Output Urine Total 900 ml 900 ml # Voids 2 # Bowel Movements 1 4 0 Physical Exam GENERAL: NAD, awake and alert SKIN: Warm and dry. HEAD: Atraumatic. Normocephalic. EYES: Pupils equal and round. No scleral icterus. No injection or drainage. ENT: No nasal bleeding or discharge. Mucous membranes pink and moist. NECK: Trachea midline. No JVD. CARDIOVASCULAR: Regular rate and rhythm. RESPIRATORY: No accessory muscle use. CTA B/L GASTROINTESTINAL: Abdomen soft, non-tender, nondistended. Hepatic and splenic margins not palpable. MUSCULOSKELETAL: Extremities without clubbing, cyanosis, or edema. No obvious deformities. Right radial with ecchymosis, no hematoma, neurovascularly intact distally NEUROLOGICAL: No focal deficits Laboratory Laboratory Tests Test 12/11/16 09:39 White Blood Count 15.9 TH/MM3 Red Blood Count 4.57 MIL/MM3 Hemoglobin 11.8 GM/DL Hematocrit 34.0 % Mean Corpuscular Volume 74.4 FL Mean Corpuscular Hemoglobin 25.7 PG Mean Corpuscular Hemoglobin Concent 34.6 % Red Cell Distribution Width 18.2 % Platelet Count 352 TH/MM3 Mean Platelet Volume 7.9 FL Blood Urea Nitrogen 37 MG/DL Creatinine 1.09 MG/DL Random Glucose 238 MG/DL Total Protein 7.4 GM/DL Albumin 3.6 GM/DL Calcium Level 9.6 MG/DL Alkaline Phosphatase 31 U/L Aspartate Amino Transf (AST/SGOT) 53 U/L Alanine Aminotransferase (ALT/SGPT) 230 U/L Total Bilirubin 1.1 MG/DL Sodium Level 136 MEQ/L Potassium Level 3.9 MEQ/L Chloride Level 98 MEQ/L Carbon Dioxide Level 27.5 MEQ/L Anion Gap 11 MEQ/L Estimat Glomerular Filtration Rate 49 ML/MIN Assessment and Plan Problem List: (1) Elevated troponin ICD Codes: R74.8 - Abnormal levels of other serum enzymes (2) Left ventricular dysfunction ICD Codes: I51.9 - Heart disease, unspecified (3) Respiratory failure ICD Codes: J96.90 - Respiratory failure, unspecified, unspecified whether with hypoxia or hypercapnia Status: Acute (4) Left bundle branch block ICD Codes: I44.7 - Left bundle branch block Status: Chronic (5) Unresponsive ICD Codes: R41.89 - Other symptoms and signs involving cognitive functions and awareness Status: Resolved (6) Pulmonary edema ICD Codes: J81.1 - Chronic pulmonary edema Status: Acute Assessment and Plan 1) Cardiac cath showing no significant CAD Mild CAD Con't ASA 2) New NICM EF 20-25% Con't Coreg Start Entresto tonight, watch for hypotension Lifevest placed Appears well compensated, will change Bumex to 1mg daily 3) Will plan on her following up with Dr. Carrera on discharge, as he is a family friend Repeat echo in 3 months, if EF low will consider ICD Problem Qualifiers (1) Respiratory failure: Qualified Codes: J96.00 - Acute respiratory failure, unspecified whether with hypoxia or hypercapnia (2) Pulmonary edema: Qualified Codes: J81.0 - Acute pulmonary edema Antolin Bean DO Dec 11, 2016 15:51
[2016-12-11] MEDS ORDERED: RESP: ALBUTEROL 2.5 MG/IPRATROPIUM 0.5 MG NEB (PRN) INH (19:30)
[2016-12-11] MEDS: SACUBITRIL/VALSARTAN 24 MG-26 MG TAB PO SCH (20:50)
[2016-12-11 22:40] LABS: ALBUMIN 3.6 GM/DL (3.4-5.0); AST (GOT) 38 U/L (15-37); BICARBONATE 27.9 MEQ/L (21.0-32.0); BLOOD UREA NITROGEN 36 MG/DL (7-18); CALCIUM 9.4 MG/DL (8.5-10.1); CHLORIDE 100 MEQ/L (98-107); CREATININE 0.94 MG/DL (0.50-1.00); GLOMERULAR FILTRATION RATE 59 ML/MIN (>89); GLUCOSE,RANDOM 211 MG/DL (74-106); SODIUM (NA) 138 MEQ/L (136-145)
[2016-12-11 22:41] LABS: ALT (GPT) 182 U/L (10-53)
[2016-12-11 22:43] LABS: ALKALINE PHOSPHATASE 30 U/L (45-117); TOTAL BILIRUBIN ADULT 0.8 MG/DL (0.2-1.0); TOTAL PROTEIN 7.2 GM/DL (6.4-8.2)
[2016-12-12] VITALS (20 sets, daily range): BP systolic 115–153; BP diastolic 66–86; PULSE 68–86; RESP 18–20; TEMP 97.8–98.3; O2SAT 94–98
[2016-12-12] MEDS: CHLORHEXIDINE GLUCONATE 2 % 1 PACK (2 CLOTHS) TOP SCH (04:00)
[2016-12-12] MEDS: LEVOTHYROXINE SODIUM 100 MCG TAB PO SCH (05:10)
[2016-12-12 07:17] LABS: BASOPHIL # 0.1 TH/MM3 (0-0.2); BASOPHIL % 0.6 % (0.0-2.0); EOSINOPHIL # 1.2 TH/MM3 (0-0.4); EOSINOPHIL % 7.5 % (0.0-4.0); HEMATOCRIT 38.3 % (35.0-46.0); HEMOGLOBIN 12.4 GM/DL (11.6-15.3); LYMPH % 18.1 % (9.0-44.0); LYMPHOCYTE # 2.9 TH/MM3 (1.0-4.8); MEAN CELL VOLUME 75.1 FL (80.0-100.0); MEAN CORPUSCULAR HEMOGLOBIN 24.2 PG (27.0-34.0); MEAN CORPUSCULAR HGB CONC 32.3 % (32.0-36.0); MEAN PLATELET VOLUME 7.9 FL (7.0-11.0); MONO % 10.6 % (0.0-8.0); MONOCYTE # 1.7 TH/MM3 (0-0.9); NEUT % 63.2 % (16.0-70.0); PLATELET COUNT 387 TH/MM3 (150-450); WHITE BLOOD COUNT 15.8 TH/MM3 (4.0-11.0)
[2016-12-12] MEDS: INSULIN ASPART SUPPLEMENTAL SCALE SQ SCH ×3 (08:00→16:17)
[2016-12-12] MEDS: CARVEDILOL 3.125 MG TAB PO SCH (08:38)
[2016-12-12] MEDS: SACUBITRIL/VALSARTAN 24 MG-26 MG TAB PO SCH (08:38)
[2016-12-12] MEDS: ASPIRIN 81 MG CHEW TAB NG SCH (08:38)
[2016-12-12] MEDS: HEPARIN SODIUM - SQ 10,000 UNITS/ML VIAL SQ SCH (08:39)
[2016-12-12] MEDS: DOCUSATE SODIUM 50 MG/SENNA 8.6 MG TAB PO SCH (08:39)
[2016-12-12] MEDS: POTASSIUM CHLORIDE 25 MEQ EFFERVESCENT TAB PO SCH (08:39)
[2016-12-12] MEDS: INSULIN DETEMIR 100 UNITS/ML VIAL SQ SCH (08:40)
[2016-12-12] MEDS ORDERED: BUMETANIDE 1 MG TAB PO SCH (09:00)
--- NOTE | 2016-12-12 13:17 | PD.CARD.PN ---
Subjective Subjective Remarks No events overnight No chest pain/SOB Feels much better Lifevest fitted and currently on Objective Medications Current Medications Medications (Trade) Dose Ordered Sig/Ian Route Start Time Stop Time Status Last Admin Miscellaneous Information 1 Q361D XX 12/03/16 13:00 (Chlorhexidine 2% Cloth) Taper DAILY@04 TOP 12/04/16 04:00 11/30/17 03:59 12/10/16 04:00 (Chlorhexidine 2% Cloth) 3 pack UNSCH PRN TOP 12/03/16 13:00 (Pinky-Colace) 1 tab BID PO 12/03/16 21:00 12/12/16 08:39 (Milk Of Magnesia Liq) 30 ml Q12H PRN PO 12/03/16 13:00 (Senokot) 17.2 mg Q12H PRN PO 12/03/16 13:00 (Dulcolax Supp) 10 mg DAILY PRN RECTAL 12/03/16 13:00 (Lactulose Liq) 30 ml DAILY PRN PO 12/03/16 13:00 (Glucagon Inj) 1 mg UNSCH PRN OTHER 12/04/16 01:15 (D50w (Vial) Inj) 25 ml UNSCH PRN IV PUSH 12/04/16 08:00 12/07/16 20:37 (Synthroid) 100 mcg DAILY@0600 PO 12/05/16 06:00 12/12/16 05:10 (Heparin Inj) 5,000 units Q12HR SQ 12/04/16 21:00 12/12/16 08:39 (Levemir Inj) 20 units Q12HR SQ 12/05/16 21:00 12/12/16 08:40 (K-Lyte Cl Eff) 25 meq Q12HR PO 12/07/16 09:00 12/12/16 08:39 (Aspirin Chew) 81 mg DAILY NG 12/08/16 09:00 12/12/16 08:38 (Coreg) 3.125 mg Q12HR PO 12/09/16 21:00 12/12/16 08:38 (Entresto 24-26 Mg) 1 tab BID PO 12/11/16 21:00 12/12/16 08:38 (Tylenol) 650 mg Q6H PRN PO 12/10/16 15:30 12/14/16 15:29 (NovoLOG SUPPLEMENTAL SCALE) 1 ACHS SLIDING SCALE SQ 12/11/16 12:00 12/12/16 12:00 (Bumetanide) 1 mg DAILY PO 12/12/16 09:00 12/12/16 08:38 (Duoneb Neb) 1 ampule Q6HR NEB PRN INH 12/11/16 19:30 Vital Signs / I&O Vital Signs Date Time Temp Pulse Resp B/P (MAP) Pulse Ox O2 Delivery O2 Flow Rate FiO2 12/12/16 11:30 97.8 73 20 136/66 (89) 98 12/12/16 08:30 98.2 74 20 123/73 (90) 97 12/12/16 08:30 97 Room Air 12/12/16 07:01 72 12/12/16 06:00 73 12/12/16 05:00 76 12/12/16 04:00 98.0 78 18 153/86 (108) 96 12/12/16 04:00 78 12/12/16 03:00 81 12/12/16 02:00 75 12/12/16 01:00 81 12/12/16 00:00 76 12/12/16 00:00 98.3 76 18 126/69 (88) 96 12/11/16 23:00 84 12/11/16 22:00 89 12/11/16 21:00 83 12/11/16 20:00 Room Air 12/11/16 20:00 85 12/11/16 20:00 98.1 85 18 136/67 (90) 97 12/11/16 18:00 80 12/11/16 17:00 78 12/11/16 16:00 76 12/11/16 15:20 98.2 77 18 126/56 (79) 96 12/11/16 15:00 75 12/11/16 14:00 76 I/O 12/11/16 12/11/16 12/11/16 12/12/16 12/12/16 12/12/16 07:00 15:00 23:00 07:00 15:00 23:00 Intake Total 650 ml 100 ml 360 ml 480 ml Output Total 900 ml 600 ml 800 ml Balance -250 ml 100 ml -240 ml -320 ml Intake Oral 500 ml 360 ml 480 ml IV Total 150 ml 100 ml Output Urine Total 900 ml 600 ml 800 ml # Voids 2 # Bowel Movements 0 1 0 Physical Exam GENERAL: NAD, awake and alert SKIN: Warm and dry. HEAD: Atraumatic. Normocephalic. EYES: Pupils equal and round. No scleral icterus. No injection or drainage. ENT: No nasal bleeding or discharge. Mucous membranes pink and moist. NECK: Trachea midline. No JVD. CARDIOVASCULAR: Regular rate and rhythm. RESPIRATORY: No accessory muscle use. CTA B/L GASTROINTESTINAL: Abdomen soft, non-tender, nondistended. Hepatic and splenic margins not palpable. MUSCULOSKELETAL: Extremities without clubbing, cyanosis, or edema. No obvious deformities. Right radial with ecchymosis, no hematoma, neurovascularly intact distally NEUROLOGICAL: No focal deficits Laboratory Laboratory Tests Test 12/11/16 21:55 12/12/16 06:35 Blood Urea Nitrogen 36 MG/DL Creatinine 0.94 MG/DL Random Glucose 211 MG/DL Total Protein 7.2 GM/DL Albumin 3.6 GM/DL Calcium Level 9.4 MG/DL Alkaline Phosphatase 30 U/L Aspartate Amino Transf (AST/SGOT) 38 U/L Alanine Aminotransferase (ALT/SGPT) 182 U/L Total Bilirubin 0.8 MG/DL Sodium Level 138 MEQ/L Potassium Level 3.8 MEQ/L Chloride Level 100 MEQ/L Carbon Dioxide Level 27.9 MEQ/L Anion Gap 10 MEQ/L Estimat Glomerular Filtration Rate 59 ML/MIN White Blood Count 15.8 TH/MM3 Red Blood Count 5.10 MIL/MM3 Hemoglobin 12.4 GM/DL Hematocrit 38.3 % Mean Corpuscular Volume 75.1 FL Mean Corpuscular Hemoglobin 24.2 PG Mean Corpuscular Hemoglobin Concent 32.3 % Red Cell Distribution Width 18.0 % Platelet Count 387 TH/MM3 Mean Platelet Volume 7.9 FL Neutrophils (%) (Auto) 63.2 % Lymphocytes (%) (Auto) 18.1 % Monocytes (%) (Auto) 10.6 % Eosinophils (%) (Auto) 7.5 % Basophils (%) (Auto) 0.6 % Neutrophils # (Auto) 10.0 TH/MM3 Lymphocytes # (Auto) 2.9 TH/MM3 Monocytes # (Auto) 1.7 TH/MM3 Eosinophils # (Auto) 1.2 TH/MM3 Basophils # (Auto) 0.1 TH/MM3 CBC Comment DIFF FINAL Differential Comment Assessment and Plan Problem List: (1) Elevated troponin ICD Codes: R74.8 - Abnormal levels of other serum enzymes (2) Left ventricular dysfunction ICD Codes: I51.9 - Heart disease, unspecified (3) Respiratory failure ICD Codes: J96.90 - Respiratory failure, unspecified, unspecified whether with hypoxia or hypercapnia Status: Acute (4) Left bundle branch block ICD Codes: I44.7 - Left bundle branch block Status: Chronic (5) Unresponsive ICD Codes: R41.89 - Other symptoms and signs involving cognitive functions and awareness Status: Resolved (6) Pulmonary edema ICD Codes: J81.1 - Chronic pulmonary edema Status: Acute Assessment and Plan 1) Cardiac cath showing no significant CAD Mild CAD Con't ASA 2) New NICM EF 20-25% Con't Coreg/Entresto will check on grubbs of Entresto, if too expensive will call Dr. Carrera to change to MALICK-I/ARB Lifevest placed Appears well compensated, Bumex to 1mg daily 3) Will plan on her following up with Dr. Carrera on discharge, as he is a family friend Repeat echo in 3 months, if EF low will consider ICD 4) Cardiovascularly stable for rehab today Problem Qualifiers (1) Respiratory failure: Qualified Codes: J96.00 - Acute respiratory failure, unspecified whether with hypoxia or hypercapnia (2) Pulmonary edema: Qualified Codes: J81.0 - Acute pulmonary edema Antolin Bean DO Dec 12, 2016 13:17
--- NOTE | 2016-12-12 13:39 | HHI.FPPN ---
Subjective Remarks Patient states she feels stronger today. States that she has the beginnings of a sacral ulcer on her lower back that she wants us to check. The site feels numb. Cannot stand for more than half a minute due to weakness. Denies chest pain, shortness of breath, or lightheadedness; no other acute complaints. (Eryn Kee MD R1) Objective Vitals Vital Signs Date Time Temp Pulse Resp B/P (MAP) Pulse Ox O2 Delivery O2 Flow Rate FiO2 12/12/16 13:01 70 12/12/16 12:00 75 12/12/16 11:30 97.8 73 20 136/66 (89) 98 12/12/16 11:00 72 12/12/16 10:00 72 12/12/16 09:00 78 12/12/16 08:30 98.2 74 20 123/73 (90) 97 12/12/16 08:30 97 Room Air 12/12/16 08:00 68 12/12/16 07:01 72 12/12/16 06:00 73 12/12/16 05:00 76 12/12/16 04:00 98.0 78 18 153/86 (108) 96 12/12/16 04:00 78 12/12/16 03:00 81 12/12/16 02:00 75 12/12/16 01:00 81 12/12/16 00:00 76 12/12/16 00:00 98.3 76 18 126/69 (88) 96 12/11/16 23:00 84 12/11/16 22:00 89 12/11/16 21:00 83 12/11/16 20:00 Room Air 12/11/16 20:00 85 12/11/16 20:00 98.1 85 18 136/67 (90) 97 12/11/16 18:00 80 12/11/16 17:00 78 12/11/16 16:00 76 12/11/16 15:20 98.2 77 18 126/56 (79) 96 12/11/16 15:00 75 12/11/16 14:00 76 I/O 12/11/16 12/11/16 12/11/16 12/12/16 12/12/16 12/12/16 07:00 15:00 23:00 07:00 15:00 23:00 Intake Total 650 ml 100 ml 360 ml 480 ml Output Total 900 ml 600 ml 800 ml Balance -250 ml 100 ml -240 ml -320 ml Intake Oral 500 ml 360 ml 480 ml IV Total 150 ml 100 ml Output Urine Total 900 ml 600 ml 800 ml # Voids 2 # Bowel Movements 0 1 0 (Eryn Kee MD R1) Result Diagram: 12/12/16 0635 12/11/162154 Objective Remarks GENERAL: SKIN: Warm and dry. At the edge of the lower sacrum, 3 inch area of superficial skin breakdown with surrounding erythema noted. No draining of fluid or bleeding. HEAD: Normocephalic. EYES: No scleral icterus. EOM intact. No injection or drainage. NECK: Supple, trachea midline. CARDIOVASCULAR: Regular rate and rhythm without murmurs, gallops, or rubs. Lifevest in place RESPIRATORY: Breath sounds equal bilaterally. No accessory muscle use. GASTROINTESTINAL: Abdomen soft, non-tender, nondistended. MUSCULOSKELETAL: No cyanosis, or edema. (Eryn Kee MD R1) A/P Assessment and Plan Patient is a 71 y/o F w/hx of DM2 and chronic LBBB presenting for pulmonary edema and ensuing acute decompensation 7 days ago. Differential diagnosis includes hypoxia secondary to CHF exacerbation v seizure v sepsis Discharge Planning Patient accepted at [facility]. Medically cleared for D/C today (Eryn Kee MD R1) Attending Attestation Patient seen and examined. Case reviewed and discussed with the resident team. Agree with plan of care as discussed with me and documented in the resident note. happy she can go to [facility]. She is ready for the next step (Marly Hagen MD) Problem List: (1) Pulmonary edema ICD Codes: J81.1 - Chronic pulmonary edema Status: Acute Plan: Intubated by ED physician on admission due to AMS and hypoxia. Extubated 12/08/16 Secondary to right lower lobe pneumonia, probable aspiration Improvement today in lung exam and weakness - Cardiology following - Life vest placed - Con't Entresto - Coreg 3.215 Q12H - bumex 1mg Q12H - ASA 81 mg daily - D/C duonebs - Repeat echo in 3 months, F/u with cardiology (2) Left bundle branch block ICD Codes: I44.7 - Left bundle branch block Status: Chronic Plan: Patient has had no prior cardiac workup Troponin max 0.06. 2D Echo - EF 20-25%. Global hypokinesis. No RWMA. Chronic LBBB Lipid panel wnl. Cardiac cath showing no significant CAD See above plan, monitor I/Os (3) Diabetes type 2, uncontrolled ICD Codes: E11.65 - Uncontrolled type 2 diabetes mellitus Status: Chronic Plan: Home meds: Sitagliptin (Januvia) 100 Mg Tab PO daily, Metformin ( Glucophage) 500 Mg Tab PO daily, Insulin Glargine Inj (Lantus Inj) 9 units A1C on 12/04 was 9.1 Restart home meds (4) Hypothyroidism ICD Codes: E03.9 - Hypothyroidism Status: Chronic Plan: TSH normal on admission Continue Synthroid 100 mcg by mouth daily (5) FEN Status: Acute Plan: Fluids: 101 mls/hr Electrolytes: as needed Nutrition: Heart Healthy DVT: Heparin IV GI: IV protonix (Eryn Kee MD R1) Problem Qualifiers (1) Pulmonary edema: Qualified Codes: J81.0 - Acute pulmonary edema (2) Diabetes type 2, uncontrolled: Qualified Codes: E11.8 - Type 2 diabetes mellitus with unspecified complications; E11.65 - Type 2 diabetes mellitus with hyperglycemia Eryn Kee MD R1 Dec 12, 2016 13:39 Marly Hagen MD Dec 13, 2016 14:02
[2016-12-12] MEDS ORDERED: BUME1TAB PO (15:34)
[2016-12-12] MEDS ORDERED: ASPI81CH25 NG (15:34)
[2016-12-12] MEDS ORDERED: CARV3.125 PO (15:34)
[2016-12-12] MEDS ORDERED: SACU1TAB PO (15:34)
--- NOTE | 2016-12-12 15:39 | HHI.DCPOC ---
Discharge Care Plan Diagnosis: (1) Systolic heart failure (2) Syncope Goals to Promote Your Health * To prevent worsening of your condition and complications, f/u with cardiology and PCP, take your medications as directed, con't Lifevest as directed * To maintain your health at the optimal level, eat a mediterranean diet, take your medications, follow up with your doctors, exercise as tolerated * Plan on repeat cardiac echo in 3 months Directions to Meet Your Goals Take your medications as prescribed Follow your dietary instruction Follow activity as directed Keep your appointments as scheduled Take your immunizations and boosters as scheduled If your symptoms worsen call your PCP, if no PCP go to Urgent Care Center or Emergency Room Smoking is Dangerous to Your Health. Avoid second hand smoke Call the 24-hour hour crisis hotline for domestic abuse at Eyrn Kee MD R1 Dec 12, 2016 15:39
--- NOTE | 2016-12-12 15:39 | HHI.DCPOC ---
Discharge Care Plan Diagnosis: (1) Systolic heart failure (2) Syncope Goals to Promote Your Health * To prevent worsening of your condition and complications, f/u with cardiology and PCP, take your medications as directed, con't Lifevest as directed * To maintain your health at the optimal level, eat a mediterranean diet, take your medications, follow up with your doctors, exercise as tolerated * Plan on repeat cardiac echo in 3 months Directions to Meet Your Goals Take your medications as prescribed Follow your dietary instruction Follow activity as directed Keep your appointments as scheduled Take your immunizations and boosters as scheduled If your symptoms worsen call your PCP, if no PCP go to Urgent Care Center or Emergency Room Smoking is Dangerous to Your Health. Avoid second hand smoke Call the 24-hour hour crisis hotline for domestic abuse at Eryn Kee MD R1 Dec 12, 2016 15:39
--- NOTE | 2016-12-12 15:39 | HHI.DCPOC ---
Discharge Care Plan Diagnosis: (1) Systolic heart failure (2) Syncope Goals to Promote Your Health * To prevent worsening of your condition and complications, f/u with cardiology and PCP, take your medications as directed, con't Lifevest as directed * To maintain your health at the optimal level, eat a mediterranean diet, take your medications, follow up with your doctors, exercise as tolerated * Plan on repeat cardiac echo in 3 months Directions to Meet Your Goals Take your medications as prescribed Follow your dietary instruction Follow activity as directed Keep your appointments as scheduled Take your immunizations and boosters as scheduled If your symptoms worsen call your PCP, if no PCP go to Urgent Care Center or Emergency Room Smoking is Dangerous to Your Health. Avoid second hand smoke Call the 24-hour hour crisis hotline for domestic abuse at Eryn Kee MD R1 Dec 12, 2016 15:39
--- NOTE | 2016-12-12 15:46 | HHI.DS ---
Discharge Summary Admission Date Dec 03, 2016 at 12:37 Discharge Date: Dec 12, 2016 Admitting Diagnosis respiratory failure (1) Pulmonary edema Plan: Right lower lobe pneumonia, probable aspiration Intubated by ED physician on admission due to AMS and hypoxia. Extubated 12/08/[address] Henderson who is following. CXR on 12/09 shows improvement in bases of lower lungs. NICM EF 20-25% - Cardiology following - Plan to start entresto tonight - Coreg 3.215 Q12H - bumex 1mg Q12H - Albumin 60 mls/hr - ASA 81 mg daily - Duonebs scheduled - Watch overnight after starting Entresto for adverse rxn ICD Codes: J81.1 - Chronic pulmonary edema Status: Acute (2) Headache Plan: - Acetaminophen 650 mg Q6H PRN for headache ICD Codes: R51 - Headache Status: Resolved (3) Left bundle branch block Plan: Patient has had no prior cardiac workup Troponin max 0.06. 2D Echo - EF 20-25%. Global hypokinesis. No RWMA. Chronic LBBB LDL 21, Trig and total cholesterol wnl. Cardiac cath showing no significant CAD Still with elevated left sided pressures by RHC Start coreg 3.125 mg Q12H Bumex 1 mg IV q12. Sprironolactone D/C'd Con't to monitor I/Os ICD Codes: I44.7 - Left bundle branch block Status: Chronic (4) Diabetes type 2, uncontrolled Plan: Home meds: Sitagliptin (Januvia) 100 Mg Tab PO daily, Metformin ( Glucophage) 500 Mg Tab PO daily, Insulin Glargine Inj (Lantus Inj) 9 units A1C on 12/04 was 9.1 - low dose SSI ICD Codes: E11.65 - Uncontrolled type 2 diabetes mellitus Status: Chronic (5) Hypothyroidism Plan: TSH normal on admission Continue Synthroid 100 mcg by mouth daily ICD Codes: E03.9 - Hypothyroidism Status: Chronic (6) FEN Plan: Fluids: 101 mls/hr Electrolytes: as needed Nutrition: Heart Healthy DVT: Heparin IV GI: IV protonix [facility] Pulmonology Hospitalist CBC/BMP: 12/12/16 0635 12/11/16 2155 Significant Findings Laboratory Tests Test 12/10/16 04:40 12/11/16 09:39 12/11/16 21:55 12/12/16 06:35 White Blood Count 14.8 TH/MM3 (4.0-11.0) 15.9 TH/MM3 (4.0-11.0) 15.8 TH/MM3 (4.0-11.0) Mean Corpuscular Volume 75.3 FL (80.0-100.0) 74.4 FL (80.0-100.0) 75.1 FL (80.0-100.0) Mean Corpuscular Hemoglobin 24.0 PG (27.0-34.0) 25.7 PG (27.0-34.0) 24.2 PG (27.0-34.0) Red Cell Distribution Width 18.4 % (11.6-17.2) 18.2 % (11.6-17.2) 18.0 % (11.6-17.2) Monocytes (%) (Auto) 11.2 % (0.0-8.0) 10.6 % (0.0-8.0) Neutrophils # (Auto) 9.8 TH/MM3 (1.8-7.7) 10.0 TH/MM3 (1.8-7.7) Monocytes # (Auto) 1.7 TH/MM3 (0-0.9) 1.7 TH/MM3 (0-0.9) Eosinophils # (Auto) 0.6 TH/MM3 (0-0.4) 1.2 TH/MM3 (0-0.4) Blood Urea Nitrogen 33 MG/DL (7-18) 37 MG/DL (7-18) 36 MG/DL (7-18) Random Glucose 115 MG/DL (74-106) 238 MG/DL (74-106) 211 MG/DL (74-106) Magnesium Level 2.7 MG/DL (1.5-2.5) Alkaline Phosphatase 40 U/L (45-117) 31 U/L (45-117) 30 U/L (45-117) Aspartate Amino Transf (AST/SGOT) 236 U/L (15-37) 53 U/L (15-37) 38 U/L (15-37) Alanine Aminotransferase (ALT/SGPT) 471 U/L (10-53) 230 U/L (10-53) 182 U/L (10-53) Total Bilirubin 1.2 MG/DL (0.2-1.0) 1.1 MG/DL (0.2-1.0) Estimat Glomerular Filtration Rate 58 ML/MIN (>89) 49 ML/MIN (>89) 59 ML/MIN (>89) Hematocrit 34.0 % (35.0-46.0) Creatinine 1.09 MG/DL (0.50-1.00) Eosinophils (%) (Auto) 7.5 % (0.0-4.0) PE at Discharge GENERAL: SKIN: Warm and dry. At the edge of the lower sacrum, 3 inch area of superficial skin breakdown with surrounding erythema noted. No draining of fluid or bleeding. HEAD: Normocephalic. EYES: No scleral icterus. EOM intact. No injection or drainage. NECK: Supple, trachea midline. CARDIOVASCULAR: Regular rate and rhythm without murmurs, gallops, or rubs. RESPIRATORY: Breath sounds equal bilaterally. No accessory muscle use. GASTROINTESTINAL: Abdomen soft, non-tender, nondistended. MUSCULOSKELETAL: No cyanosis, or edema. Hospital Course The patient is a 71-year-old female with a past medical history of hypertension , diabetes mellitus, hypothyroidism presented to the ED post-syncope on 12/03. Episode took place at Dr. Fernandez's, where patient went for evaluation of diabetic neuropathy.There is no history of any witnessed seizures. When she was brought in to [place] via ambulance she had some right sided weakness with rightward gaze and hypoxia (PO2 sats in 80s). Her GCS declined to 3 so she was intubated emergently for airway protection. STEMI alert and stroke alert were called; however, the patient was found to have an old left bundle branch block and did not qualify as a TPA candidate as she was moving all extremities post intubation. Her ABG post intubation showed ph of 7.27, CO2 38, PA02 70, bicarb 17, saturation 90% on PRVC mode with rate 14, tidal volume 500, ITIME 1.0 , PEEP 5, 100% FIO2. Chest x-ray post intubation showed diffuse pulmonary consolidation. Due to her syncopal episode she had a CT scan of the brain which showed no acute findings. CTA of the neck showed 60% narrowing due to an eccentric calcification in the left carotid bulb. CTA of the brain showed absent flow in the right A1 segment with patent anterior communicating artery providing flow to the A2 segment and questionable 2 to 3 mm aneurysm in the right middle cranial fossa off a branch vessel of the right MCA territory. Her laboratory data was significant for hyperglycemia, her blood sugar was 455 on point of care and 453 on the CMP. The patient was given regular insulin 7 units and will be on insulin drip per DKA protocol. Other significant labs showed leukocytosis with WBC 20.3 and elevated BNP of 547. The patient was seen by cardiology and echocardiogram was ordered. She was given Vancomycin, cefepime and azithromycin in the ED. 12/04 Echo showed EF 20-25%. Anion-gap closed so she was transitioned off insulin drip. She became hypotensive so levophed was started. 12/05 MRI brain negative for stroke. MRA negative for aneurysm. EEG with slowing but no seizure. Agitated off sedation. Started on Precedex for sedation. Sputum cultures grew Enterobacter. Bumex infusion started. After showing improvement in mental status, patient was extubated on 12/09. PO BP meds were started and plans were made to transition to medical floor w/ rehabilitation. [facility] planned to accept patient once medically cleared. Patient was started on Entresto (over Lisinopril) and monitored overnight for any adverse effects. Besides weakness that limited her ability to stand without assistance, she was cleared by cardiology and medicine for rehab. She was D[facility] and referred for f/u with cardiology Dr. Carrera and PCP within a week. Plan for repeat echo in 3 months per cardiology recommendations. Pt Condition on Discharge: Stable Discharge Disposition: Trnsfr to Other Facility Discharge Instructions DIET: Follow Instructions for: Heart Healthy Diet Activities you can perform: Non Weight Bearing Other Activity Instructions: Per PT assessment, pt instructed not to get up from bed or chair independently. Follow up Referrals: Cardiology - 1 Week with Earl Carrera MD PCP Follow-up - 1 Week New Medications: Defibrillator Jacket (Defibrillator Jacket) 1 Ea Device EA EXTERNAL ONCE for Cardiomyopathy, #1 Energy = 150 Joules; VT Threshold = 150 BPM; VF Threshold = 200 BPM Use up to 90 days only Aspirin (Aspirin Low Strength) 81 Mg Chew 81 MG NG DAILY, #30 EA Bumetanide (Bumetanide) 1 Mg Tab 1 MG PO DAILY, #30 TAB Carvedilol (Coreg) 3.125 Mg Tab 3.125 MG PO Q12HR, #60 TAB Sacubitril-Valsartan (Entresto) 24-26 Mg Tab 1 TAB PO BID, #60 TAB Continued Medications: Ergocalciferol (Ergocalciferol) 50,000 Unit Cap 76246 UNITS PO Q7D for Nutritional Supplement, #90 CAP 0 Refills Insulin Glargine Inj (Lantus Inj) 1,000 Unit/10 Ml Vial 9 UNITS SQ HS for Blood Sugar Management, #1 VIAL 0 Refills 9 units daily or as directed e-Yvjeekwsohsl-Omquw (Metanx) 1 Cap 1 CAP PO DAILY, #90 CAP 3 Refills Levothyroxine (Synthroid) 100 Mcg Tab 100 MCG PO DAILY for Thyroid, #90 TAB 2 Refills Metformin (Glucophage) 500 Mg Tab 500 MG PO DAILY for Blood Sugar Management, #180 TAB 0 Refills With a meal Sitagliptin (Januvia) 100 Mg Tab 100 MG PO DAILY for Blood Sugar Management, #90 TAB 0 Refills Discontinued Medications: Amlodipine (Amlodipine) 5 Mg Tab 5 MG PO BID for Blood Pressure Management, #180 TAB 1 Refill Calcium Carbonate (Calcium) 600 Mg Tab Cyclobenzaprine (Flexeril) 10 Mg Tab 10 MG PO TID for Muscle Spasm, #21 TAB 0 Refills Hydrochlorothiazide (Hydrochlorothiazide) 12.5 Mg Tab 12.5 MG PO three days per week, #36 TAB 4 Refills One tablet three days per week. Hydroxyzine HCl (Hydroxyzine HCl) 25 Mg Tab 25 MG PO TID, #100 TAB 2 Refills Losartan (Losartan) 50 Mg Tab 50 MG PO BID for Blood Pressure Management, #180 TAB 0 Refills Losartan (Losartan) 50 Mg Tab 50 MG PO BID for Blood Pressure Management, #60 TAB 0 Refills Tizanidine (Zanaflex) 2 Mg Cap 2 MG PO TID for Muscle Spasm, #21 CAP 4 Refills Eryn Kee MD R1 Dec 12, 2016 15:45
== END 2016-12-12 17:14 | DRG 870 ==
LOC: NEPE 11:04 → NEDA 12:37 → HIME 15:05 → HCIS 12-10 19:22
PROVIDERS: ADMIT Family Medicine; ATTEND Family Medicine
PROC: 5A1955Z Respiratory Ventilation, Greater than 96 Consecutive Hours (ICD-10-PCS; principal; 2016-12-03)
PROC: 0BH17EZ Insertion of Endotracheal Airway into Trachea, Via Natural or Artificial Opening (ICD-10-PCS; 2016-12-03)
PROC: 02HV33Z Insertion of Infusion Device into Superior Vena Cava, Percutaneous Approach (ICD-10-PCS; 2016-12-04)
PROC: B543ZZA Ultrasonography of Right Jugular Veins, Guidance (ICD-10-PCS; 2016-12-04)
PROC: B2111ZZ Fluoroscopy of Multiple Coronary Arteries using Low Osmolar Contrast (ICD-10-PCS; 2016-12-09)
PROC: 4A023N8 Measurement of Cardiac Sampling and Pressure, Bilateral, Percutaneous Approach (ICD-10-PCS; 2016-12-09)
DX: A41.9 Sepsis, unspecified organism (principal); J96.01 Acute respiratory failure with hypoxia; J69.0 Pneumonitis due to inhalation of food and vomit; R65.21 Severe sepsis with septic shock; I50.23 Acute on chronic systolic (congestive) heart failure; G93.41 Metabolic encephalopathy; E11.10 Type 2 diabetes mellitus with ketoacidosis without coma; N17.9 Acute kidney failure, unspecified; I42.9 Cardiomyopathy, unspecified; I13.0 Hypertensive heart and chronic kidney disease with heart failure and stage 1 through stage 4 chronic kidney disease, or unspecified chronic kidney disease; E11.42 Type 2 diabetes mellitus with diabetic polyneuropathy; E11.21 Type 2 diabetes mellitus with diabetic nephropathy; R13.10 Dysphagia, unspecified; N18.3 Chronic kidney disease, stage 3 (moderate); E11.40 Type 2 diabetes mellitus with diabetic neuropathy, unspecified; E03.9 Hypothyroidism, unspecified; I10 Essential (primary) hypertension; I44.7 Left bundle-branch block, unspecified; I65.22 Occlusion and stenosis of left carotid artery; E78.5 Hyperlipidemia, unspecified; E11.22 Type 2 diabetes mellitus with diabetic chronic kidney disease; I27.20 Pulmonary hypertension, unspecified; I27.22 Pulmonary hypertension due to left heart disease; I25.10 Atherosclerotic heart disease of native coronary artery without angina pectoris; R40.2431 Glasgow coma scale score 3-8, in the field [EMT or ambulance]; Z79.4 Long term (current) use of insulin; Z82.49 Family history of ischemic heart disease and other diseases of the circulatory system; Z86.73 Personal history of transient ischemic attack (TIA), and cerebral infarction without residual deficits; Z91.040 Latex allergy status
CPT/HCPCS: 31500; 36556; 36600; 70450; 70496; 70498; 70544; 70551; 71010; 71275; 74177; 76705; 76937; 80048; 80053; 80061; 80202; 80307; 81001; 82010; 82140; 82435; 82550; 82565; 82805; 82810; 82947; 82948; 83036; 83605; 83735; 83880; 84100; 84132; 84295; 84443; 84484; 84520; 85002; 85007; 85025; 85027; 85384; 85610; 85730; 86850; 86900; 86901; 87040; 87070; 87077; 87086; 87186; 87205; 87449; 87641; 87804; 93005; 93306; 93460; 94002; 94003; 94640; 94664; 95819; 99152; 99153; 99292; C1769; C1893; C9113; J0456; J0692; J1250; J1644; J1815; J1940; J2060; J2250; J2543; J3010; J3370; J3411; J3480; J7030; J7050; P9047; Q9967

== ENCOUNTER 2017-05-03 17:55 | Emergency (ER) | payer MEDICARE ==
[~2017-05-03] VITALS: Ht 160 cm; Wt 56.3 kg
[~2017-05-03 17:55] MED LIST changes: -AMLO5TAB2 PO; +ASPI81CH25 NG; +BUME1TAB PO; -CALC600T25; +CARV3.125 PO; +COMMODE 3-IN-11 MIS; -CYCL1TAB29 PO; +DEFIB EXTERNAL; -ERGO1CAP30 PO; -HYDR-3133 PO; -HYDR12.56 PO; +INSU1INJ5 SQ; -LANTUS2P SQ; +LEVEMIR SQ; -LOSA50TA PO; +Rolling Walker; +SACU1TAB PO; +VITA500012 PO; -ZANA2CAP PO; +Zinc Oxide 40% Oint TOPICAL
[2017-05-03 18:06] VITALS: BP 160/75; PULSE 69; RESP 16; TEMP 97.2; O2SAT 96
[2017-05-03] MEDS ORDERED: SOD PHOSPHATE/SOD BIPHOSPHATE (ADULT) ENEMA 133ML RECTAL ONE (18:30)
[2017-05-03] MEDS ORDERED: LACTULOSE SYRUP 20 GM/30 ML CUP PO ONE (18:30)
--- NOTE | 2017-05-03 18:58 | PD ---
HPI Chief Complaint: GI Complaint Time Seen by Provider: 18:16 Travel History International Travel<30 days: No Contact w/Intl Traveler<30days: No Traveled to known affect area: No History of Present Illness HPI Patient is a 71-year-old female who comes in complaining of constipation. She recently had a defibrillator placed and is currently taking pain medication. She says that she thinks she had a normal bowel movement yesterday, but today she has been straining and only passing small, hard stool. She says she has had some nausea and some abdominal discomfort. She denies fever or chills. She says she has never had any issues with constipation in the past. She says she drinks a little bit of magnesium citrate and used a suppository prior to coming in with no results. Severity is mild to moderate. PFSH Past Medical History Hx Anticoagulant Therapy: Yes (asa 81mg) Asthma: No Heart Rhythm Problems: Yes (left BBB) Cancer: No Cardiovascular Problems: Yes (htn on meds) High Cholesterol: No Chest Pain: Yes (two weeks ago) Congestive Heart Failure: Yes COPD: No Diabetes: Yes (type 2) Patient Takes Glucophage: Yes Diminished Hearing: No Endocrine: Yes Genitourinary: No Hypertension: Yes Immune Disorder: No Implanted Vascular Access Dvce: No Musculoskeletal: No Neurologic: No Psychiatric: No Reproductive: No Respiratory: Yes (pneumonia 11/2016) Myocardial Infarction: Yes Sleep Apnea: No Thyroid Disease: Yes (hypothyroidism) Influenza Vaccination: Yes ?: Not Past Surgical History Abdominal Surgery: No Cardiac Surgery: Yes (DEFIB/ICD ) Ear Surgery: No Endocrine Surgery: No Eye Surgery: No Genitourinary Surgery: No Gynecologic Surgery: No Oral Surgery: No Pacemaker: Yes Thoracic Surgery: No Tonsillectomy: Yes Other Surgery: Yes Social History Alcohol Use: No Tobacco Use: No Substance Use: No Allergies-Medications (Allergen,Severity, Reaction): Coded Allergies: latex (Unverified Allergy, Intermediate, RASH, 05/03/17) Reported Meds & Prescriptions Reported Meds & Active Scripts Active Coreg (Carvedilol) 3.125 Mg Tab 3.125 Mg PO Q12HR Two tablets twice a day for heart. [Zinc Oxide 40% Oint] 60 APPLIC/60 GM Oint 1 Applic TOPICAL BID 30 Days Glucophage (Metformin HCl) 500 Mg Tab 500 Mg PO BIDPC Bumetanide 1 Mg Tab 1 Mg PO DAILY Aspirin Low Strength (Aspirin) 81 Mg Chew 81 Mg NG DAILY Entresto (Sacubitril-Valsartan) 24-26 Mg Tab 1 Tab PO BID Januvia (Sitagliptin Phosphate) 100 Mg Tab 100 Mg PO DAILY Synthroid (Levothyroxine Sodium) 100 Mcg Tab 100 Mcg PO DAILY Ergocalciferol 50,000 Unit Cap 50,000 Units PO Q7D [Rolling Walker] Each Defibrillator Jacket (Device) 1 Ea Device Ea EXTERNAL ONCE Energy = 150 Joules; VT Threshold = 150 BPM; VF Threshold = 200 BPM Use up to 90 days only Review of Systems Except as stated in HPI: all other systems reviewed are Neg General / Constitutional: No: Fever, Chills HENT: No: Headaches, Lightheadedness Cardiovascular: No: Chest Pain or Discomfort Respiratory: No: Shortness of Breath Gastrointestinal: Positive: Abdominal Pain, Constipation Musculoskeletal: No: Myalgias, Edema Skin: No Rash, No Change in Pigmentation Neurologic: No: Weakness, Dizziness Physical Exam Narrative GENERAL: Awake and alert, no acute distress. SKIN: Focused skin assessment warm/dry. Bruising to the left breast status post defibrillator placement. HEAD: Atraumatic. Normocephalic. EYES: Pupils equal and round. No scleral icterus. ENT: No nasal bleeding or discharge. Mucous membranes pink and moist. NECK: Trachea midline. No JVD. CARDIOVASCULAR: Regular rate and rhythm. No murmur appreciated. RESPIRATORY: No accessory muscle use. Clear to auscultation. Breath sounds equal bilaterally. GASTROINTESTINAL: Abdomen soft, non-tender, nondistended. MUSCULOSKELETAL: No obvious deformities. No clubbing. No cyanosis. No edema. NEUROLOGICAL: Awake and alert. No obvious cranial nerve deficits. Motor grossly within normal limits. Normal speech. PSYCHIATRIC: Appropriate mood and affect; insight and judgment normal. Data Data Last Documented VS Vital Signs Date Time Temp Pulse Resp B/P (MAP) Pulse Ox O2 Delivery O2 Flow Rate FiO2 05/03/17 18:06 97.2 69 16 160/75 (103) 96 Orders Orders Abdomen, Flat & Upright (05/03/17 ) Lactulose Liq (Lactulose Liq) (05/03/17 18:30) Fleets Enema (Adult) (Fleets Enema (Adul (05/03/17 18:30) [facility] Medical Decision Making Medical Screen Exam Complete: Yes Emergency Medical Condition: Yes Medical Record Reviewed: Yes Differential Diagnosis Constipation versus drug reaction versus obstruction Narrative Course Patient is a 71-year-old female who comes in complaining of constipation. Exam shows no abdominal tenderness on palpation. Flat and upright x-ray performed shows a large amount of stool in the colon. Patient given lactulose and enema. Patient had to be manually disimpacted. A large amount of stool was taken out of her rectum. She feels better. She is advised to continue stool softeners and to take MiraLAX daily to help keep her regular. Advised that her pain medicine is likely causing her constipation. Advised follow-up with her doctor. Advised return to the ED as needed for any worsening symptoms. Diagnosis Primary Impression: Constipation Qualified Codes: K59.03 - Drug induced constipation Additional Impression: Impaction of colon Patient Instructions: Constipation (ED), General Instructions Additional Instructions: Try taking MiraLAX daily to help keep her stools regular. Continue your stool softener. Follow-up with your doctors. Return to the ED as needed for any worsening symptoms. Disposition: 01 DISCHARGE HOME Condition: Stable Saumya Vital MD May 03, 2017 18:58
--- NOTE | 2017-05-03 19:16 | RADRPT ---
EXAM DATE/TIME: 05/03/2017 18:40 [facility] COMPARISON: CT ABDOMEN & PELVIS W CONTRAST, December 03, 2016, 14:45. INDICATIONS : Constipation. Abdominal pain. MEDICAL HISTORY : Hypothyroidism. Hypertension. Diabetes. SURGICAL HISTORY : Pacemaker. ENCOUNTER: Initial ACUITY: 2 days PAIN SCORE: 6/10 LOCATION: abdomen. FINDINGS: Supine and upright views of the abdomen were performed. The abdominal bowel gas pattern is normal. T here is stool seen throughout the colon especially in the rectal region. No air fluid levels are seen . No abnormal masses or organomegaly is seen. The visualized lower lungs are clear. No evidence of free intraperitoneal gas. The osseous structures are unremarkable. Calcifications are seen in the r ight pelvis related to uterine fibroids. These were seen on a prior CT examination. There is a pacing device seen in the chest. CONCLUSION: Prominent stool seen throughout the colon. Rocael Parada MD on May 03, 2017 at 19:13 Board Certified Radiologist. This report was verified electronically.
[2017-05-03 20:49] VITALS: BP 152/77; TEMP 98.2
== END 2017-05-03 20:52 | disposition home or self-care (01) ==
LOC: PHED 17:55
DX: K59.03 Drug induced constipation (principal); K56.49 Other impaction of intestine; I11.0 Hypertensive heart disease with heart failure; I50.9 Heart failure, unspecified; E11.9 Type 2 diabetes mellitus without complications; I25.2 Old myocardial infarction; E03.9 Hypothyroidism, unspecified; Z79.82 Long term (current) use of aspirin; Z95.0 Presence of cardiac pacemaker; Z79.84 Long term (current) use of oral hypoglycemic drugs
CPT/HCPCS: 74019; 99284